=== PATIENT | male | born 1930 | race Caucasian/White ===

== ENCOUNTER 2017-05-12 02:09 | Inpatient (IN) | payer MEDICARE, OTHER ==
--- NOTE | 2017-05-12 03:18 | EDM.PDOC ---
ED HPI GENERAL MEDICAL PROBLEM - General Chief Complaint: Respiratory Problem Stated Complaint: [facility] Time Seen by Provider: 05/12/17 02:10 Source of Information: Reports: Patient, Family (), RN Notes Reviewed History Limitations: Reports: No Limitations - History of Present Illness INITIAL COMMENTS - FREE TEXT/NARRATIVE: The patient states that he developed nausea, vomiting, and nonbloody diarrhea on 05/09/2017, that continued through 05/10/2017. None yesterday or today. He states that he fell and struck his left lower ribs on the toilet around 22:30 tonight. He states that he fell because of generalized weakness, that his legs simply gave out, not because of dizziness. He states that he is otherwise uninjured. Here in the ED, the patient is found to be febrile at 101.8. His oxygen saturation was 75% on room air, 92% on 3.5 L O2 per NC. The patient states that he has a chronic cough, productive of clear sputum, unchanged from his baseline. He is chronically short of breath, and denies exacerbation. No chest pain or palpitations. Up until Wednesday, he was reportedly in his usual state of health. He saw his Grocery Packer, Dr. Davidson, yesterday. The patient's PCP is Dr. Chico Moser. Left Wrist Pain Score (Numeric/FACES): 7 - Related Data Allergies Allergy/AdvReac Type Severity Reaction Status Date / Time No Known Allergies Allergy Verified 07/20/15 09:11 Home Meds: Home Meds Allopurinol [Zyloprim] 150 mg PO BEDTIME 03/02/14 [History] Aspirin [Jacey Chewable Aspirin] 81 mg PO BEDTIME 03/02/14 [History] Furosemide [Lasix] 40 mg PO DAILY 03/02/14 [History] Warfarin [Coumadin] 3 mg PO ASDIRECTED 03/02/14 [History] Fluticasone/Salmeterol [Advair 500-50] 1 puff INH BID 09/29/14 [History] Warfarin Sodium [Coumadin] 6 mg PO ASDIRECTED 10/31/14 [History] Clopidogrel [Plavix] 75 mg PO DAILY 02/16/15 [History] Amoxicillin/Clavulanate K [Augmentin 875 MG/125 MG] 1 tab PO Q12HR #14 tablet [Rx] Fenofibric Acid (Choline) [Fenofibric Acid] 1 tab PO DAILY 07/20/15 [History] Metoprolol Succinate [Toprol XL] 1 tab PO DAILY 07/20/15 [History] glipiZIDE [Glucotrol XL] 1 tab PO QPM 07/20/15 [History] Past Medical History HEENT History: Reports: Cataract, Impaired Vision Cardiovascular History: Reports: Arrhythmia (Sick sinus syndrome), CAD, High Cholesterol, Hypertension, PVD, Other (See Below) (Carotid artery disease) Respiratory History: Reports: COPD, Sleep Apnea (nightly CPAP) Gastrointestinal History: Reports: Diverticulosis Genitourinary History: Reports: BPH, Chronic Renal Insuffiency Musculoskeletal History: Reports: Gout (suspected) Endocrine/Metabolic History: Reports: Diabetes, Type II - Past Surgical History HEENT Surgical History: Reports: Cataract Surgery Cardiovascular Surgical History: Reports: AAA Repair (endograft), Carotid Endarterectomy (left), Coronary Artery Bypass (x 5 vessel), Pacer, Other (See Below) (Bilateral femoral artery stents?) GI Surgical History: Reports: Cholecystectomy Male Surgical History: Reports: TURP-Transurethral Resection of Prostate Social & Family History - Family History Family Medical History: Noncontributory - Tobacco Use Smoking Status *Q: Former Smoker Years of Tobacco use: 60 Packs/Tins Daily: 1 Used Tobacco, but Quit: Yes Month Tobacco Last Used: Quit Nov 2016 Second Hand Smoke Exposure: No - Caffeine Use Caffeine Use: Reports: None - Alcohol Use Alcohol Use History: Yes Days Per Week of Alcohol Use: 7 Number of Drinks Per Day: 1 Total Drinks Per Week: 7 Alcohol Use Frequency: Daily - Recreational Drug Use Recreational Drug Use: No - Living Situation & Occupation Living situation: Reports: , with Spouse Occupation: Retired ED ROS GENERAL - Review of Systems Review Of Systems: See Below Constitutional: Reports: No Symptoms HEENT: Reports: No Symptoms Respiratory: Reports: No Symptoms Cardiovascular: Reports: No Symptoms Endocrine: Reports: No Symptoms GI/Abdominal: Reports: No Symptoms : Reports: No Symptoms Musculoskeletal: Reports: No Symptoms Skin: Reports: No Symptoms Neurological: Reports: No Symptoms Psychiatric: Reports: No Symptoms Hematologic/Lymphatic: Reports: No Symptoms Immunologic: Reports: No Symptoms ED EXAM, GENERAL - Physical Exam Exam: See Below Exam Limited By: No Limitations General Appearance: Alert, WD/WN, No Apparent Distress Eye Exam: Bilateral Eye: Normal Inspection Ears: Normal External Exam, Hearing Grossly Normal Nose: Normal Inspection, No Blood Throat/Mouth: Normal Inspection, Normal Lips, Normal Voice, No Airway Compromise Head: Atraumatic, Normocephalic Neck: Normal Inspection, Full Range of Motion Respiratory/Chest: No Respiratory Distress, No Accessory Muscle Use, Decreased Breath Sounds, Crackles (Right base only), Rhonchi (Scattered throughout). No: Wheezing, Prolonged Expiration Cardiovascular: Normal Peripheral Pulses, Regular Rate, Rhythm, No Gallop, No JVD, No Murmur, No Rub Peripheral Pulses: 4+: Femoral (L), Femoral (R) GI/Abdominal: Normal Bowel Sounds, Soft, No Organomegaly, No Distention, No Abnormal Bruit, No Mass (Male) Exam: Deferred Rectal (Males) Exam: Deferred Back Exam: Normal Inspection, Full Range of Motion. No: CVA Tenderness (L), CVA Tenderness (R) Extremities: Normal Inspection, Normal Range of Motion, Normal Capillary Refill , Other (Trace pretibial edema bilateral lower extremity) Neurological: Alert, Oriented, Normal Cognition, No Motor/Sensory Deficits Psychiatric: Normal Affect Skin Exam: Warm, Dry, Intact, Normal Color, No Rash Lymphatic: No Adenopathy EKG INTERPRETATION EKG Date: 05/12/17 Time: 03:08 Rhythm: Other (V-paced) Rate (Beats/Min): 64 P-Wave: Absent Comparison: No Change (09/29/14) EKG Interpretation Comments: Several PVC's Course - Vital Signs Last Recorded V/S: Last Vital Signs Temp 38.8 C H 05/12/17 02:11 Pulse 79 05/12/17 02:11 Resp 33 H 05/12/17 02:11 BP 140/48 L 05/12/17 02:11 Pulse Ox 95 05/12/17 03:33 - Orders/Labs/Meds Orders: Active Orders 24 hr Category Date Time Status EKG Documentation Completion [RC] STAT Care 05/12/17 02:44 Active RT Aerosol Therapy [RC] ASDIRECTED Care 05/12/17 03:21 Active Chest 1V Frontal [CR] Stat Exams 05/12/17 02:47 Taken CULTURE BLOOD [BC] Stat Lab 05/12/17 02:50 Received CULTURE BLOOD [BC] Stat Lab 05/12/17 02:59 Received CULTURE URINE [RM] Stat Lab 05/12/17 02:25 Received Levofloxacin/Dextrose 5%-Water [Levaquin in D5W 500 MG/ Med 05/12/17 03:34 Active 100 ML] 500 mg Premix Bag 1 bag IV ONETIME Blood Culture x2 Reflex Set [OM.PC] Stat Oth 05/12/17 02:44 Ordered Medication Orders Levofloxacin/Dextrose 500 mg/ (Premix) 100 mls @ 100 mls/hr IV ONETIME ONE Stop: 05/12/17 04:33 Last Admin: 05/12/17 03:44 Dose: 100 mls/hr Labs: Laboratory Tests 05/12/17 05/12/17 05/12/17 Range/Units 02:25 02:44 02:50 WBC 10.85 H (4.23-9.07) K/mm3 RBC 4.08 L (4.63-6.08) M/mm3 Hgb 10.8 L (13.7-17.5) gm/L Hct 34.4 L (40.1-51.0) % MCV 84.3 (79.0-92.2) fl MCH 26.5 (25.7-32.2) pg MCHC 31.4 L (32.2-35.5) g/dl RDW Std Deviation 63.3 H (35.1-43.9) fL Plt Count 250 (163-337) K/mm3 MPV 9.8 (9.4-12.3) fl Neutrophils % (Manual) 88 H (40-60) % Band Neutrophils % 1 (0-10) % Lymphocytes % (Manual) 7 L (20-40) % Atypical Lymphs % 0 % Monocytes % (Manual) 4 (2-10) % Eosinophils % (Manual) 0 L (0.8-7.0) % Basophils % (Manual) 0 L (0.2-1.2) Toxic Granulation 1+ slight Platelet Estimate Adequate Plt Morphology Comment Normal Polychromasia 1+ slight Anisocytosis 1+ slight Microcytosis Few Macrocytosis Moderate Schistocytes Rare RBC Morph Comment Not Reportable PT (8.0-13.0) SECONDS INR APTT (22-36) SECONDS Puncture Site Rt radial ABG pH 7.41 (7.35-7.45) ABG pCO2 35.1 (35.0-45.0) mmHg ABG pO2 70.0 L (80.0-100.0) mmHg ABG HCO3 21.7 L (22.0-26.0) meq/L ABG O2 Saturation 93.2 L (96.0-97.0) % ABG Base Excess -2.0 (-2-2.0) O2 Delivery Device Nasal cannula Oxygen Flow Rate 2.5 FiO2 0.00 L (21.00-100.00) % Sodium (136-145) mEq/L Potassium (3.5-5.1) mEq/L Chloride (98-107) mEq/L Carbon Dioxide (21-32) mEq/L Anion Gap (5-15) BUN (7-18) mg/dL Creatinine (0.7-1.3) mg/dL Est Cr Clr Drug Dosing mL/min Estimated GFR (MDRD) (>60) mL/min BUN/Creatinine Ratio (14-18) Glucose (83-115) mg/dL Lactic Acid (0.4-2.0) mmol/L Calcium (8.5-10.1) mg/dL Total Bilirubin (0.2-1.0) mg/dL AST (15-37) U/L ALT (16-63) U/L Alkaline Phosphatase (46-116) U/L Troponin I (0.00-0.056) ng/mL B-Natriuretic Peptide (0-100) pg/mL Total Protein (6.4-8.2) g/dl Albumin (3.4-5.0) g/dl Globulin gm/dL Albumin/Globulin Ratio (1-2) Urine Color Yellow (Yellow) Urine Appearance Clear (Clear) Urine pH 5.5 (5.0-8.0) Ur Specific [place] 1.020 (1.005-1.030) Urine Protein 1+ H (Negative) Urine Glucose (UA) Negative (Negative) Urine Ketones Negative (Negative) Urine Occult Blood Negative (Negative) Urine Nitrite Negative (Negative) Urine Bilirubin Negative (Negative) Urine Urobilinogen 1.0 (0.2-1.0) Ur Leukocyte Esterase Negative (Negative) Urine RBC 5-10 H (0-5) /hpf Urine WBC 10-20 H (0-5) /hpf Ur Epithelial Cells 0-5 (0-5) /hpf Amorphous Sediment Moderate H (NOT SEEN) /hpf Urine Bacteria Moderate H (FEW) /hpf Hyaline Casts 40-50 H (0-5) /lpf Urine Mucus Few (FEW) /hpf 05/12/17 05/12/17 05/12/17 Range/Units 02:50 02:50 02:50 WBC (4.23-9.07) K/mm3 RBC (4.63-6.08) M/mm3 Hgb (13.7-17.5) gm/L Hct (40.1-51.0) % MCV (79.0-92.2) fl MCH (25.7-32.2) pg MCHC (32.2-35.5) g/dl RDW Std Deviation (35.1-43.9) fL Plt Count (163-337) K/mm3 MPV (9.4-12.3) fl Neutrophils % (Manual) (40-60) % Band Neutrophils % (0-10) % Lymphocytes % (Manual) (20-40) % Atypical Lymphs % % Monocytes % (Manual) (2-10) % Eosinophils % (Manual) (0.8-7.0) % Basophils % (Manual) (0.2-1.2) Toxic Granulation Platelet Estimate Plt Morphology Comment Polychromasia Anisocytosis Microcytosis Macrocytosis Schistocytes RBC Morph Comment PT 35.9 H (8.0-13.0) SECONDS INR 3.07 APTT 44 H (22-36) SECONDS Puncture Site ABG pH (7.35-7.45) ABG pCO2 (35.0-45.0) mmHg ABG pO2 (80.0-100.0) mmHg ABG HCO3 (22.0-26.0) meq/L ABG O2 Saturation (96.0-97.0) % ABG Base Excess (-2-2.0) O2 Delivery Device Oxygen Flow Rate FiO2 (21.00-100.00) % Sodium 138 (136-145) mEq/L Potassium 4.1 (3.5-5.1) mEq/L Chloride 105 (98-107) mEq/L Carbon Dioxide 25 (21-32) mEq/L Anion Gap 12.1 (5-15) BUN 35 H (7-18) mg/dL Creatinine 1.8 H (0.7-1.3) mg/dL Est Cr Clr Drug Dosing 30.98 mL/min Estimated GFR (MDRD) 36 (>60) mL/min BUN/Creatinine Ratio 19.4 H (14-18) Glucose 95 (83-115) mg/dL Lactic Acid (0.4-2.0) mmol/L Calcium 9.2 (8.5-10.1) mg/dL Total Bilirubin 0.9 (0.2-1.0) mg/dL AST 62 H (15-37) U/L ALT 25 (16-63) U/L Alkaline Phosphatase 43 L (46-116) U/L Troponin I 0.071 H* (0.00-0.056) ng/mL B-Natriuretic Peptide 562 H (0-100) pg/mL Total Protein 8.1 (6.4-8.2) g/dl Albumin 3.1 L (3.4-5.0) g/dl Globulin 5.0 gm/dL Albumin/Globulin Ratio 0.6 L (1-2) Urine Color (Yellow) Urine Appearance (Clear) Urine pH (5.0-8.0) Ur Specific [place] (1.005-1.030) Urine Protein (Negative) Urine Glucose (UA) (Negative) Urine Ketones (Negative) Urine Occult Blood (Negative) Urine Nitrite (Negative) Urine Bilirubin (Negative) Urine Urobilinogen (0.2-1.0) Ur Leukocyte Esterase (Negative) Urine RBC (0-5) /hpf Urine WBC (0-5) /hpf Ur Epithelial Cells (0-5) /hpf Amorphous Sediment (NOT SEEN) /hpf Urine Bacteria (FEW) /hpf Hyaline Casts (0-5) /lpf Urine Mucus (FEW) /hpf // Range/Units 02:50 WBC (4.23-9.07) K/mm3 RBC (4.63-6.08) M/mm3 Hgb (13.7-17.5) gm/L Hct (40.1-51.0) % MCV (79.0-92.2) fl MCH (25.7-32.2) pg MCHC (32.2-35.5) g/dl RDW Std Deviation (35.1-43.9) fL Plt Count (163-337) K/mm3 MPV (9.4-12.3) fl Neutrophils % (Manual) (40-60) % Band Neutrophils % (0-10) % Lymphocytes % (Manual) (20-40) % Atypical Lymphs % % Monocytes % (Manual) (2-10) % Eosinophils % (Manual) (0.8-7.0) % Basophils % (Manual) (0.2-1.2) Toxic Granulation Platelet Estimate Plt Morphology Comment Polychromasia Anisocytosis Microcytosis Macrocytosis Schistocytes RBC Morph Comment PT (8.0-13.0) SECONDS INR APTT (22-36) SECONDS Puncture Site ABG pH (7.35-7.45) ABG pCO2 (35.0-45.0) mmHg ABG pO2 (80.0-100.0) mmHg ABG HCO3 (22.0-26.0) meq/L ABG O2 Saturation (96.0-97.0) % ABG Base Excess (-2-2.0) O2 Delivery Device Oxygen Flow Rate FiO2 (21.00-100.00) % Sodium (136-145) mEq/L Potassium (3.5-5.1) mEq/L Chloride (98-107) mEq/L Carbon Dioxide (21-32) mEq/L Anion Gap (5-15) BUN (7-18) mg/dL Creatinine (0.7-1.3) mg/dL Est Cr Clr Drug Dosing mL/min Estimated GFR (MDRD) (>60) mL/min BUN/Creatinine Ratio (14-18) Glucose (83-115) mg/dL Lactic Acid 1.4 (0.4-2.0) mmol/L Calcium (8.5-10.1) mg/dL Total Bilirubin (0.2-1.0) mg/dL AST (15-37) U/L ALT (16-63) U/L Alkaline Phosphatase (46-116) U/L Troponin I (0.00-0.056) ng/mL B-Natriuretic Peptide (0-100) pg/mL Total Protein (6.4-8.2) g/dl Albumin (3.4-5.0) g/dl Globulin gm/dL Albumin/Globulin Ratio (1-2) Urine Color (Yellow) Urine Appearance (Clear) Urine pH (5.0-8.0) Ur Specific [place] (1.005-1.030) Urine Protein (Negative) Urine Glucose (UA) (Negative) Urine Ketones (Negative) Urine Occult Blood (Negative) Urine Nitrite (Negative) Urine Bilirubin (Negative) Urine Urobilinogen (0.2-1.0) Ur Leukocyte Esterase (Negative) Urine RBC (0-5) /hpf Urine WBC (0-5) /hpf Ur Epithelial Cells (0-5) /hpf Amorphous Sediment (NOT SEEN) /hpf Urine Bacteria (FEW) /hpf Hyaline Casts (0-5) /lpf Urine Mucus (FEW) /hpf Meds: Medications Generic Name Dose Route Start Last Admin Trade Name Freq PRN Reason Stop Dose Admin Levofloxacin/Dextrose 500 mg/ 100 mls @ 100 mls/hr 05/12/17 03:34 05/12/17 03 :44 Premix IV 05/12/17 04:33 100 mls/hr ONETIME ONE Administration Discontinued Medications Generic Name Dose Route Start Last Admin Trade Name Freq PRN Reason Stop Dose Admin Albuterol/Ipratropium 3 ml 05/12/17 03:21 05/12/17 03:32 Duoneb 3.0-0.5 Mg/3 Ml NEB 05/12/17 03:22 3 ml ONETIME ONE Administration - Re-Assessments/Exams Free Text/Narrative Re-Assessment/Exam: 05/12/17 03:20 Two-view chest radiograph appears to be grossly unremarkable. Cardiac silhouette is within normal limits. No pulmonary vascular congestion. No pleural effusions. No focal infiltrate. No pneumothorax. Sternotomy wires, consistent with a CABG noted. Left-sided dual-chamber pacemaker noted. Formal read per the Radiologist pending. 05/12/17 03:31 The patient's ABG represents a combined respiratory alkalosis and metabolic acidosis. 05/12/17 03:33 The patient's urinalysis is consistent with a UTI. I have ordered a urine culture and will start the patient on Levaquin. 05/12/17 03:42 The patient's troponin has returned slightly elevated at 0.071, however, the patient's BUN/Cr is elevated at 35/1.8, which is likely responsible for the slight troponin elevation. The patient is not complaining of chest pain or dyspnea. The patient's ECG is V-paced and therefore uninterpretable. The patient's BUN/Cr were 46/1.6 on 11/29/2016. 05/12/17 03:58 Informed that the patient is having intermittent altered mental status. The patient therefore qualifies as having sepsis. Blood cultures were obtained at the time of blood draws, urine culture, as above, has been sent, and the patient has been started on Levaquin for a presumed UTI. 05/12/17 04:[address] Garcia at 04:00. She accepts the patient for admission. The patient's CODE STATUS is DNR/DNI. Departure - Departure Time of Disposition: 04:05 Disposition: Admitted As Inpatient 68 Condition: Serious Clinical Impression: Sepsis, UTI (urinary tract infection), Chronic renal insufficiency, Supratherapeutic INR, Hypoxemia - Discharge Information - My Orders Last 24 Hours: My Active Orders 05/12/17 02:25 CULTURE URINE [RM] Stat 05/12/17 02:44 EKG Documentation Completion [RC] STAT Blood Culture x2 Reflex Set [OM.PC] Stat 05/12/17 02:47 Chest 1V Frontal [CR] Stat 05/12/17 02:50 CULTURE BLOOD [BC] Stat 05/12/17 02:59 CULTURE BLOOD [BC] Stat 05/12/17 03:21 RT Aerosol Therapy [RC] ASDIRECTED 05/12/17 03:34 Levofloxacin/Dextrose 5%-Water [Levaquin in D5W 500 MG/100 ML] 500 mg Premix Bag 1 bag IV ONETIME - Assessment/Plan Last 24 Hours: My Active Orders 05/12/17 02:25 CULTURE URINE [RM] Stat 05/12/17 02:44 EKG Documentation Completion [RC] STAT Blood Culture x2 Reflex Set [OM.PC] Stat 05/12/17 02:47 Chest 1V Frontal [CR] Stat 05/12/17 02:50 CULTURE BLOOD [BC] Stat 05/12/17 02:59 CULTURE BLOOD [BC] Stat 05/12/17 03:21 RT Aerosol Therapy [RC] ASDIRECTED 05/12/17 03:34 Levofloxacin/Dextrose 5%-Water [Levaquin in D5W 500 MG/100 ML] 500 mg Premix Bag 1 bag IV ONETIME
[2017-05-12] MEDS ORDERED: Albuterol/Ipratropium 3.0-0.5 MG/3 ML Neb Soln NEB ONE (03:21)
[2017-05-12] MEDS ORDERED: Levofloxacin/Dextrose 5%-Water 500 MG in Premix Bag 1 BAG IV ONE (03:34)
[2017-05-12] MEDS ORDERED: Albuterol 0.083% 2.5 MG/3 ML Neb Soln NEB PRN (04:49)
[2017-05-12] MEDS: Azithromycin 500 MG in Sodium Chloride 0.9% 250 ML IV SCH (05:23)
[2017-05-12] MEDS: Sodium Chloride 0.9% 1,000 ML IV SCH ×2 (05:23→10:32)
[2017-05-12] MEDS: Acetaminophen 325 MG Tab PO PRN ×3 (05:24→20:58)
[2017-05-12] MEDS: Albuterol/Ipratropium 3.0-0.5 MG/3 ML Neb Soln NEB SCH ×4 (06:04→20:25)
--- NOTE | 2017-05-12 06:45 | CR ---
Chest: Portable view of the chest was obtained. Comparison: Previous chest x-ray 10/31/14. Heart is enlarged. Pacemaker is noted. Sternotomy wires are seen. Lung markings are mildly increased which appear to be chronic. No acute infiltrates are seen. Old left-sided rib fractures are present. Impression: 1. Findings as noted above. No appreciable change is seen from previous study. Diagnostic code #2
[2017-05-12] MEDS: methylPREDNISolone Sodium Succinate 40 MG/1 ML SDV IVPUSH SCH ×3 (08:31→23:00)
[2017-05-12] MEDS ORDERED: Enoxaparin 30 MG/0.3 ML Syringe SUBCUT SCH (09:00)
--- NOTE | 2017-05-12 09:30 | PCM.PN ---
- General Info Date of Service: 05/12/17 - Review of Systems General: Reports: Weakness (He says he fall last night was due to weakness). 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 He was seen in the clinic on Wednesday. He and his say they were told it was influenza. He has not had nausea, vomiting or diarrhea since being admitted. - Patient Data Vitals - Most Recent: Last Vital Signs Temp 99.1 F 05/12/17 08:13 Pulse 60 05/12/17 08:13 Resp 14 05/12/17 08:13 BP 115/35 L 05/12/17 08:13 Pulse Ox 96 05/12/17 08:49 Weight - Most Recent: 170 lb 4.8 oz Lab Results Last 24 Hours: Laboratory Results - last 24 hr 05/12/17 05/12/17 05/12/17 Range/Units 06:34 06:35 06:35 WBC 11.07 H (4.23-9.07) K/mm3 RBC 3.54 L (4.63-6.08) M/mm3 Hgb 9.3 L (13.7-17.5) gm/L Hct 29.7 L (40.1-51.0) % MCV 83.9 (79.0-92.2) fl MCH 26.3 (25.7-32.2) pg MCHC 31.3 L (32.2-35.5) g/dl RDW Std Deviation 60.8 H (35.1-43.9) fL Plt Count 197 (163-337) K/mm3 MPV 9.9 (9.4-12.3) fl Sodium 137 (136-145) mEq/L Potassium 3.9 (3.5-5.1) mEq/L Chloride 106 (98-107) mEq/L Carbon Dioxide 21 (21-32) mEq/L Anion Gap 13.9 (5-15) BUN 36 H (7-18) mg/dL Creatinine 1.7 H (0.7-1.3) mg/dL Est Cr Clr Drug Dosing 32.80 mL/min Estimated GFR (MDRD) 38 (>60) mL/min BUN/Creatinine Ratio 21.2 H (14-18) Glucose 93 (83-115) mg/dL POC Glucose 89 (83-110) mg/dL Calcium 8.7 (8.5-10.1) mg/dL C-Reactive Protein 3.2 H* (<1.0) mg/dL Med Orders - Current: Current Medications Acetaminophen (Tylenol) 650 mg PO Q4H PRN PRN Reason: Pain/Fever Last Admin: 05/12/17 05:24 Dose: 650 mg Albuterol (Proventil Neb Soln) 2.5 mg NEB Q4HRRT PRN PRN Reason: Shortness of Breath Albuterol/Ipratropium (Duoneb 3.0-0.5 Mg/3 Ml) 3 ml NEB Q6HRRT [facility] Last Admin: 05/12/17 08:27 Dose: 3 ml Enoxaparin Sodium (Lovenox) 30 mg SUBCUT DAILY [facility] Last Admin: 05/12/17 08:31 Dose: 30 mg Azithromycin 500 mg/ Sodium (Chloride) 250 mls @ 250 mls/hr IV Q24H [facility] Last Admin: 05/12/17 05:23 Dose: 250 mls/hr Ceftriaxone Sodium 2 gm/ (Sodium Chloride) 100 mls @ 200 mls/hr IV Q24H [facility] Sodium Chloride (Normal Saline) 1,000 mls @ 200 mls/hr IV ASDIRECTED [facility] Last Admin: 05/12/17 05:23 Dose: 200 mls/hr Methylprednisolone Sodium Succinate (Solu-Medrol) 40 mg IVPUSH Q8H [facility] Last Admin: 05/12/17 08:31 Dose: 40 mg Discontinued Medications Albuterol/Ipratropium (Duoneb 3.0-0.5 Mg/3 Ml) 3 ml NEB ONETIME ONE Stop: 05/12/17 03:22 Last Admin: 05/12/17 03:32 Dose: 3 ml Levofloxacin/Dextrose 500 mg/ (Premix) 100 mls @ 100 mls/hr IV ONETIME ONE Stop: 05/12/17 04:33 Last Admin: 05/12/17 03:44 Dose: 100 mls/hr - Exam Quality Assessment: Supplemental Oxygen General: Alert, Oriented, Cooperative Lungs: Crackles (bilateral lower lob), Rhonchi, Wheezing Cardiovascular: Regular Rate, Regular Rhythm GI/Abdominal Exam: Normal Bowel Sounds, Soft, Non-Tender, No Distention, No Abnormal Bruit, No Mass. No: Hepatomegaly Peripheral Pulses: 2+: Radial (L), Radial (R) Skin: Warm, Dry, Other (bruising on forearms) - Problem List Review Problem List Initiated/Reviewed/Updated: Yes - Plan Plan:: Assessment: Acute exacerbation of COPD Bruising over anterior left lower ribcage Plan: Repeat chest x-ray Repeat troponin
[2017-05-12] MEDS: cefTRIAXone 2 GM in Sodium Chloride 0.9% 100 ML IV SCH (10:33)
[2017-05-12] MEDS: Tamsulosin 0.4 MG Cap.ER PO SCH (11:35)
[2017-05-12] MEDS ORDERED: Albuterol/Ipratropium 3.0-0.5 MG/3 ML Neb Soln NEB SCH (14:00)
--- NOTE | 2017-05-12 14:41 | PCM.HP ---
H&P History of Present Illness - General Date of Service: 05/12/17 Admit Problem/Dx: Admission Diagnosis/Problem Admission Diagnosis/Problem Sepsis Source of Information: Patient, Family, Provider History Limitations: Reports: No Limitations - History of Present Illness Onset of Symptoms: Reports: Sudden Symptom Onset Date: 05/10/17 Duration of Symptoms: Reports: Day(s):, Getting Worse Location: Reports: Generalized Quality: Reports: Pressure Severity: Moderate Improves with: Reports: Medication Worsens with: Reports: None Context: Reports: Activity/Exercise Associated Symptoms: Reports: Chest Pain Left Wrist Pain Score (Numeric/FACES): 4 Thoracic Pain Score (Numeric/FACES): 5 - Related Data Allergies/Adverse Reactions: Allergies Allergy/AdvReac Type Severity Reaction Status Date / Time No Known Allergies Allergy Verified 07/20/15 09:11 Home Medications: Home Meds Allopurinol [Zyloprim] 150 mg PO BEDTIME 03/02/14 [History] Aspirin [Jacey Chewable Aspirin] 81 mg PO BEDTIME 03/02/14 [History] Furosemide [Lasix] 20 mg PO DAILY 03/02/14 [History] Warfarin [Coumadin] 3 mg PO ASDIRECTED 03/02/14 [History] Fluticasone/Salmeterol [Advair 500-50] 1 puff INH BID 09/29/14 [History] Warfarin Sodium [Coumadin] 6 mg PO ASDIRECTED 10/31/14 [History] Clopidogrel [Plavix] 75 mg PO DAILY 02/16/15 [History] Metoprolol Succinate [Toprol XL] 1 tab PO DAILY 07/20/15 [History] Albuterol/Ipratropium [DuoNeb 3.0-0.5 MG/3 ML] 3 ml NEB Q8HRRT 05/12/17 [History ] Pravastatin Sodium [Pravachol] 20 mg PO DAILY 05/12/17 [History] glipiZIDE [Glucotrol XL] 2.5 mg PO DAILY 05/12/17 [History] Past Medical History HEENT History: Reports: Cataract, Impaired Vision Cardiovascular History: Reports: Arrhythmia, CAD, Hypertension, PVD Respiratory History: Reports: COPD, Sleep Apnea Gastrointestinal History: Reports: Diverticulosis Genitourinary History: Reports: BPH, Chronic Renal Insuffiency, Diabetic Nephropathy Musculoskeletal History: Reports: Gout Neurological History: Reports: None Psychiatric History: Reports: None Endocrine/Metabolic History: Reports: Diabetes, Type II - Infectious Disease History Infectious Disease History: Reports: Other (See Below) Other Infectious Disease History: infectious hepatitis in 1957 - Past Surgical History HEENT Surgical History: Reports: Cataract Surgery Cardiovascular Surgical History: Reports: AAA Repair, Carotid Endarterectomy, Coronary Artery Bypass, Pacer Respiratory Surgical History: Reports: None GI Surgical History: Reports: Cholecystectomy Male Surgical History: Reports: TURP-Transurethral Resection of Prostate Endocrine Surgical History: Reports: None Neurological Surgical History: Reports: None Musculoskeletal Surgical History: Reports: None Social & Family History - Family History Family Medical History: Noncontributory Respiratory: Reports: COPD Other Respiratory Family Hisory: mother Oncologic: Reports: Cervix Other Oncologic Family History: mother - Tobacco Use Smoking Status *Q: Former Smoker Years of Tobacco use: 60 Packs/Tins Daily: 1 Used Tobacco, but Quit: Yes Month Tobacco Last Used: December Second Hand Smoke Exposure: No - Caffeine Use Caffeine Use: Reports: Coffee - Alcohol Use Days Per Week of Alcohol Use: 7 Number of Drinks Per Day: 1 Total Drinks Per Week: 7 Date of Last Drink: 05/07/17 Time of Last Drink: 19:00 - Recreational Drug Use Recreational Drug Use: No - Living Situation & Occupation Living situation: Reports: , with Spouse Occupation: Retired H&P Review of Systems - Review of Systems: Review Of Systems: See Below General: Reports: Weakness HEENT: Reports: No Symptoms Pulmonary: Reports: Shortness of Breath, Wheezing Cardiovascular: Reports: No Symptoms Gastrointestinal: Reports: No Symptoms Genitourinary: Reports: No Symptoms Musculoskeletal: Reports: Other (left rib pain/) Skin: Reports: No Symptoms Psychiatric: Reports: No Symptoms Neurological: Reports: No Symptoms Hematologic/Lymphatic: Reports: No Symptoms Immunologic: Reports: No Symptoms Exam - Exam Exam: See Below - Vital Signs Vital Signs: Last Vital Signs Temp 36.9 C 05/12/17 11:35 Pulse 61 05/12/17 11:35 Resp 14 05/12/17 11:35 BP 132/60 05/12/17 11:35 Pulse Ox 98 05/12/17 11:35 Weight: 77.247 kg - Exam Quality Assessment: Supplemental Oxygen, DVT Prophylaxis General: Alert, Oriented, Cooperative HEENT: Nares Patent, Normal Nasal Septum, Pupils Equal, Pupils Reactive, TMs Clear Neck: Supple, Trachea Midline Lungs: Normal Respiratory Effort, Decreased Breath Sounds, Rhonchi, Wheezing Cardiovascular: Regular Rate GI/Abdominal Exam: Normal Bowel Sounds, Soft, Non-Tender, No Organomegaly, No Distention (Male) Exam: Deferred Rectal (Males) Exam: Deferred Back Exam: Normal Inspection Extremities: Normal Inspection Skin: Warm Neurological: Cranial Nerves Intact Neuro Extensive - Mental Status: Alert, Oriented x3, Normal Mood/Affect, Normal Cognition, Memory Intact Neuro Extensive - Motor, Sensory, Reflexes: CN II-XII Intact, Normal Gait Psychiatric: Alert, Normal Affect, Normal Mood - Patient Data Lab Results Last 24 hrs: Laboratory Results - last 24 hr 05/12/17 05/12/17 05/12/17 Range/Units 06:34 06:35 06:35 WBC 11.07 H (4.23-9.07) K/mm3 RBC 3.54 L (4.63-6.08) M/mm3 Hgb 9.3 L (13.7-17.5) gm/L Hct 29.7 L (40.1-51.0) % MCV 83.9 (79.0-92.2) fl MCH 26.3 (25.7-32.2) pg MCHC 31.3 L (32.2-35.5) g/dl RDW Std Deviation 60.8 H (35.1-43.9) fL Plt Count 197 (163-337) K/mm3 MPV 9.9 (9.4-12.3) fl Neut % (Auto) 84.9 H (34.0-67.9) % Lymph % (Auto) 5.0 L (21.8-53.1) % [place] % (Auto) 9.3 (5.3-12.2) % Eos % (Auto) 0.3 L (0.8-7.0) Baso % (Auto) 0.1 (0.1-1.2) % Neut # (Auto) 9.64 H (1.78-5.38) K/mm3 Lymph # (Auto) 0.57 L (1.32-3.57) K/mm3 [place] # (Auto) 1.05 H (0.30-0.82) K/mm3 Eos # (Auto) 0.03 L (0.04-0.54) K/mm3 Baso # (Auto) 0.01 (0.01-0.08) K/mm3 Manual Slide Review Abnormal smear Sodium 137 (136-145) mEq/L Potassium 3.9 (3.5-5.1) mEq/L Chloride 106 (98-107) mEq/L Carbon Dioxide 21 (21-32) mEq/L Anion Gap 13.9 (5-15) BUN 36 H (7-18) mg/dL Creatinine 1.7 H (0.7-1.3) mg/dL Est Cr Clr Drug Dosing 32.80 mL/min Estimated GFR (MDRD) 38 (>60) mL/min BUN/Creatinine Ratio 21.2 H (14-18) Glucose 93 (83-115) mg/dL POC Glucose 89 (83-110) mg/dL Calcium 8.7 (8.5-10.1) mg/dL C-Reactive Protein 3.2 H* (<1.0) mg/dL Result Diagrams: 05/12/17 06:35 05/12/17 06:35 *Q Meaningful Use (ADM) - VTE *Q VTE Criteria *Q: - Stroke *Q Stroke Criteria *Q: - AMI *Q AMI Criteria *Q: - Problem List (1) COPD exacerbation SNOMED Code(s): 438287080, 980343691 ICD Code: J44.1 - CHRONIC OBSTRUCTIVE PULMONARY DISEASE W (ACUTE) EXACERBATION Status: Acute Current Visit: Yes (2) Chronic renal insufficiency SNOMED Code(s): 840537678 ICD Code: N18.9 - CHRONIC KIDNEY DISEASE, UNSPECIFIED Status: Acute Current Visit: Yes (3) Hypoxemia SNOMED Code(s): 706326566 ICD Code: R09.02 - HYPOXEMIA Status: Acute Current Visit: Yes (4) Supratherapeutic INR SNOMED Code(s): 359135665, 708728835 ICD Code: R79.1 - ABNORMAL COAGULATION PROFILE Status: Acute Current Visit: Yes Problem List Initiated/Reviewed/Updated: Yes Orders Last 24hrs: Active Orders 24 hr Category Date Time Status Admission Status [Patient Status] [ADT] Routine ADT 05/12/17 05:04 Active Antiembolic Devices [RC] QSHIFT Care 05/12/17 04:51 Active Oxygen Therapy [RC] ASDIRECTED Care 05/12/17 04:52 Active Up With Assistance [RC] BID Care 05/12/17 04:57 Active Vital Signs [RC] PER UNIT ROUTINE Care 05/12/17 11:12 Active Consult to Occupational Therapy [OT Evaluation and Cons 05/12/17 04:56 Active Treatment] [CONS] Routine Consult to Physical Therapy [PT Evaluation and Cons 05/12/17 04:55 Active Treatment] [CONS] Routine Consult to [employer] [CONS] Routine Cons 05/12/17 11:21 Active Heart Healthy Diet [DIET] Diet 05/12/17 Lunch Active CXR [Chest 2V] [CR] Routine Exams 05/14/17 08:00 Ordered BASIC METABOLIC PANEL,BMP [CHEM] DAILY Lab 05/13/17 05:00 Ordered BASIC METABOLIC PANEL,BMP [CHEM] DAILY Lab 05/14/17 05:00 Ordered BASIC METABOLIC PANEL,BMP [CHEM] DAILY Lab 05/15/17 05:00 Ordered BASIC METABOLIC PANEL,BMP [CHEM] DAILY Lab 05/16/17 05:00 Ordered CBC WITH AUTO DIFF [HEME] DAILY Lab 05/13/17 05:00 Ordered CBC WITH AUTO DIFF [HEME] DAILY Lab 05/14/17 05:00 Ordered CBC WITH AUTO DIFF [HEME] DAILY Lab 05/15/17 05:00 Ordered CBC WITH AUTO DIFF [HEME] DAILY Lab 05/16/17 05:00 Ordered CRP [C-REACTIVE PROTEIN] [CHEM] DAILY Lab 05/13/17 05:00 Ordered CRP [C-REACTIVE PROTEIN] [CHEM] DAILY Lab 05/14/17 05:00 Ordered CRP [C-REACTIVE PROTEIN] [CHEM] DAILY Lab 05/15/17 05:00 Ordered CRP [C-REACTIVE PROTEIN] [CHEM] DAILY Lab 05/16/17 05:00 Ordered MAGNESIUM [CHEM] DAILY Lab 05/13/17 05:00 Ordered MAGNESIUM [CHEM] DAILY Lab 05/14/17 05:00 Ordered MAGNESIUM [CHEM] DAILY Lab 05/15/17 05:00 Ordered MAGNESIUM [CHEM] DAILY Lab 05/16/17 05:00 Ordered TROPONIN I [CHEM] Routine Lab 05/12/17 14:28 Received Acetaminophen [Tylenol] Med 05/12/17 05:05 Active 650 mg PO Q4H PRN Albuterol [Proventil Neb Soln] Med 05/12/17 04:49 Active 2.5 mg NEB Q4HRRT PRN Albuterol/Ipratropium [DuoNeb 3.0-0.5 MG/3 ML] Med 05/12/17 16:00 Active 3 ml NEB QIDRT Allopurinol [Zyloprim] Med 05/12/17 21:00 Active 150 mg PO BEDTIME Aspirin Med 05/12/17 21:00 Active 81 mg PO BEDTIME Azithromycin [Zithromax] 500 mg Med 05/12/17 05:00 Active Sodium Chloride 0.9% [Normal Saline] 250 ml IV Q24H Clopidogrel [Plavix] Med 05/13/17 09:00 Active 75 mg PO DAILY Metoprolol Succinate [Toprol XL] Med 05/13/17 09:00 Active 25 mg PO DAILY Mometasone/Formoterol [Dulera 200-5 MCG] Med 05/12/17 21:00 Active 2 puff IH BID Morphine Med 05/12/17 11:46 Active 15 mg PO Q4H PRN Simvastatin [Zocor] Med 05/12/17 21:00 Active 10 mg PO BEDTIME Sodium Chloride 0.9% [Normal Saline] 1,000 ml Med 05/12/17 05:15 Active IV ASDIRECTED Tamsulosin [Flomax] Med 05/12/17 11:30 Active 0.4 mg PO DAILY Warfarin [Coumadin] Med 05/12/17 18:00 Active 3 mg PO SuTuWeThFrSa@1800 Warfarin [Coumadin] Med 05/17/17 18:00 Active 6 mg PO Mo@1800 cefTRIAXone [Rocephin] 2 gm Med 05/12/17 11:00 Active Sodium Chloride 0.9% [Normal Saline] 100 ml IV Q24H methylPREDNISolone Sod Succ [Solu-MEDROL] Med 05/12/17 08:00 Active 40 mg IVPUSH Q8H MARY Hose [Antiembolic Hose] [OM.PC] Routine Oth 05/12/17 04:51 Ordered Resuscitation Status Routine Resus Stat 05/12/17 04:58 Ordered Medication Orders Acetaminophen (Tylenol) 650 mg PO Q4H PRN PRN Reason: Pain/Fever Last Admin: 05/12/17 05:24 Dose: 650 mg Albuterol (Proventil Neb Soln) 2.5 mg NEB Q4HRRT PRN PRN Reason: Shortness of Breath Albuterol/Ipratropium (Duoneb 3.0-0.5 Mg/3 Ml) 3 ml NEB QIDRT [facility] Allopurinol (Zyloprim) 150 mg PO BEDTIME [facility] Aspirin (Aspirin) 81 mg PO BEDTIME [facility] Clopidogrel Bisulfate (Plavix) 75 mg PO DAILY [facility] Azithromycin 500 mg/ Sodium (Chloride) 250 mls @ 250 mls/hr IV Q24H [facility] Last Admin: 05/12/17 05:23 Dose: 250 mls/hr Ceftriaxone Sodium 2 gm/ (Sodium Chloride) 100 mls @ 200 mls/hr IV Q24H [facility] Last Admin: 05/12/17 10:33 Dose: 200 mls/hr Sodium Chloride (Normal Saline) 1,000 mls @ 75 mls/hr IV ASDIRECTED [facility] Last Admin: 05/12/17 10:32 Dose: 75 mls/hr Infusion: 05/12/17 10:23 Dose: 200 mls/hr Admin: 05/12/17 05:23 Dose: 200 mls/hr Methylprednisolone Sodium Succinate (Solu-Medrol) 40 mg IVPUSH Q8H [facility] Last Admin: 05/12/17 08:31 Dose: 40 mg Metoprolol Succinate (Toprol Xl) 25 mg PO DAILY [facility] Mometasone Furoate/Formoterol Fumar (Dulera 200-5 Mcg) 2 puff IH BID [facility] Morphine Sulfate (Morphine) 15 mg PO Q4H PRN PRN Reason: RIB PAIN Simvastatin (Zocor) 10 mg PO BEDTIME [facility] Tamsulosin HCl (Flomax) 0.4 mg PO DAILY [facility] Last Admin: 05/12/17 11:35 Dose: 0.4 mg Warfarin Sodium (Coumadin) 6 mg PO Mo@1800 [facility] Warfarin Sodium (Coumadin) 3 mg PO SuTuWeThFrSa@1800 [facility] Assessment/Plan Comment:: Impression: Acute exacerbation of COPD URI/doubt PNA S/P fall with rib pain Doubt AUTI Supratherapeutic INR Chronic PVD (AAA/BEL/LE Stents) CAD/CABG SSS/? A Fib/PPM DERICK on CPAP CKD III HTN HLD Plan: Vitamin K Stop Levoquin; start Zithro/Rocephin Home meds Neb treatments Repeat CXR on 05/14/17 SW/PT/OT DVT/GI prophylaxis
[2017-05-12] MEDS ORDERED: Phytonadione 5 MG in Sodium Chloride 0.9% 50 ML IV ONE (14:46)
[2017-05-12] MEDS ORDERED: Phytonadione ORAL 2.5mg/2.5ml Soln Simple Syrup U/D PO ONE (15:00)
[2017-05-12] MEDS ORDERED: Warfarin 3 MG Tab PO SCH (18:00)
[2017-05-12] MEDS: Formoterol/Mometasone 200-5 MCG 8.8 GM Inhaler IH SCH (20:24)
[2017-05-12] MEDS: Simvastatin 10 MG Tab PO SCH (20:57)
[2017-05-12] MEDS: Allopurinol 300 MG Tab PO SCH (20:57)
[2017-05-12] MEDS: Aspirin 81 MG Tab.Chew PO SCH (20:58)
[2017-05-13] MEDS: Albuterol/Ipratropium 3.0-0.5 MG/3 ML Neb Soln NEB SCH ×4 (05:31→20:38)
[2017-05-13] MEDS: Azithromycin 500 MG in Sodium Chloride 0.9% 250 ML IV SCH (06:05)
[2017-05-13] MEDS: Clopidogrel 75 MG Tab PO SCH (08:53)
[2017-05-13] MEDS: Tamsulosin 0.4 MG Cap.ER PO SCH (08:53)
[2017-05-13] MEDS: Metoprolol Succinate 25 MG Tab.ER PO SCH (08:55)
[2017-05-13] MEDS: methylPREDNISolone Sodium Succinate 40 MG/1 ML SDV IVPUSH SCH ×2 (09:05→16:08)
[2017-05-13] MEDS: Formoterol/Mometasone 200-5 MCG 8.8 GM Inhaler IH SCH ×2 (10:02→20:38)
[2017-05-13] MEDS: cefTRIAXone 2 GM in Sodium Chloride 0.9% 100 ML IV SCH (11:36)
--- NOTE | 2017-05-13 11:38 | PCM.PN ---
- General Info Date of Service: 05/13/17 Functional Status: Reports: Ambulating, Urinating - Review of Systems Pulmonary: Reports: Cough, Sputum Cardiovascular: Reports: Other (He said he can walk across a parking lot before his legs are "weak" and he needs to rest; describes as "neuropathy") Gastrointestinal: Reports: Diarrhea (Watery, yellow diarrhea the night) Musculoskeletal: Reports: Other (Pain on anterior left lower ribcage; 1/10 at rest; 7/10 when coughing) Systems Review Comment:: He says he had watery, yellow diarrhea during the night which resulted in a poor night's sleep. He still has pain in the anterior lower ribcage. He rates it as 1/10 at rest and 7/10 when he coughs. He said his breathing has been better with the supplemental oxygen. He says he has been coughing and producing sputum, but no more than normal. - Patient Data Vitals - Most Recent: Last Vital Signs Temp 98.2 F 05/13/17 07:50 Pulse 62 05/13/17 08:55 Resp 16 05/13/17 07:50 BP 159/49 H 05/13/17 08:55 Pulse Ox 98 05/13/17 10:03 Weight - Most Recent: 175 lb 4.8 oz I&O - Last 24 Hours: Intake & Output 05/12/17 05/13/17 05/13/17 22:59 06:59 14:59 Intake Total 2550 734 480 Output Total 750 Balance 2550 -16 480 Lab Results Last 24 Hours: Laboratory Results - last 24 hr 05/12/17 05/12/17 05/13/17 Range/Units 06:35 14:28 05:56 WBC 11.07 H (4.23-9.07) K/mm3 RBC 3.54 L (4.63-6.08) M/mm3 Hgb 9.3 L (13.7-17.5) gm/L Hct 29.7 L (40.1-51.0) % MCV 83.9 (79.0-92.2) fl MCH 26.3 (25.7-32.2) pg MCHC 31.3 L (32.2-35.5) g/dl RDW Std Deviation 60.8 H (35.1-43.9) fL Plt Count 197 (163-337) K/mm3 MPV 9.9 (9.4-12.3) fl Neut % (Auto) 84.9 H (34.0-67.9) % Lymph % (Auto) 5.0 L (21.8-53.1) % [place] % (Auto) 9.3 (5.3-12.2) % Eos % (Auto) 0.3 L (0.8-7.0) Baso % (Auto) 0.1 (0.1-1.2) % Neut # (Auto) 9.64 H (1.78-5.38) K/mm3 Lymph # (Auto) 0.57 L (1.32-3.57) K/mm3 [place] # (Auto) 1.05 H (0.30-0.82) K/mm3 Eos # (Auto) 0.03 L (0.04-0.54) K/mm3 Baso # (Auto) 0.01 (0.01-0.08) K/mm3 Manual Slide Review Abnormal smear PT (8.0-13.0) SECONDS INR Sodium 139 (136-145) mEq/L Potassium 4.7 (3.5-5.1) mEq/L Chloride 107 (98-107) mEq/L Carbon Dioxide 23 (21-32) mEq/L Anion Gap 13.7 (5-15) BUN 35 H (7-18) mg/dL Creatinine 1.3 (0.7-1.3) mg/dL Est Cr Clr Drug Dosing 43.00 mL/min Estimated GFR (MDRD) 52 (>60) mL/min BUN/Creatinine Ratio 26.9 H (14-18) Glucose 171 H (83-115) mg/dL Calcium 8.9 (8.5-10.1) mg/dL Magnesium 1.8 (1.8-2.4) mg/dl Troponin I 0.080 H* (0.00-0.056) ng/mL C-Reactive Protein 8.5 H* (<1.0) mg/dL 05/13/17 05/13/17 Range/Units 05:56 05:56 WBC 7.26 (4.23-9.07) K/mm3 RBC 3.59 L (4.63-6.08) M/mm3 Hgb 9.4 L (13.7-17.5) gm/L Hct 30.3 L (40.1-51.0) % MCV 84.4 (79.0-92.2) fl MCH 26.2 (25.7-32.2) pg MCHC 31.0 L (32.2-35.5) g/dl RDW Std Deviation 62.5 H (35.1-43.9) fL Plt Count 180 (163-337) K/mm3 MPV 9.7 (9.4-12.3) fl Neut % (Auto) 88.3 H (34.0-67.9) % Lymph % (Auto) 8.1 L (21.8-53.1) % [place] % (Auto) 3.4 L (5.3-12.2) % Eos % (Auto) 0 L (0.8-7.0) Baso % (Auto) 0.1 (0.1-1.2) % Neut # (Auto) 6.40 H (1.78-5.38) K/mm3 Lymph # (Auto) 0.59 L (1.32-3.57) K/mm3 [place] # (Auto) 0.25 L (0.30-0.82) K/mm3 Eos # (Auto) 0.00 L (0.04-0.54) K/mm3 Baso # (Auto) 0.01 (0.01-0.08) K/mm3 Manual Slide Review Abnormal smear PT 28.7 H (8.0-13.0) SECONDS INR 2.48 Sodium (136-145) mEq/L Potassium (3.5-5.1) mEq/L Chloride (98-107) mEq/L Carbon Dioxide (21-32) mEq/L Anion Gap (5-15) BUN (7-18) mg/dL Creatinine (0.7-1.3) mg/dL Est Cr Clr Drug Dosing mL/min Estimated GFR (MDRD) (>60) mL/min BUN/Creatinine Ratio (14-18) Glucose (83-115) mg/dL Calcium (8.5-10.1) mg/dL Magnesium (1.8-2.4) mg/dl Troponin I (0.00-0.056) ng/mL C-Reactive Protein (<1.0) mg/dL Med Orders - Current: Current Medications Acetaminophen (Tylenol) 650 mg PO Q4H PRN PRN Reason: Pain/Fever Last Admin: 05/12/17 20:58 Dose: 650 mg Albuterol (Proventil Neb Soln) 2.5 mg NEB Q4HRRT PRN PRN Reason: Shortness of Breath Albuterol/Ipratropium (Duoneb 3.0-0.5 Mg/3 Ml) 3 ml NEB QIDRT [facility] Last Admin: 05/13/17 10:01 Dose: 3 ml Allopurinol (Zyloprim) 150 mg PO BEDTIME [facility] Last Admin: 05/12/17 20:57 Dose: 150 mg Aspirin (Aspirin) 81 mg PO BEDTIME [facility] Last Admin: 05/12/17 20:58 Dose: 81 mg Clopidogrel Bisulfate (Plavix) 75 mg PO DAILY [facility] Last Admin: 05/13/17 08:53 Dose: 75 mg Azithromycin 500 mg/ Sodium (Chloride) 250 mls @ 250 mls/hr IV Q24H [facility] Last Admin: 05/13/17 06:05 Dose: 250 mls/hr Ceftriaxone Sodium 2 gm/ (Sodium Chloride) 100 mls @ 200 mls/hr IV Q24H [facility] Last Admin: 05/12/17 10:33 Dose: 200 mls/hr Methylprednisolone Sodium Succinate (Solu-Medrol) 40 mg IVPUSH Q8H [facility] Last Admin: 05/13/17 09:05 Dose: 40 mg Metoprolol Succinate (Toprol Xl) 25 mg PO DAILY [facility] Last Admin: 05/13/17 08:55 Dose: 25 mg Mometasone Furoate/Formoterol Fumar (Dulera 200-5 Mcg) 2 puff IH BID [facility] Last Admin: 05/13/17 10:02 Dose: 2 puff Morphine Sulfate (Morphine) 15 mg PO Q4H PRN PRN Reason: RIB PAIN Simvastatin (Zocor) 10 mg PO BEDTIME [facility] Last Admin: 05/12/17 20:57 Dose: Not Given Tamsulosin HCl (Flomax) 0.4 mg PO DAILY [facility] Last Admin: 05/13/17 08:53 Dose: 0.4 mg Discontinued Medications Albuterol/Ipratropium (Duoneb 3.0-0.5 Mg/3 Ml) 3 ml NEB ONETIME ONE Stop: 05/12/17 03:22 Last Admin: 05/12/17 03:32 Dose: 3 ml Albuterol/Ipratropium (Duoneb 3.0-0.5 Mg/3 Ml) 3 ml NEB Q6HRRT [facility] Last Admin: 05/12/17 08:27 Dose: 3 ml Albuterol/Ipratropium (Duoneb 3.0-0.5 Mg/3 Ml) 3 ml NEB Q8HRRT [facility] Enoxaparin Sodium (Lovenox) 30 mg SUBCUT DAILY [facility] Last Admin: 05/12/17 08:31 Dose: 30 mg Levofloxacin/Dextrose 500 mg/ (Premix) 100 mls @ 100 mls/hr IV ONETIME ONE Stop: 05/12/17 04:33 Last Admin: 05/12/17 03:44 Dose: 100 mls/hr Sodium Chloride (Normal Saline) 1,000 mls @ 75 mls/hr IV ASDIRECTED [facility] Last Infusion: 05/12/17 22:11 Dose: 75 mls/hr Phytonadione 5 mg/ Sodium (Chloride) 50.5 mls @ 100 mls/hr IV NOW ONE Stop: 05/12/17 15:16 Last Admin: 05/12/17 19:28 Dose: Not Given Phytonadione (Aquamephyton) 5 mg PO ONETIME ONE Stop: 05/12/17 15:01 Last Admin: 05/12/17 15:09 Dose: 5 mg Warfarin Sodium (Coumadin) 6 mg PO Mo@1800 [facility] Warfarin Sodium (Coumadin) 3 mg PO SuTuWeThFrSa@1800 [facility] - Exam Quality Assessment: Supplemental Oxygen General: Alert, Oriented Lungs: Crackles (Lower lobes bilaterally) Cardiovascular: Regular Rate, Regular Rhythm, No Murmurs Skin: Warm, Dry - Problem List Review Problem List Initiated/Reviewed/Updated: Yes - Assessment Assessment:: Assessment: Describes claudication as "neuropathy" History of PAD --> status post AAA repair Questionable Iliac stents Chronic COPD Plan: Arterial duplex +/- GRACE Possible imaging - Plan Plan:: Impression: Acute exacerbation of COPD URI/doubt PNA S/P fall with rib pain Doubt AUTI Supratherapeutic INR Chronic PVD (AAA/BEL/LE Stents) CAD/CABG SSS/? A Fib/PPM DERICK on CPAP CKD III HTN HLD Plan: Vitamin K Stop Levoquin; start Zithro/Rocephin Home meds Neb treatments Repeat CXR on 05/14/17 SW/PT/OT DVT/GI prophylaxis
[2017-05-13] MEDS ORDERED: Sodium Chloride 0.9% 1,000 ML IV SCH (16:00)
[2017-05-13] MEDS: Dronabinol 2.5 MG Cap PO SCH (16:08)
[2017-05-13] MEDS: Acetaminophen 325 MG Tab PO PRN (18:14)
[2017-05-13] MEDS: Allopurinol 300 MG Tab PO SCH (20:27)
[2017-05-13] MEDS: Saccharomyces Boulardii (Probiotic) 250 MG Cap PO SCH (20:27)
[2017-05-13] MEDS: Aspirin 81 MG Tab.Chew PO SCH (20:27)
[2017-05-13] MEDS: Simvastatin 10 MG Tab PO SCH (20:28)
[2017-05-13] MEDS ORDERED: Furosemide 20 MG/2 ML VIAL IVPUSH ONE (20:58)
[2017-05-13] MEDS ORDERED: Furosemide 40 MG/4 ML VIAL IVPUSH ONE (20:58)
[2017-05-14] MEDS: methylPREDNISolone Sodium Succinate 40 MG/1 ML SDV IVPUSH SCH ×4 (00:24→23:50)
[2017-05-14] MEDS: Azithromycin 500 MG in Sodium Chloride 0.9% 250 ML IV SCH (05:24)
[2017-05-14] MEDS: Acetaminophen 325 MG Tab PO PRN (05:24)
[2017-05-14] MEDS: Albuterol/Ipratropium 3.0-0.5 MG/3 ML Neb Soln NEB SCH ×4 (06:35→21:06)
[2017-05-14] MEDS: Dronabinol 2.5 MG Cap PO SCH ×3 (06:50→17:13)
--- NOTE | 2017-05-14 08:04 | US ---
Bilateral arterial Doppler ultrasound: Duplex and color flow imaging was obtained of the right and left lower extremity arteries. Findings: Diffuse plaque identified on both sides. Stent noted within the left superficial femoral artery. Doppler waveforms are between biphasic and monophasic. Greatest stenosis is less than 50% with multiple areas of mild narrowing seen throughout both lower extremities. There is blood flow seen within the posterior tibials and peroneal arteries. Impression: 1. Diffuse plaque on both sides causing multiple areas of narrowing which appear to be less than 50%. Two vessel runoff identified into the ankle. Left-sided superficial femoral artery stent. Note: If patient can receive IV contrast, CT angiogram can be obtained to correlate this exam. Diagnostic code #3 I agree with preliminary report issued by [facility] ([facility] report finalized on 05/13/17, 3:33 PM Central Time)
[2017-05-14] MEDS ORDERED: Sodium Chloride 0.9% 10 ML Syringe FLUSH PRN (08:36)
[2017-05-14] MEDS ORDERED: Iopamidol 755 MG/ML 50 ML Bottle IVPUSH ONE (08:36)
[2017-05-14] MEDS ORDERED: Iopamidol 755 Mg/ML 100 ML Bottle IVPUSH ONE (08:36)
[2017-05-14] MEDS ORDERED: Sodium Chloride 0.9% 100 ML IV SCH (08:45)
--- NOTE | 2017-05-14 09:10 | PCM.PN ---
- General Info Date of Service: 05/14/17 Functional Status: Reports: Pain Controlled, Tolerating Diet, Ambulating, Urinating - Review of Systems General: Denies: Appetite (Appetite still poor) Pulmonary: Reports: Shortness of Breath (Worse this morning), Cough, Sputum ( Sputum production usually worse when walking, but today is less than normal) Cardiovascular: Reports: Other (Pain in legs when walking; NO pain at rest) Gastrointestinal: Denies: Diarrhea Musculoskeletal: Reports: Other (Chest pain on lower left anterior ribcage; " rib knocking" on lower left side from deep breaths) Skin: Reports: Other (Bruising on lower left anteror ribcage and RUQ of abdomen) Neurological: Denies: Dizziness Systems Review Comment:: He says he slept well last night, better than he has since being admitted. He did wake up 3x to urinate last night. He feels dehydrated this morning and says that his mouth and lips are dry. His appetite is still poor. He says his shortness of breath is worse this morning. He also feels a "knocking" in his lower left anterior ribcage. He said this is from a rib he broke 15 years ago when his son gave him the Heimlich maneuver. He says his lower anterior ribcage is still sore from the fall, but it is better than when he was admitted. He says that he has pain in his legs when he walks but no pain at rest. - Patient Data Vitals - Most Recent: Last Vital Signs Temp 97.3 F 05/14/17 07:38 Pulse 65 05/14/17 07:38 Resp 20 05/14/17 07:38 BP 180/65 H 05/14/17 07:38 Pulse Ox 94 L 05/14/17 07:38 Weight - Most Recent: 176 lb 9.6 oz I&O - Last 24 Hours: Intake & Output 05/13/17 05/14/17 05/14/17 22:59 06:59 14:59 Intake Total 970 300 Output Total 1300 Balance 970 -1000 Lab Results Last 24 Hours: Laboratory Results - last 24 hr 05/14/17 05/14/17 05/14/17 Range/Units 06:10 06:15 06:15 WBC 8.71 (4.23-9.07) K/mm3 RBC 3.52 L (4.63-6.08) M/mm3 Hgb 9.2 L (13.7-17.5) gm/L Hct 29.7 L (40.1-51.0) % MCV 84.4 (79.0-92.2) fl MCH 26.1 (25.7-32.2) pg MCHC 31.0 L (32.2-35.5) g/dl RDW Std Deviation 61.9 H (35.1-43.9) fL Plt Count 177 (163-337) K/mm3 MPV 10.2 (9.4-12.3) fl Neut % (Auto) 93.0 H (34.0-67.9) % Lymph % (Auto) 3.7 L (21.8-53.1) % Harper % (Auto) 3.2 L (5.3-12.2) % Eos % (Auto) 0 L (0.8-7.0) Baso % (Auto) 0.0 L (0.1-1.2) % Neut # (Auto) 8.10 H (1.78-5.38) K/mm3 Lymph # (Auto) 0.32 L (1.32-3.57) K/mm3 Harper # (Auto) 0.28 L (0.30-0.82) K/mm3 Eos # (Auto) 0.00 L (0.04-0.54) K/mm3 Baso # (Auto) 0.00 L (0.01-0.08) K/mm3 Manual Slide Review Abnormal smear PT 19.4 H (8.0-13.0) SECONDS INR 1.72 Sodium 138 (136-145) mEq/L Potassium 4.6 (3.5-5.1) mEq/L Chloride 107 (98-107) mEq/L Carbon Dioxide 24 (21-32) mEq/L Anion Gap 11.6 (5-15) BUN 38 H (7-18) mg/dL Creatinine 1.3 (0.7-1.3) mg/dL Est Cr Clr Drug Dosing 43.00 mL/min Estimated GFR (MDRD) 52 (>60) mL/min BUN/Creatinine Ratio 29.2 H (14-18) Glucose 189 H (83-115) mg/dL Calcium 9.5 (8.5-10.1) mg/dL Magnesium 1.9 (1.8-2.4) mg/dl Troponin I 0.065 H* (0.00-0.056) ng/mL C-Reactive Protein 4.5 H* (<1.0) mg/dL Med Orders - Current: Current Medications Acetaminophen (Tylenol) 650 mg PO Q4H PRN PRN Reason: Pain/Fever Last Admin: 05/14/17 05:24 Dose: 650 mg Albuterol (Proventil Neb Soln) 2.5 mg NEB Q4HRRT PRN PRN Reason: Shortness of Breath Last Admin: 05/14/17 04:12 Dose: 2.5 mg Albuterol/Ipratropium (Duoneb 3.0-0.5 Mg/3 Ml) 3 ml NEB QIDRT [facility] Last Admin: 05/14/17 06:35 Dose: 3 ml Allopurinol (Zyloprim) 150 mg PO BEDTIME [facility] Last Admin: 05/13/17 20:27 Dose: 150 mg Aspirin (Aspirin) 81 mg PO BEDTIME [facility] Last Admin: 05/13/17 20:27 Dose: 81 mg Clopidogrel Bisulfate (Plavix) 75 mg PO DAILY [facility] Last Admin: 05/13/17 08:53 Dose: 75 mg Dronabinol (Marinol) 2.5 mg PO TIDAC [facility] Last Admin: 05/14/17 06:50 Dose: 2.5 mg Azithromycin 500 mg/ Sodium (Chloride) 250 mls @ 250 mls/hr IV Q24H [facility] Last Admin: 05/14/17 05:24 Dose: 250 mls/hr Ceftriaxone Sodium 2 gm/ (Sodium Chloride) 100 mls @ 200 mls/hr IV Q24H [facility] Last Admin: 05/13/17 11:36 Dose: 200 mls/hr Sodium Chloride (Normal Saline) 100 mls @ 80 mls/hr IV ASDIRECTED [facility] Stop: 05/14/17 18:00 Methylprednisolone Sodium Succinate (Solu-Medrol) 40 mg IVPUSH Q8H [facility] Last Admin: 05/14/17 08:21 Dose: 40 mg Metoprolol Succinate (Toprol Xl) 25 mg PO DAILY [facility] Last Admin: 05/13/17 08:55 Dose: 25 mg Mometasone Furoate/Formoterol Fumar (Dulera 200-5 Mcg) 2 puff IH BID [facility] Last Admin: 05/13/17 20:38 Dose: 2 puff Morphine Sulfate (Morphine) 15 mg PO Q4H PRN PRN Reason: RIB PAIN Saccharomyces Boulardii (Florastor) 250 mg PO BID [facility] Last Admin: 05/13/17 20:27 Dose: 250 mg Simvastatin (Zocor) 10 mg PO BEDTIME [facility] Last Admin: 05/13/17 20:28 Dose: Not Given Sodium Chloride (Saline Flush) 10 ml FLUSH ONETIME PRN PRN Reason: IV FLUSH Tamsulosin HCl (Flomax) 0.4 mg PO DAILY [facility] Last Admin: 05/13/17 08:53 Dose: 0.4 mg Warfarin Sodium (Coumadin) 3 mg PO SuTuWeThFrSa@1800 [facility] Warfarin Sodium (Coumadin) 6 mg PO Mo@1800 [facility] Discontinued Medications Albuterol/Ipratropium (Duoneb 3.0-0.5 Mg/3 Ml) 3 ml NEB ONETIME ONE Stop: 05/12/17 03:22 Last Admin: 05/12/17 03:32 Dose: 3 ml Albuterol/Ipratropium (Duoneb 3.0-0.5 Mg/3 Ml) 3 ml NEB Q6HRRT [facility] Last Admin: 05/12/17 08:27 Dose: 3 ml Albuterol/Ipratropium (Duoneb 3.0-0.5 Mg/3 Ml) 3 ml NEB Q8HRRT [facility] Enoxaparin Sodium (Lovenox) 30 mg SUBCUT DAILY [facility] Last Admin: 05/12/17 08:31 Dose: 30 mg Furosemide (Lasix) 40 mg IVPUSH NOW ONE Stop: 05/13/17 20:59 Last Admin: 05/13/17 21:31 Dose: Not Given Furosemide (Lasix) 20 mg IVPUSH NOW ONE Stop: 05/13/17 20:59 Last Admin: 05/13/17 21:30 Dose: 20 mg Levofloxacin/Dextrose 500 mg/ (Premix) 100 mls @ 100 mls/hr IV ONETIME ONE Stop: 05/12/17 04:33 Last Admin: 05/12/17 03:44 Dose: 100 mls/hr Sodium Chloride (Normal Saline) 1,000 mls @ 75 mls/hr IV ASDIRECTED [facility] Last Infusion: 05/12/17 22:11 Dose: 75 mls/hr Phytonadione 5 mg/ Sodium (Chloride) 50.5 mls @ 100 mls/hr IV NOW ONE Stop: 05/12/17 15:16 Last Admin: 05/12/17 19:28 Dose: Not Given Sodium Chloride (Normal Saline) 450 mls @ 75 mls/hr IV ASDIRECTED [facility] Stop: 05/13/17 21:59 Last Admin: 05/13/17 16:17 Dose: 75 mls/hr Iopamidol (Isovue-370 (76%)) 50 ml IVPUSH ONETIME ONE Stop: 05/14/17 08:37 Iopamidol (Isovue-370 (76%)) 100 ml IVPUSH ONETIME ONE Stop: 05/14/17 08:37 Phytonadione (Aquamephyton) 5 mg PO ONETIME ONE Stop: 05/12/17 15:01 Last Admin: 05/12/17 15:09 Dose: 5 mg Warfarin Sodium (Coumadin) 6 mg PO Mo@1800 [facility] Warfarin Sodium (Coumadin) 3 mg PO SuTuWeThFrSa@1800 [facility] - Exam Quality Assessment: Supplemental Oxygen General: Alert, Oriented, Cooperative HEENT: Pupils Equal Lungs: Rhonchi, Wheezing, Other (Increased respiratory effort with accessory muscles use) Cardiovascular: Regular Rate, Regular Rhythm, No Murmurs Skin: Warm, Dry, Intact, Other (Bruising across lower left anterior ribcage and left abdomen) Physical Findings Comments:: He is breathing with more effort this morning, using accessory muscles. His lungs have rhonchi and wheezing bilaterally. His heart rate and rhythm are regular. There is an audible knocking noise in the lower left anterior ribcage in the area where he says he has an old rib fracture. There is still bruising over his left anterior ribcage and abdomen. - Problem List Review Problem List Initiated/Reviewed/Updated: Yes - Assessment Assessment:: Assessment: Arterial doppler consistent with stenosis of arteries in lower extremities. Runoff present through peroneal and posterior tibial arteries bilaterally. Symptoms consistent with claudication. Chronic COPD with worsening SOB, possibly due to fluid retention Plan: Arterial angiogram Continue Lasix - Plan Plan:: Impression: Acute exacerbation of COPD URI/doubt PNA S/P fall with rib pain Doubt AUTI Supratherapeutic INR Chronic PVD (AAA/BEL/LE Stents) CAD/CABG SSS/? A Fib/PPM DERICK on CPAP CKD III HTN HLD Plan: Vitamin K Stop Levoquin; start Zithro/Rocephin Home meds Neb treatments Repeat CXR on 05/14/17 SW/PT/OT DVT/GI prophylaxis
--- NOTE | 2017-05-14 09:50 | CR ---
Chest: 2 views of the chest were obtained. Comparison: Previous chest x-ray of 05/12/17. Heart is enlarged. Pulmonary vessels are congested which appears more prominent than on prior previous exam. Slight basilar atelectasis noted. Pacemaker is noted. Sternotomy wires are seen. Bony structures are grossly intact. Surgical clips are seen within the base the left neck. Impression: 1. Slight cardiomegaly and pulmonary vascular congestion. Findings less likely due to diffuse bronchitis. 2. Mild bibasilar atelectasis. Diagnostic code #3
[2017-05-14] MEDS ORDERED: Furosemide 20 MG/2 ML VIAL IVPUSH ONE (10:00)
[2017-05-14] MEDS: Tamsulosin 0.4 MG Cap.ER PO SCH (10:11)
[2017-05-14] MEDS: Saccharomyces Boulardii (Probiotic) 250 MG Cap PO SCH ×2 (10:11→20:29)
[2017-05-14] MEDS: cefTRIAXone 2 GM in Sodium Chloride 0.9% 100 ML IV SCH (10:15)
[2017-05-14] MEDS: Clopidogrel 75 MG Tab PO SCH (10:15)
[2017-05-14] MEDS: Metoprolol Succinate 25 MG Tab.ER PO SCH (10:16)
[2017-05-14] MEDS: Formoterol/Mometasone 200-5 MCG 8.8 GM Inhaler IH SCH ×2 (10:22→21:06)
[2017-05-14] MEDS ORDERED: Morphine 2 MG/ML Syringe IVPUSH ONE (11:16)
--- NOTE | 2017-05-14 11:35 | CT ---
CT aortogram and bilateral lower extremity runoff Technique: Multiple axial sections were obtained from the top of the abdominal aorta inferiorly through the abdomen and pelvis through the ankles and feet. Intravenous contrast was utilized. Study performed during the arterial phase of contrast administration. Reconstructed MIP images were obtained. Findings: Aortoiliac: Abdominal aortic aneurysm is seen which contains an endovascular stent. Diffuse atherosclerotic change noted within the aorta and branch vessels. Branch vessels show no significant stenosis of greater than 50%. The common iliac arteries as well as external iliac artery shows diffuse atherosclerotic change but no significant stenosis. There is occlusion of the proximal left internal iliac artery with reconstitution. Right internal iliac artery is patent. Right leg: Diffuse atherosclerotic change within the common femoral artery, profunda artery and superficial femoral artery is seen. Popliteal artery shows diffuse atherosclerotic change but no significant stenosis. There is significant stenosis seen within the mid peroneal artery on the right side. The anterior tibial artery and posterior tibial artery shows diffuse atherosclerotic change but no significant stenosis with two-vessel runoff seen into the ankle. Peroneal artery also seen in the ankle due to reconstitution. Left leg: Diffuse atherosclerotic change seen within the common femoral artery, superficial femoral artery and profunda artery. No stent is seen as questioned on ultrasound exam. No focal areas of stenosis are seen within these arteries. Popliteal artery shows diffuse atherosclerotic change but no focal stenosis. Three-vessel runoff is seen into the ankle. The peroneal artery becomes very diminutive distally. The anterior tibial and posterior tibial arteries appear patent into the ankle without significant stenosis. Other findings: Small bilateral pleural effusions and mild bibasilar atelectasis are seen. Cysts are noted within both kidneys. Liver that is seen appears within normal limits. Spleen appears within normal limits with incidental note of small calcified granulomas. Adrenal glands show no nodule. Cyst noted off the pancreas most likely due to small old pseudocyst measuring 2.2 cm. This shows no soft tissue component to indicate a definite cystic tumor. No retroperitoneal adenopathy or mesenteric abnormalities are seen. No pelvic mass or adenopathy is seen. Diverticuli seen within sigmoid colon with no inflammatory change or diverticulitis. Degenerative change noted within the spine and within both knees. Impression: 1. Severe atheromatous changes throughout the aortoiliac system and arteries within both lower extremities. Most prominent area of stenosis is small area of occlusion within the mid right peroneal artery with reconstitution distally. No other stenosis greater than 50% is seen with certainty. Two-vessel runoff noted on the right and three-vessel runoff noted within the left side down to the ankle. 2. Small bilateral pleural effusions with mild atelectasis and other incidental findings. 3. Abdominal aortic aneurysm with internal stent. No stent is seen within the left superficial femoral vein as mentioned on previous ultrasound report. Diagnostic code #3
[2017-05-14] MEDS ORDERED: hydrALAZINE 20 MG/ML SDV IVPUSH PRN (15:43)
[2017-05-14] MEDS ORDERED: Terazosin 1 MG Cap PO ONE (17:00)
[2017-05-14] MEDS: Warfarin 3 MG Tab PO SCH (17:14)
[2017-05-14] MEDS: Terazosin 1 MG Cap PO SCH (20:26)
[2017-05-14] MEDS: Simvastatin 10 MG Tab PO SCH (20:27)
[2017-05-14] MEDS: Allopurinol 300 MG Tab PO SCH (20:27)
[2017-05-14] MEDS: Aspirin 81 MG Tab.Chew PO SCH (20:27)
[2017-05-14] MEDS ORDERED: Magnesium Sulfate/Water 2 GM in Premix Bag 1 BAG IV ONE (21:26)
[2017-05-14] MEDS: Budesonide 0.25 MG/2 ML Neb Susp NEB SCH (21:54)
[2017-05-15] MEDS: Azithromycin 500 MG in Sodium Chloride 0.9% 250 ML IV SCH (04:28)
[2017-05-15] MEDS: Albuterol/Ipratropium 3.0-0.5 MG/3 ML Neb Soln NEB SCH ×4 (06:14→20:35)
[2017-05-15] MEDS: Budesonide 0.25 MG/2 ML Neb Susp NEB SCH ×2 (06:14→20:35)
[2017-05-15] MEDS: Dronabinol 2.5 MG Cap PO SCH ×3 (06:37→16:38)
[2017-05-15] MEDS: Morphine 15 MG Tab PO PRN (06:38)
[2017-05-15] MEDS: methylPREDNISolone Sodium Succinate 40 MG/1 ML SDV IVPUSH SCH ×2 (08:58→16:37)
[2017-05-15] MEDS: Saccharomyces Boulardii (Probiotic) 250 MG Cap PO SCH ×2 (08:58→20:27)
[2017-05-15] MEDS: Metoprolol Succinate 25 MG Tab.ER PO SCH (08:59)
[2017-05-15] MEDS: Tamsulosin 0.4 MG Cap.ER PO SCH (09:02)
[2017-05-15] MEDS: Furosemide 20 MG Tab PO SCH (09:02)
[2017-05-15] MEDS: Clopidogrel 75 MG Tab PO SCH (09:02)
[2017-05-15] MEDS: Formoterol/Mometasone 200-5 MCG 8.8 GM Inhaler IH SCH ×2 (10:06→20:35)
[2017-05-15] MEDS: cefTRIAXone 2 GM in Sodium Chloride 0.9% 100 ML IV SCH (10:19)
--- NOTE | 2017-05-15 11:47 | PCM.PN ---
- General Info Date of Service: 05/15/17 Functional Status: Reports: Pain Controlled, Tolerating Diet, Ambulating, Urinating - Review of Systems General: Reports: No Symptoms HEENT: Reports: No Symptoms Pulmonary: Reports: Shortness of Breath Cardiovascular: Reports: No Symptoms Gastrointestinal: Reports: No Symptoms Genitourinary: Reports: No Symptoms Musculoskeletal: Reports: Leg Pain Skin: Reports: No Symptoms Neurological: Reports: No Symptoms Psychiatric: Reports: No Symptoms - Patient Data Vitals - Most Recent: Last Vital Signs Temp 36.2 C 05/15/17 07:38 Pulse 64 05/15/17 08:59 Resp 20 05/15/17 07:38 BP 139/64 05/15/17 08:59 Pulse Ox 95 05/15/17 10:09 Weight - Most Recent: 80.694 kg I&O - Last 24 Hours: Intake & Output 05/14/17 05/15/17 05/15/17 22:59 06:59 14:59 Intake Total 1740 550 120 Output Total 900 975 Balance 840 -425 120 Lab Results Last 24 Hours: Laboratory Results - last 24 hr 05/14/17 05/15/17 05/15/17 Range/Units 22:05 06:04 06:04 WBC 8.03 (4.23-9.07) K/mm3 RBC 3.53 L (4.63-6.08) M/mm3 Hgb 9.3 L (13.7-17.5) gm/L Hct 29.7 L (40.1-51.0) % MCV 84.1 (79.0-92.2) fl MCH 26.3 (25.7-32.2) pg MCHC 31.3 L (32.2-35.5) g/dl RDW Std Deviation 62.3 H (35.1-43.9) fL Plt Count 174 (163-337) K/mm3 MPV 10.1 (9.4-12.3) fl Neut % (Auto) 93.1 H (34.0-67.9) % Lymph % (Auto) 3.6 L (21.8-53.1) % Bennett % (Auto) 3.1 L (5.3-12.2) % Eos % (Auto) 0 L (0.8-7.0) Baso % (Auto) 0.1 (0.1-1.2) % Neut # (Auto) 7.47 H (1.78-5.38) K/mm3 Lymph # (Auto) 0.29 L (1.32-3.57) K/mm3 Bennett # (Auto) 0.25 L (0.30-0.82) K/mm3 Eos # (Auto) 0.00 L (0.04-0.54) K/mm3 Baso # (Auto) 0.01 (0.01-0.08) K/mm3 Manual Slide Review Abnormal smear Sodium 139 139 (136-145) mEq/L Potassium 4.7 4.8 (3.5-5.1) mEq/L Chloride 105 106 (98-107) mEq/L Carbon Dioxide 25 25 (21-32) mEq/L Anion Gap 13.7 12.8 (5-15) BUN 42 H 40 H (7-18) mg/dL Creatinine 1.3 1.2 (0.7-1.3) mg/dL Est Cr Clr Drug Dosing 43.00 46.58 mL/min Estimated GFR (MDRD) 52 58 (>60) mL/min BUN/Creatinine Ratio 32.3 H 33.3 H (14-18) Glucose 175 H 178 H (83-115) mg/dL Calcium 9.7 9.3 (8.5-10.1) mg/dL Magnesium 2.3 (1.8-2.4) mg/dl C-Reactive Protein 2.4 H* (<1.0) mg/dL Med Orders - Current: Current Medications Acetaminophen (Tylenol) 650 mg PO Q4H PRN PRN Reason: Pain/Fever Last Admin: 05/14/17 05:24 Dose: 650 mg Albuterol (Proventil Neb Soln) 2.5 mg NEB Q4HRRT PRN PRN Reason: Shortness of Breath Last Admin: 05/14/17 04:12 Dose: 2.5 mg Albuterol/Ipratropium (Duoneb 3.0-0.5 Mg/3 Ml) 3 ml NEB QIDRT [facility] Last Admin: 05/15/17 10:06 Dose: 3 ml Allopurinol (Zyloprim) 150 mg PO BEDTIME [facility] Last Admin: 05/14/17 20:27 Dose: 150 mg Aspirin (Aspirin) 81 mg PO BEDTIME [facility] Last Admin: 05/14/17 20:27 Dose: 81 mg Budesonide (Pulmicort) 0.25 mg NEB BIDRT [facility] Last Admin: 05/15/17 06:14 Dose: 0.25 mg Clopidogrel Bisulfate (Plavix) 75 mg PO DAILY [facility] Last Admin: 05/15/17 09:02 Dose: 75 mg Dronabinol (Marinol) 2.5 mg PO TIDAC [facility] Last Admin: 05/15/17 10:20 Dose: 2.5 mg Furosemide (Lasix) 20 mg PO DAILY [facility] Last Admin: 05/15/17 09:02 Dose: 20 mg Hydralazine HCl (Apresoline) 20 mg IVPUSH Q8H PRN PRN Reason: Hypertension Azithromycin 500 mg/ Sodium (Chloride) 250 mls @ 250 mls/hr IV Q24H [facility] Last Admin: 05/15/17 04:28 Dose: 250 mls/hr Ceftriaxone Sodium 2 gm/ (Sodium Chloride) 100 mls @ 200 mls/hr IV Q24H [facility] Last Admin: 05/15/17 10:19 Dose: 200 mls/hr Methylprednisolone Sodium Succinate (Solu-Medrol) 40 mg IVPUSH Q8H [facility] Last Admin: 05/15/17 08:58 Dose: 40 mg Metoprolol Succinate (Toprol Xl) 25 mg PO DAILY [facility] Last Admin: 05/15/17 08:59 Dose: 25 mg Mometasone Furoate/Formoterol Fumar (Dulera 200-5 Mcg) 2 puff IH BID [facility] Last Admin: 05/15/17 10:06 Dose: 2 puff Morphine Sulfate (Morphine) 15 mg PO Q4H PRN PRN Reason: RIB PAIN Last Admin: 05/15/17 06:38 Dose: 15 mg Saccharomyces Boulardii (Florastor) 250 mg PO BID [facility] Last Admin: 05/15/17 08:58 Dose: 250 mg Simvastatin (Zocor) 10 mg PO BEDTIME [facility] Last Admin: 05/14/17 20:27 Dose: 10 mg Sodium Chloride (Saline Flush) 10 ml FLUSH ONETIME PRN PRN Reason: IV FLUSH Last Admin: 05/14/17 09:29 Dose: 10 ml Tamsulosin HCl (Flomax) 0.4 mg PO DAILY [facility] Last Admin: 05/15/17 09:02 Dose: 0.4 mg Terazosin HCl (Hytrin) 1 mg PO BEDTIME [facility] Last Admin: 05/14/17 20:26 Dose: 1 mg Warfarin Sodium (Coumadin) 3 mg PO SuTuWeThFrSa@1800 [facility] Last Admin: 05/14/17 17:14 Dose: 3 mg Warfarin Sodium (Coumadin) 6 mg PO Mo@1800 [facility] Discontinued Medications Albuterol/Ipratropium (Duoneb 3.0-0.5 Mg/3 Ml) 3 ml NEB ONETIME ONE Stop: 05/12/17 03:22 Last Admin: 05/12/17 03:32 Dose: 3 ml Albuterol/Ipratropium (Duoneb 3.0-0.5 Mg/3 Ml) 3 ml NEB Q6HRRT [facility] Last Admin: 05/12/17 08:27 Dose: 3 ml Albuterol/Ipratropium (Duoneb 3.0-0.5 Mg/3 Ml) 3 ml NEB Q8HRRT [facility] Enoxaparin Sodium (Lovenox) 30 mg SUBCUT DAILY [facility] Last Admin: 05/12/17 08:31 Dose: 30 mg Furosemide (Lasix) 40 mg IVPUSH NOW ONE Stop: 05/13/17 20:59 Last Admin: 05/13/17 21:31 Dose: Not Given Furosemide (Lasix) 20 mg IVPUSH NOW ONE Stop: 05/13/17 20:59 Last Admin: 05/13/17 21:30 Dose: 20 mg Furosemide (Lasix) 20 mg IVPUSH NOW ONE Stop: 05/14/17 10:01 Last Admin: 05/14/17 10:15 Dose: 20 mg Levofloxacin/Dextrose 500 mg/ (Premix) 100 mls @ 100 mls/hr IV ONETIME ONE Stop: 05/12/17 04:33 Last Admin: 05/12/17 03:44 Dose: 100 mls/hr Sodium Chloride (Normal Saline) 1,000 mls @ 75 mls/hr IV ASDIRECTED [facility] Last Infusion: 05/12/17 22:11 Dose: 75 mls/hr Phytonadione 5 mg/ Sodium (Chloride) 50.5 mls @ 100 mls/hr IV NOW ONE Stop: 05/12/17 15:16 Last Admin: 05/12/17 19:28 Dose: Not Given Sodium Chloride (Normal Saline) 450 mls @ 75 mls/hr IV ASDIRECTED [facility] Stop: 05/13/17 21:59 Last Admin: 05/13/17 16:17 Dose: 75 mls/hr Sodium Chloride (Normal Saline) 100 mls @ 80 mls/hr IV ASDIRECTED [facility] Stop: 05/14/17 18:00 Last Admin: 05/14/17 09:28 Dose: 80 mls/hr Magnesium Sulfate 2 gm/ Premix 50 mls @ 25 mls/hr IV ONETIME ONE Stop: 05/14/17 23:25 Last Admin: 05/14/17 21:49 Dose: 25 mls/hr Iopamidol (Isovue-370 (76%)) 50 ml IVPUSH ONETIME ONE Stop: 05/14/17 08:37 Last Admin: 05/14/17 09:29 Dose: 50 ml Iopamidol (Isovue-370 (76%)) 100 ml IVPUSH ONETIME ONE Stop: 05/14/17 08:37 Last Admin: 05/14/17 09:29 Dose: 60 ml Morphine Sulfate (Morphine) 1 mg IVPUSH ONETIME ONE Stop: 05/14/17 11:17 Last Admin: 05/14/17 12:09 Dose: 1 mg Phytonadione (Aquamephyton) 5 mg PO ONETIME ONE Stop: 05/12/17 15:01 Last Admin: 05/12/17 15:09 Dose: 5 mg Terazosin HCl (Hytrin) 1 mg PO ONETIME ONE Stop: 05/14/17 17:01 Last Admin: 05/14/17 17:14 Dose: 1 mg Warfarin Sodium (Coumadin) 6 mg PO Mo@1800 [facility] Warfarin Sodium (Coumadin) 3 mg PO SuTuWeThFrSa@1800 [facility] - Exam Quality Assessment: Supplemental Oxygen, DVT Prophylaxis General: Alert, Oriented, Cooperative, No Acute Distress HEENT: Pupils Equal, Pupils Reactive, EOMI, Mucous Membr. Moist/Brocket Neck: Supple, Trachea Midline, No JVD Lungs: Normal Respiratory Effort, Decreased Breath Sounds (bilateral bases) Cardiovascular: Regular Rate, Regular Rhythm GI/Abdominal Exam: Normal Bowel Sounds, Soft, Non-Tender, No Organomegaly, No Distention (Male) Exam: Deferred Back Exam: Normal Inspection Extremities: Normal Inspection Skin: Warm Neurological: No New Focal Deficit, Normal Speech Psy/Mental Status: Alert, Normal Affect, Normal Mood - Problem List & Annotations (1) COPD exacerbation SNOMED Code(s): 429517870, 129930154 Code(s): J44.1 - CHRONIC OBSTRUCTIVE PULMONARY DISEASE W (ACUTE) EXACERBATION Status: Acute Current Visit: Yes (2) Chronic renal insufficiency SNOMED Code(s): 446995971 Code(s): N18.9 - CHRONIC KIDNEY DISEASE, UNSPECIFIED Status: Acute Current Visit: Yes (3) Hypoxemia SNOMED Code(s): 625299945 Code(s): R09.02 - HYPOXEMIA Status: Acute Current Visit: Yes (4) Supratherapeutic INR SNOMED Code(s): 159587469, 258085117 Code(s): R79.1 - ABNORMAL COAGULATION PROFILE Status: Acute Current Visit : Yes (5) PVD (peripheral vascular disease) with claudication SNOMED Code(s): 159920245 Code(s): I73.9 - PERIPHERAL VASCULAR DISEASE, UNSPECIFIED Status: Acute Current Visit: Yes - Problem List Review Problem List Initiated/Reviewed/Updated: Yes - My Orders Last 24 Hours: My Active Orders 05/14/17 15:43 hydrALAZINE [Apresoline] 20 mg IVPUSH Q8H PRN 05/14/17 18:00 Warfarin [Coumadin] 3 mg PO SuTuWeThFrSa@1800 05/14/17 18:52 Incentive Spirometry [RT Incentive Spirometry] [RC] ASDIRECTED 05/14/17 21:00 Terazosin [Hytrin] 1 mg PO BEDTIME 05/14/17 22:00 Budesonide [Pulmicort] 0.25 mg NEB BIDRT 05/15/17 09:00 Furosemide [Lasix] 20 mg PO DAILY 05/16/17 05:00 BASIC METABOLIC PANEL,BMP [CHEM] DAILY CBC WITH AUTO DIFF [HEME] DAILY CRP [C-REACTIVE PROTEIN] [CHEM] DAILY MAGNESIUM [CHEM] DAILY 05/17/17 18:00 Warfarin [Coumadin] 6 mg PO Mo@1800 - Assessment Assessment:: Assessment: Arterial doppler consistent with stenosis of arteries in lower extremities. Runoff present through peroneal and posterior tibial arteries bilaterally. Symptoms consistent with claudication. Chronic COPD with worsening SOB, possibly due to fluid retention Plan: Arterial angiogram Continue Lasix - Plan Plan:: Impression: Acute exacerbation of COPD URI/pulmonary edema-->resolved. S/P fall with rib pain Claudication with less than 100 yds, s/p CTA with moderate-severe stenosis Will send copy to Dr Davidson Supratherapeutic INR-->resolved Chronic PVD (AAA/BEL/LE Stents) CAD/CABG SSS/? A Fib/PPM DERICK on CPAP CKD III HTN HLD Plan: Card follow up for PAD, needs angio plus intervention. Complete Zithro/Rocephin Home meds Neb treatments Repeat CXR on 05/15/17 SW/PT/OT DVT/GI prophylaxis
[2017-05-15] MEDS: Warfarin 3 MG Tab PO SCH ×2 (16:38→17:46)
[2017-05-15] MEDS: Benzocaine/Cetylpyridinium/Menthol Lozenge MUCMEM PRN (18:18)
[2017-05-15] MEDS: Simvastatin 10 MG Tab PO SCH (20:27)
[2017-05-15] MEDS: Terazosin 1 MG Cap PO SCH (20:28)
[2017-05-15] MEDS: Aspirin 81 MG Tab.Chew PO SCH (20:28)
[2017-05-15] MEDS: Allopurinol 300 MG Tab PO SCH (20:28)
[2017-05-15] MEDS ORDERED: Lidocaine 5% 700 MG Patch TOP SCH (21:00)
[2017-05-16] MEDS: methylPREDNISolone Sodium Succinate 40 MG/1 ML SDV IVPUSH SCH ×3 (00:45→15:57)
[2017-05-16] MEDS: Azithromycin 500 MG in Sodium Chloride 0.9% 250 ML IV SCH (04:56)
[2017-05-16] MEDS: Budesonide 0.25 MG/2 ML Neb Susp NEB SCH ×2 (06:43→21:10)
[2017-05-16] MEDS: Albuterol/Ipratropium 3.0-0.5 MG/3 ML Neb Soln NEB SCH ×4 (06:43→21:10)
[2017-05-16] MEDS: Dronabinol 2.5 MG Cap PO SCH ×2 (06:52→10:20)
[2017-05-16] MEDS: Saccharomyces Boulardii (Probiotic) 250 MG Cap PO SCH ×2 (08:35→20:54)
[2017-05-16] MEDS: Clopidogrel 75 MG Tab PO SCH (08:35)
[2017-05-16] MEDS: Metoprolol Succinate 25 MG Tab.ER PO SCH (08:35)
[2017-05-16] MEDS: Furosemide 20 MG Tab PO SCH (08:36)
[2017-05-16] MEDS: Tamsulosin 0.4 MG Cap.ER PO SCH ×2 (08:36→16:59)
[2017-05-16] MEDS: Formoterol/Mometasone 200-5 MCG 8.8 GM Inhaler IH SCH (10:01)
[2017-05-16] MEDS: cefTRIAXone 2 GM in Sodium Chloride 0.9% 100 ML IV SCH (10:20)
[2017-05-16] MEDS: Morphine 15 MG Tab PO PRN ×2 (10:28→20:55)
[2017-05-16] MEDS: Benzocaine/Cetylpyridinium/Menthol Lozenge MUCMEM PRN (10:29)
--- NOTE | 2017-05-16 12:09 | PCM.PN ---
- General Info Date of Service: 05/16/17 Functional Status: Reports: Pain Controlled, Tolerating Diet (poor appetite), Other (feels SOB) - Review of Systems General: Reports: Weakness HEENT: Reports: No Symptoms Pulmonary: Reports: Shortness of Breath Cardiovascular: Reports: No Symptoms Gastrointestinal: Reports: No Symptoms Genitourinary: Reports: No Symptoms Musculoskeletal: Reports: No Symptoms Skin: Reports: No Symptoms Neurological: Reports: No Symptoms Psychiatric: Reports: No Symptoms - Patient Data Vitals - Most Recent: Last Vital Signs Temp 36.6 C 05/16/17 07:20 Pulse 68 05/16/17 08:35 Resp 24 H 05/16/17 07:20 BP 139/62 05/16/17 08:35 Pulse Ox 100 05/16/17 10:04 Weight - Most Recent: 82.327 kg I&O - Last 24 Hours: Intake & Output 05/15/17 05/16/17 05/16/17 22:59 06:59 14:59 Intake Total 1380 950 240 Output Total 700 450 Balance 680 500 240 Lab Results Last 24 Hours: Laboratory Results - last 24 hr 05/16/17 05/16/17 Range/Units 06:30 06:30 WBC 8.21 (4.23-9.07) K/mm3 RBC 3.72 L (4.63-6.08) M/mm3 Hgb 9.7 L (13.7-17.5) gm/L Hct 31.2 L (40.1-51.0) % MCV 83.9 (79.0-92.2) fl MCH 26.1 (25.7-32.2) pg MCHC 31.1 L (32.2-35.5) g/dl RDW Std Deviation 61.9 H (35.1-43.9) fL Plt Count 200 (163-337) K/mm3 MPV 10.4 (9.4-12.3) fl Neut % (Auto) 91.1 H (34.0-67.9) % Lymph % (Auto) 4.0 L (21.8-53.1) % Gates % (Auto) 4.6 L (5.3-12.2) % Eos % (Auto) 0 L (0.8-7.0) Baso % (Auto) 0.1 (0.1-1.2) % Neut # (Auto) 7.47 H (1.78-5.38) K/mm3 Lymph # (Auto) 0.33 L (1.32-3.57) K/mm3 Gates # (Auto) 0.38 (0.30-0.82) K/mm3 Eos # (Auto) 0.00 L (0.04-0.54) K/mm3 Baso # (Auto) 0.01 (0.01-0.08) K/mm3 Manual Slide Review Abnormal smear Sodium 137 (136-145) mEq/L Potassium 5.5 H (3.5-5.1) mEq/L Chloride 105 (98-107) mEq/L Carbon Dioxide 28 (21-32) mEq/L Anion Gap 9.5 (5-15) BUN 45 H (7-18) mg/dL Creatinine 1.3 (0.7-1.3) mg/dL Est Cr Clr Drug Dosing 43.00 mL/min Estimated GFR (MDRD) 52 (>60) mL/min BUN/Creatinine Ratio 34.6 H (14-18) Glucose 170 H (83-115) mg/dL Calcium 10.2 H (8.5-10.1) mg/dL Magnesium 2.1 (1.8-2.4) mg/dl C-Reactive Protein 1.7 H* (<1.0) mg/dL Med Orders - Current: Current Medications Acetaminophen (Tylenol) 650 mg PO Q4H PRN PRN Reason: Pain/Fever Last Admin: 05/14/17 05:24 Dose: 650 mg Albuterol (Proventil Neb Soln) 2.5 mg NEB Q4HRRT PRN PRN Reason: Shortness of Breath Last Admin: 05/14/17 04:12 Dose: 2.5 mg Albuterol/Ipratropium (Duoneb 3.0-0.5 Mg/3 Ml) 3 ml NEB QIDRT [facility] Last Admin: 05/16/17 10:00 Dose: 3 ml Allopurinol (Zyloprim) 150 mg PO BEDTIME [facility] Last Admin: 05/15/17 20:28 Dose: 150 mg Aspirin (Aspirin) 81 mg PO BEDTIME [facility] Last Admin: 05/15/17 20:28 Dose: 81 mg Benzocaine/Menthol (Cepacol Sore Throat) 1 lozenge MUCMEM Q4H PRN PRN Reason: Cough Last Admin: 05/16/17 10:29 Dose: 1 lozenge Budesonide (Pulmicort) 0.25 mg NEB BIDRT [facility] Last Admin: 05/16/17 06:43 Dose: 0.25 mg Clopidogrel Bisulfate (Plavix) 75 mg PO DAILY [facility] Last Admin: 05/16/17 08:35 Dose: 75 mg Dronabinol (Marinol) 2.5 mg PO TIDAC [facility] Last Admin: 05/16/17 10:20 Dose: 2.5 mg Furosemide (Lasix) 20 mg PO DAILY [facility] Last Admin: 05/16/17 08:36 Dose: 20 mg Hydralazine HCl (Apresoline) 20 mg IVPUSH Q8H PRN PRN Reason: Hypertension Azithromycin 500 mg/ Sodium (Chloride) 250 mls @ 250 mls/hr IV Q24H [facility] Last Admin: 05/16/17 04:56 Dose: 250 mls/hr Ceftriaxone Sodium 2 gm/ (Sodium Chloride) 100 mls @ 200 mls/hr IV Q24H [facility] Last Admin: 05/16/17 10:20 Dose: 200 mls/hr Lidocaine (Lidoderm 5%) 700 mg TOP BEDTIME [facility] Last Admin: 05/15/17 20:31 Dose: 700 mg Methylprednisolone Sodium Succinate (Solu-Medrol) 40 mg IVPUSH Q8H [facility] Last Admin: 05/16/17 08:35 Dose: 40 mg Metoprolol Succinate (Toprol Xl) 25 mg PO DAILY [facility] Last Admin: 05/16/17 08:35 Dose: 25 mg Miscellaneous Information (Remove Patch) 1 ea TRDERM DAILY [facility] Last Admin: 05/16/17 08:36 Dose: 1 ea Mometasone Furoate/Formoterol Fumar (Dulera 200-5 Mcg) 2 puff IH BID [facility] Last Admin: 05/16/17 10:01 Dose: 2 puff Morphine Sulfate (Morphine) 15 mg PO Q4H PRN PRN Reason: RIB PAIN Last Admin: 05/16/17 10:28 Dose: 15 mg Saccharomyces Boulardii (Florastor) 250 mg PO BID [facility] Last Admin: 05/16/17 08:35 Dose: 250 mg Simvastatin (Zocor) 10 mg PO BEDTIME [facility] Last Admin: 05/15/17 20:27 Dose: 10 mg Sodium Chloride (Saline Flush) 10 ml FLUSH ONETIME PRN PRN Reason: IV FLUSH Last Admin: 05/14/17 09:29 Dose: 10 ml Tamsulosin HCl (Flomax) 0.4 mg PO DAILY [facility] Last Admin: 05/16/17 08:36 Dose: 0.4 mg Terazosin HCl (Hytrin) 1 mg PO BEDTIME [facility] Last Admin: 05/15/17 20:28 Dose: 1 mg Warfarin Sodium (Coumadin) 3 mg PO SuTuWeThFrSa@1800 [facility] Last Admin: 05/15/17 17:46 Dose: Not Given Warfarin Sodium (Coumadin) 6 mg PO Mo@1800 [facility] Discontinued Medications Albuterol/Ipratropium (Duoneb 3.0-0.5 Mg/3 Ml) 3 ml NEB ONETIME ONE Stop: 05/12/17 03:22 Last Admin: 05/12/17 03:32 Dose: 3 ml Albuterol/Ipratropium (Duoneb 3.0-0.5 Mg/3 Ml) 3 ml NEB Q6HRRT [facility] Last Admin: 05/12/17 08:27 Dose: 3 ml Albuterol/Ipratropium (Duoneb 3.0-0.5 Mg/3 Ml) 3 ml NEB Q8HRRT [facility] Enoxaparin Sodium (Lovenox) 30 mg SUBCUT DAILY [facility] Last Admin: 05/12/17 08:31 Dose: 30 mg Furosemide (Lasix) 40 mg IVPUSH NOW ONE Stop: 05/13/17 20:59 Last Admin: 05/13/17 21:31 Dose: Not Given Furosemide (Lasix) 20 mg IVPUSH NOW ONE Stop: 05/13/17 20:59 Last Admin: 05/13/17 21:30 Dose: 20 mg Furosemide (Lasix) 20 mg IVPUSH NOW ONE Stop: 05/14/17 10:01 Last Admin: 05/14/17 10:15 Dose: 20 mg Levofloxacin/Dextrose 500 mg/ (Premix) 100 mls @ 100 mls/hr IV ONETIME ONE Stop: 05/12/17 04:33 Last Admin: 05/12/17 03:44 Dose: 100 mls/hr Sodium Chloride (Normal Saline) 1,000 mls @ 75 mls/hr IV ASDIRECTED [facility] Last Infusion: 05/12/17 22:11 Dose: 75 mls/hr Phytonadione 5 mg/ Sodium (Chloride) 50.5 mls @ 100 mls/hr IV NOW ONE Stop: 05/12/17 15:16 Last Admin: 05/12/17 19:28 Dose: Not Given Sodium Chloride (Normal Saline) 450 mls @ 75 mls/hr IV ASDIRECTED [facility] Stop: 05/13/17 21:59 Last Admin: 05/13/17 16:17 Dose: 75 mls/hr Sodium Chloride (Normal Saline) 100 mls @ 80 mls/hr IV ASDIRECTED [facility] Stop: 05/14/17 18:00 Last Admin: 05/14/17 09:28 Dose: 80 mls/hr Magnesium Sulfate 2 gm/ Premix 50 mls @ 25 mls/hr IV ONETIME ONE Stop: 05/14/17 23:25 Last Admin: 05/14/17 21:49 Dose: 25 mls/hr Iopamidol (Isovue-370 (76%)) 50 ml IVPUSH ONETIME ONE Stop: 05/14/17 08:37 Last Admin: 05/14/17 09:29 Dose: 50 ml Iopamidol (Isovue-370 (76%)) 100 ml IVPUSH ONETIME ONE Stop: 05/14/17 08:37 Last Admin: 05/14/17 09:29 Dose: 60 ml Morphine Sulfate (Morphine) 1 mg IVPUSH ONETIME ONE Stop: 05/14/17 11:17 Last Admin: 05/14/17 12:09 Dose: 1 mg Phytonadione (Aquamephyton) 5 mg PO ONETIME ONE Stop: 05/12/17 15:01 Last Admin: 05/12/17 15:09 Dose: 5 mg Terazosin HCl (Hytrin) 1 mg PO ONETIME ONE Stop: 05/14/17 17:01 Last Admin: 05/14/17 17:14 Dose: 1 mg Warfarin Sodium (Coumadin) 6 mg PO Mo@1800 [facility] Warfarin Sodium (Coumadin) 3 mg PO SuTuWeThFrSa@1800 [facility] - Exam Quality Assessment: Supplemental Oxygen, DVT Prophylaxis General: Alert, Oriented, Cooperative, No Acute Distress HEENT: Pupils Equal, Pupils Reactive, EOMI, Mucous Membr. Moist/[place] Neck: Supple, Trachea Midline, No JVD, No Thyromegaly Lungs: Normal Respiratory Effort, Decreased Breath Sounds, Rhonchi Cardiovascular: Regular Rate, Regular Rhythm, Gallops GI/Abdominal Exam: Normal Bowel Sounds, Soft, Non-Tender, No Organomegaly, No Distention (Male) Exam: Deferred Back Exam: Normal Inspection Extremities: Normal Inspection, Pedal Edema (trace) Skin: Warm Neurological: No New Focal Deficit Psy/Mental Status: Alert, Normal Affect, Normal Mood - Problem List & Annotations (1) COPD exacerbation SNOMED Code(s): 174109875, 000623915 Code(s): J44.1 - CHRONIC OBSTRUCTIVE PULMONARY DISEASE W (ACUTE) EXACERBATION Status: Acute Current Visit: Yes (2) Chronic renal insufficiency SNOMED Code(s): 990927510 Code(s): N18.9 - CHRONIC KIDNEY DISEASE, UNSPECIFIED Status: Acute Current Visit: Yes (3) Hypoxemia SNOMED Code(s): 938204057 Code(s): R09.02 - HYPOXEMIA Status: Acute Current Visit: Yes (4) Supratherapeutic INR SNOMED Code(s): 217122862, 182419434 Code(s): R79.1 - ABNORMAL COAGULATION PROFILE Status: Acute Current Visit : Yes (5) PVD (peripheral vascular disease) with claudication SNOMED Code(s): 333961493 Code(s): I73.9 - PERIPHERAL VASCULAR DISEASE, UNSPECIFIED Status: Acute Current Visit: Yes - Problem List Review Problem List Initiated/Reviewed/Updated: Yes - My Orders Last 24 Hours: My Active Orders 05/15/17 17:44 Benzocaine/Cetylpyrd/Menthol [Cepacol Sore Throat] 1 lozenge MUCMEM Q4H PRN 05/15/17 21:00 Lidocaine 5% [Lidoderm 5%] 700 mg TOP BEDTIME 05/16/17 09:00 Remove Patch 1 ea TRDERM DAILY 05/17/17 18:00 Warfarin [Coumadin] 6 mg PO Mo@1800 - Assessment Assessment:: Assessment: Arterial doppler consistent with stenosis of arteries in lower extremities. Runoff present through peroneal and posterior tibial arteries bilaterally. Symptoms consistent with claudication. Chronic COPD with worsening SOB, possibly due to fluid retention Plan: Arterial angiogram Continue Lasix - Plan Plan:: Impression: Acute exacerbation of COPD URI cf CAP//pulmonary edema-->resolved. Continues to c/o SOB S/P fall with rib pain Poor appetite Claudication with less than 100 yds, s/p CTA with moderate-severe stenosis Will send copy to Dr Davidson Type 2 AMI Query Hyperkalemia, K 5.5 Supratherapeutic INR-->resolved Poor appetite-->minimal success with Marinol Chronic PVD (AAA/BEL/LE Stents) CAD/CABG SSS/? A Fib/PPM DERICK on CPAP CKD III HTN HLD Plan: Card follow up for PAD, needs angio plus intervention. Rocephin, add Doxycycline; stop Zithromax Recheck labs include K (Kayexelate if needed); BNP (diurese, as needed); Tn ( follow trend, may require stress for risk stratification). Home meds Neb treatments; continue Pulmonicort and Duonebs; will add Advair, patient may use his own. Stop formulary substitution Start Megace; decrease portion size on tray; Ensure for snack, not with tray. Repeat CXR on 05/17/17 SW/PT/OT DVT/GI prophylaxis
[2017-05-16] MEDS ORDERED: Lidocaine 5% 700 MG Patch TOP SCH (12:30)
[2017-05-16] MEDS ORDERED: Piperacillin/Tazobactam 4.5 GM in Sodium Chloride 0.9% 100 ML IV ONE (13:00)
[2017-05-16] MEDS: Megestrol Susp 40 MG/ML 10 ML UD Cup PO SCH (13:26)
[2017-05-16] MEDS: Doxycycline 100 MG in Sodium Chloride 0.9% 100 ML IV SCH (13:26)
[2017-05-16] MEDS: Warfarin 3 MG Tab PO SCH (16:59)
[2017-05-16] MEDS ORDERED: Furosemide 20 MG/2 ML VIAL IVPUSH ONE (18:08)
[2017-05-16] MEDS ORDERED: Sodium Polystyrene Sulfonate 15 GM/60 ML Susp 60 ML Bot PO ONE (18:08)
[2017-05-16] MEDS: Simvastatin 10 MG Tab PO SCH (20:54)
[2017-05-16] MEDS: Allopurinol 300 MG Tab PO SCH (20:54)
[2017-05-16] MEDS: Terazosin 1 MG Cap PO SCH (20:54)
[2017-05-16] MEDS: Aspirin 81 MG Tab.Chew PO SCH (20:54)
[2017-05-16] MEDS ORDERED: Piperacillin/Tazobactam 4.5 GM in Sodium Chloride 0.9% 100 ML IV SCH (21:00)
[2017-05-16] MEDS ORDERED: Fluticasone/Salmeterol 500-50 MCG Inhalation Powder 14/Diskus INH SCH (21:00)
[2017-05-16] MEDS: Fluticasone/Salmeterol 500-50 MCG Inhalation Powder 14/Diskus INH SCH (21:10)
[2017-05-17] MEDS: methylPREDNISolone Sodium Succinate 40 MG/1 ML SDV IVPUSH SCH ×2 (00:25→09:22)
[2017-05-17] MEDS: Doxycycline 100 MG in Sodium Chloride 0.9% 100 ML IV SCH ×2 (00:26→13:15)
[2017-05-17] MEDS: Morphine 15 MG Tab PO PRN (03:02)
[2017-05-17] MEDS: Benzocaine/Cetylpyridinium/Menthol Lozenge MUCMEM PRN (03:04)
[2017-05-17] MEDS: Bisacodyl 5 MG Tab PO PRN ×2 (03:14→18:03)
[2017-05-17] MEDS: Albuterol/Ipratropium 3.0-0.5 MG/3 ML Neb Soln NEB SCH ×2 (06:11→10:07)
[2017-05-17] MEDS: Budesonide 0.25 MG/2 ML Neb Susp NEB SCH ×2 (06:11→21:19)
--- NOTE | 2017-05-17 08:33 | PCM.PN ---
- General Info Date of Service: 05/17/17 Admission Dx/Problem (Free Text): Admission Diagnosis/Problem Admission Diagnosis/Problem Sepsis Subjective Update: Follow Up Functional Status: Reports: Pain Controlled, Tolerating Diet - Review of Systems General: Denies: Fever, Fatigue, Malaise, Chills HEENT: Reports: No Symptoms Pulmonary: Reports: Shortness of Breath Cardiovascular: Reports: Palpitations, Edema. Denies: Dyspnea on Exertion, Lightheadedness Gastrointestinal: Denies: Abdominal Pain, Nausea, Vomiting Genitourinary: Reports: No Symptoms Musculoskeletal: Reports: No Symptoms Skin: Reports: Dryness, Bruising. Denies: Cyanosis Neurological: Reports: Difficulty Walking, Gait Disturbance. Denies: Confusion , Weakness Psychiatric: Denies: Depression, Anxiety, Agitation, Hallucinations Systems Review Comment:: No overnight issues. He complaints of SOB and gets worse after breathing treatment. Per nurse, he looks worse than yesterday. He is on 1-2 L NC. He still feels weak. - Patient Data Vitals - Most Recent: Last Vital Signs Temp 36.4 C 05/17/17 02:41 Pulse 76 05/17/17 02:41 Resp 20 05/17/17 02:41 BP 150/73 H 05/17/17 02:41 Pulse Ox 98 05/17/17 06:13 Weight - Most Recent: 83.506 kg I&O - Last 24 Hours: Intake & Output 05/16/17 05/17/17 05/17/17 22:59 06:59 14:59 Intake Total 1560 600 Output Total 750 800 Balance 810 -200 Lab Results Last 24 Hours: Laboratory Results - last 24 hr 05/16/17 05/16/17 05/17/17 Range/Units 15:57 15:57 06:10 PT (8.0-13.0) SECONDS INR Sodium 139 (136-145) mEq/L Potassium 5.9 H 4.9 (3.5-5.1) mEq/L Chloride 105 (98-107) mEq/L Carbon Dioxide 28 (21-32) mEq/L Anion Gap 10.9 (5-15) BUN 52 H (7-18) mg/dL Creatinine 1.3 (0.7-1.3) mg/dL Est Cr Clr Drug Dosing 43.00 mL/min Estimated GFR (MDRD) 52 (>60) mL/min BUN/Creatinine Ratio 40.0 H (14-18) Glucose 161 H (83-115) mg/dL Calcium 10.3 H (8.5-10.1) mg/dL B-Natriuretic Peptide 712 H (0-100) pg/mL 05/17/17 Range/Units 06:10 PT 25.7 H (8.0-13.0) SECONDS INR 2.24 Sodium (136-145) mEq/L Potassium (3.5-5.1) mEq/L Chloride (98-107) mEq/L Carbon Dioxide (21-32) mEq/L Anion Gap (5-15) BUN (7-18) mg/dL Creatinine (0.7-1.3) mg/dL Est Cr Clr Drug Dosing mL/min Estimated GFR (MDRD) (>60) mL/min BUN/Creatinine Ratio (14-18) Glucose (83-115) mg/dL Calcium (8.5-10.1) mg/dL B-Natriuretic Peptide (0-100) pg/mL Med Orders - Current: Current Medications Acetaminophen (Tylenol) 650 mg PO Q4H PRN PRN Reason: Pain/Fever Last Admin: 05/14/17 05:24 Dose: 650 mg Albuterol (Proventil Neb Soln) 2.5 mg NEB Q4HRRT PRN PRN Reason: Shortness of Breath Last Admin: 05/14/17 04:12 Dose: 2.5 mg Albuterol/Ipratropium (Duoneb 3.0-0.5 Mg/3 Ml) 3 ml NEB QIDRT [facility] Last Admin: 05/17/17 06:11 Dose: 3 ml Allopurinol (Zyloprim) 150 mg PO BEDTIME [facility] Last Admin: 05/16/17 20:54 Dose: 150 mg Aspirin (Aspirin) 81 mg PO BEDTIME [facility] Last Admin: 05/16/17 20:54 Dose: 81 mg Benzocaine/Menthol (Cepacol Sore Throat) 1 lozenge MUCMEM Q4H PRN PRN Reason: Cough Last Admin: 05/17/17 03:04 Dose: 1 lozenge Bisacodyl (Dulcolax) 5 mg PO DAILY PRN PRN Reason: Constipation Last Admin: 05/17/17 03:14 Dose: 5 mg Budesonide (Pulmicort) 0.25 mg NEB BIDRT [facility] Last Admin: 05/17/17 06:11 Dose: 0.25 mg Clopidogrel Bisulfate (Plavix) 75 mg PO DAILY [facility] Last Admin: 05/16/17 08:35 Dose: 75 mg Furosemide (Lasix) 20 mg PO DAILY [facility] Last Admin: 05/16/17 08:36 Dose: 20 mg Hydralazine HCl (Apresoline) 20 mg IVPUSH Q8H PRN PRN Reason: Hypertension Last Admin: 05/16/17 16:09 Dose: 20 mg Doxycycline Hyclate 100 mg/ (Sodium Chloride) 100 mls @ 100 mls/hr IV Q12H [facility] Last Admin: 05/17/17 00:26 Dose: 100 mls/hr Ceftriaxone Sodium 1 gm/ (Sodium Chloride) 100 mls @ 200 mls/hr IV Q24H [facility] Lidocaine (Lidoderm 5%) 700 mg TOP Q24H [facility] Megestrol Acetate (Megace 40 Mg/Ml Susp) 800 mg PO DAILY [facility] Last Admin: 05/16/17 13:26 Dose: 800 mg Methylprednisolone Sodium Succinate (Solu-Medrol) 40 mg IVPUSH Q8H [facility] Last Admin: 05/17/17 00:25 Dose: 40 mg Metoprolol Succinate (Toprol Xl) 25 mg PO DAILY [facility] Last Admin: 05/16/17 08:35 Dose: 25 mg Miscellaneous Information (Remove Patch) 1 ea TRDERM DAILY [facility] Last Admin: 05/17/17 02:45 Dose: 1 ea Morphine Sulfate (Morphine) 15 mg PO Q4H PRN PRN Reason: RIB PAIN Last Admin: 05/17/17 03:02 Dose: 15 mg Saccharomyces Boulardii (Florastor) 250 mg PO BID [facility] Last Admin: 05/16/17 20:54 Dose: 250 mg Fluticasone/Salmeterol (Advair Diskus 500-50) 1 puff INH BID [facility] Last Admin: 05/16/17 21:10 Dose: 1 puff Simvastatin (Zocor) 10 mg PO BEDTIME [facility] Last Admin: 05/16/17 20:54 Dose: 10 mg Sodium Chloride (Saline Flush) 10 ml FLUSH ONETIME PRN PRN Reason: IV FLUSH Last Admin: 05/14/17 09:29 Dose: 10 ml Tamsulosin HCl (Flomax) 0.4 mg PO BIDPC [facility] Last Admin: 05/16/17 16:59 Dose: 0.4 mg Terazosin HCl (Hytrin) 1 mg PO BEDTIME [facility] Last Admin: 05/16/17 20:54 Dose: 1 mg Warfarin Sodium (Coumadin) 3 mg PO SuTuWeThFrSa@1800 [facility] Last Admin: 05/16/17 16:59 Dose: 3 mg Warfarin Sodium (Coumadin) 6 mg PO Mo@1800 [facility] Discontinued Medications Albuterol/Ipratropium (Duoneb 3.0-0.5 Mg/3 Ml) 3 ml NEB ONETIME ONE Stop: 05/12/17 03:22 Last Admin: 05/12/17 03:32 Dose: 3 ml Albuterol/Ipratropium (Duoneb 3.0-0.5 Mg/3 Ml) 3 ml NEB Q6HRRT [facility] Last Admin: 05/12/17 08:27 Dose: 3 ml Albuterol/Ipratropium (Duoneb 3.0-0.5 Mg/3 Ml) 3 ml NEB Q8HRRT [facility] Dronabinol (Marinol) 2.5 mg PO TIDAC [facility] Last Admin: 05/16/17 10:20 Dose: 2.5 mg Enoxaparin Sodium (Lovenox) 30 mg SUBCUT DAILY [facility] Last Admin: 05/12/17 08:31 Dose: 30 mg Furosemide (Lasix) 40 mg IVPUSH NOW ONE Stop: 05/13/17 20:59 Last Admin: 05/13/17 21:31 Dose: Not Given Furosemide (Lasix) 20 mg IVPUSH NOW ONE Stop: 05/13/17 20:59 Last Admin: 05/13/17 21:30 Dose: 20 mg Furosemide (Lasix) 20 mg IVPUSH NOW ONE Stop: 05/14/17 10:01 Last Admin: 05/14/17 10:15 Dose: 20 mg Furosemide (Lasix) 20 mg IVPUSH NOW ONE Stop: 05/16/17 18:09 Last Admin: 05/16/17 18:30 Dose: 20 mg Levofloxacin/Dextrose 500 mg/ (Premix) 100 mls @ 100 mls/hr IV ONETIME ONE Stop: 05/12/17 04:33 Last Admin: 05/12/17 03:44 Dose: 100 mls/hr Azithromycin 500 mg/ Sodium (Chloride) 250 mls @ 250 mls/hr IV Q24H [facility] Last Admin: 05/16/17 04:56 Dose: 250 mls/hr Ceftriaxone Sodium 2 gm/ (Sodium Chloride) 100 mls @ 200 mls/hr IV Q24H [facility] Last Admin: 05/16/17 10:20 Dose: 200 mls/hr Sodium Chloride (Normal Saline) 1,000 mls @ 75 mls/hr IV ASDIRECTED [facility] Last Infusion: 05/12/17 22:11 Dose: 75 mls/hr Phytonadione 5 mg/ Sodium (Chloride) 50.5 mls @ 100 mls/hr IV NOW ONE Stop: 05/12/17 15:16 Last Admin: 05/12/17 19:28 Dose: Not Given Sodium Chloride (Normal Saline) 450 mls @ 75 mls/hr IV ASDIRECTED [facility] Stop: 05/13/17 21:59 Last Admin: 05/13/17 16:17 Dose: 75 mls/hr Sodium Chloride (Normal Saline) 100 mls @ 80 mls/hr IV ASDIRECTED [facility] Stop: 05/14/17 18:00 Last Admin: 05/14/17 09:28 Dose: 80 mls/hr Magnesium Sulfate 2 gm/ Premix 50 mls @ 25 mls/hr IV ONETIME ONE Stop: 05/14/17 23:25 Last Admin: 05/14/17 21:49 Dose: 25 mls/hr Piperacillin Sod/Tazobactam (Sod 4.5 gm/ Sodium Chloride) 100 mls @ 25 mls/hr IV Q8H [facility] Piperacillin Sod/Tazobactam (Sod 4.5 gm/ Sodium Chloride) 100 mls @ 200 mls/hr IV ONETIME ONE Stop: 05/16/17 13:29 Iopamidol (Isovue-370 (76%)) 50 ml IVPUSH ONETIME ONE Stop: 05/14/17 08:37 Last Admin: 05/14/17 09:29 Dose: 50 ml Iopamidol (Isovue-370 (76%)) 100 ml IVPUSH ONETIME ONE Stop: 05/14/17 08:37 Last Admin: 05/14/17 09:29 Dose: 60 ml Lidocaine (Lidoderm 5%) 700 mg TOP BEDTIME [facility] Stop: 05/16/17 12:45 Last Admin: 05/15/17 20:31 Dose: 700 mg Lidocaine (Lidoderm 5%) 700 mg TOP Q24H [facility] Last Admin: 05/16/17 13:25 Dose: 700 mg Mometasone Furoate/Formoterol Fumar (Dulera 200-5 Mcg) 2 puff IH BID [facility] Last Admin: 05/16/17 10:01 Dose: 2 puff Morphine Sulfate (Morphine) 1 mg IVPUSH ONETIME ONE Stop: 05/14/17 11:17 Last Admin: 05/14/17 12:09 Dose: 1 mg Phytonadione (Aquamephyton) 5 mg PO ONETIME ONE Stop: 05/12/17 15:01 Last Admin: 05/12/17 15:09 Dose: 5 mg Fluticasone/Salmeterol (Advair Diskus 500-50) 1 puff INH BID [facility] Sodium Polystyrene Sulfonate (Kayexalate) 15 gm PO ONETIME ONE Stop: 05/16/17 18:09 Last Admin: 05/16/17 18:30 Dose: 15 gm Tamsulosin HCl (Flomax) 0.4 mg PO DAILY [facility] Last Admin: 05/16/17 08:36 Dose: 0.4 mg Terazosin HCl (Hytrin) 1 mg PO ONETIME ONE Stop: 05/14/17 17:01 Last Admin: 05/14/17 17:14 Dose: 1 mg Warfarin Sodium (Coumadin) 6 mg PO Mo@1800 [facility] Warfarin Sodium (Coumadin) 3 mg PO SuTuWeThFrSa@1800 [facility] - Exam Quality Assessment: Supplemental Oxygen General: Alert, Cooperative, Other (He looks weak) HEENT: Pupils Equal, Pupils Reactive, Mucous Membr. Moist/[place] Neck: Supple, Trachea Midline, No JVD, No Thyromegaly Lungs: Normal Respiratory Effort, Decreased Breath Sounds, Wheezing (occasional) Cardiovascular: Irregular Rhythm GI/Abdominal Exam: Normal Bowel Sounds, Soft, Non-Tender, No Organomegaly, No Distention, No Abnormal Bruit, No Mass (Male) Exam: Deferred Back Exam: Normal Inspection, Decreased Range of Motion Extremities: Normal Inspection, Normal Range of Motion, Non-Tender, Normal Capillary Refill, Pedal Edema, Leg Pain, Other (arm edema) Peripheral Pulses: 1+: Dorsalis Pedis (L), Dorsalis Pedis (R) Skin: Warm, Dry, Intact, Ecchymosis Neurological: No New Focal Deficit Psy/Mental Status: Alert, Normal Affect, Normal Mood - Problem List Review Problem List Initiated/Reviewed/Updated: Yes - Assessment Assessment:: Assessment: Arterial doppler consistent with stenosis of arteries in lower extremities. Runoff present through peroneal and posterior tibial arteries bilaterally. Symptoms consistent with claudication. Chronic COPD with worsening SOB, possibly due to fluid retention Plan: Arterial angiogram Continue Lasix - Plan Plan:: Impression: Shortness of Breath - Likely 2/2 combined Lung and Heart Disease - BNP is 712 - Salt restriction if not already on - PRN 0.35 mg IVP Morphine Q4 - Will increased lasix dose to 40 mg po daily - Will obtain 2D echo report Acute exacerbation of COPD - He has mild wheezing this morning - Taper steroids to wean off, he is on it for 6 days now - Switch to Xopenex for scheduled and PRN Nebs - CXR shows stable increased central lung marking Type 2 AMI - Continue ASA, BB and Statin Poor appetite - Minimal success with Marinol - He has been switched to Megace - Dietary consult for food portion (he is getting too much according to him) PVD - Claudication with less than 100 yds - S/p CTA with moderate-severe stenosis - Will send copy to Dr. Davidson Resolved: S/p Hyperkalemia, K 5.5 S/p Supratherapeutic INR S/p URI cf CAP//pulmonary edema S/P fall with rib pain Chronic: PVD (AAA/BEL/LE Stents) CAD/CABG w/ Stents SSS/? 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
[2017-05-17] MEDS: Megestrol Susp 40 MG/ML 10 ML UD Cup PO SCH (09:23)
[2017-05-17] MEDS: Clopidogrel 75 MG Tab PO SCH (09:24)
[2017-05-17] MEDS: Furosemide 20 MG Tab PO SCH (09:24)
[2017-05-17] MEDS: Metoprolol Succinate 25 MG Tab.ER PO SCH (09:24)
[2017-05-17] MEDS: Tamsulosin 0.4 MG Cap.ER PO SCH ×2 (09:24→18:03)
[2017-05-17] MEDS: Saccharomyces Boulardii (Probiotic) 250 MG Cap PO SCH ×2 (09:24→20:43)
[2017-05-17] MEDS: Fluticasone/Salmeterol 500-50 MCG Inhalation Powder 14/Diskus INH SCH ×2 (10:07→21:18)
--- NOTE | 2017-05-17 10:23 | CR ---
Chest: Two views of the chest were obtained. Comparison: Previous chest x-ray of 05/14/17. Heart is enlarged. Central lung markings are increased which remain stable. Slight atelectasis is seen within both lung bases. Pacemaker is noted. Sternotomy wires are present. Possible small right sided pleural effusion is present. Impression: 1. Findings as described above felt to be without appreciable change from previous chest x-ray. Diagnostic code #3
[2017-05-17] MEDS ORDERED: cefTRIAXone 1 GM in Sodium Chloride 0.9% 100 ML IV SCH (11:00)
[2017-05-17] MEDS ORDERED: Albuterol 0.083% 2.5 MG/3 ML Neb Soln NEB PRN ×2 (13:55→16:50)
[2017-05-17] MEDS ORDERED: Albuterol 0.083% 2.5 MG/3 ML Neb Soln NEB SCH ×2 (14:00→21:00)
[2017-05-17] MEDS ORDERED: Morphine 2 MG/ML Syringe IVPUSH PRN (14:21)
[2017-05-17] MEDS ORDERED: Bumetanide 1 MG/4 ML MDV IVPUSH ONE (14:30)
[2017-05-17] MEDS ORDERED: Levalbuterol HCl 1.25 MG/3 ML Neb NEB PRN (20:16)
[2017-05-17] MEDS: Lidocaine 5% 700 MG Patch TOP SCH (20:42)
[2017-05-17] MEDS: Aspirin 81 MG Tab.Chew PO SCH (20:43)
[2017-05-17] MEDS: Terazosin 1 MG Cap PO SCH (20:43)
[2017-05-17] MEDS: Allopurinol 300 MG Tab PO SCH (20:47)
[2017-05-17] MEDS: Simvastatin 10 MG Tab PO SCH (20:48)
[2017-05-17] MEDS: Levalbuterol HCl 1.25 MG/3 ML Neb NEB SCH (21:18)
[2017-05-18] MEDS: Levalbuterol HCl 1.25 MG/3 ML Neb NEB SCH ×5 (02:09→21:04)
[2017-05-18] MEDS: Budesonide 0.25 MG/2 ML Neb Susp NEB SCH ×2 (05:49→21:05)
[2017-05-18] MEDS ORDERED: Furosemide 40 MG Tab PO SCH (09:00)
[2017-05-18] MEDS: Fluticasone/Salmeterol 500-50 MCG Inhalation Powder 14/Diskus INH SCH ×2 (09:17→21:05)
[2017-05-18] MEDS: Megestrol Susp 40 MG/ML 10 ML UD Cup PO SCH (09:27)
[2017-05-18] MEDS: Azithromycin 250 MG in Sodium Chloride 0.9% 250 ML IV SCH (09:28)
[2017-05-18] MEDS: Saccharomyces Boulardii (Probiotic) 250 MG Cap PO SCH ×2 (09:28→21:11)
[2017-05-18] MEDS: Metoprolol Succinate 25 MG Tab.ER PO SCH (09:31)
[2017-05-18] MEDS: Tamsulosin 0.4 MG Cap.ER PO SCH ×2 (09:31→17:50)
[2017-05-18] MEDS: Clopidogrel 75 MG Tab PO SCH (09:33)
--- NOTE | 2017-05-18 11:15 | PCM.PN ---
- General Info Date of Service: 05/18/17 Admission Dx/Problem (Free Text): Admission Diagnosis/Problem Admission Diagnosis/Problem Sepsis Subjective Update: Follow Up Functional Status: Reports: Pain Controlled, Tolerating Diet, Ambulating, Urinating, Incentive Spirometry. Denies: New Symptoms - Review of Systems General: Denies: Fever, Fatigue, Malaise, Chills HEENT: Reports: No Symptoms Pulmonary: Reports: Shortness of Breath, Cough Cardiovascular: Reports: Dyspnea on Exertion, Edema. Denies: Chest Pain, Palpitations, Lightheadedness Gastrointestinal: Denies: Abdominal Pain, Nausea, Vomiting Genitourinary: Reports: No Symptoms Musculoskeletal: Reports: No Symptoms Skin: Reports: Bruising. Denies: Cyanosis, Rash Neurological: Reports: Difficulty Walking, Gait Disturbance. Denies: Confusion , Weakness Psychiatric: Denies: Depression, Anxiety, Agitation, Hallucinations Systems Review Comment:: No overnight issues. He reports no BM so far. He is however a little better overall. His breathing is better after treatment with Xopenex. He has no new complaints. - Patient Data Vitals - Most Recent: Last Vital Signs Temp 36.5 C 05/18/17 02:45 Pulse 67 05/18/17 09:31 Resp 12 05/18/17 07:39 BP 151/67 H 05/18/17 09:31 Pulse Ox 98 05/18/17 09:17 Weight - Most Recent: 83.779 kg I&O - Last 24 Hours: Intake & Output 05/17/17 05/18/17 05/18/17 22:59 06:59 14:59 Intake Total 2120 400 180 Output Total 1070 600 Balance 1050 -200 180 Lab Results Last 24 Hours: Laboratory Results - last 24 hr 05/18/17 05/18/17 05/18/17 Range/Units 06:24 06:24 06:24 WBC 10.67 H (4.23-9.07) K/mm3 RBC 3.72 L (4.63-6.08) M/mm3 Hgb 9.6 L (13.7-17.5) gm/L Hct 31.1 L (40.1-51.0) % MCV 83.6 (79.0-92.2) fl MCH 25.8 (25.7-32.2) pg MCHC 30.9 L (32.2-35.5) g/dl RDW Std Deviation 61.0 H (35.1-43.9) fL Plt Count 238 (163-337) K/mm3 MPV 10.3 (9.4-12.3) fl Neut % (Auto) 84.8 H (34.0-67.9) % Lymph % (Auto) 5.2 L (21.8-53.1) % [place] % (Auto) 9.1 (5.3-12.2) % Eos % (Auto) 0 L (0.8-7.0) Baso % (Auto) 0.1 (0.1-1.2) % Neut # (Auto) 9.04 H (1.78-5.38) K/mm3 Lymph # (Auto) 0.56 L (1.32-3.57) K/mm3 [place] # (Auto) 0.97 H (0.30-0.82) K/mm3 Eos # (Auto) 0.00 L (0.04-0.54) K/mm3 Baso # (Auto) 0.01 (0.01-0.08) K/mm3 PT (8.0-13.0) SECONDS INR Sodium 139 (136-145) mEq/L Potassium 5.1 (3.5-5.1) mEq/L Chloride 105 (98-107) mEq/L Carbon Dioxide 31 (21-32) mEq/L Anion Gap 8.1 (5-15) BUN 56 H (7-18) mg/dL Creatinine 1.3 (0.7-1.3) mg/dL Est Cr Clr Drug Dosing 43.00 mL/min Estimated GFR (MDRD) 52 (>60) mL/min BUN/Creatinine Ratio 43.1 H (14-18) Glucose 137 H (83-115) mg/dL Calcium 11.0 H (8.5-10.1) mg/dL Magnesium 2.2 (1.8-2.4) mg/dl C-Reactive Protein 0.4 (<1.0) mg/dL B-Natriuretic Peptide 412 H (0-100) pg/mL 05/18/17 Range/Units 06:24 WBC (4.23-9.07) K/mm3 RBC (4.63-6.08) M/mm3 Hgb (13.7-17.5) gm/L Hct (40.1-51.0) % MCV (79.0-92.2) fl MCH (25.7-32.2) pg MCHC (32.2-35.5) g/dl RDW Std Deviation (35.1-43.9) fL Plt Count (163-337) K/mm3 MPV (9.4-12.3) fl Neut % (Auto) (34.0-67.9) % Lymph % (Auto) (21.8-53.1) % [place] % (Auto) (5.3-12.2) % Eos % (Auto) (0.8-7.0) Baso % (Auto) (0.1-1.2) % Neut # (Auto) (1.78-5.38) K/mm3 Lymph # (Auto) (1.32-3.57) K/mm3 [place] # (Auto) (0.30-0.82) K/mm3 Eos # (Auto) (0.04-0.54) K/mm3 Baso # (Auto) (0.01-0.08) K/mm3 PT 28.8 H (8.0-13.0) SECONDS INR 2.49 Sodium (136-145) mEq/L Potassium (3.5-5.1) mEq/L Chloride (98-107) mEq/L Carbon Dioxide (21-32) mEq/L Anion Gap (5-15) BUN (7-18) mg/dL Creatinine (0.7-1.3) mg/dL Est Cr Clr Drug Dosing mL/min Estimated GFR (MDRD) (>60) mL/min BUN/Creatinine Ratio (14-18) Glucose (83-115) mg/dL Calcium (8.5-10.1) mg/dL Magnesium (1.8-2.4) mg/dl C-Reactive Protein (<1.0) mg/dL B-Natriuretic Peptide (0-100) pg/mL Med Orders - Current: Current Medications Acetaminophen (Tylenol) 650 mg PO Q4H PRN PRN Reason: Pain/Fever Last Admin: 05/14/17 05:24 Dose: 650 mg Allopurinol (Zyloprim) 150 mg PO BEDTIME JAROD Last Admin: 05/17/17 20:47 Dose: 150 mg Aspirin (Aspirin) 81 mg PO BEDTIME [facility] Last Admin: 05/17/17 20:43 Dose: 81 mg Benzocaine/Menthol (Cepacol Sore Throat) 1 lozenge MUCMEM Q4H PRN PRN Reason: Cough Last Admin: 05/17/17 03:04 Dose: 1 lozenge Bisacodyl (Dulcolax) 5 mg PO DAILY PRN PRN Reason: Constipation Last Admin: 05/17/17 18:03 Dose: 5 mg Budesonide (Pulmicort) 0.25 mg NEB BIDRT [facility] Last Admin: 05/18/17 05:49 Dose: 0.25 mg Clopidogrel Bisulfate (Plavix) 75 mg PO DAILY [facility] Last Admin: 05/18/17 09:33 Dose: 75 mg Furosemide (Lasix) 40 mg PO DAILY [facility] Last Admin: 05/18/17 09:33 Dose: 40 mg Hydralazine HCl (Apresoline) 20 mg IVPUSH Q8H PRN PRN Reason: Hypertension Last Admin: 05/16/17 16:09 Dose: 20 mg Azithromycin 250 mg/ Sodium (Chloride) 250 mls @ 250 mls/hr IV Q24H [facility] Last Admin: 05/18/17 09:28 Dose: 250 mls/hr Levalbuterol HCl (Xopenex) 1.25 mg NEB Q4HRRT PRN PRN Reason: Shortness of Breath Levalbuterol HCl (Xopenex) 1.25 mg NEB QIDRT [facility] Lidocaine (Lidoderm 5%) 700 mg TOP Q24H [facility] Last Admin: 05/17/17 20:42 Dose: 700 mg Megestrol Acetate (Megace 40 Mg/Ml Susp) 800 mg PO DAILY [facility] Last Admin: 05/18/17 09:27 Dose: 800 mg Metoprolol Succinate (Toprol Xl) 25 mg PO DAILY [facility] Last Admin: 05/18/17 09:31 Dose: 25 mg Miscellaneous Information (Remove Patch) 1 ea TRDERM DAILY [facility] Last Admin: 05/18/17 10:06 Dose: 1 ea Morphine Sulfate (Morphine) 15 mg PO Q4H PRN PRN Reason: RIB PAIN Last Admin: 05/17/17 03:02 Dose: 15 mg Morphine Sulfate (Morphine) 0.25 mg IVPUSH Q4H PRN PRN Reason: Other Saccharomyces Boulardii (Florastor) 250 mg PO BID [facility] Last Admin: 05/18/17 09:28 Dose: 250 mg Fluticasone/Salmeterol (Advair Diskus 500-50) 1 puff INH BID [facility] Last Admin: 05/18/17 09:17 Dose: 1 puff Simvastatin (Zocor) 10 mg PO BEDTIME [facility] Last Admin: 05/17/17 20:48 Dose: 10 mg Sodium Chloride (Saline Flush) 10 ml FLUSH ONETIME PRN PRN Reason: IV FLUSH Last Admin: 05/14/17 09:29 Dose: 10 ml [facility]amsulosin [facility]) [facility] Last Admin: 05/18/17 09:31 Dose: 0.4 mg Terazosin HCl (Hytrin) 1 mg PO BEDTIME [facility] Last Admin: 05/17/17 20:43 Dose: 1 mg Warfarin Sodium (Coumadin) 3 mg PO SuTuWeThFrSa@1800 [facility] Last Admin: 05/16/17 16:59 Dose: 3 mg Warfarin Sodium (Coumadin) 6 mg PO Mo@1800 [facility] Last Admin: 05/17/17 18:03 Dose: 6 mg Discontinued Medications Albuterol (Proventil Neb Soln) 2.5 mg NEB Q4HRRT PRN PRN Reason: Shortness of Breath Last Admin: 05/14/17 04:12 Dose: 2.5 mg Albuterol (Proventil Neb Soln) 2.5 mg NEB Q8HRRT [facility] Last Admin: 05/17/17 16:58 Dose: Not Given Albuterol (Proventil Neb Soln) 2.5 mg NEB Q4H PRN PRN Reason: Shortness of Breath Albuterol (Proventil Neb Soln) 2.5 mg NEB Q8HRRT [facility] Albuterol (Proventil Neb Soln) 2.5 mg NEB Q4HRRT PRN PRN Reason: Wheezing Albuterol/Ipratropium (Duoneb 3.0-0.5 Mg/3 Ml) 3 ml NEB ONETIME ONE Stop: 05/12/17 03:22 Last Admin: 05/12/17 03:32 Dose: 3 ml Albuterol/Ipratropium (Duoneb 3.0-0.5 Mg/3 Ml) 3 ml NEB Q6HRRT [facility] Last Admin: 05/12/17 08:27 Dose: 3 ml Albuterol/Ipratropium (Duoneb 3.0-0.5 Mg/3 Ml) 3 ml NEB Q8HRRT [facility] Albuterol/Ipratropium (Duoneb 3.0-0.5 Mg/3 Ml) 3 ml NEB QIDRT [facility] Last Admin: 05/17/17 10:07 Dose: 3 ml Bumetanide (Bumex) 0.5 mg IVPUSH ONETIME ONE Stop: 05/17/17 14:31 Last Admin: 05/17/17 14:45 Dose: 0.5 mg Dronabinol (Marinol) 2.5 mg PO TIDAC [facility] Last Admin: 05/16/17 10:20 Dose: 2.5 mg Enoxaparin Sodium (Lovenox) 30 mg SUBCUT DAILY [facility] Last Admin: 05/12/17 08:31 Dose: 30 mg Furosemide (Lasix) 40 mg IVPUSH NOW ONE Stop: 05/13/17 20:59 Last Admin: 05/13/17 21:31 Dose: Not Given Furosemide (Lasix) 20 mg IVPUSH NOW ONE Stop: 05/13/17 20:59 Last Admin: 05/13/17 21:30 Dose: 20 mg Furosemide (Lasix) 20 mg IVPUSH NOW ONE Stop: 05/14/17 10:01 Last Admin: 05/14/17 10:15 Dose: 20 mg Furosemide (Lasix) 20 mg PO DAILY [facility] Last Admin: 05/17/17 09:24 Dose: 20 mg Furosemide (Lasix) 20 mg IVPUSH NOW ONE Stop: 05/16/17 18:09 Last Admin: 05/16/17 18:30 Dose: 20 mg Levofloxacin/Dextrose 500 mg/ (Premix) 100 mls @ 100 mls/hr IV ONETIME ONE Stop: 05/12/17 04:33 Last Admin: 05/12/17 03:44 Dose: 100 mls/hr Azithromycin 500 mg/ Sodium (Chloride) 250 mls @ 250 mls/hr IV Q24H [facility] Last Admin: 05/16/17 04:56 Dose: 250 mls/hr Ceftriaxone Sodium 2 gm/ (Sodium Chloride) 100 mls @ 200 mls/hr IV Q24H [facility] Last Admin: 05/16/17 10:20 Dose: 200 mls/hr Sodium Chloride (Normal Saline) 1,000 mls @ 75 mls/hr IV ASDIRECTED [facility] Last Infusion: 05/12/17 22:11 Dose: 75 mls/hr Phytonadione 5 mg/ Sodium (Chloride) 50.5 mls @ 100 mls/hr IV NOW ONE Stop: 05/12/17 15:16 Last Admin: 05/12/17 19:28 Dose: Not Given Sodium Chloride (Normal Saline) 450 mls @ 75 mls/hr IV ASDIRECTED [facility] Stop: 05/13/17 21:59 Last Admin: 05/13/17 16:17 Dose: 75 mls/hr Sodium Chloride (Normal Saline) 100 mls @ 80 mls/hr IV ASDIRECTED [facility] Stop: 05/14/17 18:00 Last Admin: 05/14/17 09:28 Dose: 80 mls/hr Magnesium Sulfate 2 gm/ Premix 50 mls @ 25 mls/hr IV ONETIME ONE Stop: 05/14/17 23:25 Last Admin: 05/14/17 21:49 Dose: 25 mls/hr Piperacillin Sod/Tazobactam (Sod 4.5 gm/ Sodium Chloride) 100 mls @ 25 mls/hr IV Q8H [facility] Piperacillin Sod/Tazobactam (Sod 4.5 gm/ Sodium Chloride) 100 mls @ 200 mls/hr IV ONETIME ONE Stop: 05/16/17 13:29 Doxycycline Hyclate 100 mg/ (Sodium Chloride) 100 mls @ 100 mls/hr IV Q12H [facility] Last Admin: 05/17/17 13:15 Dose: 100 mls/hr Ceftriaxone Sodium 1 gm/ (Sodium Chloride) 100 mls @ 200 mls/hr IV Q24H [facility] Last Admin: 05/17/17 10:02 Dose: 200 mls/hr Iopamidol (Isovue-370 (76%)) 50 ml IVPUSH ONETIME ONE Stop: 05/14/17 08:37 Last Admin: 05/14/17 09:29 Dose: 50 ml Iopamidol (Isovue-370 (76%)) 100 ml IVPUSH ONETIME ONE Stop: 05/14/17 08:37 Last Admin: 05/14/17 09:29 Dose: 60 ml Levalbuterol HCl (Xopenex) 1.25 mg NEB Q4HRRT [facility] Last Admin: 05/18/17 09:17 Dose: 1.25 mg Lidocaine (Lidoderm 5%) 700 mg TOP BEDTIME [facility] Stop: 05/16/17 12:45 Last Admin: 05/15/17 20:31 Dose: 700 mg Lidocaine (Lidoderm 5%) 700 mg TOP Q24H [facility] Last Admin: 05/16/17 13:25 Dose: 700 mg Methylprednisolone Sodium Succinate (Solu-Medrol) 40 mg IVPUSH Q8H [facility] Last Admin: 05/17/17 09:22 Dose: 40 mg Mometasone Furoate/Formoterol Fumar (Dulera 200-5 Mcg) 2 puff IH BID [facility] Last Admin: 05/16/17 10:01 Dose: 2 puff Morphine Sulfate (Morphine) 1 mg IVPUSH ONETIME ONE Stop: 05/14/17 11:17 Last Admin: 05/14/17 12:09 Dose: 1 mg Phytonadione (Aquamephyton) 5 mg PO ONETIME ONE Stop: 05/12/17 15:01 Last Admin: 05/12/17 15:09 Dose: 5 mg Fluticasone/Salmeterol (Advair Diskus 500-50) 1 puff INH BID [facility] Sodium Polystyrene Sulfonate (Kayexalate) 15 gm PO ONETIME ONE Stop: 05/16/17 18:09 Last Admin: 05/16/17 18:30 Dose: 15 gm Tamsulosin HCl (Flomax) 0.4 mg PO DAILY [facility] Last Admin: 05/16/17 08:36 Dose: 0.4 mg Terazosin HCl (Hytrin) 1 mg PO ONETIME ONE Stop: 05/14/17 17:01 Last Admin: 05/14/17 17:14 Dose: 1 mg Warfarin Sodium (Coumadin) 6 mg PO Mo@1800 [facility] Warfarin Sodium (Coumadin) 3 mg PO SuTuWeThFrSa@1800 [facility] - Exam Quality Assessment: Supplemental Oxygen General: Alert, Oriented, Cooperative, No Acute Distress HEENT: Pupils Equal, Pupils Reactive, EOMI, Mucous Membr. Moist/[place] Neck: Supple, Trachea Midline Lungs: Normal Respiratory Effort, Decreased Breath Sounds, Rhonchi, Other ( pacemaker on anterior chest) Cardiovascular: Irregular Rhythm GI/Abdominal Exam: Normal Bowel Sounds, Soft, Non-Tender, No Organomegaly, No Distention, No Abnormal Bruit (Male) Exam: Deferred Back Exam: Normal Inspection, Decreased Range of Motion Extremities: Normal Inspection, Normal Range of Motion, Non-Tender, Normal Capillary Refill, Pedal Edema, Leg Pain Peripheral Pulses: 1+: Dorsalis Pedis (L), Dorsalis Pedis (R) Skin: Warm, Dry, Intact, Ecchymosis Neurological: No New Focal Deficit Psy/Mental Status: Alert, Normal Affect, Normal Mood - Problem List Review Problem List Initiated/Reviewed/Updated: Yes - My Orders Last 24 Hours: My Active Orders 05/17/17 13:56 RT Aerosol Therapy [RC] ASDIRECTED 05/17/17 14:21 Morphine 0.25 mg IVPUSH Q4H PRN 05/17/17 20:16 Levalbuterol HCl [Xopenex] 1.25 mg NEB Q4HRRT PRN 05/17/17 20:18 RT Aerosol Therapy [RC] ASDIRECTED 05/17/17 Dinner Sodium Restricted Diet [DIET] 05/18/17 09:00 Azithromycin [Zithromax] 250 mg Sodium Chloride 0.9% [Normal Saline] 250 ml IV Q24H Furosemide [Lasix] 40 mg PO DAILY 05/18/17 16:00 Levalbuterol HCl [Xopenex] 1.25 mg NEB QIDRT - Assessment Assessment:: Assessment: Arterial doppler consistent with stenosis of arteries in lower extremities. Runoff present through peroneal and posterior tibial arteries bilaterally. Symptoms consistent with claudication. Chronic COPD with worsening SOB, possibly due to fluid retention Plan: Arterial angiogram Continue Lasix - Plan Plan:: Impression: Acute: HF with Reduced EF 50-55% 05/07/17 - BNP, improving - Still has significant peripheral edema - 10 Lbs weight gain since admission - 2 gram salt daily restriction - Agreed for lasix drip with low dose BID HCTZ - At this time he refuses morel catheter Shortness of Breath, Improved - Likely 2/2 combined Lung and Heart Disease - BNP is 712 - Salt restriction if not already on - PRN 0.35 mg IVP Morphine Q4 - Will increased lasix dose to 40 mg po daily - Will obtain 2D echo report Exacerbation of COPD - He has mild wheezing this morning - Taper steroids to wean off, he is on it for 6 days now - Switch to Xopenex for scheduled and PRN Nebs - CXR shows stable increased central lung marking Type 2 AMI - Continue ASA, BB and Statin Reduced Appetite, continues to improve - Minimal success with Marinol - He has been switched to Megace - Dietary consult for food portion (he is getting too much according to him) Acute on Chronic PVD - Claudication with less than 100 yds - S/p CTA with moderate-severe stenosis - Will send copy to Dr. Davidson - Consider plental but CI with his AHF and Peripheral Edema - Spoke to Dr. Davidson this am, he recommended outpatient follow up after discharge Resolved: S/p Hyperkalemia, K 5.5 S/p Supratherapeutic INR S/p URI cf CAP//pulmonary edema S/P fall with rib pain Chronic: PVD (AAA/BEL/LE Stents) CAD/CABG w/ Stents SSS/? A Fib/PPM, HR controlled with Therapeutic INR DERICK on CPAP CKD III HTN HLD Hx/o TIA Gout DM2 Valvular Heart Disease Hx/o Hepatitis Plan: He looks much better clinically this am Continue IV Zithromax for anti-inflammatory agent Continue PT/OT/RT Continue Xopenex Start bowel prep for constipation DVT/GI prophylaxis Encourage to Ambulate as tolerated Additional orders as above LOS > 96 hrs due to slow response to treatment and pending Rehab/SNF placement
--- NOTE | 2017-05-18 11:38 | PCM.SN ---
- Free Text/Narrative Note: Called and spoke to Dr. Davidson per family's request. After discussing case with him, he recommends to see Michi after discharge. No medications or any other treatment recommended. Info relayed to patient at bedside.
[2017-05-18] MEDS: Furosemide 100 MG in Sodium Chloride 0.9% 90 ML IV SCH (14:16)
[2017-05-18] MEDS: Warfarin 3 MG Tab PO SCH (17:50)
[2017-05-18] MEDS: Terazosin 1 MG Cap PO SCH (21:11)
[2017-05-18] MEDS: Simvastatin 10 MG Tab PO SCH (21:12)
[2017-05-18] MEDS: Hydrochlorothiazide 12.5 MG Cap PO SCH (21:12)
[2017-05-18] MEDS: Aspirin 81 MG Tab.Chew PO SCH (21:12)
[2017-05-18] MEDS: Allopurinol 300 MG Tab PO SCH (21:12)
[2017-05-18] MEDS: Lidocaine 5% 700 MG Patch TOP SCH (21:13)
[2017-05-19] MEDS: Levalbuterol HCl 1.25 MG/3 ML Neb NEB SCH ×4 (06:09→21:17)
[2017-05-19] MEDS: Budesonide 0.25 MG/2 ML Neb Susp NEB SCH ×2 (06:09→21:17)
[2017-05-19] MEDS: Hydrochlorothiazide 12.5 MG Cap PO SCH ×2 (06:26→14:22)
--- NOTE | 2017-05-19 07:47 | PCM.PN ---
- General Info Date of Service: 05/19/17 Admission Dx/Problem (Free Text): Admission Diagnosis/Problem Admission Diagnosis/Problem Sepsis Subjective Update: Follow Up Functional Status: Reports: Pain Controlled, Tolerating Diet, Ambulating, Urinating. Denies: New Symptoms - Review of Systems General: Reports: Weakness. Denies: Fever, Fatigue, Malaise, Chills HEENT: Reports: No Symptoms Pulmonary: Reports: Shortness of Breath Cardiovascular: Reports: Edema. Denies: Chest Pain, Dyspnea on Exertion Gastrointestinal: Denies: Abdominal Pain, Nausea, Vomiting Genitourinary: Reports: No Symptoms Musculoskeletal: Reports: No Symptoms Skin: Reports: Bruising. Denies: Cyanosis Neurological: Reports: Difficulty Walking, Weakness, Gait Disturbance. Denies: Confusion Psychiatric: Denies: Depression, Anxiety, Agitation, Cravings, Hallucinations Systems Review Comment:: No significant overnight issues. He did not sleep good last night as alarm keeps going off. He did not do well with PT this am, only 75 feet. His breathing is much better. His total urine output since we started him on lasix drip was 5900 ml. He is now at 1.5 L NC sating at 94-96%. INR is 2.74 and BNP is 351. He now weighs 179 lbs. - Patient Data Vitals - Most Recent: Last Vital Signs Temp 36.7 C 05/19/17 03:00 Pulse 59 L 05/19/17 03:00 Resp 16 05/19/17 03:00 BP 120/43 L 05/19/17 03:00 Pulse Ox 96 05/19/17 06:14 Weight - Most Recent: 81.42 kg I&O - Last 24 Hours: Intake & Output 05/18/17 05/19/17 05/19/17 22:59 06:59 14:59 Intake Total 833 310 Output Total 7828 6369 Balance -1001 -1639 Lab Results Last 24 Hours: Laboratory Results - last 24 hr 05/18/17 05/19/17 05/19/17 Range/Units 06:24 06:03 06:03 WBC 9.79 H (4.23-9.07) K/mm3 RBC 3.60 L (4.63-6.08) M/mm3 Hgb 9.5 L (13.7-17.5) gm/L Hct 29.9 L (40.1-51.0) % MCV 83.1 (79.0-92.2) fl MCH 26.4 (25.7-32.2) pg MCHC 31.8 L (32.2-35.5) g/dl RDW Std Deviation 60.5 H (35.1-43.9) fL Plt Count 241 (163-337) K/mm3 MPV 10.5 (9.4-12.3) fl Neut % (Auto) 81.7 H (34.0-67.9) % Lymph % (Auto) 7.0 L (21.8-53.1) % [place] % (Auto) 9.3 (5.3-12.2) % Eos % (Auto) 0.8 (0.8-7.0) Baso % (Auto) 0.1 (0.1-1.2) % Neut # (Auto) 7.99 H (1.78-5.38) K/mm3 Lymph # (Auto) 0.69 L (1.32-3.57) K/mm3 [place] # (Auto) 0.91 H (0.30-0.82) K/mm3 Eos # (Auto) 0.08 (0.04-0.54) K/mm3 Baso # (Auto) 0.01 (0.01-0.08) K/mm3 Manual Slide Review Abnormal smear PT (8.0-13.0) SECONDS INR Magnesium 2.1 (1.8-2.4) mg/dl C-Reactive Protein 0.5 (<1.0) mg/dL B-Natriuretic Peptide 412 H (0-100) pg/mL 05/19/17 05/19/17 Range/Units 06:03 06:03 WBC (4.23-9.07) K/mm3 RBC (4.63-6.08) M/mm3 Hgb (13.7-17.5) gm/L Hct (40.1-51.0) % MCV (79.0-92.2) fl MCH (25.7-32.2) pg MCHC (32.2-35.5) g/dl RDW Std Deviation (35.1-43.9) fL Plt Count (163-337) K/mm3 MPV (9.4-12.3) fl Neut % (Auto) (34.0-67.9) % Lymph % (Auto) (21.8-53.1) % [place] % (Auto) (5.3-12.2) % Eos % (Auto) (0.8-7.0) Baso % (Auto) (0.1-1.2) % Neut # (Auto) (1.78-5.38) K/mm3 Lymph # (Auto) (1.32-3.57) K/mm3 [place] # (Auto) (0.30-0.82) K/mm3 Eos # (Auto) (0.04-0.54) K/mm3 Baso # (Auto) (0.01-0.08) K/mm3 Manual Slide Review PT 32.5 H (8.0-13.0) SECONDS INR 2.79 Magnesium (1.8-2.4) mg/dl C-Reactive Protein (<1.0) mg/dL B-Natriuretic Peptide 351 H (0-100) pg/mL Med Orders - Current: Current Medications Acetaminophen (Tylenol) 650 mg PO Q4H PRN PRN Reason: Pain/Fever Last Admin: 05/14/17 05:24 Dose: 650 mg Allopurinol (Zyloprim) 150 mg PO BEDTIME [facility] Last Admin: 05/18/17 21:12 Dose: 150 mg Aspirin (Aspirin) 81 mg PO BEDTIME [facility] Last Admin: 05/18/17 21:12 Dose: 81 mg Benzocaine/Menthol (Cepacol Sore Throat) 1 lozenge MUCMEM Q4H PRN PRN Reason: Cough Last Admin: 05/17/17 03:04 Dose: 1 lozenge Bisacodyl (Dulcolax) 5 mg PO DAILY PRN PRN Reason: Constipation Last Admin: 05/17/17 18:03 Dose: 5 mg Budesonide (Pulmicort) 0.25 mg NEB BIDRT [facility] Last Admin: 05/19/17 06:09 Dose: 0.25 mg Clopidogrel Bisulfate (Plavix) 75 mg PO DAILY [facility] Last Admin: 05/18/17 09:33 Dose: 75 mg Hydralazine HCl (Apresoline) 20 mg IVPUSH Q8H PRN PRN Reason: Hypertension Last Admin: 05/16/17 16:09 Dose: 20 mg Hydrochlorothiazide (Hydrochlorothiazide) 12.5 mg PO BIDDIURETIC JAROD Last Admin: 05/19/17 06:26 Dose: 12.5 mg Hydrochlorothiazide (Hydrochlorothiazide) 12.5 mg PO ONETIME ONE Stop: 05/19/17 12:34 Azithromycin 250 mg/ Sodium (Chloride) 250 mls @ 250 mls/hr IV Q24H JAROD Last Admin: 05/18/17 09:28 Dose: 250 mls/hr Furosemide 100 mg/ Sodium (Chloride) 100 mls @ 5 mls/hr IV TITRATE JAROD PRN Reason: Protocol Last Admin: 05/18/17 14:16 Dose: 5 mls/hr Levalbuterol HCl (Xopenex) 1.25 mg NEB Q4HRRT PRN PRN Reason: Shortness of Breath Levalbuterol HCl (Xopenex) 1.25 mg NEB QIDRT [facility] Last Admin: 05/19/17 06:09 Dose: 1.25 mg Lidocaine (Lidoderm 5%) 700 mg TOP Q24H [facility] Last Admin: 05/18/17 21:13 Dose: 700 mg Megestrol Acetate (Megace 40 Mg/Ml Susp) 800 mg PO DAILY [facility] Last Admin: 05/18/17 09:27 Dose: 800 mg Metoprolol Succinate (Toprol Xl) 25 mg PO DAILY [facility] Last Admin: 05/18/17 09:31 Dose: 25 mg Miscellaneous Information (Remove Patch) 1 ea TRDERM DAILY [facility] Last Admin: 05/18/17 10:06 Dose: 1 ea Morphine Sulfate (Morphine) 15 mg PO Q4H PRN PRN Reason: RIB PAIN Last Admin: 05/17/17 03:02 Dose: 15 mg Morphine Sulfate (Morphine) 0.25 mg IVPUSH Q4H PRN PRN Reason: Other Saccharomyces Boulardii (Florastor) 250 mg PO BID [facility] Last Admin: 05/18/17 21:11 Dose: 250 mg Fluticasone/Salmeterol (Advair Diskus 500-50) 1 puff INH BID [facility] Last Admin: 05/18/17 21:05 Dose: 1 puff Simvastatin (Zocor) 10 mg PO BEDTIME [facility] Last Admin: 05/18/17 21:12 Dose: 10 mg Sodium Chloride (Saline Flush) 10 ml FLUSH ONETIME PRN PRN Reason: IV FLUSH Last Admin: 05/14/17 09:29 Dose: 10 ml Tamsulosin HCl (Flomax) 0.4 mg PO BIDPC [facility] Last Admin: 05/18/17 17:50 Dose: 0.4 mg Terazosin HCl (Hytrin) 1 mg PO BEDTIME [facility] Last Admin: 05/18/17 21:11 Dose: 1 mg Warfarin Sodium (Coumadin) 3 mg PO SuTuWeThFrSa@1800 [facility] Last Admin: 05/18/17 17:50 Dose: 3 mg Warfarin Sodium (Coumadin) 6 mg PO Mo@1800 [facility] Last Admin: 05/17/17 18:03 Dose: 6 mg Discontinued Medications Albuterol (Proventil Neb Soln) 2.5 mg NEB Q4HRRT PRN PRN Reason: Shortness of Breath Last Admin: 05/14/17 04:12 Dose: 2.5 mg Albuterol (Proventil Neb Soln) 2.5 mg NEB Q8HRRT [facility] Last Admin: 05/17/17 16:58 Dose: Not Given Albuterol (Proventil Neb Soln) 2.5 mg NEB Q4H PRN PRN Reason: Shortness of Breath Albuterol (Proventil Neb Soln) 2.5 mg NEB Q8HRRT JAROD Albuterol (Proventil Neb Soln) 2.5 mg NEB Q4HRRT PRN PRN Reason: Wheezing Albuterol/Ipratropium (Duoneb 3.0-0.5 Mg/3 Ml) 3 ml NEB ONETIME ONE Stop: 05/12/17 03:22 Last Admin: 05/12/17 03:32 Dose: 3 ml Albuterol/Ipratropium (Duoneb 3.0-0.5 Mg/3 Ml) 3 ml NEB Q6HRRT [facility] Last Admin: 05/12/17 08:27 Dose: 3 ml Albuterol/Ipratropium (Duoneb 3.0-0.5 Mg/3 Ml) 3 ml NEB Q8HRRT [facility] Albuterol/Ipratropium (Duoneb 3.0-0.5 Mg/3 Ml) 3 ml NEB QIDRT [facility] Last Admin: 05/17/17 10:07 Dose: 3 ml Bumetanide (Bumex) 0.5 mg IVPUSH ONETIME ONE Stop: 05/17/17 14:31 Last Admin: 05/17/17 14:45 Dose: 0.5 mg Dronabinol (Marinol) 2.5 mg PO TIDAC [facility] Last Admin: 05/16/17 10:20 Dose: 2.5 mg Enoxaparin Sodium (Lovenox) 30 mg SUBCUT DAILY [facility] Last Admin: 05/12/17 08:31 Dose: 30 mg Furosemide (Lasix) 40 mg IVPUSH NOW ONE Stop: 05/13/17 20:59 Last Admin: 05/13/17 21:31 Dose: Not Given Furosemide (Lasix) 20 mg IVPUSH NOW ONE Stop: 05/13/17 20:59 Last Admin: 05/13/17 21:30 Dose: 20 mg Furosemide (Lasix) 20 mg IVPUSH NOW ONE Stop: 05/14/17 10:01 Last Admin: 05/14/17 10:15 Dose: 20 mg Furosemide (Lasix) 20 mg PO DAILY [facility] Last Admin: 05/17/17 09:24 Dose: 20 mg Furosemide (Lasix) 20 mg IVPUSH NOW ONE Stop: 05/16/17 18:09 Last Admin: 05/16/17 18:30 Dose: 20 mg Furosemide (Lasix) 40 mg PO DAILY [facility] Last Admin: 05/18/17 09:33 Dose: 40 mg Levofloxacin/Dextrose 500 mg/ (Premix) 100 mls @ 100 mls/hr IV ONETIME ONE Stop: 05/12/17 04:33 Last Admin: 05/12/17 03:44 Dose: 100 mls/hr Azithromycin 500 mg/ Sodium (Chloride) 250 mls @ 250 mls/hr IV Q24H [facility] Last Admin: 05/16/17 04:56 Dose: 250 mls/hr Ceftriaxone Sodium 2 gm/ (Sodium Chloride) 100 mls @ 200 mls/hr IV Q24H [facility] Last Admin: 05/16/17 10:20 Dose: 200 mls/hr Sodium Chloride (Normal Saline) 1,000 mls @ 75 mls/hr IV ASDIRECTED [facility] Last Infusion: 05/12/17 22:11 Dose: 75 mls/hr Phytonadione 5 mg/ Sodium (Chloride) 50.5 mls @ 100 mls/hr IV NOW ONE Stop: 05/12/17 15:16 Last Admin: 05/12/17 19:28 Dose: Not Given Sodium Chloride (Normal Saline) 450 mls @ 75 mls/hr IV ASDIRECTED [facility] Stop: 05/13/17 21:59 Last Admin: 05/13/17 16:17 Dose: 75 mls/hr Sodium Chloride (Normal Saline) 100 mls @ 80 mls/hr IV ASDIRECTED [facility] Stop: 05/14/17 18:00 Last Admin: 05/14/17 09:28 Dose: 80 mls/hr Magnesium Sulfate 2 gm/ Premix 50 mls @ 25 mls/hr IV ONETIME ONE Stop: 05/14/17 23:25 Last Admin: 05/14/17 21:49 Dose: 25 mls/hr Piperacillin Sod/Tazobactam (Sod 4.5 gm/ Sodium Chloride) 100 mls @ 25 mls/hr IV Q8H [facility] Piperacillin Sod/Tazobactam (Sod 4.5 gm/ Sodium Chloride) 100 mls @ 200 mls/hr IV ONETIME ONE Stop: 05/16/17 13:29 Doxycycline Hyclate 100 mg/ (Sodium Chloride) 100 mls @ 100 mls/hr IV Q12H [facility] Last Admin: 05/17/17 13:15 Dose: 100 mls/hr Ceftriaxone Sodium 1 gm/ (Sodium Chloride) 100 mls @ 200 mls/hr IV Q24H [facility] Last Admin: 05/17/17 10:02 Dose: 200 mls/hr Iopamidol (Isovue-370 (76%)) 50 ml IVPUSH ONETIME ONE Stop: 05/14/17 08:37 Last Admin: 05/14/17 09:29 Dose: 50 ml Iopamidol (Isovue-370 (76%)) 100 ml IVPUSH ONETIME ONE Stop: 05/14/17 08:37 Last Admin: 05/14/17 09:29 Dose: 60 ml Levalbuterol HCl (Xopenex) 1.25 mg NEB Q4HRRT [facility] Last Admin: 05/18/17 09:17 Dose: 1.25 mg Lidocaine (Lidoderm 5%) 700 mg TOP BEDTIME [facility] Stop: 05/16/17 12:45 Last Admin: 05/15/17 20:31 Dose: 700 mg Lidocaine (Lidoderm 5%) 700 mg TOP Q24H [facility] Last Admin: 05/16/17 13:25 Dose: 700 mg Methylprednisolone Sodium Succinate (Solu-Medrol) 40 mg IVPUSH Q8H [facility] Last Admin: 05/17/17 09:22 Dose: 40 mg Mometasone Furoate/Formoterol Fumar (Dulera 200-5 Mcg) 2 puff IH BID [facility] Last Admin: 05/16/17 10:01 Dose: 2 puff Morphine Sulfate (Morphine) 1 mg IVPUSH ONETIME ONE Stop: 05/14/17 11:17 Last Admin: 05/14/17 12:09 Dose: 1 mg Phytonadione (Aquamephyton) 5 mg PO ONETIME ONE Stop: 05/12/17 15:01 Last Admin: 05/12/17 15:09 Dose: 5 mg Fluticasone/Salmeterol (Advair Diskus 500-50) 1 puff INH BID [facility] Sodium Polystyrene Sulfonate (Kayexalate) 15 gm PO ONETIME ONE Stop: 05/16/17 18:09 Last Admin: 05/16/17 18:30 Dose: 15 gm Tamsulosin HCl (Flomax) 0.4 mg PO DAILY [facility] Last Admin: 05/16/17 08:36 Dose: 0.4 mg Terazosin HCl (Hytrin) 1 mg PO ONETIME ONE Stop: 05/14/17 17:01 Last Admin: 05/14/17 17:14 Dose: 1 mg Warfarin Sodium (Coumadin) 6 mg PO Mo@1800 [facility] Warfarin Sodium (Coumadin) 3 mg PO SuTuWeThFrSa@1800 [facility] - Exam Quality Assessment: Supplemental Oxygen General: Alert, Oriented, Cooperative, No Acute Distress HEENT: Pupils Equal, Pupils Reactive, EOMI, Mucous Membr. Moist/[place] Neck: Supple, Trachea Midline, No JVD, No Thyromegaly Lungs: Normal Respiratory Effort, Decreased Breath Sounds, Crackles. No: Wheezing Cardiovascular: No: Regular Rate, Regular Rhythm GI/Abdominal Exam: Normal Bowel Sounds, Soft, Non-Tender, No Organomegaly, No Distention, No Abnormal Bruit (Male) Exam: Other (indwelling morel catheter) Back Exam: Normal Inspection, Decreased Range of Motion Extremities: Normal Range of Motion, Non-Tender, Pedal Edema, Leg Pain. No: Normal Inspection Peripheral Pulses: 1+: Dorsalis Pedis (L), Dorsalis Pedis (R) Skin: Warm, Dry, Intact, Ecchymosis Neurological: No New Focal Deficit Psy/Mental Status: Alert, Normal Affect, Normal Mood - Problem List Review Problem List Initiated/Reviewed/Updated: Yes - My Orders Last 24 Hours: My Active Orders 05/18/17 09:00 Azithromycin [Zithromax] 250 mg Sodium Chloride 0.9% [Normal Saline] 250 ml IV Q24H 05/18/17 13:30 Furosemide [Lasix] 100 mg Sodium Chloride 0.9% [Normal Saline] 90 ml IV TITRATE 05/18/17 13:47 Urinary Catheter Assessment [RC] QSHIFT 05/18/17 14:00 Insert Morel Catheter [Insert Urinary Catheter] [OM.PC] Q24H 05/18/17 16:00 Levalbuterol HCl [Xopenex] 1.25 mg NEB QIDRT 05/18/17 21:00 Hydrochlorothiazide 12.5 mg PO BIDDIURETIC 05/19/17 12:33 Hydrochlorothiazide 12.5 mg PO ONETIME ONE - Assessment Assessment:: Assessment: Arterial doppler consistent with stenosis of arteries in lower extremities. Runoff present through peroneal and posterior tibial arteries bilaterally. Symptoms consistent with claudication. Chronic COPD with worsening SOB, possibly due to fluid retention Plan: Arterial angiogram Continue Lasix - Plan Plan:: Impression: Acute: HF with Preserved EF 50-55% 05/07/17 - BNP is now 351 - Still has significant peripheral edema - 10 Lbs weight gain since admission - 2 gram salt daily restriction; will add 2L fluid restriction - Continue lasix drip with low dose BID HCTZ - Continue morel catheter - So far he had over 5 L urine output Shortness of Breath, Improved - Likely 2/2 combined Lung and Heart Disease - BNP is 712--> 351 - Continue PRN 0.35 mg IVP Morphine Q4 - Hold oral lasix dose to 40 mg po daily - Reviewed 2D echo report: HF with Preserved EF 50-55% 05/07/17 Reduced Appetite, continues to improve - Minimal success with Marinol - He has been switched to Megace - Dietary consult for food portion (he is getting too much according to him) Acute on Chronic PVD - Claudication with less than 100 yds - S/p CTA with moderate-severe stenosis - Consider Pletal but CI with his AHF and Peripheral Edema - Spoke to Dr. Davidson this am, he recommended outpatient follow up after discharge Generalized Weakness - 2/2 Above Illness - Continue PT/OT - TFT and Vit D Level Supratherapeutic INR - INR is 2.79 - Hold Warfarin Type 2 AMI - Continue ASA, BB and Statin Resolved: Hyperkalemia, K 5.5 Supratherapeutic INR URI cf CAP//pulmonary edema Fall with rib pain Exacerbation of COPD - He has mild wheezing this morning - Taper steroids to wean off, he is on it for 6 days now - Switch to Xopenex for scheduled and PRN Nebs - CXR shows stable increased central lung marking Chronic: PVD (AAA/BEL/LE Stents) CAD/CABG w/ Stents SSS/? A Fib/PPM, HR controlled DERICK on CPAP CKD III HTN HLD Hx/o TIA Gout DM2 Valvular Heart Disease Hx/o Hepatitis Plan: He continues to improve clinically CRP is now normal, will d/c Zithromax and Probiotic Continue PT/OT/RT Continue Xopenex DVT/GI prophylaxis Encourage to Ambulate as tolerated Additional orders as above Patient and agreed to continue with lasix drip. LOS > 96 hrs due to slow response to treatment and pending Rehab/SNF placement
[2017-05-19] MEDS: Saccharomyces Boulardii (Probiotic) 250 MG Cap PO SCH ×2 (08:49→21:14)
[2017-05-19] MEDS: Azithromycin 250 MG in Sodium Chloride 0.9% 250 ML IV SCH (08:49)
[2017-05-19] MEDS: Megestrol Susp 40 MG/ML 10 ML UD Cup PO SCH (08:49)
[2017-05-19] MEDS: Tamsulosin 0.4 MG Cap.ER PO SCH ×2 (08:49→17:37)
[2017-05-19] MEDS: Clopidogrel 75 MG Tab PO SCH (08:50)
[2017-05-19] MEDS: Metoprolol Succinate 25 MG Tab.ER PO SCH (08:50)
[2017-05-19] MEDS: Fluticasone/Salmeterol 500-50 MCG Inhalation Powder 14/Diskus INH SCH ×2 (09:35→21:17)
[2017-05-19] MEDS ORDERED: Hydrochlorothiazide 12.5 MG Cap PO ONE (12:33)
[2017-05-19] MEDS: Furosemide 100 MG in Sodium Chloride 0.9% 90 ML IV SCH (15:29)
[2017-05-19] MEDS: Warfarin 3 MG Tab PO SCH (17:37)
[2017-05-19] MEDS: Simvastatin 10 MG Tab PO SCH (21:13)
[2017-05-19] MEDS: Aspirin 81 MG Tab.Chew PO SCH (21:13)
[2017-05-19] MEDS: Allopurinol 300 MG Tab PO SCH (21:13)
[2017-05-19] MEDS: Lidocaine 5% 700 MG Patch TOP SCH (21:14)
[2017-05-19] MEDS: Terazosin 1 MG Cap PO SCH (21:20)
[2017-05-20] MEDS: Hydrochlorothiazide 12.5 MG Cap PO SCH ×2 (05:37→13:36)
[2017-05-20] MEDS: Budesonide 0.25 MG/2 ML Neb Susp NEB SCH ×2 (06:07→21:00)
[2017-05-20] MEDS: Levalbuterol HCl 1.25 MG/3 ML Neb NEB SCH ×4 (06:07→21:01)
[2017-05-20] MEDS: Megestrol Susp 40 MG/ML 10 ML UD Cup PO SCH (09:51)
[2017-05-20] MEDS: Tamsulosin 0.4 MG Cap.ER PO SCH ×2 (09:52→17:44)
[2017-05-20] MEDS: Metoprolol Succinate 25 MG Tab.ER PO SCH (09:56)
[2017-05-20] MEDS: Clopidogrel 75 MG Tab PO SCH (09:57)
[2017-05-20] MEDS: Fluticasone/Salmeterol 500-50 MCG Inhalation Powder 14/Diskus INH SCH ×2 (10:13→21:01)
--- NOTE | 2017-05-20 10:54 | PCM.PN ---
- General Info Date of Service: 05/20/17 Admission Dx/Problem (Free Text): Admission Diagnosis/Problem Admission Diagnosis/Problem Sepsis Subjective Update: Follow Up Functional Status: Reports: Pain Controlled, Tolerating Diet, Ambulating, Urinating. Denies: New Symptoms - Review of Systems General: Reports: Weakness. Denies: Fever, Malaise, Chills HEENT: Reports: No Symptoms Pulmonary: Reports: Other (chest wall pain ). Denies: Shortness of Breath Cardiovascular: Reports: Dyspnea on Exertion (not more than usual). Denies: Chest Pain, Palpitations, Edema Gastrointestinal: Denies: Abdominal Pain, Nausea, Vomiting Genitourinary: Reports: No Symptoms Musculoskeletal: Reports: No Symptoms Skin: Reports: Bruising. Denies: Cyanosis Neurological: Reports: Pre-Existing Deficit, Difficulty Walking, Weakness, Gait Disturbance. Denies: Confusion Psychiatric: Denies: Depression, Anxiety, Agitation, Hallucinations Systems Review Comment:: No significant overnight issues. He complaints of leg weakness this am. He denies any numbness or tingling. He now weighs 78 kg. He had an additional 4300 ml urine output. He legs look much better. - Patient Data Vitals - Most Recent: Last Vital Signs Temp 36.2 C 05/20/17 07:52 Pulse 62 05/20/17 09:56 Resp 20 05/20/17 09:55 BP 124/49 L 05/20/17 09:56 Pulse Ox 93 L 05/20/17 10:14 Weight - Most Recent: 78.471 kg I&O - Last 24 Hours: Intake & Output 05/19/17 05/20/17 05/20/17 22:59 06:59 14:59 Intake Total 1333 63 Output Total 775 5880 700 Balance 149 -2092 -731 Lab Results Last 24 Hours: Laboratory Results - last 24 hr 05/20/17 05/20/17 05/20/17 Range/Units 06:45 06:45 06:45 WBC 9.71 H (4.23-9.07) K/mm3 RBC 3.90 L (4.63-6.08) M/mm3 Hgb 10.2 L (13.7-17.5) gm/L Hct 32.0 L (40.1-51.0) % MCV 82.1 (79.0-92.2) fl MCH 26.2 (25.7-32.2) pg MCHC 31.9 L (32.2-35.5) g/dl RDW Std Deviation 60.8 H (35.1-43.9) fL Plt Count 244 (163-337) K/mm3 MPV 10.1 (9.4-12.3) fl Neut % (Auto) 75.5 H (34.0-67.9) % Lymph % (Auto) 10.8 L (21.8-53.1) % [place] % (Auto) 11.1 (5.3-12.2) % Eos % (Auto) 1.2 (0.8-7.0) Baso % (Auto) 0.1 (0.1-1.2) % Neut # (Auto) 7.32 H (1.78-5.38) K/mm3 Lymph # (Auto) 1.05 L (1.32-3.57) K/mm3 [place] # (Auto) 1.08 H (0.30-0.82) K/mm3 Eos # (Auto) 0.12 (0.04-0.54) K/mm3 Baso # (Auto) 0.01 (0.01-0.08) K/mm3 Manual Slide Review Abnormal smear PT (8.0-13.0) SECONDS INR Sodium 140 (136-145) mEq/L Potassium 4.3 (3.5-5.1) mEq/L Chloride 103 (98-107) mEq/L Carbon Dioxide 33 H (21-32) mEq/L Anion Gap 8.3 (5-15) BUN 61 H (7-18) mg/dL Creatinine 1.3 (0.7-1.3) mg/dL Est Cr Clr Drug Dosing 43.00 mL/min Estimated GFR (MDRD) 52 (>60) mL/min BUN/Creatinine Ratio 46.9 H (14-18) Glucose 111 (83-115) mg/dL Calcium 11.4 H (8.5-10.1) mg/dL Magnesium 2.1 (1.8-2.4) mg/dl C-Reactive Protein 2.4 H* (<1.0) mg/dL Free T4 1.08 (0.76-1.46) ng/dL TSH 3rd Generation 2.128 (0.358-3.74) uIU/mL 05/20/17 Range/Units 06:45 WBC (4.23-9.07) K/mm3 RBC (4.63-6.08) M/mm3 Hgb (13.7-17.5) gm/L Hct (40.1-51.0) % MCV (79.0-92.2) fl MCH (25.7-32.2) pg MCHC (32.2-35.5) g/dl RDW Std Deviation (35.1-43.9) fL Plt Count (163-337) K/mm3 MPV (9.4-12.3) fl Neut % (Auto) (34.0-67.9) % Lymph % (Auto) (21.8-53.1) % [place] % (Auto) (5.3-12.2) % Eos % (Auto) (0.8-7.0) Baso % (Auto) (0.1-1.2) % Neut # (Auto) (1.78-5.38) K/mm3 Lymph # (Auto) (1.32-3.57) K/mm3 [place] # (Auto) (0.30-0.82) K/mm3 Eos # (Auto) (0.04-0.54) K/mm3 Baso # (Auto) (0.01-0.08) K/mm3 Manual Slide Review PT 27.5 H (8.0-13.0) SECONDS INR 2.39 Sodium (136-145) mEq/L Potassium (3.5-5.1) mEq/L Chloride (98-107) mEq/L Carbon Dioxide (21-32) mEq/L Anion Gap (5-15) BUN (7-18) mg/dL Creatinine (0.7-1.3) mg/dL Est Cr Clr Drug Dosing mL/min Estimated GFR (MDRD) (>60) mL/min BUN/Creatinine Ratio (14-18) Glucose (83-115) mg/dL Calcium (8.5-10.1) mg/dL Magnesium (1.8-2.4) mg/dl C-Reactive Protein (<1.0) mg/dL Free T4 (0.76-1.46) ng/dL TSH 3rd Generation (0.358-3.74) uIU/mL Med Orders - Current: Current Medications Acetaminophen (Tylenol) 650 mg PO Q4H PRN PRN Reason: Pain/Fever Last Admin: 05/14/17 05:24 Dose: 650 mg Allopurinol (Zyloprim) 150 mg PO BEDTIME [facility] Last Admin: 05/19/17 21:13 Dose: 150 mg Aspirin (Aspirin) 81 mg PO BEDTIME [facility] Last Admin: 05/19/17 21:13 Dose: 81 mg Benzocaine/Menthol (Cepacol Sore Throat) 1 lozenge MUCMEM Q4H PRN PRN Reason: Cough Last Admin: 05/17/17 03:04 Dose: 1 lozenge Bisacodyl (Dulcolax) 5 mg PO DAILY PRN PRN Reason: Constipation Last Admin: 05/17/17 18:03 Dose: 5 mg Budesonide (Pulmicort) 0.25 mg NEB BIDRT [facility] Last Admin: 05/20/17 06:07 Dose: 0.25 mg Clopidogrel Bisulfate (Plavix) 75 mg PO DAILY [facility] Last Admin: 05/20/17 09:57 Dose: 75 mg Hydralazine HCl (Apresoline) 20 mg IVPUSH Q8H PRN PRN Reason: Hypertension Last Admin: 05/16/17 16:09 Dose: 20 mg Hydrochlorothiazide (Hydrochlorothiazide) 12.5 mg PO BIDDIURETIC [facility] Last Admin: 05/20/17 05:37 Dose: 12.5 mg Levalbuterol HCl (Xopenex) 1.25 mg NEB Q4HRRT PRN PRN Reason: Shortness of Breath Levalbuterol HCl (Xopenex) 1.25 mg NEB QIDRT [facility] Last Admin: 05/20/17 10:13 Dose: 1.25 mg Lidocaine (Lidoderm 5%) 700 mg TOP Q24H [facility] Last Admin: 05/19/17 21:14 Dose: 700 mg Megestrol Acetate (Megace 40 Mg/Ml Susp) 800 mg PO DAILY [facility] Last Admin: 05/20/17 09:51 Dose: 800 mg Metoprolol Succinate (Toprol Xl) 25 mg PO DAILY [facility] Last Admin: 05/20/17 09:56 Dose: 25 mg Miscellaneous Information (Remove Patch) 1 ea TRDERM DAILY [facility] Last Admin: 05/20/17 10:09 Dose: 1 ea Morphine Sulfate (Morphine) 15 mg PO Q4H PRN PRN Reason: RIB PAIN Last Admin: 05/17/17 03:02 Dose: 15 mg Morphine Sulfate (Morphine) 0.25 mg IVPUSH Q4H PRN PRN Reason: Other Fluticasone/Salmeterol (Advair Diskus 500-50) 1 puff INH BID [facility] Last Admin: 05/20/17 10:13 Dose: 1 puff Simvastatin (Zocor) 10 mg PO BEDTIME [facility] Last Admin: 05/19/17 21:13 Dose: 10 mg Sodium Chloride (Saline Flush) 10 ml FLUSH ONETIME PRN PRN Reason: IV FLUSH Last Admin: 05/14/17 09:29 Dose: 10 ml Tamsulosin HCl (Flomax) 0.4 mg PO BIDPC [facility] Last Admin: 05/20/17 09:52 Dose: 0.4 mg Terazosin HCl (Hytrin) 1 mg PO BEDTIME [facility] Last Admin: 05/19/17 21:20 Dose: Not Given Warfarin Sodium (Coumadin) 3 mg PO SuTuWeThFrSa@1800 [facility] Last Admin: 05/19/17 17:37 Dose: 3 mg Warfarin Sodium (Coumadin) 6 mg PO Mo@1800 [facility] Last Admin: 05/17/17 18:03 Dose: 6 mg Discontinued Medications Albuterol (Proventil Neb Soln) 2.5 mg NEB Q4HRRT PRN PRN Reason: Shortness of Breath Last Admin: 05/14/17 04:12 Dose: 2.5 mg Albuterol (Proventil Neb Soln) 2.5 mg NEB Q8HRRT [facility] Last Admin: 05/17/17 16:58 Dose: Not Given Albuterol (Proventil Neb Soln) 2.5 mg NEB Q4H PRN PRN Reason: Shortness of Breath Albuterol (Proventil Neb Soln) 2.5 mg NEB Q8HRRT [facility] Albuterol (Proventil Neb Soln) 2.5 mg NEB Q4HRRT PRN PRN Reason: Wheezing Albuterol/Ipratropium (Duoneb 3.0-0.5 Mg/3 Ml) 3 ml NEB ONETIME ONE Stop: 05/12/17 03:22 Last Admin: 05/12/17 03:32 Dose: 3 ml Albuterol/Ipratropium (Duoneb 3.0-0.5 Mg/3 Ml) 3 ml NEB Q6HRRT [facility] Last Admin: 05/12/17 08:27 Dose: 3 ml Albuterol/Ipratropium (Duoneb 3.0-0.5 Mg/3 Ml) 3 ml NEB Q8HRRT [facility] Albuterol/Ipratropium (Duoneb 3.0-0.5 Mg/3 Ml) 3 ml NEB QIDRT [facility] Last Admin: 05/17/17 10:07 Dose: 3 ml Bumetanide (Bumex) 0.5 mg IVPUSH ONETIME ONE Stop: 05/17/17 14:31 Last Admin: 05/17/17 14:45 Dose: 0.5 mg Dronabinol (Marinol) 2.5 mg PO TIDAC [facility] Last Admin: 05/16/17 10:20 Dose: 2.5 mg Enoxaparin Sodium (Lovenox) 30 mg SUBCUT DAILY [facility] Last Admin: 05/12/17 08:31 Dose: 30 mg Furosemide (Lasix) 40 mg IVPUSH NOW ONE Stop: 05/13/17 20:59 Last Admin: 05/13/17 21:31 Dose: Not Given Furosemide (Lasix) 20 mg IVPUSH NOW ONE Stop: 05/13/17 20:59 Last Admin: 05/13/17 21:30 Dose: 20 mg Furosemide (Lasix) 20 mg IVPUSH NOW ONE Stop: 05/14/17 10:01 Last Admin: 05/14/17 10:15 Dose: 20 mg Furosemide (Lasix) 20 mg PO DAILY [facility] Last Admin: 05/17/17 09:24 Dose: 20 mg Furosemide (Lasix) 20 mg IVPUSH NOW ONE Stop: 05/16/17 18:09 Last Admin: 05/16/17 18:30 Dose: 20 mg Furosemide (Lasix) 40 mg PO DAILY [facility] Last Admin: 05/18/17 09:33 Dose: 40 mg Hydrochlorothiazide (Hydrochlorothiazide) 12.5 mg PO ONETIME ONE Stop: 05/19/17 12:34 Last Admin: 05/19/17 12:13 Dose: 12.5 mg Levofloxacin/Dextrose 500 mg/ (Premix) 100 mls @ 100 mls/hr IV ONETIME ONE Stop: 05/12/17 04:33 Last Admin: 05/12/17 03:44 Dose: 100 mls/hr Azithromycin 500 mg/ Sodium (Chloride) 250 mls @ 250 mls/hr IV Q24H [facility] Last Admin: 05/16/17 04:56 Dose: 250 mls/hr Ceftriaxone Sodium 2 gm/ (Sodium Chloride) 100 mls @ 200 mls/hr IV Q24H [facility] Last Admin: 05/16/17 10:20 Dose: 200 mls/hr Sodium Chloride (Normal Saline) 1,000 mls @ 75 mls/hr IV ASDIRECTED [facility] Last Infusion: 05/12/17 22:11 Dose: 75 mls/hr Phytonadione 5 mg/ Sodium (Chloride) 50.5 mls @ 100 mls/hr IV NOW ONE Stop: 05/12/17 15:16 Last Admin: 05/12/17 19:28 Dose: Not Given Sodium Chloride (Normal Saline) 450 mls @ 75 mls/hr IV ASDIRECTED [facility] Stop: 05/13/17 21:59 Last Admin: 05/13/17 16:17 Dose: 75 mls/hr Sodium Chloride (Normal Saline) 100 mls @ 80 mls/hr IV ASDIRECTED [facility] Stop: 05/14/17 18:00 Last Admin: 05/14/17 09:28 Dose: 80 mls/hr Magnesium Sulfate 2 gm/ Premix 50 mls @ 25 mls/hr IV ONETIME ONE Stop: 05/14/17 23:25 Last Admin: 05/14/17 21:49 Dose: 25 mls/hr Piperacillin Sod/Tazobactam (Sod 4.5 gm/ Sodium Chloride) 100 mls @ 25 mls/hr IV Q8H [facility] Piperacillin Sod/Tazobactam (Sod 4.5 gm/ Sodium Chloride) 100 mls @ 200 mls/hr IV ONETIME ONE Stop: 05/16/17 13:29 Doxycycline Hyclate 100 mg/ (Sodium Chloride) 100 mls @ 100 mls/hr IV Q12H [facility] Last Admin: 05/17/17 13:15 Dose: 100 mls/hr Ceftriaxone Sodium 1 gm/ (Sodium Chloride) 100 mls @ 200 mls/hr IV Q24H [facility] Last Admin: 05/17/17 10:02 Dose: 200 mls/hr Azithromycin 250 mg/ Sodium (Chloride) 250 mls @ 250 mls/hr IV Q24H [facility] Last Admin: 05/19/17 08:49 Dose: 250 mls/hr Furosemide 100 mg/ Sodium (Chloride) 100 mls @ 5 mls/hr IV TITRATE [facility]AROD PRN Reason: Protocol Last Admin: 05/19/17 15:29 Dose: 5 mls/hr Iopamidol (Isovue-370 (76%)) 50 ml IVPUSH ONETIME ONE Stop: 05/14/17 08:37 Last Admin: 05/14/17 09:29 Dose: 50 ml Iopamidol (Isovue-370 (76%)) 100 ml IVPUSH ONETIME ONE Stop: 05/14/17 08:37 Last Admin: 05/14/17 09:29 Dose: 60 ml Levalbuterol HCl (Xopenex) 1.25 mg NEB Q4HRRT [facility] Last Admin: 05/18/17 09:17 Dose: 1.25 mg Lidocaine (Lidoderm 5%) 700 mg TOP BEDTIME [facility] Stop: 05/16/17 12:45 Last Admin: 05/15/17 20:31 Dose: 700 mg Lidocaine (Lidoderm 5%) 700 mg TOP Q24H [facility] Last Admin: 05/16/17 13:25 Dose: 700 mg Methylprednisolone Sodium Succinate (Solu-Medrol) 40 mg IVPUSH Q8H [facility] Last Admin: 05/17/17 09:22 Dose: 40 mg Mometasone Furoate/Formoterol Fumar (Dulera 200-5 Mcg) 2 puff IH BID [facility] Last Admin: 05/16/17 10:01 Dose: 2 puff Morphine Sulfate (Morphine) 1 mg IVPUSH ONETIME ONE Stop: 05/14/17 11:17 Last Admin: 05/14/17 12:09 Dose: 1 mg Phytonadione (Aquamephyton) 5 mg PO ONETIME ONE Stop: 05/12/17 15:01 Last Admin: 05/12/17 15:09 Dose: 5 mg Saccharomyces Boulardii (Florastor) 250 mg PO BID [facility] Last Admin: 05/19/17 21:14 Dose: 250 mg Fluticasone/Salmeterol (Advair Diskus 500-50) 1 puff INH BID [facility] Sodium Polystyrene Sulfonate (Kayexalate) 15 gm PO ONETIME ONE Stop: 05/16/17 18:09 Last Admin: 05/16/17 18:30 Dose: 15 gm Tamsulosin HCl (Flomax) 0.4 mg PO DAILY [facility] Last Admin: 05/16/17 08:36 Dose: 0.4 mg Terazosin HCl (Hytrin) 1 mg PO ONETIME ONE Stop: 05/14/17 17:01 Last Admin: 05/14/17 17:14 Dose: 1 mg Warfarin Sodium (Coumadin) 6 mg PO Mo@1800 [facility] Warfarin Sodium (Coumadin) 3 mg PO SuTuWeThFrSa@1800 [facility] - Exam Quality Assessment: Supplemental Oxygen General: Alert, Oriented, Cooperative HEENT: Pupils Equal, Pupils Reactive, EOMI, Mucous Membr. Moist/[place] Neck: Supple, Trachea Midline, No JVD Lungs: Normal Respiratory Effort, Crackles (at the bases) Cardiovascular: Irregular Rhythm GI/Abdominal Exam: Normal Bowel Sounds, Non-Tender, No Organomegaly, No Distention, No Abnormal Bruit, No Mass (Male) Exam: Deferred (indwlling morel catheter) Back Exam: Normal Inspection, Decreased Range of Motion Extremities: Normal Inspection, Normal Range of Motion, Non-Tender, Normal Capillary Refill, Pedal Edema (improved) Peripheral Pulses: 2+: Dorsalis Pedis (L), Dorsalis Pedis (R) Skin: Warm, Dry, Intact Neurological: No New Focal Deficit. No: Normal Gait Psy/Mental Status: Alert, Normal Affect, Normal Mood - Problem List Review Problem List Initiated/Reviewed/Updated: Yes - My Orders Last 24 Hours: My Active Orders 05/19/17 Lunch Fluid Restriction [DIET] 05/20/17 06:45 VIT D 1,25 DIHYDROXYY [REF] Routine 05/21/17 05:11 BMP [BASIC METABOLIC PANEL,BMP] [CHEM] AM - Assessment Assessment:: Assessment: Arterial doppler consistent with stenosis of arteries in lower extremities. Runoff present through peroneal and posterior tibial arteries bilaterally. Symptoms consistent with claudication. 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 A Fib/PPM, HR controlled DERICK on CPAP CKD III HTN HLD Hx/o TIA Gout DM2 Valvular Heart Disease Hx/o Hepatitis Plan: He is fairly stable Continue PT/OT/RT Lasix drip along with morel cath will be discharged today DVT/GI prophylaxis Encourage to Ambulate as tolerated Additional orders as above D/c to Rehab in AM LOS > 96 hrs due to slow response to treatment and pending Rehab/SNF placement
[2017-05-20] MEDS: Warfarin 3 MG Tab PO SCH (17:44)
[2017-05-20] MEDS: Lidocaine 5% 700 MG Patch TOP SCH (20:05)
[2017-05-20] MEDS: Terazosin 1 MG Cap PO SCH (20:05)
[2017-05-20] MEDS: Allopurinol 300 MG Tab PO SCH (20:05)
[2017-05-20] MEDS: Simvastatin 10 MG Tab PO SCH (20:06)
[2017-05-20] MEDS: Morphine 15 MG Tab PO PRN (20:06)
[2017-05-20] MEDS: Aspirin 81 MG Tab.Chew PO SCH (20:06)
[2017-05-21] MEDS: Budesonide 0.25 MG/2 ML Neb Susp NEB SCH (05:55)
[2017-05-21] MEDS: Levalbuterol HCl 1.25 MG/3 ML Neb NEB SCH ×2 (05:55→09:58)
[2017-05-21 08:06] VITALS: BP 138/70
[2017-05-21] MEDS: Clopidogrel 75 MG Tab PO SCH (08:54)
[2017-05-21] MEDS: Metoprolol Succinate 25 MG Tab.ER PO SCH (08:54)
[2017-05-21] MEDS: Megestrol Susp 40 MG/ML 10 ML UD Cup PO SCH (08:55)
[2017-05-21] MEDS: Tamsulosin 0.4 MG Cap.ER PO SCH (08:55)
[2017-05-21] MEDS ORDERED: Furosemide 40 MG Tab PO SCH (09:00)
--- NOTE | 2017-05-21 09:29 | PCM.DCSUM1 ---
Discharge Summary - Hospital Course Free Text/Narrative:: The patient states that he developed nausea, vomiting, and nonbloody diarrhea on 05/09/2017, that continued through 05/10/2017. None yesterday or today. He states that he fell and struck his left lower ribs on the toilet around 22:30 tonight. He states that he fell because of generalized weakness, that his legs simply gave out, not because of dizziness. He states that he is otherwise uninjured. Here in the ED, the patient is found to be febrile at 101.8. His oxygen saturation was 75% on room air, 92% on 3.5 L O2 per NC. The patient states that he has a chronic cough, productive of clear sputum, unchanged from his baseline. He is chronically short of breath, and denies exacerbation. No chest pain or palpitations. Up until Wednesday, he was reportedly in his usual state of health. He saw his Facilities Administrator, Dr. Davidson, yesterday. The patient's PCP is Dr. Chico Moser. Hospitalist service is consulted for admission for fever, hypoxia, suspected pneumonia and generalized weakness. Patient is admitted to MST unit started on IV abx, IV steroids and aggressive pulmonary toilet/RT. He developed electrolyte abnormalities of hyperkalemia which was corrected. Serial CXR were obtained and read per Radiologist without pneumonia. He had echocardiogram done with his Facilities Administrator, Dr. Davidson the week prior to admission which was obtained and reviewed showing EF of 50-55% (done on 05/07/17). INR was supratherapeutic, monitored and corrected to 2.39 on day of discharge. He continued to have left sided rib pain/ecchymosis s/p fall at home. Lidoderm patch to area of pain was helpful and will be discharged with this. He worked with PT/OT for strengthening, continued to have LE pain/ weakness with ambulation. He had studies done of vasculature of LE to evaluate generalized weakness worse with ambulation d/t hx of PVD. CTA of aorta with runoff study was with report of severe atheromatous changes throughout aortoiliac system and arteries within both lower extremities- see report for further details. Femoral artery US was with diffuse bilateral plaque with multiple areas of narrowing, appears to be <50%, 2 vessel runoff identified into the ankles. Blood cultures returned negative as did urine cultures. He continued to be SOB, BNP increased as did weight. He was started on a lasix drip for 48 hours with 11lb diuresis. Home lasix dose was increased to 40mg PO from 20mg PO at time of discharge. Renal function remained stable during diuresis and on day of discharge. Patient is discharged to [facility] for rehab stay today. He is to have labs done early next week; CBC, BMP, mag and INR with results to PCP Dr. Moser. - Discharge Data Discharge Date: 05/21/17 (admit date 05/12/17) Discharge Disposition: DC/Tfer to [facility] 03 Condition: Good - Discharge Diagnosis/Problem(s) (1) COPD, Moderate chronic obstructive pulmonary disease SNOMED Code(s): 094246437 ICD Code: J44.9 - CHRONIC OBSTRUCTIVE PULMONARY DISEASE, UNSPECIFIED Status : Chronic Priority: High (2) PVD (peripheral vascular disease) with claudication SNOMED Code(s): 417325276 ICD Code: I73.9 - PERIPHERAL VASCULAR DISEASE, UNSPECIFIED Status: Chronic Priority: High (3) Hyperkalemia SNOMED Code(s): 14784783 ICD Code: E87.5 - HYPERKALEMIA Status: Resolved Priority: High (4) CAP (community acquired pneumonia) SNOMED Code(s): 680864325 ICD Code: J18.9 - PNEUMONIA, UNSPECIFIED ORGANISM Status: Resolved Priority: High (5) Chronic renal insufficiency SNOMED Code(s): 775509842 ICD Code: N18.9 - CHRONIC KIDNEY DISEASE, UNSPECIFIED Status: Chronic Priority: Medium (6) Hypoxemia SNOMED Code(s): 090671119 ICD Code: R09.02 - HYPOXEMIA Status: Resolved Priority: High (7) Supratherapeutic INR SNOMED Code(s): 030874136, 186789578 ICD Code: R79.1 - ABNORMAL COAGULATION PROFILE Status: Resolved Priority : High (8) UTI (urinary tract infection) SNOMED Code(s): 83161070 ICD Code: N39.0 - URINARY TRACT INFECTION, SITE NOT SPECIFIED Status: Resolved Priority: High Qualifiers: Urinary tract infection type: acute cystitis Hematuria presence: without hematuria Qualified Code(s): N30.00 - Acute cystitis without hematuria (9) Anemia SNOMED Code(s): 195617400 ICD Code: D64.9 - ANEMIA, UNSPECIFIED Status: Chronic Priority: Medium Onset Date: 09/29/14 (10) Diabetes mellitus type 2 SNOMED Code(s): 86396709 ICD Code: E11.9 - TYPE 2 DIABETES MELLITUS WITHOUT COMPLICATIONS Status: Chronic Priority: Medium - Patient Summary/Data Operative Procedure(s) Performed: None Complications: None Consults: Consultations 05/12/17 04:55 Consult to Physical Therapy [PT Evaluation and Treatment] [CONS] Routine 05/12/17 04:56 Consult to Occupational Therapy [OT Evaluation and Treatment] [CONS] Routine 05/12/17 11:21 Consult to Workers Compensation Consultant [CONS] Routine Labs Pending at D/C: None Recommended Follow-up Testing/Procedures: Patient DC instructions: Physical and occupational therapy to treat and evaluate Supplemental oxygen to keep saturations greater than 90% Weight yourself in the morning daily and keep log-- bring log with to doctor visits Fluid restrictions 2000 ml's in 24 hour period Follow up with PCP within one week of discharge Labs to be done in 5 days of discharge- CBC, BMP, Magnesium, INR with results to PCP, Dr. Moser Planned Operative Procedure(s) after DC: None Hospital Course: As above - Patient Instructions Diet: Heart Healthy Diet, Fluid Restriction, Diabetic Diet Fluid Restriction: 2000 mL Activity: As Tolerated (PT/OT to continue) Driving: Do Not Drive Showering/Bathing: May Shower Notify Provider of: Fever, Increased Pain, Nausea and/or Vomiting (worsening shortness of breath, chest pain, edema) - Discharge Plan Prescriptions/Med Rec: Furosemide [Lasix] 40 mg PO DAILY #30 tablet Lidocaine 5% [Lidoderm 5%] 700 mg TOP Q24H #10 patch Tamsulosin [Flomax] 0.4 mg PO BIDPC #60 cap.er Terazosin [Hytrin] 1 mg PO BEDTIME #30 cap Home Medications: Home Meds Allopurinol [Zyloprim] 150 mg PO BEDTIME 03/02/14 [History] Aspirin [Jacey Chewable Aspirin] 81 mg PO BEDTIME 03/02/14 [History] Warfarin [Coumadin] 3 mg PO ASDIRECTED 03/02/14 [History] Fluticasone/Salmeterol [Advair 500-50] 1 puff INH BID 09/29/14 [History] Warfarin Sodium [Coumadin] 6 mg PO ASDIRECTED 10/31/14 [History] Clopidogrel [Plavix] 75 mg PO DAILY 02/16/15 [History] Metoprolol Succinate [Toprol XL] 1 tab PO DAILY 07/20/15 [History] Albuterol/Ipratropium [DuoNeb 3.0-0.5 MG/3 ML] 3 ml NEB Q8HRRT 05/12/17 [History ] Pravastatin Sodium [Pravachol] 20 mg PO DAILY 05/12/17 [History] glipiZIDE [Glucotrol XL] 2.5 mg PO DAILY 05/12/17 [History] Furosemide [Lasix] 40 mg PO DAILY #30 tablet 05/21/17 [Rx] Lidocaine 5% [Lidoderm 5%] 700 mg TOP Q24H #10 patch 05/21/17 [Rx] Tamsulosin [Flomax] 0.4 mg PO BIDPC #60 cap.er 05/21/17 [Rx] Terazosin [Hytrin] 1 mg PO BEDTIME #30 cap 05/21/17 [Rx] Patient Handouts: Chronic Obstructive Pulmonary Disease Exacerbation, Easy-to- Read, Smoking Hazards, Warfarin: What You Need to Know, Clopidogrel tablets, Urinary Tract Infection, Adult, [id number], Smoking Cessation, Tips for Success, Aspirin, ASA oral tablets Referrals: Michael Davidson MD [Ordering Only Provider] - (Dr. Davidson's office will call your home # when they are able to schedule a [facility] appointment likely no until july,) Chico Moser Jr, MD [Primary Care Provider] - - Discharge Summary/Plan Comment DC Time >30 min.: Yes (40 min) - General Info Date of Service: 05/21/17 Functional Status: Reports: Pain Controlled, Tolerating Diet, Ambulating, Urinating. Denies: New Symptoms - Review of Systems General: Reports: Weakness, Fatigue HEENT: Reports: No Symptoms Pulmonary: Reports: Shortness of Breath (chronic) Cardiovascular: Reports: Dyspnea on Exertion (chronic). Denies: Chest Pain, Palpitations Gastrointestinal: Reports: No Symptoms Genitourinary: Reports: No Symptoms Musculoskeletal: Reports: No Symptoms Skin: Reports: No Symptoms Neurological: Reports: No Symptoms Psychiatric: Reports: No Symptoms - Patient Data Vitals - Most Recent: Last Vital Signs Temp 98.6 F 05/21/17 08:05 Pulse 67 05/21/17 08:54 Resp 16 05/21/17 08:05 BP 138/70 05/21/17 08:54 Pulse Ox 94 L 05/21/17 08:05 Weight - Most Recent: 168 lb 3.2 oz I&O - Last 24 hours: Intake & Output 05/20/17 05/21/17 05/21/17 22:59 06:59 14:59 Intake Total 120 220 Output Total 475 Balance 120 -255 Lab Results - Last 24 hrs: Laboratory Results - last 24 hr 05/21/17 05/21/17 05/21/17 Range/Units 06:10 06:10 06:10 WBC 9.49 H (4.23-9.07) K/mm3 RBC 3.68 L (4.63-6.08) M/mm3 Hgb 9.7 L (13.7-17.5) gm/L Hct 30.8 L (40.1-51.0) % MCV 83.7 (79.0-92.2) fl MCH 26.4 (25.7-32.2) pg MCHC 31.5 L (32.2-35.5) g/dl RDW Std Deviation 62.6 H (35.1-43.9) fL Plt Count 223 (163-337) K/mm3 MPV 9.5 (9.4-12.3) fl Neut % (Auto) 76.3 H (34.0-67.9) % Lymph % (Auto) 10.9 L (21.8-53.1) % Traverse % (Auto) 10.0 (5.3-12.2) % Eos % (Auto) 1.3 (0.8-7.0) Baso % (Auto) 0.1 (0.1-1.2) % Neut # (Auto) 7.25 H (1.78-5.38) K/mm3 Lymph # (Auto) 1.03 L (1.32-3.57) K/mm3 Traverse # (Auto) 0.95 H (0.30-0.82) K/mm3 Eos # (Auto) 0.12 (0.04-0.54) K/mm3 Baso # (Auto) 0.01 (0.01-0.08) K/mm3 Manual Slide Review Abnormal smear Sodium 141 (136-145) mEq/L Potassium 4.5 (3.5-5.1) mEq/L Chloride 105 (98-107) mEq/L Carbon Dioxide 36 H (21-32) mEq/L Anion Gap 4.5 L (5-15) BUN 58 H (7-18) mg/dL Creatinine 1.3 (0.7-1.3) mg/dL Est Cr Clr Drug Dosing 43.00 mL/min Estimated GFR (MDRD) 52 (>60) mL/min BUN/Creatinine Ratio 44.6 H (14-18) Glucose 110 (83-115) mg/dL Calcium 11.5 H (8.5-10.1) mg/dL Magnesium 2.1 (1.8-2.4) mg/dl C-Reactive Protein 1.6 H* (<1.0) mg/dL Med Orders - Current: Current Medications Acetaminophen (Tylenol) 650 mg PO Q4H PRN PRN Reason: Pain/Fever Last Admin: 05/14/17 05:24 Dose: 650 mg Allopurinol (Zyloprim) 150 mg PO BEDTIME [facility] Last Admin: 05/20/17 20:05 Dose: 150 mg Aspirin (Aspirin) 81 mg PO BEDTIME [facility] Last Admin: 05/20/17 20:06 Dose: 81 mg Benzocaine/Menthol (Cepacol Sore Throat) 1 lozenge MUCMEM Q4H PRN PRN Reason: Cough Last Admin: 05/17/17 03:04 Dose: 1 lozenge Bisacodyl (Dulcolax) 5 mg PO DAILY PRN PRN Reason: Constipation Last Admin: 05/17/17 18:03 Dose: 5 mg Budesonide (Pulmicort) 0.25 mg NEB BIDRT [facility] Last Admin: 05/21/17 05:55 Dose: 0.25 mg Clopidogrel Bisulfate (Plavix) 75 mg PO DAILY [facility] Last Admin: 05/21/17 08:54 Dose: 75 mg Furosemide (Lasix) 40 mg PO DAILY [facility] Last Admin: 05/21/17 08:54 Dose: 40 mg Hydralazine HCl (Apresoline) 20 mg IVPUSH Q8H PRN PRN Reason: Hypertension Last Admin: 05/16/17 16:09 Dose: 20 mg Levalbuterol HCl (Xopenex) 1.25 mg NEB Q4HRRT PRN PRN Reason: Shortness of Breath Levalbuterol HCl (Xopenex) 1.25 mg NEB QIDRT [facility] Last Admin: 05/21/17 05:55 Dose: 1.25 mg Lidocaine (Lidoderm 5%) 700 mg TOP Q24H [facility] Last Admin: 05/20/17 20:05 Dose: 700 mg Megestrol Acetate (Megace 40 Mg/Ml Susp) 800 mg PO DAILY [facility] Last Admin: 05/21/17 08:55 Dose: 800 mg Metoprolol Succinate (Toprol Xl) 25 mg PO DAILY [facility] Last Admin: 05/21/17 08:54 Dose: 25 mg Miscellaneous Information (Remove Patch) 1 ea TRDERM DAILY [facility] Last Admin: 05/21/17 08:55 Dose: 1 ea Morphine Sulfate (Morphine) 15 mg PO Q4H PRN PRN Reason: RIB PAIN Last Admin: 05/20/17 20:06 Dose: 15 mg Morphine Sulfate (Morphine) 0.25 mg IVPUSH Q4H PRN PRN Reason: Other Fluticasone/Salmeterol (Advair Diskus 500-50) 1 puff INH BID [facility] Last Admin: 05/20/17 21:01 Dose: 1 puff Simvastatin (Zocor) 10 mg PO BEDTIME [facility] Last Admin: 05/20/17 20:06 Dose: 10 mg Sodium Chloride (Saline Flush) 10 ml FLUSH ONETIME PRN PRN Reason: IV FLUSH Last Admin: 05/14/17 09:29 Dose: 10 ml [facility]amsulosin [facility] ([facility]om[facility]) [facility] Last Admin: 05/21/17 08:55 Dose: 0.4 mg Terazosin HCl (Hytrin) 1 mg PO BEDTIME [facility] Last Admin: 05/20/17 20:05 Dose: 1 mg Warfarin Sodium (Coumadin) 3 mg PO SuTuWeThFrSa@1800 [facility] Last Admin: 05/20/17 17:44 Dose: 3 mg Warfarin Sodium (Coumadin) 6 mg PO Mo@1800 [facility] Last Admin: 05/17/17 18:03 Dose: 6 mg Discontinued Medications Albuterol (Proventil Neb Soln) 2.5 mg NEB Q4HRRT PRN PRN Reason: Shortness of Breath Last Admin: 05/14/17 04:12 Dose: 2.5 mg Albuterol (Proventil Neb Soln) 2.5 mg NEB Q8HRRT [facility] Last Admin: 05/17/17 16:58 Dose: Not Given Albuterol (Proventil Neb Soln) 2.5 mg NEB Q4H PRN PRN Reason: Shortness of Breath Albuterol (Proventil Neb Soln) 2.5 mg NEB Q8HRRT JAROD Albuterol (Proventil Neb Soln) 2.5 mg NEB Q4HRRT PRN PRN Reason: Wheezing Albuterol/Ipratropium (Duoneb 3.0-0.5 Mg/3 Ml) 3 ml NEB ONETIME ONE Stop: 05/12/17 03:22 Last Admin: 05/12/17 03:32 Dose: 3 ml Albuterol/Ipratropium (Duoneb 3.0-0.5 Mg/3 Ml) 3 ml NEB Q6HRRT [facility] Last Admin: 05/12/17 08:27 Dose: 3 ml Albuterol/Ipratropium (Duoneb 3.0-0.5 Mg/3 Ml) 3 ml NEB Q8HRRT JAROD Albuterol/Ipratropium (Duoneb 3.0-0.5 Mg/3 Ml) 3 ml NEB QIDRT [facility] Last Admin: 05/17/17 10:07 Dose: 3 ml Bumetanide (Bumex) 0.5 mg IVPUSH ONETIME ONE Stop: 05/17/17 14:31 Last Admin: 05/17/17 14:45 Dose: 0.5 mg Dronabinol (Marinol) 2.5 mg PO TIDAC [facility] Last Admin: 05/16/17 10:20 Dose: 2.5 mg Enoxaparin Sodium (Lovenox) 30 mg SUBCUT DAILY [facility] Last Admin: 05/12/17 08:31 Dose: 30 mg Furosemide (Lasix) 40 mg IVPUSH NOW ONE Stop: 05/13/17 20:59 Last Admin: 05/13/17 21:31 Dose: Not Given Furosemide (Lasix) 20 mg IVPUSH NOW ONE Stop: 05/13/17 20:59 Last Admin: 05/13/17 21:30 Dose: 20 mg Furosemide (Lasix) 20 mg IVPUSH NOW ONE Stop: 05/14/17 10:01 Last Admin: 05/14/17 10:15 Dose: 20 mg Furosemide (Lasix) 20 mg PO DAILY JAROD Last Admin: 05/17/17 09:24 Dose: 20 mg Furosemide (Lasix) 20 mg IVPUSH NOW ONE Stop: 05/16/17 18:09 Last Admin: 05/16/17 18:30 Dose: 20 mg Furosemide (Lasix) 40 mg PO DAILY JAROD Last Admin: 05/18/17 09:33 Dose: 40 mg Hydrochlorothiazide (Hydrochlorothiazide) 12.5 mg PO BIDDIURETIC [facility] Last Admin: 05/20/17 13:36 Dose: 12.5 mg Hydrochlorothiazide (Hydrochlorothiazide) 12.5 mg PO ONETIME ONE Stop: 05/19/17 12:34 Last Admin: 05/19/17 12:13 Dose: 12.5 mg Levofloxacin/Dextrose 500 mg/ (Premix) 100 mls @ 100 mls/hr IV ONETIME ONE Stop: 05/12/17 04:33 Last Admin: 05/12/17 03:44 Dose: 100 mls/hr Azithromycin 500 mg/ Sodium (Chloride) 250 mls @ 250 mls/hr IV Q24H [facility] Last Admin: 05/16/17 04:56 Dose: 250 mls/hr Ceftriaxone Sodium 2 gm/ (Sodium Chloride) 100 mls @ 200 mls/hr IV Q24H [facility] Last Admin: 05/16/17 10:20 Dose: 200 mls/hr Sodium Chloride (Normal Saline) 1,000 mls @ 75 mls/hr IV ASDIRECTED [facility] Last Infusion: 05/12/17 22:11 Dose: 75 mls/hr Phytonadione 5 mg/ Sodium (Chloride) 50.5 mls @ 100 mls/hr IV NOW ONE Stop: 05/12/17 15:16 Last Admin: 05/12/17 19:28 Dose: Not Given Sodium Chloride (Normal Saline) 450 mls @ 75 mls/hr IV ASDIRECTED JAROD Stop: 05/13/17 21:59 Last Admin: 05/13/17 16:17 Dose: 75 mls/hr Sodium Chloride (Normal Saline) 100 mls @ 80 mls/hr IV ASDIRECTED JAROD Stop: 05/14/17 18:00 Last Admin: 05/14/17 09:28 Dose: 80 mls/hr Magnesium Sulfate 2 gm/ Premix 50 mls @ 25 mls/hr IV ONETIME ONE Stop: 05/14/17 23:25 Last Admin: 05/14/17 21:49 Dose: 25 mls/hr Piperacillin Sod/Tazobactam (Sod 4.5 gm/ Sodium Chloride) 100 mls @ 25 mls/hr IV Q8H [facility] Piperacillin Sod/Tazobactam (Sod 4.5 gm/ Sodium Chloride) 100 mls @ 200 mls/hr IV ONETIME ONE Stop: 05/16/17 13:29 Doxycycline Hyclate 100 mg/ (Sodium Chloride) 100 mls @ 100 mls/hr IV Q12H [facility] Last Admin: 05/17/17 13:15 Dose: 100 mls/hr Ceftriaxone Sodium 1 gm/ (Sodium Chloride) 100 mls @ 200 mls/hr IV Q24H [facility] Last Admin: 05/17/17 10:02 Dose: 200 mls/hr Azithromycin 250 mg/ Sodium (Chloride) 250 mls @ 250 mls/hr IV Q24H [facility] Last Admin: 05/19/17 08:49 Dose: 250 mls/hr Furosemide 100 mg/ Sodium (Chloride) 100 mls @ 5 mls/hr IV TITRATE [facility] PRN Reason: Protocol Last Admin: 05/19/17 15:29 Dose: 5 mls/hr Iopamidol (Isovue-370 (76%)) 50 ml IVPUSH ONETIME ONE Stop: 05/14/17 08:37 Last Admin: 05/14/17 09:29 Dose: 50 ml Iopamidol (Isovue-370 (76%)) 100 ml IVPUSH ONETIME ONE Stop: 05/14/17 08:37 Last Admin: 05/14/17 09:29 Dose: 60 ml Levalbuterol HCl (Xopenex) 1.25 mg NEB Q4HRRT [facility] Last Admin: 05/18/17 09:17 Dose: 1.25 mg Lidocaine (Lidoderm 5%) 700 mg TOP BEDTIME JAROD Stop: 05/16/17 12:45 Last Admin: 05/15/17 20:31 Dose: 700 mg Lidocaine (Lidoderm 5%) 700 mg TOP Q24H [facility] Last Admin: 05/16/17 13:25 Dose: 700 mg Methylprednisolone Sodium Succinate (Solu-Medrol) 40 mg IVPUSH Q8H [facility] Last Admin: 05/17/17 09:22 Dose: 40 mg Mometasone Furoate/Formoterol Fumar (Dulera 200-5 Mcg) 2 puff IH BID [facility] Last Admin: 05/16/17 10:01 Dose: 2 puff Morphine Sulfate (Morphine) 1 mg IVPUSH ONETIME ONE Stop: 05/14/17 11:17 Last Admin: 05/14/17 12:09 Dose: 1 mg Phytonadione (Aquamephyton) 5 mg PO ONETIME ONE Stop: 05/12/17 15:01 Last Admin: 05/12/17 15:09 Dose: 5 mg Saccharomyces Boulardii (Florastor) 250 mg PO BID [facility] Last Admin: 05/19/17 21:14 Dose: 250 mg Fluticasone/Salmeterol (Advair Diskus 500-50) 1 puff INH BID [facility] Sodium Polystyrene Sulfonate (Kayexalate) 15 gm PO ONETIME ONE Stop: 05/16/17 18:09 Last Admin: 05/16/17 18:30 Dose: 15 gm Tamsulosin HCl (Flomax) 0.4 mg PO DAILY [facility] Last Admin: 05/16/17 08:36 Dose: 0.4 mg Terazosin HCl (Hytrin) 1 mg PO ONETIME ONE Stop: 05/14/17 17:01 Last Admin: 05/14/17 17:14 Dose: 1 mg Warfarin Sodium (Coumadin) 6 mg PO Mo@1800 [facility] Warfarin Sodium (Coumadin) 3 mg PO SuTuWeThFrSa@1800 [facility] - Exam Quality Assessment: Reports: Supplemental Oxygen, DVT Prophylaxis General: Reports: Alert, Oriented, Cooperative, No Acute Distress HEENT: Reports: Pupils Equal, EOMI, Mucous Membr. Moist/[place] Neck: Reports: Supple Lungs: Reports: Normal Respiratory Effort, Decreased Breath Sounds (bases; tight and decreased throughout), Wheezing Cardiovascular: Reports: Irregular Rhythm GI/Abdominal Exam: Normal Bowel Sounds, Soft, Non-Tender (Male) Exam: Deferred Rectal (Males) Exam: Deferred Extremities: Normal Inspection, Pedal Edema (minimal), Other (teds bilat) Neurological: Reports: No New Focal Deficit Psy/Mental Status: Reports: Alert, Normal Affect, Normal Mood *Q Meaningful Use (DIS) - VTE *Q VTE Criteria *Q: - Stroke *Q Stroke Criteria *Q: - AMI *Q AMI Criteria *Q:
[2017-05-21] MEDS: Fluticasone/Salmeterol 500-50 MCG Inhalation Powder 14/Diskus INH SCH (09:58)
== END 2017-05-21 10:24 | DRG 190 ==
LOC: JD.ED 02:09 → UNDOADMIN 04:16 → JD.MS 04:16 → UNDODISIN 05-21 10:24
PROVIDERS: ADMIT Internal Medicine Cardiovascular Disease; ATTEND Internal Medicine Cardiovascular Disease
DX: A41.9 Sepsis, unspecified organism (principal); N39.0 Urinary tract infection, site not specified; J44.1 Chronic obstructive pulmonary disease with (acute) exacerbation; I21.4 Non-ST elevation (NSTEMI) myocardial infarction; N18.9 Chronic kidney disease, unspecified; I25.810 Atherosclerosis of coronary artery bypass graft(s) without angina pectoris; E78.00 Pure hypercholesterolemia, unspecified; J44.9 Chronic obstructive pulmonary disease, unspecified; R09.02 Hypoxemia; Z87.891 Personal history of nicotine dependence; G47.30 Sleep apnea, unspecified; N40.0 Benign prostatic hyperplasia without lower urinary tract symptoms; J06.9 Acute upper respiratory infection, unspecified; S20.212A Contusion of left front wall of thorax, initial encounter; W18.39XA Other fall on same level, initial encounter; Y92.002 Bathroom of unspecified non-institutional (private) residence as the place of occurrence of the external cause; R79.1 Abnormal coagulation profile; E87.5 Hyperkalemia; I50.9 Heart failure, unspecified; R06.02 Shortness of breath; W18.30XA Fall on same level, unspecified, initial encounter; I73.9 Peripheral vascular disease, unspecified; R53.1 Weakness; I12.9 Hypertensive chronic kidney disease with stage 1 through stage 4 chronic kidney disease, or unspecified chronic kidney disease; N18.3 Chronic kidney disease, stage 3 (moderate); I48.91 Unspecified atrial fibrillation; G47.33 Obstructive sleep apnea (adult) (pediatric); E78.5 Hyperlipidemia, unspecified; I25.2 Old myocardial infarction; E11.9 Type 2 diabetes mellitus without complications; Z79.84 Long term (current) use of oral hypoglycemic drugs; Z95.0 Presence of cardiac pacemaker; Z66 Do not resuscitate; Z79.01 Long term (current) use of anticoagulants; Z79.82 Long term (current) use of aspirin; Z79.899 Other long term (current) drug therapy; G62.9 Polyneuropathy, unspecified; D64.9 Anemia, unspecified
CPT/HCPCS: 36415; 36600; 71010; 80053; 81001; 82803; 83605; 83880; 84484; 85025; 85610; 85730; 87040 ×2; 87086; 93005; 94664; 96365; 99285; J1956; P9612; 71020; 71020-26; 75635; 75635-26; 80048; 82652; 82962; 83735; 84132; 84439; 84443; 86140; 93925; 93925-26; 94640; 94640-76; 94761; 97110-GO; 97110-GP; 97116-GP; 97162-GP; 97167-GO; 97530-GO; 97530-GP; 97535-GO; A9270-GY; J0360; J0456; J0696; J1650; J1940; J2270; J2920; J3475; J7030; J7040; J7050; J7634; Q0167; Q9967

== ENCOUNTER 2017-05-30 03:42 | Emergency (ER) | payer MEDICARE, OTHER ==
[2017-05-30 03:54] VITALS: BP 160/58
--- NOTE | 2017-05-30 03:59 | EDM.PDOC ---
ED HPI GENERAL MEDICAL PROBLEM - General Chief Complaint: ENT Problem Stated Complaint: [facility] Time Seen by Provider: 05/30/17 03:50 Source of Information: Reports: Patient History Limitations: Reports: No Limitations - History of Present Illness INITIAL COMMENTS - FREE TEXT/NARRATIVE: 7-year-old male. He lives at [facility]. Apparently around 2 AM this morning he started having a right nasal passage nosebleed. He states he gets a lot of nosebleeds since been cauterized multiple times in the past. He is on Plavix aspirin and warfarin but he is not certain why he is on all these blood thinners. He denies any other acute symptoms this morning. - Related Data Allergies Allergy/AdvReac Type Severity Reaction Status Date / Time albuterol Allergy Intermediate Other Verified 05/30/17 03:53 Home Meds: Home Meds Allopurinol [Zyloprim] 150 mg PO BEDTIME 03/02/14 [History] Aspirin [Jacey Chewable Aspirin] 81 mg PO BEDTIME 03/02/14 [History] Warfarin [Coumadin] 3 mg PO ASDIRECTED 03/02/14 [History] Fluticasone/Salmeterol [Advair 500-50] 1 puff INH BID 09/29/14 [History] Warfarin Sodium [Coumadin] 6 mg PO ASDIRECTED 10/31/14 [History] Clopidogrel [Plavix] 75 mg PO DAILY 02/16/15 [History] Metoprolol Succinate [Toprol XL] 1 tab PO DAILY 07/20/15 [History] Albuterol/Ipratropium [DuoNeb 3.0-0.5 MG/3 ML] 3 ml NEB Q8HRRT 05/12/17 [History ] Pravastatin Sodium [Pravachol] 20 mg PO DAILY 05/12/17 [History] glipiZIDE [Glucotrol XL] 2.5 mg PO DAILY 05/12/17 [History] Furosemide [Lasix] 40 mg PO DAILY #30 tablet 05/21/17 [Rx] Lidocaine 5% [Lidoderm 5%] 700 mg TOP Q24H #10 patch 05/21/17 [Rx] Tamsulosin [Flomax] 0.4 mg PO BIDPC #60 cap.er 05/21/17 [Rx] Terazosin [Hytrin] 1 mg PO BEDTIME #30 cap 05/21/17 [Rx] Past Medical History HEENT History: Reports: Cataract, Impaired Vision Cardiovascular History: Reports: Arrhythmia, CAD, Hypertension, PVD Respiratory History: Reports: COPD, Sleep Apnea Gastrointestinal History: Reports: Diverticulosis Genitourinary History: Reports: BPH, Chronic Renal Insuffiency, Diabetic Nephropathy Musculoskeletal History: Reports: Gout Neurological History: Reports: None Psychiatric History: Reports: None Endocrine/Metabolic History: Reports: Diabetes, Type II - Infectious Disease History Infectious Disease History: Reports: Other (See Below) Other Infectious Disease History: infectious hepatitis in 1956 - Past Surgical History HEENT Surgical History: Reports: Cataract Surgery Cardiovascular Surgical History: Reports: AAA Repair, Carotid Endarterectomy, Coronary Artery Bypass, Pacer Respiratory Surgical History: Reports: None GI Surgical History: Reports: Cholecystectomy Male Surgical History: Reports: TURP-Transurethral Resection of Prostate Endocrine Surgical History: Reports: None Neurological Surgical History: Reports: None Musculoskeletal Surgical History: Reports: None Social & Family History - Family History Family Medical History: Noncontributory Respiratory: Reports: COPD Other Respiratory Family Hisory: mother Oncologic: Reports: Cervix Other Oncologic Family History: mother - Tobacco Use Smoking Status *Q: Former Smoker Years of Tobacco use: 60 Packs/Tins Daily: 1 Used Tobacco, but Quit: Yes Month Tobacco Last Used: December Second Hand Smoke Exposure: No - Caffeine Use Caffeine Use: Reports: Coffee - Alcohol Use Days Per Week of Alcohol Use: 7 Number of Drinks Per Day: 1 Total Drinks Per Week: 7 - Recreational Drug Use Recreational Drug Use: No - Living Situation & Occupation Living situation: Reports: , with Spouse Occupation: Retired ED ROS ENT - Review of Systems Review Of Systems: See Below Constitutional: Reports: Weakness. Denies: Fever, Chills HEENT: Reports: Nosebleed Respiratory: Reports: Pleuritic Chest Pain, Cough. Denies: Shortness of Breath Cardiovascular: Denies: Chest Pain Endocrine: Reports: No Symptoms GI/Abdominal: Denies: Constipation, Diarrhea, Nausea, Vomiting : Reports: No Symptoms Musculoskeletal: Reports: No Symptoms Skin: Reports: No Symptoms Neurological: Reports: No Symptoms Psychiatric: Reports: No Symptoms Hematologic/Lymphatic: Reports: No Symptoms ED EXAM, ENT - Physical Exam Exam: See Below Exam Limited By: No Limitations General Appearance: Alert, WD/WN, No Apparent Distress Eye Exam: Bilateral Eye: Normal Inspection Ears: Normal External Exam Nose: Other (He has an active anterior nasal bleed on the right nasal passage, the left nasal passage is clear) Mouth/Throat: Other (Noted to have blood in the oropharynx as well) Head: Normocephalic Neck: Supple Respiratory/Chest: No Respiratory Distress, Lungs Clear, Normal Breath Sounds Cardiovascular: Regular Rate, Rhythm, No Murmur Back: Decreased Range of Motion Extremities: Other (He has full use of his upper extremities but he is very weak in the lower extremities and requires a walker) Neurological: Alert, Oriented Psychiatric: Normal Affect, Normal Mood Skin: Warm, Dry ED ENT PROCEDURES - Epistaxis Procedure Indication: Epistaxis Recent anticoagulants/antiplatlets: Yes Uncontrolled HTN: No Recent septal/nasal surgery: No Site of bleeding: Right Nare Clearing of clots: Other (Just started bleeding spontaneously) Topical Meds: Topical Cocaine Anterior Packing: Other (Nasal inflatable balloon, 5.5 cm rock) Complications: No Course - Vital Signs Last Recorded V/S: Last Vital Signs Temp 98.5 F 05/30/17 03:48 Pulse 63 05/30/17 03:48 Resp 18 05/30/17 03:48 BP 160/58 H 05/30/17 03:48 Pulse Ox 100 05/30/17 03:48 - Orders/Labs/Meds Labs: Laboratory Tests 05/30/17 Range/Units 04:04 PT 16.8 H (8.0-13.0) SECONDS INR 1.50 Meds: Medications Discontinued Medications Generic Name Dose Route Start Last Admin Trade Name Bernardoq PRN Reason Stop Dose Admin Cocaine HCl Confirm 05/30/17 03:49 05/30/17 04:00 Cocaine Hcl Administered 05/30/17 03:50 Not Given Dose 4 ml .ROUTE .STK-MED ONE Cocaine HCl 1 ml 05/30/17 03:59 05/30/17 04:00 Cocaine Hcl TOP 05/30/17 04:00 1 ml ONETIME ONE Administration - Re-Assessments/Exams Free Text/Narrative Re-Assessment/Exam: 05/30/17 04:54 Patient tolerated the Rhino Rocket without difficulty. The bleeding is stopped. Departure - Departure Time of Disposition: 04:54 Disposition: Home, Self-Care 01 Condition: Fair Clinical Impression: Anterior epistaxis - Discharge Information Forms: ED Department Discharge Additional Instructions: Wednesday morning first thing have the Rhino Rocket removed, this can be done either by your family physician or you may return to the ER to have it removed, if there is any further problems return to the ER
== END 2017-05-30 05:15 | disposition home or self-care (01) ==
LOC: JD.ED 03:42
DX: R04.0 Epistaxis (principal); H54.7 Unspecified visual loss; I25.10 Atherosclerotic heart disease of native coronary artery without angina pectoris; I10 Essential (primary) hypertension; J44.9 Chronic obstructive pulmonary disease, unspecified; I12.9 Hypertensive chronic kidney disease with stage 1 through stage 4 chronic kidney disease, or unspecified chronic kidney disease; E11.22 Type 2 diabetes mellitus with diabetic chronic kidney disease; E11.40 Type 2 diabetes mellitus with diabetic neuropathy, unspecified; Z90.49 Acquired absence of other specified parts of digestive tract; Z87.891 Personal history of nicotine dependence; Z88.8 Allergy status to other drugs, medicaments and biological substances; Z79.82 Long term (current) use of aspirin; Z79.01 Long term (current) use of anticoagulants
CPT/HCPCS: 30901; 30903; 36415; 85610; 99282; 99285-25

== ENCOUNTER 2017-05-31 20:13 | Emergency (ER) | payer MEDICARE, OTHER ==
[2017-05-31 20:33] VITALS: BP 126/54
[2017-05-31] MEDS ORDERED: Oxymetazoline 0.05% Nasal Spray 15 ML Bottle NAS ONE (21:05)
--- NOTE | 2017-05-31 21:10 | EDM.PDOC ---
ED HPI GENERAL MEDICAL PROBLEM - General Chief Complaint: ENT Problem Stated Complaint: NOSEBLEED Time Seen by Provider: 05/31/17 20:41 Source of Information: Reports: Patient, RN Notes Reviewed - History of Present Illness INITIAL COMMENTS - FREE TEXT/NARRATIVE: 87-year-old gentleman comes in with bleeding right nares. He had onset of the bleeding yesterday, was evaluated here in the ED, did have a nasal balloon placed. That was taken out at the clinic this late afternoon. Did start bleeding after wound removal. He has continued to have intermittent slow bleeding right nares since that time. Is not aware of blood running down the back of his throat. He is on Coumadin and Plavix. No chest pain at this time. Chronic generalized weakness. He did suffer a major fall a few weeks ago. He was in the hospital for a period of time and now at its [facility]. - Related Data Allergies Allergy/AdvReac Type Severity Reaction Status Date / Time albuterol Allergy Intermediate Other Verified 05/31/17 20:33 Home Meds: Home Meds Allopurinol [Zyloprim] 150 mg PO BEDTIME 03/02/14 [History] Aspirin [Jacey Chewable Aspirin] 81 mg PO BEDTIME 03/02/14 [History] Warfarin [Coumadin] 3 mg PO ASDIRECTED 03/02/14 [History] Fluticasone/Salmeterol [Advair 500-50] 1 puff INH BID 09/29/14 [History] Warfarin Sodium [Coumadin] 6 mg PO ASDIRECTED 10/31/14 [History] Clopidogrel [Plavix] 75 mg PO DAILY 02/16/15 [History] Metoprolol Succinate [Toprol XL] 1 tab PO DAILY 07/20/15 [History] Albuterol/Ipratropium [DuoNeb 3.0-0.5 MG/3 ML] 3 ml NEB Q8HRRT 05/12/17 [History ] Pravastatin Sodium [Pravachol] 20 mg PO DAILY 05/12/17 [History] glipiZIDE [Glucotrol XL] 2.5 mg PO DAILY 05/12/17 [History] Furosemide [Lasix] 40 mg PO DAILY #30 tablet 05/21/17 [Rx] Lidocaine 5% [Lidoderm 5%] 700 mg TOP Q24H #10 patch 05/21/17 [Rx] Tamsulosin [Flomax] 0.4 mg PO BIDPC #60 cap.er 05/21/17 [Rx] Terazosin [Hytrin] 1 mg PO BEDTIME #30 cap 05/21/17 [Rx] Past Medical History HEENT History: Reports: Cataract, Impaired Vision Cardiovascular History: Reports: Arrhythmia, CAD, Hypertension, PVD Respiratory History: Reports: COPD, Sleep Apnea Gastrointestinal History: Reports: Diverticulosis Genitourinary History: Reports: BPH, Chronic Renal Insuffiency, Diabetic Nephropathy Musculoskeletal History: Reports: Gout Neurological History: Reports: None Psychiatric History: Reports: None Endocrine/Metabolic History: Reports: Diabetes, Type II - Infectious Disease History Infectious Disease History: Reports: Other (See Below) Other Infectious Disease History: infectious hepatitis in [birth year] - Past Surgical History HEENT Surgical History: Reports: Cataract Surgery Cardiovascular Surgical History: Reports: AAA Repair, Carotid Endarterectomy, Coronary Artery Bypass, Pacer Respiratory Surgical History: Reports: None GI Surgical History: Reports: Cholecystectomy Male Surgical History: Reports: TURP-Transurethral Resection of Prostate Endocrine Surgical History: Reports: None Neurological Surgical History: Reports: None Musculoskeletal Surgical History: Reports: None Social & Family History - Family History Family Medical History: Noncontributory Respiratory: Reports: COPD Other Respiratory Family Hisory: mother Oncologic: Reports: Cervix Other Oncologic Family History: mother - Tobacco Use Smoking Status *Q: Former Smoker Years of Tobacco use: 60 Packs/Tins Daily: 1 Used Tobacco, but Quit: No Month Tobacco Last Used: 6 months ago Second Hand Smoke Exposure: No - Caffeine Use Caffeine Use: Reports: Coffee - Alcohol Use Days Per Week of Alcohol Use: 7 Number of Drinks Per Day: 1 Total Drinks Per Week: 7 - Recreational Drug Use Recreational Drug Use: No - Living Situation & Occupation Living situation: Reports: , with Spouse Occupation: Retired ED ROS ENT - Review of Systems Review Of Systems: See Below Constitutional: Denies: Fever, Chills, Diaphoresis HEENT: Reports: Nosebleed. Denies: Throat Pain Respiratory: Reports: Shortness of Breath (Chronically, on chronic oxygen). Denies: Cough Cardiovascular: Denies: Chest Pain Endocrine: Reports: Fatigue GI/Abdominal: Denies: Abdominal Pain, Nausea, Vomiting Musculoskeletal: Reports: Other (No acute symptoms) Skin: Reports: Bruising (Anterior chest status post fall) Neurological: Reports: Dizziness (Mild, chronic), Weakness. Denies: Trouble Speaking ED EXAM, ENT - Physical Exam Exam: See Below General Appearance: Alert, No Apparent Distress Eye Exam: Bilateral Eye: PERRL Nose: Active Bleeding (slight oozing R nares) Mouth/Throat: Normal Inspection, Other (Trace of blood only posterior throat) Head: Atraumatic. No: Facial Swelling Neck: Supple, Full Range of Motion Respiratory/Chest: Respiratory Distress. No: Rales, Rhonchi (Mild tachypnea), Wheezing Cardiovascular: Regular Rate, Rhythm GI/Abdominal: Soft, Non-Tender Extremities: Normal Inspection, Normal Range of Motion Neurological: Alert, Oriented, No Motor/Sensory Deficits Skin: Warm, Dry, Normal Color Course - Vital Signs Last Recorded V/S: Last Vital Signs Temp 97.5 F 05/31/17 20:30 Pulse 66 05/31/17 20:30 Resp 16 05/31/17 20:30 BP 126/54 L 05/31/17 20:30 Pulse Ox 95 05/31/17 20:30 - Orders/Labs/Meds Labs: Laboratory Tests 05/31/17 05/31/17 Range/Units 21:25 21:25 WBC 7.18 (4.23-9.07) K/mm3 RBC 3.13 L (4.63-6.08) M/mm3 Hgb 8.6 L (13.7-17.5) gm/L Hct 27.1 L (40.1-51.0) % MCV 86.6 (79.0-92.2) fl MCH 27.5 (25.7-32.2) pg MCHC 31.7 L (32.2-35.5) g/dl RDW Std Deviation 68.1 H (35.1-43.9) fL Plt Count 166 (163-337) K/mm3 MPV 9.1 L (9.4-12.3) fl Neut % (Auto) 76.1 H (34.0-67.9) % Lymph % (Auto) 11.3 L (21.8-53.1) % [place] % (Auto) 10.6 (5.3-12.2) % Eos % (Auto) 1.8 (0.8-7.0) Baso % (Auto) 0.1 (0.1-1.2) % Neut # (Auto) 5.46 H (1.78-5.38) K/mm3 Lymph # (Auto) 0.81 L (1.32-3.57) K/mm3 [place] # (Auto) 0.76 (0.30-0.82) K/mm3 Eos # (Auto) 0.13 (0.04-0.54) K/mm3 Baso # (Auto) 0.01 (0.01-0.08) K/mm3 PT 14.7 H (8.0-13.0) SECONDS INR 1.32 Meds: Medications Discontinued Medications Generic Name Dose Route Start Last Admin Trade Name Freq PRN Reason Stop Dose Admin Cocaine HCl 4 ml 05/31/17 21:05 05/31/17 21:16 Cocaine Hcl TOP 05/31/17 21:06 4 ml ONETIME ONE Administration Oxymetazoline HCl 1 ml 05/31/17 21:05 05/31/17 21:16 Afrin Original 0.05% Nasal [place] MALCOM 05/31/17 21:06 1 ml ONETIME ONE Administration - Re-Assessments/Exams Free Text/Narrative Re-Assessment/Exam: 05/31/17 23:34. One cotton plug was removed right nares he had some mucus and a small amount of blood posterior right nares but no active bleeding from the septum more posteriorly. Therefore I did treat with 2 sprays of Afrin nasal spray and just watched him for about 45 minutes while doing lab work. No further bleeding while here in the ED. Discharge instructions as documented Departure - Departure Time of Disposition: 22:25 Disposition: Home, Self-Care 01 Condition: Fair Clinical Impression: Epistaxis - Discharge Information Instructions: Nosebleed, [id number] Referrals: Chico Moser Jr, MD [Primary Care Provider] - Forms: ED Department Discharge Additional Instructions: Vaseline to distal nose twice daily, do not blow nose, pressure if needed for any further bleeding, Afrin nasal spray if needed for bleeding that does not want to stop. Follow-up Dr. Moser as needed. Return to ED if unable to continue further bleeding. Your oxygen level is running 97-99% at this time room air so stop the nasal oxygen for now. That can be continued if you're set start running less than 92% or if you're becoming severely short of breath.
== END 2017-05-31 22:44 | disposition home or self-care (01) ==
LOC: JD.ED 20:13
DX: R04.0 Epistaxis (principal); R06.82 Tachypnea, not elsewhere classified; I25.10 Atherosclerotic heart disease of native coronary artery without angina pectoris; J44.9 Chronic obstructive pulmonary disease, unspecified; I12.9 Hypertensive chronic kidney disease with stage 1 through stage 4 chronic kidney disease, or unspecified chronic kidney disease; E11.21 Type 2 diabetes mellitus with diabetic nephropathy; E11.22 Type 2 diabetes mellitus with diabetic chronic kidney disease; N18.9 Chronic kidney disease, unspecified; Z79.82 Long term (current) use of aspirin; Z79.01 Long term (current) use of anticoagulants; Z79.02 Long term (current) use of antithrombotics/antiplatelets; Z79.84 Long term (current) use of oral hypoglycemic drugs; Z79.899 Other long term (current) drug therapy; Z88.8 Allergy status to other drugs, medicaments and biological substances; Z98.49 Cataract extraction status, unspecified eye; Z90.49 Acquired absence of other specified parts of digestive tract; Z95.0 Presence of cardiac pacemaker; Z95.1 Presence of aortocoronary bypass graft; Z98.890 Other specified postprocedural states; Z87.891 Personal history of nicotine dependence
CPT/HCPCS: 36415; 85025; 85610; 99283; A9270

== ENCOUNTER 2017-09-10 07:21 | Emergency (ER) | payer MEDICARE, OTHER ==
[2017-09-10 07:44] VITALS: BP 158/61
[2017-09-10] MEDS ORDERED: Oxymetazoline 0.05% Nasal Spray 15 ML Bottle NAS ONE (07:50)
--- NOTE | 2017-09-10 09:05 | EDM.PDOC ---
ED HPI GENERAL MEDICAL PROBLEM - General Chief Complaint: ENT Problem Stated Complaint: NOSE BLEED Time Seen by Provider: 09/10/17 07:48 Source of Information: Reports: Patient History Limitations: Reports: No Limitations - History of Present Illness INITIAL COMMENTS - FREE TEXT/NARRATIVE: The patient presents with right nostril epistaxis. This has been going on for 1.5 hours. He has a history of multiple episodes of epistaxis. He has had 3 of them this week. He did not seek treatment at that time. He is on aspirin, coumadin and plavix. He has had no trauma to his nose. He has had no change to his medications. Onset: Sudden Duration: Hour(s): (1.5) Location: Reports: Face Severity: Moderate Improves with: Reports: None Worsens with: Reports: None Context: Reports: Activity Associated Symptoms: Reports: No Other Symptoms - Related Data Allergies Allergy/AdvReac Type Severity Reaction Status Date / Time No Known Allergies Allergy Verified 09/10/17 07:45 Home Meds: Home Meds Allopurinol [Zyloprim] 150 mg PO BEDTIME 03/02/14 [History] Aspirin [Jacey Chewable Aspirin] 81 mg PO BEDTIME 03/02/14 [History] Warfarin [Coumadin] 3 mg PO SUTUWETHSA 03/02/14 [History] Fluticasone/Salmeterol [Advair 500-50] 1 puff INH BID 09/29/14 [History] Warfarin Sodium [Coumadin] 6 mg PO MOFR 10/31/14 [History] Clopidogrel [Plavix] 75 mg PO DAILY 02/16/15 [History] Metoprolol Succinate [Toprol XL] 25 mg PO DAILY 07/20/15 [History] Albuterol/Ipratropium [DuoNeb 3.0-0.5 MG/3 ML] 3 ml NEB Q8HRRT 05/12/17 [History ] Pravastatin Sodium [Pravachol] 20 mg PO DAILY 05/12/17 [History] glipiZIDE [Glucotrol XL] 2.5 mg PO DAILY 05/12/17 [History] Furosemide [Lasix] 20 mg PO DAILY 09/10/17 [History] Past Medical History HEENT History: Reports: Cataract, Epistaxis, Impaired Vision Cardiovascular History: Reports: Arrhythmia, CAD, Hypertension, PVD Respiratory History: Reports: COPD, Sleep Apnea Gastrointestinal History: Reports: Diverticulosis Genitourinary History: Reports: BPH, Chronic Renal Insuffiency, Diabetic Nephropathy Musculoskeletal History: Reports: Gout Neurological History: Reports: None Psychiatric History: Reports: None Endocrine/Metabolic History: Reports: Diabetes, Type II - Infectious Disease History Infectious Disease History: Reports: Other (See Below) Other Infectious Disease History: infectious hepatitis in 195 - Past Surgical History HEENT Surgical History: Reports: Cataract Surgery Cardiovascular Surgical History: Reports: AAA Repair, Carotid Endarterectomy, Coronary Artery Bypass, Pacer Respiratory Surgical History: Reports: None GI Surgical History: Reports: Cholecystectomy Male Surgical History: Reports: TURP-Transurethral Resection of Prostate Endocrine Surgical History: Reports: None Neurological Surgical History: Reports: None Musculoskeletal Surgical History: Reports: None Social & Family History - Family History Family Medical History: Noncontributory Respiratory: Reports: COPD Other Respiratory Family Hisory: mother Oncologic: Reports: Cervix Other Oncologic Family History: mother - Tobacco Use Smoking Status *Q: Never Smoker Years of Tobacco use: 60 Packs/Tins Daily: 1 Used Tobacco, but Quit: No Month Tobacco Last Used: 6 months ago Second Hand Smoke Exposure: No - Caffeine Use Caffeine Use: Reports: None - Alcohol Use Days Per Week of Alcohol Use: 7 Number of Drinks Per Day: 1 Total Drinks Per Week: 7 - Recreational Drug Use Recreational Drug Use: No - Living Situation & Occupation Living situation: Reports: , with Spouse Occupation: Retired ED ROS ENT - Review of Systems Review Of Systems: See Below Constitutional: Reports: No Symptoms HEENT: Reports: Nosebleed Respiratory: Reports: No Symptoms Cardiovascular: Reports: No Symptoms Endocrine: Reports: No Symptoms GI/Abdominal: Reports: No Symptoms : Reports: No Symptoms Musculoskeletal: Reports: No Symptoms Skin: Reports: No Symptoms ED EXAM, ENT - Physical Exam Exam: See Below Exam Limited By: No Limitations General Appearance: Alert, No Apparent Distress Ears: Normal External Exam Nose: Active Bleeding (Right nare) Head: Atraumatic, Normocephalic Neck: Normal Inspection Respiratory/Chest: No Respiratory Distress, Lungs Clear, Normal Breath Sounds Cardiovascular: Regular Rate, Rhythm, No Edema, No Murmur GI/Abdominal: Soft, Non-Tender, No Organomegaly, No Mass Back: Normal Inspection Extremities: Normal Inspection ED ENT PROCEDURES - Epistaxis Procedure Indication: Epistaxis Recent anticoagulants/antiplatlets: Yes Uncontrolled HTN: No Recent septal/nasal surgery: No Site of bleeding: Right Nare Clearing of clots: Patient Blew Nose Topical Meds: Phenylephrine Chemical cautery: Silver Nitrate Topical Complications: No Course - Vital Signs Last Recorded V/S: Last Vital Signs Temp 97.6 F 09/10/17 07:35 Pulse 60 09/10/17 07:35 Resp 20 09/10/17 07:35 BP 158/61 H 09/10/17 07:35 Pulse Ox 96 09/10/17 07:35 - Orders/Labs/Meds Meds: Medications Discontinued Medications Generic Name Dose Route Start Last Admin Trade Name Freq PRN Reason Stop Dose Admin Oxymetazoline HCl 1 ml 09/10/17 07:50 09/10/17 08:04 Afrin Original 0.05% Nasal [place] MALCOM 09/10/17 07:51 1 ml ONETIME ONE Administration - Re-Assessments/Exams Free Text/Narrative Re-Assessment/Exam: 09/10/17 09:04 I used silver nitrate to cauterize the bleeding. At this point he has had no more bleeding. 09/10/17 09:23 There is no more bleeding. I will discharge him home. Departure - Departure Time of Disposition: 09:25 Disposition: Home, Self-Care 01 Condition: Good Clinical Impression: Epistaxis - Discharge Information Referrals: Chico Moser Jr, MD [Primary Care Provider] - Forms: ED Department Discharge Additional Instructions: Use nasalcease to help with the bleeding at home but please return if you cannot control the bleeding. Follow up with Dr Martinez or one of his partners. He is an ENT doctor in [place] in [place]. His number is .
== END 2017-09-10 09:51 | disposition home or self-care (01) ==
LOC: JD.ED 07:21
DX: R04.0 Epistaxis (principal); I12.9 Hypertensive chronic kidney disease with stage 1 through stage 4 chronic kidney disease, or unspecified chronic kidney disease; E11.22 Type 2 diabetes mellitus with diabetic chronic kidney disease; N18.9 Chronic kidney disease, unspecified; E11.21 Type 2 diabetes mellitus with diabetic nephropathy; Z79.82 Long term (current) use of aspirin; Z79.01 Long term (current) use of anticoagulants; Z79.02 Long term (current) use of antithrombotics/antiplatelets; Z79.84 Long term (current) use of oral hypoglycemic drugs; Z79.899 Other long term (current) drug therapy
CPT/HCPCS: 30901; 99283; A9270; 99282-25

== ENCOUNTER 2017-10-21 05:57 | Emergency (ER) | payer MEDICARE, OTHER ==
[2017-10-21 06:12] VITALS: BP 143/71
[2017-10-21] MEDS ORDERED: Oxymetazoline 0.05% Nasal Spray 15 ML Bottle NAS ONE (06:21)
--- NOTE | 2017-10-21 06:22 | EDM.PDOC ---
ED HPI GENERAL MEDICAL PROBLEM - General Chief Complaint: ENT Problem Stated Complaint: NOSEBLEED Time Seen by Provider: 10/21/17 06:22 Source of Information: Reports: Patient, Family History Limitations: Reports: No Limitations - History of Present Illness INITIAL COMMENTS - FREE TEXT/NARRATIVE: 87-year-old male presents to the ED with an aggressive nosebleed for the last 3 hours. He reports that he's had the right side of his nose cauterized 3 times by ENT over the last month due to recurrent bleeding. Of note the patient is on multiple blood thinners including aspirin, Coumadin, and Plavix. States he awoke with bleeding from his naris presumably on the right side about 3 hours ago and can't get it to stop. Onset: Today Onset Date: 10/21/17 Onset Time: 03:00 Duration: Hour(s): Location: Reports: Face (Persistent epistaxis presumably from the right nares.) Severity: Severe Improves with: Reports: None Worsens with: Reports: None Context: Reports: Other. 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.) - Related Data Allergies Allergy/AdvReac Type Severity Reaction Status Date / Time No Known Allergies Allergy Verified 10/21/17 06:31 Home Meds: Home Meds Allopurinol [Zyloprim] 150 mg PO BEDTIME 03/02/14 [History] Aspirin [Jacey Chewable Aspirin] 81 mg PO BEDTIME 03/02/14 [History] Warfarin [Coumadin] 3 mg PO SUTUWETHSA 03/02/14 [History] Fluticasone/Salmeterol [Advair 500-50] 1 puff INH BID 09/29/14 [History] Warfarin Sodium [Coumadin] 6 mg PO MOFR 10/31/14 [History] Clopidogrel [Plavix] 75 mg PO DAILY 02/16/15 [History] Metoprolol Succinate [Toprol XL] 25 mg PO DAILY 07/20/15 [History] Albuterol/Ipratropium [DuoNeb 3.0-0.5 MG/3 ML] 3 ml NEB Q8HRRT 05/12/17 [History ] Pravastatin Sodium [Pravachol] 20 mg PO DAILY 05/12/17 [History] glipiZIDE [Glucotrol XL] 2.5 mg PO DAILY 05/12/17 [History] Furosemide [Lasix] 40 mg PO DAILY 09/10/17 [History] Past Medical History HEENT History: Reports: Cataract, Epistaxis, Impaired Vision Cardiovascular History: Reports: Arrhythmia, CAD, Hypertension, PVD Respiratory History: Reports: COPD, Sleep Apnea Gastrointestinal History: Reports: Diverticulosis Genitourinary History: Reports: BPH, Chronic Renal Insuffiency, Diabetic Nephropathy Musculoskeletal History: Reports: Gout Neurological History: Reports: None Psychiatric History: Reports: None Endocrine/Metabolic History: Reports: Diabetes, Type II - Infectious Disease History Infectious Disease History: Reports: Other (See Below) Other Infectious Disease History: infectious hepatitis in 1956 - Past Surgical History HEENT Surgical History: Reports: Cataract Surgery Cardiovascular Surgical History: Reports: AAA Repair, Carotid Endarterectomy, Coronary Artery Bypass, Pacer Respiratory Surgical History: Reports: None GI Surgical History: Reports: Cholecystectomy Male Surgical History: Reports: TURP-Transurethral Resection of Prostate Endocrine Surgical History: Reports: None Neurological Surgical History: Reports: None Musculoskeletal Surgical History: Reports: None Social & Family History - Family History Family Medical History: Noncontributory Respiratory: Reports: COPD Other Respiratory Family Hisory: mother Oncologic: Reports: Cervix Other Oncologic Family History: mother - Tobacco Use Smoking Status *Q: Never Smoker Years of Tobacco use: 60 Packs/Tins Daily: 1 Used Tobacco, but Quit: No Month Tobacco Last Used: 6 months ago Second Hand Smoke Exposure: No - Caffeine Use Caffeine Use: Reports: None - Alcohol Use Days Per Week of Alcohol Use: 7 Number of Drinks Per Day: 1 Total Drinks Per Week: 7 - Recreational Drug Use Recreational Drug Use: No - Living Situation & Occupation Living situation: Reports: , with Spouse Occupation: Retired ED ROS ENT - Review of Systems Review Of Systems: See Below Constitutional: Reports: No Symptoms HEENT: Reports: Glasses, Hearing Loss, Nosebleed (See history of present illness.) Respiratory: Reports: Shortness of Breath, Cough. Denies: Wheezing, Pleuritic Chest Pain Cardiovascular: Reports: Blood Pressure Problem, Dyspnea on Exertion ( Chronically), Lightheadedness. Denies: Chest Pain, Claudication, Edema, Orthopnea Endocrine: Reports: Fatigue GI/Abdominal: Reports: No Symptoms : Reports: Other (Nocturia usually 3) Musculoskeletal: Reports: Back Pain, Joint Pain (Knees hips and neck at times.) Skin: Reports: Bruising Neurological: Reports: No Symptoms (Bruises extremely easily of course from being on all the blood thinners.) Psychiatric: Reports: No Symptoms Hematologic/Lymphatic: Reports: No Symptoms ED EXAM, ENT - Physical Exam Exam: See Below Exam Limited By: No Limitations General Appearance: Alert, WD/WN, No Apparent Distress Nose: Other (Bleeding appears to be coming from the right naris. He has a cotton pack in the right naris. There is blood within the left nasal chamber as well but I appears to be coming from the right side. Posterior oropharynx shows blood across both sides of the posterior oropharynx.) Head: Atraumatic, Normocephalic, Other (Has a Band-Aid on his mid vertex of frontal scalp were apparently a small vessel was bleeding earlier today.) Respiratory/Chest: Respiratory Distress (Moderate tachypnea.), Decreased Breath Sounds (Breath sounds diminished in both bases.) ED ENT PROCEDURES - Epistaxis Procedure Indication: Epistaxis Recent anticoagulants/antiplatlets: Yes Uncontrolled HTN: No Recent septal/nasal surgery: No Site of bleeding: Right Nare Clearing of clots: Patient Blew Nose (Large amount of clot) Topical Meds: Topical Cocaine ( extruded.), Other (Afrin nasal spray) Ice pack to area: No Chemical cautery: Silver Nitrate Topical Course - Vital Signs Last Recorded V/S: Last Vital Signs Temp 36.5 C 10/21/17 06:08 Pulse 67 10/21/17 06:08 Resp 20 10/21/17 06:08 BP 143/71 H 10/21/17 06:08 Pulse Ox 99 10/21/17 06:08 - Orders/Labs/Meds Orders: Active Orders 24 hr Category Date Time Status Tranexamic Acid [Cyklokapron] Med 10/21/17 07:00 Once 1,000 mg TOP ONETIME ONE Meds: Medications Discontinued Medications Generic Name Dose Route Start Last Admin Trade Name Bernardoq PRN Reason Stop Dose Admin Cocaine HCl 4 ml 10/21/17 06:21 10/21/17 06:50 Cocaine Hcl TOP 10/21/17 06:22 4 ml ONETIME ONE Administration Oxymetazoline HCl 15 ml 10/21/17 06:21 10/21/17 06:50 Afrin Original 0.05% Nasal [place] MALCOM 10/21/17 06:22 15 ml ONETIME ONE Administration - Radiology Interpretation Free Text/Narrative:: 87-year-old male presents to the ED with severe right epistaxis 3 hours. She reports that he's had recurrent nosebleeds requiring ENT cauterization 3 in the last month. Of note the patient is on warfarin aspirin and Plavix due to severe coronary and carotid artery disease. Last INR was 1.3 and Coumadin dose has not been altered because of the persistent nose bleeding. Patient has been placing Polysporin ointment into each nares at bedtime with Q-tip faithfully. He awoke around 0300 hrs. this morning with spontaneous hemorrhage from the right naris. He arrives with a nasal plug in the right nares. Blood is running down the back his throat and out the left naris. Asked him initially to blow his nose and a large amount of clots came out. I was unable to pack the right side of his nose with a combination of cocaine and Afrin 1/2 inch tube gauze soaked in this mixture. This was left for 25 minutes and brought the bleeding under control. - Re-Assessments/Exams Free Text/Narrative Re-Assessment/Exam: 10/21/17 07:00 initial packing was removed and I could visualize several areas of animal bleeding from the anterior mid nasal septum. I was able to cauterize this with silver nitrate without any problems. I then packed his nose with 1/2 inch soaked Tubegauze in transxemic acid and this packing is to remain in place for the next 48 hours. He will of course return if he has any further spontaneous bleeding either posteriorly or anteriorly. None of his medications were otherwise altered or changed. Departure - Departure Time of Disposition: 07:24 Disposition: Home, Self-Care 01 Condition: Fair Clinical Impression: Recurrent epistaxis - Discharge Information Instructions: Nosebleed, [id number] Referrals: Chico Moser Jr, MD [Primary Care Provider] - Forms: ED Department Discharge Additional Instructions: Evaluation in the emergency room today in regards to recurrent right-sided nasal hemorrhage. You're on multiple medications that promote bleeding however they do not cause bleeding. The lining of the nose is quite dry and friable. Bleeding was stopped with initial packing using Afrin and cocaine abuse unable to identify some bleeding sites from the anterior and mid septum were cauterized with silver nitrate. The right naris was then packed with half inch tube gauze containing trans-anemic acid and this is to remain in place for the next 48 hours. You may remove the packing on Wednesday morning. Return to the ED if you develop any persistent bleeding down the back of your throat or any obvious recurrent bleeding from the right side of your nose. At this time continue all medications as previously instructed. - My Orders Last 24 Hours: My Active Orders 10/21/17 07:00 Tranexamic Acid [Cyklokapron] 1,000 mg TOP ONETIME ONE - Assessment/Plan Last 24 Hours: My Active Orders 10/21/17 07:00 Tranexamic Acid [Cyklokapron] 1,000 mg TOP ONETIME ONE
== END 2017-10-21 08:05 | disposition home or self-care (01) ==
LOC: JD.ED 05:57
DX: R04.0 Epistaxis (principal); I25.10 Atherosclerotic heart disease of native coronary artery without angina pectoris; I12.9 Hypertensive chronic kidney disease with stage 1 through stage 4 chronic kidney disease, or unspecified chronic kidney disease; E11.22 Type 2 diabetes mellitus with diabetic chronic kidney disease; E11.21 Type 2 diabetes mellitus with diabetic nephropathy; N18.9 Chronic kidney disease, unspecified; J44.9 Chronic obstructive pulmonary disease, unspecified; Z79.01 Long term (current) use of anticoagulants; Z79.02 Long term (current) use of antithrombotics/antiplatelets; Z79.82 Long term (current) use of aspirin; Z79.84 Long term (current) use of oral hypoglycemic drugs; Z79.899 Other long term (current) drug therapy
CPT/HCPCS: 30901; 99283; A9270; 30903; 99282-25

== ENCOUNTER 2017-11-25 14:37 | Inpatient (IN) | payer MEDICARE, OTHER ==
[2017-11-25] MEDS ORDERED: Albuterol 0.083% 2.5 MG/3 ML Neb Soln NEB ONE (17:49)
[2017-11-25] MEDS ORDERED: Acetaminophen 325 MG Tab PO ONE (19:34)
--- NOTE | 2017-11-25 20:27 | EDM.PDOC ---
ED HPI GENERAL MEDICAL PROBLEM - General Chief Complaint: Cardiovascular Problem Stated Complaint: VOMITING/ACTING ABNORMAL Time Seen by Provider: 11/25/17 17:45 Source of Information: Reports: Patient History Limitations: Reports: No Limitations - History of Present Illness INITIAL COMMENTS - FREE TEXT/NARRATIVE: 87-year-old male presents for evaluation and treatment of chills, fever and weakness. He also reports productive cough. Patient reports that symptoms started today. States he did vomit one time today. Current symptoms include fevers, chills, productive cough, weakness and emesis. He states that he also feels shaky. No chest pain, dizziness, lightheadedness, syncope, ear pain or sore throat. Patient's oxygen sats were found to be in the low 90s upon arrival to the ER. Not normally on oxygen. He is placed on oxygen by nasal cannula by nursing staff. Patient did have an influenza vaccine this year. Patient has a past medical history of COPD and emphysema. PCP is Dr. Moser. Attempted to see Dr. Moser today but he was out of the office. 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) - Related Data Allergies Allergy/AdvReac Type Severity Reaction Status Date / Time No Known Allergies Allergy Verified 10/21/17 06:31 Home Meds: Home Meds Allopurinol [Zyloprim] 150 mg PO BEDTIME 03/02/14 [History] Aspirin [Jacey Chewable Aspirin] 81 mg PO BEDTIME 03/02/14 [History] Warfarin [Coumadin] 3 mg PO SUTUWETHSA 03/02/14 [History] Fluticasone/Salmeterol [Advair 500-50] 1 puff INH BID 09/29/14 [History] Warfarin Sodium [Coumadin] 6 mg PO MOFR 10/31/14 [History] Clopidogrel [Plavix] 75 mg PO DAILY 02/16/15 [History] Metoprolol Succinate [Toprol XL] 12.5 mg PO DAILY 07/20/15 [History] Albuterol/Ipratropium [DuoNeb 3.0-0.5 MG/3 ML] 3 ml NEB Q8HRRT 05/12/17 [History ] Pravastatin Sodium [Pravachol] 20 mg PO DAILY 05/12/17 [History] Furosemide [Lasix] 40 mg PO DAILY 09/10/17 [History] glipiZIDE [Glucotrol XL] 2.5 mg PO DAILY 11/25/17 [History] Past Medical History HEENT History: Reports: Cataract, Epistaxis, Impaired Vision Cardiovascular History: Reports: Arrhythmia, CAD, Hypertension, PVD Respiratory History: Reports: COPD, Sleep Apnea Gastrointestinal History: Reports: Diverticulosis Genitourinary History: Reports: BPH, Chronic Renal Insuffiency, Diabetic Nephropathy Musculoskeletal History: Reports: Gout Neurological History: Reports: None Psychiatric History: Reports: None Endocrine/Metabolic History: Reports: Diabetes, Type II - Infectious Disease History Infectious Disease History: Reports: Other (See Below) Other Infectious Disease History: infectious hepatitis in 1956 - Past Surgical History HEENT Surgical History: Reports: Cataract Surgery Cardiovascular Surgical History: Reports: AAA Repair, Carotid Endarterectomy, Coronary Artery Bypass, Pacer Respiratory Surgical History: Reports: None GI Surgical History: Reports: Cholecystectomy Male Surgical History: Reports: TURP-Transurethral Resection of Prostate Endocrine Surgical History: Reports: None Neurological Surgical History: Reports: None Musculoskeletal Surgical History: Reports: None Social & Family History - Family History Family Medical History: Noncontributory Respiratory: Reports: COPD Other Respiratory Family Hisory: mother Oncologic: Reports: Cervix Other Oncologic Family History: mother - Tobacco Use Smoking Status *Q: Former Smoker Years of Tobacco use: 60 Packs/Tins Daily: 1 Used Tobacco, but Quit: Yes Month Tobacco Last Used: 10 months Second Hand Smoke Exposure: No - Caffeine Use Caffeine Use: Reports: Coffee - Alcohol Use Days Per Week of Alcohol Use: 7 Number of Drinks Per Day: 1 Total Drinks Per Week: 7 - Recreational Drug Use Recreational Drug Use: No - Living Situation & Occupation Living situation: Reports: , with Spouse Occupation: Retired ED ROS GENERAL - Review of Systems Review Of Systems: See Below Constitutional: Reports: Fever, Chills, Malaise, Fatigue HEENT: Denies: Ear Pain, Throat Pain Respiratory: Reports: Cough, Sputum Cardiovascular: Denies: Chest Pain GI/Abdominal: Reports: Vomiting Neurological: Denies: Dizziness, Syncope ED EXAM, GENERAL - Physical Exam Exam: See Below Exam Limited By: No Limitations General Appearance: Alert, WD/WN, Mild Distress Eye Exam: Bilateral Eye: Normal Inspection Ears: Normal External Exam, Normal Canal, Hearing Grossly Normal, Normal TMs Nose: Normal Inspection Throat/Mouth: Normal Inspection, Normal Lips, Normal Oropharynx, Normal Voice, No Airway Compromise Respiratory/Chest: No Respiratory Distress, Rhonchi (lung bases), Wheezing ( diffuse) Cardiovascular: Normal Peripheral Pulses, Regular Rate, Rhythm, No Murmur Neurological: Alert, Oriented, Normal Cognition Psychiatric: Normal Affect, Normal Mood Skin Exam: Warm, Dry, Normal Color Course - Vital Signs Last Recorded V/S: Last Vital Signs Temp 36.9 C 11/25/17 22:16 Pulse 78 11/25/17 22:16 Resp 20 11/25/17 22:16 BP 127/84 11/25/17 22:16 Pulse Ox 91 L 11/26/17 05:40 Orthostatic Blood Pressure [ 121/47 Standing] Orthostatic Blood Pressure [ 134/54 Sitting] Orthostatic Blood Pressure [ 151/54 Supine] - Orders/Labs/Meds Orders: Active Orders 24 hr Category Date Time Status RT Aerosol Therapy [RC] ASDIRECTED Care 11/25/17 17:49 Active CULTURE BLOOD [BC] Stat Lab 11/25/17 18:00 Received CULTURE BLOOD [BC] Stat Lab 11/25/17 18:10 Received Oseltamivir [Tamiflu] Med 11/25/17 20:15 Active 30 mg PO DAILY Blood Culture x2 Reflex Set [OM.PC] Stat Oth 11/25/17 17:44 Ordered Medication Orders Acetaminophen (Tylenol) 650 mg PO Q6H PRN PRN Reason: Pain/Fever Albuterol (Proventil Neb Soln) 2.5 mg NEB Q4HRRT PRN PRN Reason: Shortness of Breath Last Admin: 11/26/17 04:25 Dose: 2.5 mg Albuterol/Ipratropium (Duoneb 3.0-0.5 Mg/3 Ml) 3 ml NEB QID PRN PRN Reason: Shortness of Breath Last Admin: 11/26/17 05:34 Dose: 3 ml Admin: 11/26/17 01:25 Dose: 3 ml Allopurinol (Zyloprim) 150 mg PO BEDTIME [facility] Aspirin (Halfprin) 81 mg PO BEDTIME [facility] Clopidogrel Bisulfate (Plavix) 75 mg PO DAILY [facility] Dextrose/Water (Dextrose 50% In Water) 50 ml IVPUSH ASDIRECTED PRN PRN Reason: Hypoglycemia Glipizide (Glucotrol Xl) 2.5 mg PO DAILY [facility] Lactated Ringer's (Ringers, Lactated) 1,000 mls @ 75 mls/hr IV ASDIRECTED [facility] Last Admin: 11/26/17 01:14 Dose: 75 mls/hr Insulin Aspart (Novolog) 0 unit SUBCUT QIDACANDBED [facility] PRN Reason: Protocol Last Admin: 11/26/17 06:11 Dose: Not Given Admin: 11/25/17 23:17 Dose: Not Given Metoprolol Succinate (Toprol Xl) 12.5 mg PO DAILY [facility] Mometasone Furoate/Formoterol Fumar (Dulera 200-5 Mcg) 2 puff IH BID [facility] Oseltamivir Phosphate (Tamiflu) 30 mg PO DAILY [facility] Last Admin: 11/25/17 21:48 Dose: 30 mg Simvastatin (Zocor) 10 mg PO DAILY [facility] Temazepam (Restoril) 7.5 mg PO BEDTIME PRN PRN Reason: Insomnia Warfarin Sodium (Coumadin) 6 mg PO [id number]@1800 [facility] Warfarin Sodium (Coumadin) 3 mg PO [id number]@1800 [facility] Labs: Laboratory Tests 11/25/17 11/25/17 11/25/17 Range/Units 15:44 16:00 16:00 WBC 8.43 (4.23-9.07) K/mm3 RBC 4.28 L (4.63-6.08) M/mm3 Hgb 10.0 L (13.7-17.5) gm/L Hct 32.8 L (40.1-51.0) % MCV 76.6 L (79.0-92.2) fl MCH 23.4 L (25.7-32.2) pg MCHC 30.5 L (32.2-35.5) g/dl RDW Std Deviation 52.2 H (35.1-43.9) fL Plt Count 232 (163-337) K/mm3 MPV 9.6 (9.4-12.3) fl Neut % (Auto) 81.8 H (34.0-67.9) % Lymph % (Auto) 5.2 L (21.8-53.1) % Dixie % (Auto) 12.2 (5.3-12.2) % Eos % (Auto) 0.5 L (0.8-7.0) Baso % (Auto) 0.2 (0.1-1.2) % Neut # (Auto) 6.89 H (1.78-5.38) K/mm3 Lymph # (Auto) 0.44 L (1.32-3.57) K/mm3 Dixie # (Auto) 1.03 H (0.30-0.82) K/mm3 Eos # (Auto) 0.04 (0.04-0.54) K/mm3 Baso # (Auto) 0.02 (0.01-0.08) K/mm3 Manual Slide Review Abnormal smear Sodium 136 (136-145) mEq/L Potassium 4.2 (3.5-5.1) mEq/L Chloride 100 (98-107) mEq/L Carbon Dioxide 26 (21-32) mEq/L Anion Gap 14.2 (5-15) BUN 45 H (7-18) mg/dL Creatinine 1.4 H (0.7-1.3) mg/dL Est Cr Clr Drug Dosing 36.07 mL/min Estimated GFR (MDRD) 48 (>60) mL/min BUN/Creatinine Ratio 32.1 H (14-18) Glucose 82 L (83-115) mg/dL POC Glucose 82 L (83-110) mg/dL Lactic Acid (0.4-2.0) mmol/L Calcium 10.3 H (8.5-10.1) mg/dL Magnesium 1.7 L (1.8-2.4) mg/dl Total Bilirubin 0.7 (0.2-1.0) mg/dL AST 31 (15-37) U/L ALT 25 (16-63) U/L Alkaline Phosphatase 274 H (46-116) U/L C-Reactive Protein (<1.0) mg/dL NT-Pro-B Natriuret Pep (0-450) pg/mL Total Protein 8.2 (6.4-8.2) g/dl Albumin 3.2 L (3.4-5.0) g/dl Globulin 5.0 gm/dL Albumin/Globulin Ratio 0.6 L (1-2) 11/25/17 11/25/17 11/25/17 Range/Units 18:00 18:10 18:10 WBC (4.23-9.07) K/mm3 RBC (4.63-6.08) M/mm3 Hgb (13.7-17.5) gm/L Hct (40.1-51.0) % MCV (79.0-92.2) fl MCH (25.7-32.2) pg MCHC (32.2-35.5) g/dl RDW Std Deviation (35.1-43.9) fL Plt Count (163-337) K/mm3 MPV (9.4-12.3) fl Neut % (Auto) (34.0-67.9) % Lymph % (Auto) (21.8-53.1) % Dixie % (Auto) (5.3-12.2) % Eos % (Auto) (0.8-7.0) Baso % (Auto) (0.1-1.2) % Neut # (Auto) (1.78-5.38) K/mm3 Lymph # (Auto) (1.32-3.57) K/mm3 [place]ie # (Auto) (0.30-0.82) K/mm3 Eos # (Auto) (0.04-0.54) K/mm3 Baso # (Auto) (0.01-0.08) K/mm3 Manual Slide Review Sodium (136-145) mEq/L Potassium (3.5-5.1) mEq/L Chloride (98-107) mEq/L Carbon Dioxide (21-32) mEq/L Anion Gap (5-15) BUN (7-18) mg/dL Creatinine (0.7-1.3) mg/dL Est Cr Clr Drug Dosing mL/min Estimated GFR (MDRD) (>60) mL/min BUN/Creatinine Ratio (14-18) Glucose (83-115) mg/dL POC Glucose (83-110) mg/dL Lactic Acid 1.0 (0.4-2.0) mmol/L Calcium (8.5-10.1) mg/dL Magnesium (1.8-2.4) mg/dl Total Bilirubin (0.2-1.0) mg/dL AST (15-37) U/L ALT (16-63) U/L Alkaline Phosphatase (46-116) U/L C-Reactive Protein 3.3 H* (<1.0) mg/dL NT-Pro-B Natriuret Pep 3300 H (0-450) pg/mL Total Protein (6.4-8.2) g/dl Albumin (3.4-5.0) g/dl Globulin gm/dL Albumin/Globulin Ratio (1-2) Meds: Medications Generic Name Dose Route Start Last Admin Trade Name Freq PRN Reason Stop Dose Admin Acetaminophen 650 mg 11/25/17 22:01 Tylenol PO Q6H PRN Pain/Fever Albuterol 2.5 mg 11/25/17 21:52 11/26/17 04:25 Proventil Neb Soln NEB 2.5 mg Q4HRRT PRN Administration Shortness of Breath Albuterol/Ipratropium 3 ml 11/25/17 21:51 11/26/17 05:34 Duoneb 3.0-0.5 Mg/3 Ml NEB 3 ml QID PRN Administration Shortness of Breath Allopurinol 150 mg 11/26/17 21:00 Zyloprim PO BEDTIME [facility] Aspirin 81 mg 11/26/17 21:00 Halfprin PO BEDTIME [facility] Clopidogrel Bisulfate 75 mg 11/26/17 09:00 Plavix PO DAILY [facility] Dextrose/Water 50 ml 11/25/17 21:56 Dextrose 50% In Water IVPUSH ASDIRECTED PRN Hypoglycemia Glipizide 2.5 mg 11/26/17 09:00 Glucotrol Xl PO DAILY [facility] Lactated Ringer's 1,000 mls @ 75 mls/hr 11/25/17 22:00 11/26/17 01:14 Ringers, Lactated IV 75 mls/hr ASDIRECTED [facility] Administration Insulin Aspart 0 unit 11/25/17 22:00 11/26/17 06:11 Novolog SUBCUT Not Given QIDACANDBED [facility] Protocol Metoprolol Succinate 12.5 mg 11/26/17 09:00 Toprol Xl PO DAILY [facility] Mometasone Furoate/Formoterol Fumar 2 puff 11/26/17 09:00 Dulera 200-5 Mcg IH BID [facility] Oseltamivir Phosphate 30 mg 11/25/17 20:15 11/25/17 21:48 Tamiflu PO 30 mg DAILY [facility] Administration Simvastatin 10 mg 11/26/17 09:00 Zocor PO DAILY [facility] Temazepam 7.5 mg 11/25/17 21:58 Restoril PO BEDTIME PRN Insomnia Warfarin Sodium 6 mg 11/26/17 18:00 Coumadin PO [id number]@1800 [facility] Warfarin Sodium 3 mg 11/27/17 18:00 Coumadin PO [id number]@1800 [facility] Discontinued Medications Generic Name Dose Route Start Last Admin Trade Name Roman PRN Reason Stop Dose Admin Acetaminophen 650 mg 11/25/17 19:34 11/25/17 19:48 Tylenol PO 11/25/17 19:35 Not Given NOW ONE Albuterol 2.5 mg 11/25/17 17:49 11/25/17 17:58 Proventil Neb Soln NEB 11/25/17 17:50 2.5 mg ONETIME ONE Administration - Radiology Interpretation Free Text/Narrative:: chest xray shows chronic congestion. Cardiomegaly. Pacemaker in place. No acute infiltrate appreciated. Reviewed by myself and Dr. Valeljo. - Re-Assessments/Exams Free Text/Narrative Re-Assessment/Exam: 11/25/17 20:40 influenza returned positive for type A. I attempted to review the results wiht the patient but he was sleeping and his family has left. I did inform him earlier he would likely require admission. I feel with the influenza A and the comorbid conditions he will require admission. He has been given tamiflu, renal dosage of 30mg. I discussed the case with Dr. Garcia. She will come and see him in the department. Plan for admission. Departure - Departure Time of Disposition: 21:00 Disposition: Admitted As Inpatient 66 Reason for Transfer *Q: Other Condition: Poor Clinical Impression: Hypoxia, Influenza A, Diabetes mellitus type 2, COPD, Moderate chronic obstructive pulmonary disease, Anticoagulated on Coumadin - My Orders Last 24 Hours: My Active Orders 11/25/17 17:44 Blood Culture x2 Reflex Set [OM.PC] Stat 11/25/17 17:49 RT Aerosol Therapy [RC] ASDIRECTED 11/25/17 18:00 CULTURE BLOOD [BC] Stat 11/25/17 18:10 CULTURE BLOOD [BC] Stat 11/25/17 20:15 Oseltamivir [Tamiflu] 30 mg PO DAILY - Assessment/Plan Last 24 Hours: My Active Orders 11/25/17 17:44 Blood Culture x2 Reflex Set [OM.PC] Stat 11/25/17 17:49 RT Aerosol Therapy [RC] ASDIRECTED 11/25/17 18:00 CULTURE BLOOD [BC] Stat 11/25/17 18:10 CULTURE BLOOD [BC] Stat 11/25/17 20:15 Oseltamivir [Tamiflu] 30 mg PO DAILY
[2017-11-25] MEDS: Oseltamivir 30 MG Cap PO SCH (21:48)
--- NOTE | 2017-11-25 21:48 | PCM.HP ---
H&P History of Present Illness - General Date of Service: 11/25/17 Admit Problem/Dx: Admission Diagnosis/Problem Admission Diagnosis/Problem Hypoxia Source of Information: Patient, Provider History Limitations: Reports: No Limitations - History of Present Illness Initial Comments - Free Text/Narative: 87 year old male with CAD/CABG with COPD presents SOB associated with fever and chills. The productive cough produced greenish sputum. There was a brief episode of nausea with vomiting. He is aware of two sick contacts, his wif and son who have had the Flu. He was sent to the ED by his PCP to the ED. He received the Flu vaccine this season too. Onset of Symptoms: Reports: Gradual Duration of Symptoms: Reports: Day(s): Location: Reports: Chest, Generalized Quality: Reports: Same as Previous Episode Severity: Moderate Improves with: Reports: Medication Worsens with: Reports: None Context: Reports: Sick Contact Associated Symptoms: Reports: cough w sputum, Fever/Chills, Loss of Appetite, Malaise, Nausea/Vomiting, Shortness of Breath, Weakness - Related Data Allergies/Adverse Reactions: Allergies Allergy/AdvReac Type Severity Reaction Status Date / Time No Known Allergies Allergy Verified 10/21/17 06:31 Home Medications: Home Meds Allopurinol [Zyloprim] 150 mg PO BEDTIME 03/02/14 [History] Aspirin [Jacey Chewable Aspirin] 81 mg PO BEDTIME 03/02/14 [History] Warfarin [Coumadin] 3 mg PO SUTUWETHSA 03/02/14 [History] Fluticasone/Salmeterol [Advair 500-50] 1 puff INH BID 09/29/14 [History] Warfarin Sodium [Coumadin] 6 mg PO MOFR 10/31/14 [History] Clopidogrel [Plavix] 75 mg PO DAILY 02/16/15 [History] Metoprolol Succinate [Toprol XL] 12.5 mg PO DAILY 07/20/15 [History] Albuterol/Ipratropium [DuoNeb 3.0-0.5 MG/3 ML] 3 ml NEB Q8HRRT 05/12/17 [History ] Pravastatin Sodium [Pravachol] 20 mg PO DAILY 05/12/17 [History] Furosemide [Lasix] 40 mg PO DAILY 09/10/17 [History] glipiZIDE [Glucotrol XL] 2.5 mg PO DAILY 11/25/17 [History] Past Medical History HEENT History: Reports: Cataract, Epistaxis, Impaired Vision Cardiovascular History: Reports: Arrhythmia, CAD, Hypertension, PVD Respiratory History: Reports: COPD, Sleep Apnea Gastrointestinal History: Reports: Diverticulosis Genitourinary History: Reports: BPH, Chronic Renal Insuffiency, Diabetic Nephropathy Musculoskeletal History: Reports: Gout Neurological History: Reports: None Psychiatric History: Reports: None Endocrine/Metabolic History: Reports: Diabetes, Type II - Infectious Disease History Infectious Disease History: Reports: Other (See Below) Other Infectious Disease History: infectious hepatitis in 1956 - Past Surgical History HEENT Surgical History: Reports: Cataract Surgery Cardiovascular Surgical History: Reports: AAA Repair, Carotid Endarterectomy, Coronary Artery Bypass, Pacer Respiratory Surgical History: Reports: None GI Surgical History: Reports: Cholecystectomy Male Surgical History: Reports: TURP-Transurethral Resection of Prostate Endocrine Surgical History: Reports: None Neurological Surgical History: Reports: None Musculoskeletal Surgical History: Reports: None Social & Family History - Family History Family Medical History: Noncontributory Respiratory: Reports: COPD Other Respiratory Family Hisory: mother Oncologic: Reports: Cervix Other Oncologic Family History: mother - Tobacco Use Smoking Status *Q: Former Smoker Years of Tobacco use: 60 Packs/Tins Daily: 1 Used Tobacco, but Quit: Yes Month Tobacco Last Used: 10 months Second Hand Smoke Exposure: No - Caffeine Use Caffeine Use: Reports: Coffee - Alcohol Use Days Per Week of Alcohol Use: 7 Number of Drinks Per Day: 1 Total Drinks Per Week: 7 - Recreational Drug Use Recreational Drug Use: No - Living Situation & Occupation Living situation: Reports: , with Spouse Occupation: Retired H&P Review of Systems - Review of Systems: Review Of Systems: See Below General: Reports: Fever, Chills, Malaise, Weakness, Decreased Appetite HEENT: Reports: No Symptoms Pulmonary: Reports: Shortness of Breath, Wheezing Cardiovascular: Reports: No Symptoms Gastrointestinal: Reports: Nausea, Vomiting Genitourinary: Reports: No Symptoms Musculoskeletal: Reports: No Symptoms Skin: Reports: No Symptoms Psychiatric: Reports: No Symptoms Neurological: Reports: No Symptoms Hematologic/Lymphatic: Reports: No Symptoms Immunologic: Reports: No Symptoms Exam - Exam Exam: See Below - Vital Signs Vital Signs: Last Vital Signs Temp 38.6 C H 11/25/17 15:19 Pulse 97 11/25/17 15:19 Resp 20 11/25/17 15:19 BP 130/78 11/25/17 15:19 Pulse Ox 91 L 11/25/17 15:19 Weight: 74.843 kg - Exam Quality Assessment: Supplemental Oxygen, DVT Prophylaxis General: Alert, Oriented, Cooperative HEENT: Conjunctiva Clear, Nares Patent, Pupils Equal, Pupils Reactive, PERRLA Neck: Supple, Trachea Midline Lungs: Normal Respiratory Effort, Decreased Breath Sounds, Wheezing Cardiovascular: Regular Rate GI/Abdominal Exam: Normal Bowel Sounds, Soft, Non-Tender, No Organomegaly, No Distention (Male) Exam: Deferred Rectal (Males) Exam: Deferred Back Exam: Normal Inspection Extremities: Normal Inspection, Non-Tender Skin: Warm Neurological: Cranial Nerves Intact Neuro Extensive - Mental Status: Alert, Oriented x3, Normal Mood/Affect, Normal Cognition, Memory Intact Neuro Extensive - Motor, Sensory, Reflexes: CN II-XII Intact Psychiatric: Alert, Normal Affect, Normal Mood - Patient Data Result Diagrams: 11/26/17 06:15 11/26/17 06:15 *Q Meaningful Use (ADM) - VTE *Q VTE Criteria *Q: - Stroke *Q Stroke Criteria *Q: - AMI *Q AMI Criteria *Q: - Problem List (1) Subtherapeutic anticoagulation SNOMED Code(s): 97229904 ICD Code: Z51.81 - ENCOUNTER FOR THERAPEUTIC DRUG LEVEL MONITORING; Z79.01 - NURSING HOME (CURRENT) USE OF 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 Status: Acute Current Visit: Yes (2) Hypoxia SNOMED Code(s): 673660324 ICD Code: R09.02 - HYPOXEMIA Status: Acute Current Visit: Yes (3) Influenza A SNOMED Code(s): 868940256 ICD Code: J10.1 - FLU DUE TO OTH IDENT INFLUENZA VIRUS W OTH RESP MANIFEST Status: Acute Current Visit: Yes (4) COPD, Moderate chronic obstructive pulmonary disease SNOMED Code(s): 119989940 ICD Code: J44.9 - CHRONIC OBSTRUCTIVE PULMONARY DISEASE, UNSPECIFIED Status : Chronic Priority: High Current Visit: Yes (5) Diabetes mellitus type 2 SNOMED Code(s): 00086586 ICD Code: E11.9 - TYPE 2 DIABETES MELLITUS WITHOUT COMPLICATIONS Status: Chronic Priority: Medium Current Visit: Yes (6) COPD exacerbation SNOMED Code(s): 214739731682432 ICD Code: J44.1 - CHRONIC OBSTRUCTIVE PULMONARY DISEASE W (ACUTE) EXACERBATION Status: Acute Current Visit: No (7) Coronary artery bypass grafts x 5 SNOMED Code(s): 453634365 - Coronary artery bypass grafts x 5 Status: Acute Current Visit: No (8) Chronic renal insufficiency SNOMED Code(s): 233501289 ICD Code: N18.9 - CHRONIC KIDNEY DISEASE, UNSPECIFIED Status: Chronic Priority: Medium Current Visit: No (9) PVD (peripheral vascular disease) with claudication SNOMED Code(s): 483081102 ICD Code: I73.9 - PERIPHERAL VASCULAR DISEASE, UNSPECIFIED Status: Chronic Priority: High Current Visit: No (10) UTI (urinary tract infection) SNOMED Code(s): 00049886 ICD Code: N39.0 - URINARY TRACT INFECTION, SITE NOT SPECIFIED Status: Resolved Priority: High Current Visit: No Qualifiers: Urinary tract infection type: acute cystitis Hematuria presence: without hematuria Qualified Code(s): N30.00 - Acute cystitis without hematuria Problem List Initiated/Reviewed/Updated: Yes Orders Last 24hrs: Active Orders 24 hr Category Date Time Status Patient Status [ADT] Routine ADT 11/25/17 21:42 Active Medication Orders Oseltamivir Phosphate (Tamiflu) 30 mg PO DAILY JAROD Last Admin: 11/25/17 21:48 Dose: 30 mg Assessment/Plan Comment:: Impression: COPD with hypoxia Acute respiratory distress, resolved Influenza A positive CAD with history of CABG AUTI, UC pending CHF CKD, stage III Plan: IVF for 12 hours Tamiflu renal dose Empiric treatment of bronchitis/PNA ATB for UTI, UC pending Daily labs Home meds; continue coumadin DVT/GI prophylaxis Droplet precautions
[2017-11-25] MEDS ORDERED: Albuterol 0.083% 2.5 MG/3 ML Neb Soln NEB PRN (21:52)
[2017-11-25] MEDS ORDERED: 50% Dextrose in Water 50 ML Syringe IVPUSH PRN (21:56)
[2017-11-25] MEDS ORDERED: Temazepam 7.5 MG Cap PO PRN (21:58)
[2017-11-25] MEDS ORDERED: Lactated Ringers 1,000 ML IV SCH (22:00)
[2017-11-25] MEDS ORDERED: Acetaminophen 325 MG Tab PO PRN (22:01)
[2017-11-25] MEDS: Insulin Aspart 100 Units/ML 3 ML Pen SUBCUT SCH (23:17)
[2017-11-26] MEDS: Albuterol/Ipratropium 3.0-0.5 MG/3 ML Neb Soln NEB PRN ×3 (01:25→10:28)
[2017-11-26] MEDS: Insulin Aspart 100 Units/ML 3 ML Pen SUBCUT SCH ×4 (06:11→22:33)
--- NOTE | 2017-11-26 07:09 | CR ---
Chest: Portable view of the chest was obtained. Comparison: Prior chest x-ray of 05/17/17. Heart is enlarged. Previous sternotomy is noted. Pacemaker is seen. Surgical clips are seen at the base of the left neck. Lung markings are mildly increased which appear stable. No acute parenchymal densities are seen. Bony structures are grossly intact. Impression: 1. Cardiomegaly. Other findings as noted above. Nothing acute is appreciated on portable chest x-ray. Diagnostic code #3
[2017-11-26] MEDS ORDERED: Formoterol/Mometasone 200-5 MCG 8.8 GM Inhaler IH SCH (09:00)
[2017-11-26] MEDS: Metoprolol Succinate 25 MG Tab.ER PO SCH (09:32)
[2017-11-26] MEDS: Oseltamivir 30 MG Cap PO SCH ×2 (09:32→22:24)
[2017-11-26] MEDS: Simvastatin 10 MG Tab PO SCH (09:33)
[2017-11-26] MEDS: glipiZIDE 2.5 MG Tab.ER PO SCH (09:33)
[2017-11-26] MEDS: Clopidogrel 75 MG Tab PO SCH (09:33)
[2017-11-26] MEDS ORDERED: Furosemide 40 MG/4 ML VIAL IVPUSH ONE ×2 (12:24)
[2017-11-26] MEDS: ADVAIR INH SCH ×2 (12:35→22:37)
[2017-11-26] MEDS ORDERED: cefTRIAXone 2 GM in Sodium Chloride 0.9% 100 ML IV SCH (13:00)
[2017-11-26] MEDS: Albuterol/Ipratropium 3.0-0.5 MG/3 ML Neb Soln NEB SCH ×3 (13:28→21:59)
--- NOTE | 2017-11-26 13:29 | PCM.PN ---
- General Info Date of Service: 11/26/17 Functional Status: Reports: Tolerating Diet, Ambulating, Urinating - Review of Systems General: Reports: Weakness HEENT: Reports: No Symptoms Pulmonary: Reports: Shortness of Breath Cardiovascular: Reports: No Symptoms Gastrointestinal: Reports: No Symptoms Genitourinary: Reports: No Symptoms Musculoskeletal: Reports: No Symptoms Skin: Reports: No Symptoms Neurological: Reports: No Symptoms Psychiatric: Reports: No Symptoms - Patient Data Vitals - Most Recent: Last Vital Signs Temp 37.6 C 11/26/17 09:29 Pulse 72 11/26/17 09:32 Resp 20 11/26/17 09:29 BP 123/51 L 11/26/17 09:32 Pulse Ox 96 11/26/17 10:33 Weight - Most Recent: 74.843 kg I&O - Last 24 Hours: Intake & Output 11/25/17 11/26/17 11/26/17 22:59 06:59 14:59 Intake Total 580 Output Total 400 Balance 180 Lab Results Last 24 Hours: Laboratory Results - last 24 hr 11/25/17 11/25/17 11/26/17 Range/Units 22:39 23:09 01:00 WBC (4.23-9.07) K/mm3 RBC (4.63-6.08) M/mm3 Hgb (13.7-17.5) gm/L Hct (40.1-51.0) % MCV (79.0-92.2) fl MCH (25.7-32.2) pg MCHC (32.2-35.5) g/dl RDW Std Deviation (35.1-43.9) fL Plt Count (163-337) K/mm3 MPV (9.4-12.3) fl Neut % (Auto) (34.0-67.9) % Lymph % (Auto) (21.8-53.1) % Carson % (Auto) (5.3-12.2) % Eos % (Auto) (0.8-7.0) Baso % (Auto) (0.1-1.2) % Neut # (Auto) (1.78-5.38) K/mm3 Lymph # (Auto) (1.32-3.57) K/mm3 Carson # (Auto) (0.30-0.82) K/mm3 Eos # (Auto) (0.04-0.54) K/mm3 Baso # (Auto) (0.01-0.08) K/mm3 Manual Slide Review PT (8.0-13.0) SECONDS INR Sodium (136-145) mEq/L Potassium (3.5-5.1) mEq/L Chloride (98-107) mEq/L Carbon Dioxide (21-32) mEq/L Anion Gap (5-15) BUN (7-18) mg/dL Creatinine (0.7-1.3) mg/dL Est Cr Clr Drug Dosing mL/min Estimated GFR (MDRD) (>60) mL/min BUN/Creatinine Ratio (14-18) Glucose (83-115) mg/dL POC Glucose 69 L 125 H (83-110) mg/dL Calcium (8.5-10.1) mg/dL Magnesium (1.8-2.4) mg/dl Urine Color Yellow (Yellow) Urine Appearance Slt cloudy H (Clear) Urine pH 5.5 (5.0-8.0) Ur Specific [place] 1.020 (1.005-1.030) Urine Protein 1+ H (Negative) Urine Glucose (UA) Negative (Negative) Urine Ketones Negative (Negative) Urine Occult Blood Negative (Negative) Urine Nitrite Negative (Negative) Urine Bilirubin Negative (Negative) Urine Urobilinogen 0.2 (0.2-1.0) Ur Leukocyte Esterase 1+ H (Negative) Urine RBC 0-5 (0-5) /hpf Urine WBC 20-30 H (0-5) /hpf Ur Epithelial Cells 5-10 H (0-5) /hpf Urine Bacteria Few (FEW) /hpf Urine Mucus Not seen (FEW) /hpf Mycoplasma pneumon IgM (NEGATIVE) 11/26/17 11/26/17 11/26/17 Range/Units 06:01 06:15 06:15 WBC 6.54 (4.23-9.07) K/mm3 RBC 3.80 L (4.63-6.08) M/mm3 Hgb 8.9 L (13.7-17.5) gm/L Hct 29.2 L (40.1-51.0) % MCV 76.8 L (79.0-92.2) fl MCH 23.4 L (25.7-32.2) pg MCHC 30.5 L (32.2-35.5) g/dl RDW Std Deviation 51.4 H (35.1-43.9) fL Plt Count 187 (163-337) K/mm3 MPV 9.6 (9.4-12.3) fl Neut % (Auto) 66.7 (34.0-67.9) % Lymph % (Auto) 16.8 L (21.8-53.1) % Carson % (Auto) 16.1 H (5.3-12.2) % Eos % (Auto) 0.2 L (0.8-7.0) Baso % (Auto) 0.2 (0.1-1.2) % Neut # (Auto) 4.37 (1.78-5.38) K/mm3 Lymph # (Auto) 1.10 L (1.32-3.57) K/mm3 Carson # (Auto) 1.05 H (0.30-0.82) K/mm3 Eos # (Auto) 0.01 L (0.04-0.54) K/mm3 Baso # (Auto) 0.01 (0.01-0.08) K/mm3 Manual Slide Review Abnormal smear PT 13.0 (8.0-13.0) SECONDS INR 1.18 Sodium (136-145) mEq/L Potassium (3.5-5.1) mEq/L Chloride (98-107) mEq/L Carbon Dioxide (21-32) mEq/L Anion Gap (5-15) BUN (7-18) mg/dL Creatinine (0.7-1.3) mg/dL Est Cr Clr Drug Dosing mL/min Estimated GFR (MDRD) (>60) mL/min BUN/Creatinine Ratio (14-18) Glucose (83-115) mg/dL POC Glucose 80 L (83-110) mg/dL Calcium (8.5-10.1) mg/dL Magnesium (1.8-2.4) mg/dl Urine Color (Yellow) Urine Appearance (Clear) Urine pH (5.0-8.0) Ur Specific [place] (1.005-1.030) Urine Protein (Negative) Urine Glucose (UA) (Negative) Urine Ketones (Negative) Urine Occult Blood (Negative) Urine Nitrite (Negative) Urine Bilirubin (Negative) Urine Urobilinogen (0.2-1.0) Ur Leukocyte Esterase (Negative) Urine RBC (0-5) /hpf Urine WBC (0-5) /hpf Ur Epithelial Cells (0-5) /hpf Urine Bacteria (FEW) /hpf Urine Mucus (FEW) /hpf Mycoplasma pneumon IgM (NEGATIVE) 11/26/17 11/26/17 Range/Units 06:15 11:47 WBC (4.23-9.07) K/mm3 RBC (4.63-6.08) M/mm3 Hgb (13.7-17.5) gm/L Hct (40.1-51.0) % MCV (79.0-92.2) fl MCH (25.7-32.2) pg MCHC (32.2-35.5) g/dl RDW Std Deviation (35.1-43.9) fL Plt Count (163-337) K/mm3 MPV (9.4-12.3) fl Neut % (Auto) (34.0-67.9) % Lymph % (Auto) (21.8-53.1) % Carson % (Auto) (5.3-12.2) % Eos % (Auto) (0.8-7.0) Baso % (Auto) (0.1-1.2) % Neut # (Auto) (1.78-5.38) K/mm3 Lymph # (Auto) (1.32-3.57) K/mm3 Carson # (Auto) (0.30-0.82) K/mm3 Eos # (Auto) (0.04-0.54) K/mm3 Baso # (Auto) (0.01-0.08) K/mm3 Manual Slide Review PT (8.0-13.0) SECONDS INR Sodium 137 (136-145) mEq/L Potassium 4.1 (3.5-5.1) mEq/L Chloride 103 (98-107) mEq/L Carbon Dioxide 25 (21-32) mEq/L Anion Gap 13.1 (5-15) BUN 44 H (7-18) mg/dL Creatinine 1.3 (0.7-1.3) mg/dL Est Cr Clr Drug Dosing 38.84 mL/min Estimated GFR (MDRD) 52 (>60) mL/min BUN/Creatinine Ratio 33.8 H (14-18) Glucose 81 L (83-115) mg/dL POC Glucose 101 (83-110) mg/dL Calcium 9.7 (8.5-10.1) mg/dL Magnesium 1.9 (1.8-2.4) mg/dl Urine Color (Yellow) Urine Appearance (Clear) Urine pH (5.0-8.0) Ur Specific [place] (1.005-1.030) Urine Protein (Negative) Urine Glucose (UA) (Negative) Urine Ketones (Negative) Urine Occult Blood (Negative) Urine Nitrite (Negative) Urine Bilirubin (Negative) Urine Urobilinogen (0.2-1.0) Ur Leukocyte Esterase (Negative) Urine RBC (0-5) /hpf Urine WBC (0-5) /hpf Ur Epithelial Cells (0-5) /hpf Urine Bacteria (FEW) /hpf Urine Mucus (FEW) /hpf Mycoplasma pneumon IgM Negative (NEGATIVE) Geoffrey Results Last 24 Hours: Microbiology 11/26/17 01:00 Urine Culture - Preliminary Urine, Clean Catch Med Orders - Current: Current Medications Acetaminophen (Tylenol) 650 mg PO Q6H PRN PRN Reason: Pain/Fever Albuterol (Proventil Neb Soln) 2.5 mg NEB Q4HRRT PRN PRN Reason: Shortness of Breath Last Admin: 11/26/17 04:25 Dose: 2.5 mg Albuterol/Ipratropium (Duoneb 3.0-0.5 Mg/3 Ml) 3 ml NEB QID JARDO Allopurinol (Zyloprim) 150 mg PO BEDTIME [facility] Aspirin (Halfprin) 81 mg PO BEDTIME [facility] Clopidogrel Bisulfate (Plavix) 75 mg PO DAILY [facility] Last Admin: 11/26/17 09:33 Dose: 75 mg Dextrose/Water (Dextrose 50% In Water) 50 ml IVPUSH ASDIRECTED PRN PRN Reason: Hypoglycemia Furosemide (Lasix) 40 mg PO DAILY [facility] Glipizide (Glucotrol Xl) 2.5 mg PO DAILY [facility] Last Admin: 11/26/17 09:33 Dose: 2.5 mg Ceftriaxone Sodium 2 gm/ (Sodium Chloride) 100 mls @ 200 mls/hr IV Q24H [facility] Insulin Aspart (Novolog) 0 unit SUBCUT QIDACANDBED [facility] PRN Reason: Protocol Last Admin: 11/26/17 06:11 Dose: Not Given Methylprednisolone Sodium Succinate (Solu-Medrol) 125 mg IVPUSH Q12H [facility] Metoprolol Succinate (Toprol Xl) 12.5 mg PO DAILY [facility] Last Admin: 11/26/17 09:32 Dose: 12.5 mg Oseltamivir Phosphate (Tamiflu) 30 mg PO BID [facility] Stop: 11/30/17 09:01 Advair Diskus 500/50 (Inhaler) 0 each INH BID [facility] Last Admin: 11/26/17 12:35 Dose: Not Given Simvastatin (Zocor) 10 mg PO DAILY [facility] Last Admin: 11/26/17 09:33 Dose: 10 mg Temazepam (Restoril) 7.5 mg PO BEDTIME PRN PRN Reason: Insomnia Warfarin Sodium (Coumadin) 6 mg PO MoFr@1800 [facility] Warfarin Sodium (Coumadin) 3 mg PO SuTuWeThSa@1800 [facility] Discontinued Medications Acetaminophen (Tylenol) 650 mg PO NOW ONE Stop: 11/25/17 19:35 Last Admin: 11/25/17 19:48 Dose: Not Given Albuterol (Proventil Neb Soln) 2.5 mg NEB ONETIME ONE Stop: 11/25/17 17:50 Last Admin: 11/25/17 17:58 Dose: 2.5 mg Albuterol/Ipratropium (Duoneb 3.0-0.5 Mg/3 Ml) 3 ml NEB QID PRN PRN Reason: Shortness of Breath Last Admin: 11/26/17 10:28 Dose: 3 ml Furosemide (Lasix) 20 mg IVPUSH NOW ONE Stop: 11/26/17 12:25 Furosemide (Lasix) 40 mg IVPUSH NOW ONE Stop: 11/26/17 12:25 Lactated Ringer's (Ringers, Lactated) 1,000 mls @ 75 mls/hr IV ASDIRECTED [facility] Last Admin: 11/26/17 01:14 Dose: 75 mls/hr Ceftriaxone Sodium 2 gm/ (Sodium Chloride) 100 mls @ 200 mls/hr IV Q24H [facility] Mometasone Furoate/Formoterol Fumar (Dulera 200-5 Mcg) 2 puff IH BID [facility] Last Admin: 11/26/17 10:22 Dose: 2 puff Oseltamivir Phosphate (Tamiflu) 30 mg PO DAILY [facility] Last Admin: 11/26/17 09:32 Dose: 30 mg - Exam Quality Assessment: Supplemental Oxygen, DVT Prophylaxis General: Alert, Oriented, Cooperative, No Acute Distress HEENT: Pupils Equal, Pupils Reactive, EOMI Neck: Trachea Midline, No JVD Lungs: Normal Respiratory Effort, Decreased Breath Sounds Cardiovascular: Regular Rate, Irregular Rhythm GI/Abdominal Exam: Normal Bowel Sounds, Soft, Non-Tender, No Organomegaly, No Distention (Male) Exam: Deferred Back Exam: Normal Inspection Extremities: Normal Inspection, Non-Tender Skin: Warm Neurological: No New Focal Deficit Psy/Mental Status: Alert, Normal Affect, Normal Mood - Problem List & Annotations (1) Subtherapeutic anticoagulation SNOMED Code(s): 71476521 Code(s): Z51.81 - ENCOUNTER FOR THERAPEUTIC DRUG LEVEL MONITORING; 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 Status: Acute Current Visit: Yes (2) Hypoxia SNOMED Code(s): 649507649 Code(s): R09.02 - HYPOXEMIA Status: Acute Current Visit: Yes (3) Influenza A SNOMED Code(s): 612413363 Code(s): J10.1 - FLU DUE TO OTH IDENT INFLUENZA VIRUS W OTH RESP MANIFEST Status: Acute Current Visit: Yes (4) COPD, Moderate chronic obstructive pulmonary disease SNOMED Code(s): 305288477 Code(s): J44.9 - CHRONIC OBSTRUCTIVE PULMONARY DISEASE, UNSPECIFIED Status : Chronic Priority: High Current Visit: Yes (5) Diabetes mellitus type 2 SNOMED Code(s): 22750141 Code(s): E11.9 - TYPE 2 DIABETES MELLITUS WITHOUT COMPLICATIONS Status: Chronic Priority: Medium Current Visit: Yes (6) COPD exacerbation SNOMED Code(s): 580524534888453 Code(s): J44.1 - CHRONIC OBSTRUCTIVE PULMONARY DISEASE W (ACUTE) EXACERBATION Status: Acute Current Visit: No (7) Coronary artery bypass grafts x 5 SNOMED Code(s): 570939822 - Coronary artery bypass grafts x 5 Status: Acute Current Visit: No (8) Chronic renal insufficiency SNOMED Code(s): 243740411 Code(s): N18.9 - CHRONIC KIDNEY DISEASE, UNSPECIFIED Status: Chronic Priority: Medium Current Visit: No (9) PVD (peripheral vascular disease) with claudication SNOMED Code(s): 892658517 Code(s): I73.9 - PERIPHERAL VASCULAR DISEASE, UNSPECIFIED Status: Chronic Priority: High Current Visit: No (10) UTI (urinary tract infection) SNOMED Code(s): 22987414 Code(s): N39.0 - URINARY TRACT INFECTION, SITE NOT SPECIFIED Status: Resolved Priority: High Current Visit: No Qualifiers: Urinary tract infection type: acute cystitis Hematuria presence: without hematuria Qualified Code(s): N30.00 - Acute cystitis without hematuria - Problem List Review Problem List Initiated/Reviewed/Updated: Yes - My Orders Last 24 Hours: My Active Orders 11/25/17 21:52 Antiembolic Devices [RC] BID RT Aerosol Therapy [RC] ASDIRECTED Albuterol [Proventil Neb Soln] 2.5 mg NEB Q4HRRT PRN MARY Hose [Antiembolic Hose] [OM.PC] Routine 11/25/17 21:53 Bedrest Bathroom Privileges [RC] ASDIRECTED 11/25/17 21:55 Blood Glucose Check, Bedside [RC] QIDACANDBED 11/25/17 21:56 Dextrose 50% in Water 50 ml IVPUSH ASDIRECTED PRN 11/25/17 21:58 Temazepam [Restoril] 7.5 mg PO BEDTIME PRN 11/25/17 22:00 Insulin Aspart [NovoLOG] See Protocol SUBCUT QIDACANDBED 11/25/17 22:01 Acetaminophen [Tylenol] 650 mg PO Q6H PRN Isolation [COMM] Routine 11/25/17 22:14 Oxygen Therapy Adult [Oxygen Therapy] [RC] ASDIRECTED 11/25/17 22:22 Resuscitation Status Routine 11/26/17 01:00 CULTURE URINE [RM] Routine STREP PNEUMONIAE ANTIGEN [MREF] Routine 11/26/17 09:00 Clopidogrel [Plavix] 75 mg PO DAILY Metoprolol Succinate [Toprol XL] 12.5 mg PO DAILY Simvastatin [Zocor] 10 mg PO DAILY glipiZIDE [Glucotrol XL] 2.5 mg PO DAILY 11/26/17 10:30 Patient's Own Medication [Ptom] 0 each INH BID 11/26/17 12:30 methylPREDNISolone Sod Succ [Solu-MEDROL] 125 mg IVPUSH Q12H 11/26/17 13:00 Albuterol/Ipratropium [DuoNeb 3.0-0.5 MG/3 ML] 3 ml NEB QID cefTRIAXone [Rocephin] 2 gm Sodium Chloride 0.9% [Normal Saline] 100 ml IV Q24H 11/26/17 13:30 Azithromycin [Zithromax] 500 mg Sodium Chloride 0.9% [Normal Saline] 250 ml IV Q24H 11/26/17 18:00 Warfarin [Coumadin] 6 mg PO MoFr@1800 11/26/17 21:00 Allopurinol [Zyloprim] 150 mg PO BEDTIME Aspirin [Halfprin] 81 mg PO BEDTIME Oseltamivir [Tamiflu] 30 mg PO BID 11/26/17 Breakfast [employer] [employer] Diet [DIET] 11/27/17 05:00 BMP [BASIC METABOLIC PANEL,BMP] [CHEM] DAILY CBC WITH AUTO DIFF [HEME] DAILY INR,PT,PROTHROMBIN TIME [COAG] DAILY MAGNESIUM [CHEM] DAILY 11/27/17 08:00 Chest 2V [CR] Routine 11/27/17 09:00 Furosemide [Lasix] 40 mg PO DAILY 11/27/17 18:00 Warfarin [Coumadin] 3 mg PO SuTuWeThSa@1800 11/28/17 05:00 BMP [BASIC METABOLIC PANEL,BMP] [CHEM] DAILY CBC WITH AUTO DIFF [HEME] DAILY INR,PT,PROTHROMBIN TIME [COAG] DAILY MAGNESIUM [CHEM] DAILY 11/29/17 05:00 BMP [BASIC METABOLIC PANEL,BMP] [CHEM] DAILY CBC WITH AUTO DIFF [HEME] DAILY INR,PT,PROTHROMBIN TIME [COAG] DAILY MAGNESIUM [CHEM] DAILY - Plan Plan:: Impression: COPD exacerbation with hypoxia Acute respiratory distress, resolved Influenza A positive CAD with history of CABG AUTI, UC pending CHF CKD, stage III Plan: IVF for 12 hours Tamiflu renal dose Empiric treatment of bronchitis/PNA ATB for UTI, UC pending Daily labs Home meds; continue coumadin DVT/GI prophylaxis Droplet precautions
[2017-11-26] MEDS: Azithromycin 500 MG in Sodium Chloride 0.9% 250 ML IV SCH (13:45)
[2017-11-26] MEDS: methylPREDNISolone Sodium Succinate 125 MG/2 ML SDV IVPUSH SCH (13:50)
[2017-11-26] MEDS: cefTRIAXone 2 GM in Sodium Chloride 0.9% 100 ML IV SCH (15:56)
[2017-11-26] MEDS: Aspirin 81 MG Tab.EC PO SCH ×2 (21:59→22:39)
[2017-11-26] MEDS: Allopurinol 300 MG Tab PO SCH (22:24)
[2017-11-27] MEDS: methylPREDNISolone Sodium Succinate 125 MG/2 ML SDV IVPUSH SCH ×2 (00:47→12:08)
[2017-11-27] MEDS: Albuterol/Ipratropium 3.0-0.5 MG/3 ML Neb Soln NEB SCH ×4 (08:46→20:12)
[2017-11-27] MEDS: ADVAIR INH SCH ×2 (08:47→20:12)
[2017-11-27] MEDS: glipiZIDE 2.5 MG Tab.ER PO SCH (08:58)
[2017-11-27] MEDS: Insulin Aspart 100 Units/ML 3 ML Pen SUBCUT SCH ×4 (08:58→21:21)
[2017-11-27] MEDS: Clopidogrel 75 MG Tab PO SCH (08:59)
[2017-11-27] MEDS: Furosemide 40 MG Tab PO SCH (08:59)
[2017-11-27] MEDS: Metoprolol Succinate 25 MG Tab.ER PO SCH (08:59)
[2017-11-27] MEDS: Oseltamivir 30 MG Cap PO SCH ×2 (08:59→21:19)
[2017-11-27] MEDS: Simvastatin 10 MG Tab PO SCH (08:59)
[2017-11-27] MEDS ORDERED: Magnesium Hydroxide 400 MG/5 ML Susp 30 ML Cup PO ONE (09:51)
--- NOTE | 2017-11-27 10:46 | CR ---
Chest: 2 views of the chest were obtained. Comparison: Prior chest x-ray of 11/25/17. Heart is enlarged. Pacemaker is noted. Sternotomy wires are present. Pulmonary vessels are mildly increased which are slightly more prominent than on prior study. No alveolar type densities are seen. Diaphragms are flattened on the lateral view compatible with emphysematous change. Degenerative change is noted within the spine. Stable compression deformity is noted at the thoracolumbar junction. Previous CABG is noted. Impression: 1. Stable cardiomegaly. 2. Increased pulmonary vascular congestion from prior exam. 3. Other incidental findings as noted above which are stable. Diagnostic code #3
--- NOTE | 2017-11-27 14:14 | PCM.PN ---
- General Info Date of Service: 11/27/17 Functional Status: Reports: Tolerating Diet, Ambulating, Urinating - Review of Systems General: Reports: No Symptoms HEENT: Reports: No Symptoms Pulmonary: Reports: No Symptoms Cardiovascular: Reports: No Symptoms Gastrointestinal: Reports: No Symptoms Genitourinary: Reports: No Symptoms Musculoskeletal: Reports: No Symptoms Skin: Reports: No Symptoms Neurological: Reports: No Symptoms Psychiatric: Reports: No Symptoms - Patient Data Vitals - Most Recent: Last Vital Signs Temp 36.7 C 11/27/17 08:39 Pulse 64 11/27/17 09:08 Resp 16 11/27/17 08:39 BP 119/56 L 11/27/17 09:01 Pulse Ox 96 11/27/17 12:42 Weight - Most Recent: 74.843 kg I&O - Last 24 Hours: Intake & Output 11/26/17 11/27/17 11/27/17 22:59 06:59 14:59 Intake Total 2120 300 300 Output Total 675 Balance 2120 -375 300 Lab Results Last 24 Hours: Laboratory Results - last 24 hr 11/26/17 11/26/17 11/27/17 Range/Units 16:59 22:19 05:46 WBC (4.23-9.07) K/mm3 RBC (4.63-6.08) M/mm3 Hgb (13.7-17.5) gm/L Hct (40.1-51.0) % MCV (79.0-92.2) fl MCH (25.7-32.2) pg MCHC (32.2-35.5) g/dl RDW Std Deviation (35.1-43.9) fL Plt Count (163-337) K/mm3 MPV (9.4-12.3) fl Neut % (Auto) (34.0-67.9) % Lymph % (Auto) (21.8-53.1) % [place] % (Auto) (5.3-12.2) % Eos % (Auto) (0.8-7.0) Baso % (Auto) (0.1-1.2) % Neut # (Auto) (1.78-5.38) K/mm3 Lymph # (Auto) (1.32-3.57) K/mm3 [place] # (Auto) (0.30-0.82) K/mm3 Eos # (Auto) (0.04-0.54) K/mm3 Baso # (Auto) (0.01-0.08) K/mm3 Manual Slide Review PT (8.0-13.0) SECONDS INR Sodium (136-145) mEq/L Potassium (3.5-5.1) mEq/L Chloride (98-107) mEq/L Carbon Dioxide (21-32) mEq/L Anion Gap (5-15) BUN (7-18) mg/dL Creatinine (0.7-1.3) mg/dL Est Cr Clr Drug Dosing mL/min Estimated GFR (MDRD) (>60) mL/min BUN/Creatinine Ratio (14-18) Glucose (83-115) mg/dL POC Glucose 92 197 H 190 H (83-110) mg/dL Calcium (8.5-10.1) mg/dL Magnesium (1.8-2.4) mg/dl C-Reactive Protein (<1.0) mg/dL 11/27/17 11/27/17 11/27/17 Range/Units 06:21 06:21 06:21 WBC 2.18 L* (4.23-9.07) K/mm3 RBC 3.94 L (4.63-6.08) M/mm3 Hgb 9.1 L (13.7-17.5) gm/L Hct 30.2 L (40.1-51.0) % MCV 76.6 L (79.0-92.2) fl MCH 23.1 L (25.7-32.2) pg MCHC 30.1 L (32.2-35.5) g/dl RDW Std Deviation 51.6 H (35.1-43.9) fL Plt Count 162 L (163-337) K/mm3 MPV 9.3 L (9.4-12.3) fl Neut % (Auto) 83.0 H (34.0-67.9) % Lymph % (Auto) 12.4 L (21.8-53.1) % [place] % (Auto) 4.1 L (5.3-12.2) % Eos % (Auto) 0 L (0.8-7.0) Baso % (Auto) 0.0 L (0.1-1.2) % Neut # (Auto) 1.81 (1.78-5.38) K/mm3 Lymph # (Auto) 0.27 L (1.32-3.57) K/mm3 [place] # (Auto) 0.09 L (0.30-0.82) K/mm3 Eos # (Auto) 0.00 L (0.04-0.54) K/mm3 Baso # (Auto) 0.00 L (0.01-0.08) K/mm3 Manual Slide Review Abnormal smear PT 13.1 H (8.0-13.0) SECONDS INR 1.19 Sodium 137 (136-145) mEq/L Potassium 4.2 (3.5-5.1) mEq/L Chloride 103 (98-107) mEq/L Carbon Dioxide 25 (21-32) mEq/L Anion Gap 13.2 (5-15) BUN 49 H (7-18) mg/dL Creatinine 1.2 (0.7-1.3) mg/dL Est Cr Clr Drug Dosing 42.08 mL/min Estimated GFR (MDRD) 58 (>60) mL/min BUN/Creatinine Ratio 40.8 H (14-18) Glucose 189 H (83-115) mg/dL POC Glucose (83-110) mg/dL Calcium 9.5 (8.5-10.1) mg/dL Magnesium 1.9 (1.8-2.4) mg/dl C-Reactive Protein 6.0 H* (<1.0) mg/dL 11/27/17 Range/Units 13:23 WBC 4.27 (4.23-9.07) K/mm3 RBC 3.96 L (4.63-6.08) M/mm3 Hgb 9.1 L (13.7-17.5) gm/L Hct 30.2 L (40.1-51.0) % MCV 76.3 L (79.0-92.2) fl MCH 23.0 L (25.7-32.2) pg MCHC 30.1 L (32.2-35.5) g/dl RDW Std Deviation 51.8 H (35.1-43.9) fL Plt Count 170 (163-337) K/mm3 MPV 9.4 (9.4-12.3) fl Neut % (Auto) 87.3 H (34.0-67.9) % Lymph % (Auto) 7.3 L (21.8-53.1) % [place] % (Auto) 5.4 (5.3-12.2) % Eos % (Auto) 0 L (0.8-7.0) Baso % (Auto) 0.0 L (0.1-1.2) % Neut # (Auto) 3.73 (1.78-5.38) K/mm3 Lymph # (Auto) 0.31 L (1.32-3.57) K/mm3 [place] # (Auto) 0.23 L (0.30-0.82) K/mm3 Eos # (Auto) 0.00 L (0.04-0.54) K/mm3 Baso # (Auto) 0.00 L (0.01-0.08) K/mm3 Manual Slide Review Abnormal smear PT (8.0-13.0) SECONDS INR Sodium (136-145) mEq/L Potassium (3.5-5.1) mEq/L Chloride (98-107) mEq/L Carbon Dioxide (21-32) mEq/L Anion Gap (5-15) BUN (7-18) mg/dL Creatinine (0.7-1.3) mg/dL Est Cr Clr Drug Dosing mL/min Estimated GFR (MDRD) (>60) mL/min BUN/Creatinine Ratio (14-18) Glucose (83-115) mg/dL POC Glucose (83-110) mg/dL Calcium (8.5-10.1) mg/dL Magnesium (1.8-2.4) mg/dl C-Reactive Protein (<1.0) mg/dL Geoffrey Results Last 24 Hours: Microbiology 11/26/17 01:00 Urine Culture - Preliminary Urine, Clean Catch MIXED PREM SUGGESTIVE OF CONTAMINATION. 11/26/17 01:00 Streptococcus pneumoniae Antigen (M - Final Urine Med Orders - Current: Current Medications Acetaminophen (Tylenol) 650 mg PO Q6H PRN PRN Reason: Pain/Fever Albuterol (Proventil Neb Soln) 2.5 mg NEB Q4HRRT PRN PRN Reason: Shortness of Breath Last Admin: 11/26/17 04:25 Dose: 2.5 mg Albuterol/Ipratropium (Duoneb 3.0-0.5 Mg/3 Ml) 3 ml NEB QID [facility] Last Admin: 11/27/17 12:42 Dose: 3 ml Allopurinol (Zyloprim) 150 mg PO BEDTIME [facility] Last Admin: 11/26/17 22:24 Dose: 150 mg Aspirin (Halfprin) 81 mg PO BEDTIME [facility] Last Admin: 11/26/17 22:39 Dose: 81 mg Clopidogrel Bisulfate (Plavix) 75 mg PO DAILY [facility] Last Admin: 11/27/17 08:59 Dose: 75 mg Dextrose/Water (Dextrose 50% In Water) 50 ml IVPUSH ASDIRECTED PRN PRN Reason: Hypoglycemia Furosemide (Lasix) 40 mg PO DAILY [facility] Last Admin: 11/27/17 08:59 Dose: 40 mg Glipizide (Glucotrol Xl) 2.5 mg PO DAILY [facility] Last Admin: 11/27/17 08:58 Dose: 2.5 mg Ceftriaxone Sodium 2 gm/ (Sodium Chloride) 100 mls @ 200 mls/hr IV Q24H [facility] Last Admin: 11/26/17 15:56 Dose: 200 mls/hr Azithromycin 500 mg/ Sodium (Chloride) 250 mls @ 250 mls/hr IV Q24H [facility] Last Admin: 11/26/17 13:45 Dose: 250 mls/hr Insulin Aspart (Novolog) 0 unit SUBCUT QIDACANDBED [facility] PRN Reason: Protocol Last Admin: 11/27/17 12:07 Dose: 4 units Methylprednisolone Sodium Succinate (Solu-Medrol) 40 mg IVPUSH Q12H [facility] Metoprolol Succinate (Toprol Xl) 12.5 mg PO DAILY [facility] Last Admin: 11/27/17 08:59 Dose: 12.5 mg Oseltamivir Phosphate (Tamiflu) 30 mg PO BID [facility] Stop: 11/30/17 09:01 Last Admin: 11/27/17 08:59 Dose: 30 mg Advair Diskus 500/50 (Inhaler) 0 each INH BID [facility] Last Admin: 11/27/17 08:47 Dose: 1 each Senna/Docusate Sodium (Senna Plus) 1 tab PO DAILY [facility] Last Admin: 11/27/17 10:09 Dose: 1 tab Simvastatin (Zocor) 10 mg PO DAILY [facility] Last Admin: 11/27/17 08:59 Dose: 10 mg Temazepam (Restoril) 7.5 mg PO BEDTIME PRN PRN Reason: Insomnia Warfarin Sodium (Coumadin) 6 mg PO MoFr@1800 [facility] Last Admin: 11/26/17 18:14 Dose: 6 mg Warfarin Sodium (Coumadin) 3 mg PO SuTuWeThSa@1800 [facility] Discontinued Medications Acetaminophen (Tylenol) 650 mg PO NOW ONE Stop: 11/25/17 19:35 Last Admin: 11/25/17 19:48 Dose: Not Given Albuterol (Proventil Neb Soln) 2.5 mg NEB ONETIME ONE Stop: 11/25/17 17:50 Last Admin: 11/25/17 17:58 Dose: 2.5 mg Albuterol/Ipratropium (Duoneb 3.0-0.5 Mg/3 Ml) 3 ml NEB QID PRN PRN Reason: Shortness of Breath Last Admin: 11/26/17 10:28 Dose: 3 ml Furosemide (Lasix) 20 mg IVPUSH NOW ONE Stop: 11/26/17 12:25 Last Admin: 11/27/17 11:04 Dose: Not Given Furosemide (Lasix) 40 mg IVPUSH NOW ONE Stop: 11/26/17 12:25 Last Admin: 11/26/17 13:40 Dose: 40 mg Lactated Ringer's (Ringers, Lactated) 1,000 mls @ 75 mls/hr IV ASDIRECTED [facility] Last Admin: 11/26/17 01:14 Dose: 75 mls/hr Ceftriaxone Sodium 2 gm/ (Sodium Chloride) 100 mls @ 200 mls/hr IV Q24H [facility] Magnesium Hydroxide (Milk Of Magnesia) 30 ml PO ONETIME ONE Stop: 11/27/17 09:52 Last Admin: 11/27/17 10:09 Dose: 30 ml Methylprednisolone Sodium Succinate (Solu-Medrol) 125 mg IVPUSH Q12H [facility] Last Admin: 11/27/17 12:08 Dose: 125 mg Mometasone Furoate/Formoterol Fumar (Dulera 200-5 Mcg) 2 puff IH BID [facility] Last Admin: 11/26/17 10:22 Dose: 2 puff Oseltamivir Phosphate (Tamiflu) 30 mg PO DAILY [facility] Last Admin: 11/26/17 09:32 Dose: 30 mg - Exam Quality Assessment: Supplemental Oxygen, DVT Prophylaxis General: Alert, Oriented, Cooperative, No Acute Distress HEENT: Pupils Equal, Pupils Reactive, EOMI Neck: Supple, Trachea Midline Lungs: Normal Respiratory Effort, Decreased Breath Sounds, Wheezing (minimal) Cardiovascular: Regular Rate, Irregular Rhythm GI/Abdominal Exam: Normal Bowel Sounds, Soft, Non-Tender, No Organomegaly, No Distention (Male) Exam: Deferred Back Exam: Normal Inspection Extremities: Normal Inspection Skin: Warm Neurological: No New Focal Deficit, Normal Gait, Normal Speech Psy/Mental Status: Alert, Normal Affect, Normal Mood - Problem List & Annotations (1) Subtherapeutic anticoagulation SNOMED Code(s): 74875968 Code(s): Z51.81 - ENCOUNTER FOR THERAPEUTIC DRUG LEVEL MONITORING; Z79.01 - LONGTERM (CURRENT) USE OF 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 Status: Acute Current Visit: Yes (2) Hypoxia SNOMED Code(s): 963491367 Code(s): R09.02 - HYPOXEMIA Status: Acute Current Visit: Yes (3) Influenza A SNOMED Code(s): 383661292 Code(s): J10.1 - FLU DUE TO OTH IDENT INFLUENZA VIRUS W OTH RESP MANIFEST Status: Acute Current Visit: Yes (4) COPD, Moderate chronic obstructive pulmonary disease SNOMED Code(s): 520991432 Code(s): J44.9 - CHRONIC OBSTRUCTIVE PULMONARY DISEASE, UNSPECIFIED Status : Chronic Priority: High Current Visit: Yes (5) Diabetes mellitus type 2 SNOMED Code(s): 50295186 Code(s): E11.9 - TYPE 2 DIABETES MELLITUS WITHOUT COMPLICATIONS Status: Chronic Priority: Medium Current Visit: Yes (6) COPD exacerbation SNOMED Code(s): 236206010562443 Code(s): J44.1 - CHRONIC OBSTRUCTIVE PULMONARY DISEASE W (ACUTE) EXACERBATION Status: Acute Current Visit: No (7) Coronary artery bypass grafts x 5 SNOMED Code(s): 876401128 - Coronary artery bypass grafts x 5 Status: Acute Current Visit: No (8) Chronic renal insufficiency SNOMED Code(s): 958765570 Code(s): N18.9 - CHRONIC KIDNEY DISEASE, UNSPECIFIED Status: Chronic Priority: Medium Current Visit: No (9) PVD (peripheral vascular disease) with claudication SNOMED Code(s): 661684478 Code(s): I73.9 - PERIPHERAL VASCULAR DISEASE, UNSPECIFIED Status: Chronic Priority: High Current Visit: No (10) UTI (urinary tract infection) SNOMED Code(s): 03000707 Code(s): N39.0 - URINARY TRACT INFECTION, SITE NOT SPECIFIED Status: Resolved Priority: High Current Visit: No Qualifiers: Urinary tract infection type: acute cystitis Hematuria presence: without hematuria Qualified Code(s): N30.00 - Acute cystitis without hematuria - Problem List Review Problem List Initiated/Reviewed/Updated: Yes - My Orders Last 24 Hours: My Active Orders 11/26/17 13:30 Azithromycin [Zithromax] 500 mg Sodium Chloride 0.9% [Normal Saline] 250 ml IV Q24H 11/26/17 18:00 Warfarin [Coumadin] 6 mg PO MoFr@1800 11/26/17 21:00 Allopurinol [Zyloprim] 150 mg PO BEDTIME Aspirin [Halfprin] 81 mg PO BEDTIME Oseltamivir [Tamiflu] 30 mg PO BID 11/27/17 09:00 Furosemide [Lasix] 40 mg PO DAILY 11/27/17 09:30 Docusate Sodium/Sennosides [Senna Plus] 1 tab PO DAILY 11/27/17 18:00 Warfarin [Coumadin] 3 mg PO SuTuWeThSa@1800 11/27/17 Dinner Heart Healthy Diet [DIET] 11/28/17 00:30 methylPREDNISolone Sod Succ [Solu-MEDROL] 40 mg IVPUSH Q12H 11/28/17 05:00 BMP [BASIC METABOLIC PANEL,BMP] [CHEM] DAILY CBC WITH AUTO DIFF [HEME] DAILY GLYCOSYLATED HEMOGLOBIN,HGBA1C [CHEM] Routine INR,PT,PROTHROMBIN TIME [COAG] DAILY MAGNESIUM [CHEM] DAILY 11/29/17 05:00 BMP [BASIC METABOLIC PANEL,BMP] [CHEM] DAILY CBC WITH AUTO DIFF [HEME] DAILY INR,PT,PROTHROMBIN TIME [COAG] DAILY MAGNESIUM [CHEM] DAILY - Plan Plan:: Impression: COPD exacerbation with hypoxia Acute respiratory distress, resolved Influenza A positive CAD with history of CABG AUTI, UC pending CHF CKD, stage III Plan: IVF for 12 hours Tamiflu renal dose Empiric treatment of bronchitis/PNA ATB for UTI, UC contaminated Taper IV steroids Daily labs Home meds; continue coumadin DVT/GI prophylaxis Droplet precautions
[2017-11-27] MEDS: cefTRIAXone 2 GM in Sodium Chloride 0.9% 100 ML IV SCH (14:44)
[2017-11-27] MEDS: Azithromycin 500 MG in Sodium Chloride 0.9% 250 ML IV SCH (15:14)
[2017-11-27] MEDS: Warfarin 3 MG Tab PO SCH (17:21)
[2017-11-27] MEDS: Aspirin 81 MG Tab.EC PO SCH (21:19)
[2017-11-27] MEDS: Allopurinol 300 MG Tab PO SCH (21:19)
[2017-11-28] MEDS: methylPREDNISolone Sodium Succinate 40 MG/1 ML SDV IVPUSH SCH ×2 (01:28→11:38)
[2017-11-28] MEDS: Insulin Aspart 100 Units/ML 3 ML Pen SUBCUT SCH ×4 (08:06→21:38)
[2017-11-28] MEDS: Oseltamivir 30 MG Cap PO SCH ×2 (08:16→21:23)
[2017-11-28] MEDS: Simvastatin 10 MG Tab PO SCH (08:17)
[2017-11-28] MEDS: Metoprolol Succinate 25 MG Tab.ER PO SCH (08:17)
[2017-11-28] MEDS: glipiZIDE 2.5 MG Tab.ER PO SCH (08:17)
[2017-11-28] MEDS: Clopidogrel 75 MG Tab PO SCH (08:17)
[2017-11-28] MEDS: Furosemide 40 MG Tab PO SCH (08:18)
[2017-11-28] MEDS: Albuterol/Ipratropium 3.0-0.5 MG/3 ML Neb Soln NEB SCH ×4 (09:13→20:27)
[2017-11-28] MEDS: ADVAIR INH SCH ×2 (09:15→20:27)
[2017-11-28] MEDS: cefTRIAXone 2 GM in Sodium Chloride 0.9% 100 ML IV SCH (13:34)
[2017-11-28] MEDS: Azithromycin 500 MG in Sodium Chloride 0.9% 250 ML IV SCH (14:13)
--- NOTE | 2017-11-28 15:24 | PCM.PN ---
- General Info Functional Status: Reports: Tolerating Diet, Ambulating, Urinating - Review of Systems General: Reports: No Symptoms HEENT: Reports: No Symptoms Pulmonary: Reports: No Symptoms Cardiovascular: Reports: No Symptoms Gastrointestinal: Reports: No Symptoms Genitourinary: Reports: No Symptoms Musculoskeletal: Reports: No Symptoms Skin: Reports: No Symptoms Neurological: Reports: No Symptoms Psychiatric: Reports: No Symptoms - Patient Data Vitals - Most Recent: Last Vital Signs Temp 36.6 C 11/28/17 08:39 Pulse 66 11/28/17 15:14 Resp 16 11/28/17 15:14 BP 123/62 11/28/17 15:14 Pulse Ox 96 11/28/17 15:14 Weight - Most Recent: 74.616 kg I&O - Last 24 Hours: Intake & Output 11/28/17 11/28/17 11/28/17 06:59 14:59 22:59 Intake Total 300 580 Output Total 900 Balance -600 580 Lab Results Last 24 Hours: Laboratory Results - last 24 hr 11/27/17 11/27/17 11/27/17 Range/Units 10:52 17:20 21:21 WBC (4.23-9.07) K/mm3 RBC (4.63-6.08) M/mm3 Hgb (13.7-17.5) gm/L Hct (40.1-51.0) % MCV (79.0-92.2) fl MCH (25.7-32.2) pg MCHC (32.2-35.5) g/dl RDW Std Deviation (35.1-43.9) fL Plt Count (163-337) K/mm3 MPV (9.4-12.3) fl Neut % (Auto) (34.0-67.9) % Lymph % (Auto) (21.8-53.1) % [place] % (Auto) (5.3-12.2) % Eos % (Auto) (0.8-7.0) Baso % (Auto) (0.1-1.2) % Neut # (Auto) (1.78-5.38) K/mm3 Lymph # (Auto) (1.32-3.57) K/mm3 [place] # (Auto) (0.30-0.82) K/mm3 Eos # (Auto) (0.04-0.54) K/mm3 Baso # (Auto) (0.01-0.08) K/mm3 Manual Slide Review PT (8.0-13.0) SECONDS INR Sodium (136-145) mEq/L Potassium (3.5-5.1) mEq/L Chloride (98-107) mEq/L Carbon Dioxide (21-32) mEq/L Anion Gap (5-15) BUN (7-18) mg/dL Creatinine (0.7-1.3) mg/dL Est Cr Clr Drug Dosing mL/min Estimated GFR (MDRD) (>60) mL/min BUN/Creatinine Ratio (14-18) Glucose (83-115) mg/dL POC Glucose 204 H 118 H 205 H (83-110) mg/dL Hemoglobin A1c (4.50-6.20) % Calcium (8.5-10.1) mg/dL Magnesium (1.8-2.4) mg/dl 11/28/17 11/28/17 11/28/17 Range/Units 06:11 06:27 06:27 WBC 8.25 (4.23-9.07) K/mm3 RBC 4.18 L (4.63-6.08) M/mm3 Hgb 9.8 L (13.7-17.5) gm/L Hct 31.9 L (40.1-51.0) % MCV 76.3 L (79.0-92.2) fl MCH 23.4 L (25.7-32.2) pg MCHC 30.7 L (32.2-35.5) g/dl RDW Std Deviation 52.4 H (35.1-43.9) fL Plt Count 194 (163-337) K/mm3 MPV 10.1 (9.4-12.3) fl Neut % (Auto) 90.8 H (34.0-67.9) % Lymph % (Auto) 5.6 L (21.8-53.1) % [place] % (Auto) 3.4 L (5.3-12.2) % Eos % (Auto) 0 L (0.8-7.0) Baso % (Auto) 0.0 L (0.1-1.2) % Neut # (Auto) 7.49 H (1.78-5.38) K/mm3 Lymph # (Auto) 0.46 L (1.32-3.57) K/mm3 [place] # (Auto) 0.28 L (0.30-0.82) K/mm3 Eos # (Auto) 0.00 L (0.04-0.54) K/mm3 Baso # (Auto) 0.00 L (0.01-0.08) K/mm3 Manual Slide Review Abnormal smear PT 12.7 (8.0-13.0) SECONDS INR 1.15 Sodium (136-145) mEq/L Potassium (3.5-5.1) mEq/L Chloride (98-107) mEq/L Carbon Dioxide (21-32) mEq/L Anion Gap (5-15) BUN (7-18) mg/dL Creatinine (0.7-1.3) mg/dL Est Cr Clr Drug Dosing mL/min Estimated GFR (MDRD) (>60) mL/min BUN/Creatinine Ratio (14-18) Glucose (83-115) mg/dL POC Glucose 145 H (83-110) mg/dL Hemoglobin A1c (4.50-6.20) % Calcium (8.5-10.1) mg/dL Magnesium (1.8-2.4) mg/dl 11/28/17 11/28/17 11/28/17 Range/Units 06:27 06:27 11:08 WBC (4.23-9.07) K/mm3 RBC (4.63-6.08) M/mm3 Hgb (13.7-17.5) gm/L Hct (40.1-51.0) % MCV (79.0-92.2) fl MCH (25.7-32.2) pg MCHC (32.2-35.5) g/dl RDW Std Deviation (35.1-43.9) fL Plt Count (163-337) K/mm3 MPV (9.4-12.3) fl Neut % (Auto) (34.0-67.9) % Lymph % (Auto) (21.8-53.1) % [place] % (Auto) (5.3-12.2) % Eos % (Auto) (0.8-7.0) Baso % (Auto) (0.1-1.2) % Neut # (Auto) (1.78-5.38) K/mm3 Lymph # (Auto) (1.32-3.57) K/mm3 [place] # (Auto) (0.30-0.82) K/mm3 Eos # (Auto) (0.04-0.54) K/mm3 Baso # (Auto) (0.01-0.08) K/mm3 Manual Slide Review PT (8.0-13.0) SECONDS INR Sodium 138 (136-145) mEq/L Potassium 4.5 (3.5-5.1) mEq/L Chloride 104 (98-107) mEq/L Carbon Dioxide 24 (21-32) mEq/L Anion Gap 14.5 (5-15) BUN 51 H (7-18) mg/dL Creatinine 1.1 (0.7-1.3) mg/dL Est Cr Clr Drug Dosing 45.90 mL/min Estimated GFR (MDRD) > 60 (>60) mL/min BUN/Creatinine Ratio 46.4 H (14-18) Glucose 140 H (83-115) mg/dL POC Glucose 226 H (83-110) mg/dL Hemoglobin A1c 5.90 (4.50-6.20) % Calcium 10.1 (8.5-10.1) mg/dL Magnesium 2.0 (1.8-2.4) mg/dl Geoffrey Results Last 24 Hours: Microbiology 11/26/17 01:00 Urine Culture - Final Urine, Clean Catch MIXED PREM SUGGESTIVE OF CONTAMINATION. Med Orders - Current: Current Medications Acetaminophen (Tylenol) 650 mg PO Q6H PRN PRN Reason: Pain/Fever Albuterol (Proventil Neb Soln) 2.5 mg NEB Q4HRRT PRN PRN Reason: Shortness of Breath Last Admin: 11/26/17 04:25 Dose: 2.5 mg Albuterol/Ipratropium (Duoneb 3.0-0.5 Mg/3 Ml) 3 ml NEB QID [facility] Last Admin: 11/28/17 14:27 Dose: 3 ml Allopurinol (Zyloprim) 150 mg PO BEDTIME [facility] Last Admin: 11/27/17 21:19 Dose: 150 mg Aspirin (Halfprin) 81 mg PO BEDTIME [facility] Last Admin: 11/27/17 21:19 Dose: 81 mg Clopidogrel Bisulfate (Plavix) 75 mg PO DAILY [facility] Last Admin: 11/28/17 08:17 Dose: 75 mg Dextrose/Water (Dextrose 50% In Water) 50 ml IVPUSH ASDIRECTED PRN PRN Reason: Hypoglycemia Furosemide (Lasix) 40 mg PO DAILY [facility] Last Admin: 11/28/17 08:18 Dose: 40 mg Glipizide (Glucotrol Xl) 2.5 mg PO DAILY [facility] Last Admin: 11/28/17 08:17 Dose: 2.5 mg Ceftriaxone Sodium 2 gm/ (Sodium Chloride) 100 mls @ 200 mls/hr IV Q24H [facility] Last Admin: 11/28/17 13:34 Dose: 200 mls/hr Azithromycin 500 mg/ Sodium (Chloride) 250 mls @ 250 mls/hr IV Q24H [facility] Last Admin: 11/28/17 14:13 Dose: 250 mls/hr Insulin Aspart (Novolog) 0 unit SUBCUT QIDACANDBED [facility] PRN Reason: Protocol Last Admin: 11/28/17 11:38 Dose: 4 units Methylprednisolone Sodium Succinate (Solu-Medrol) 40 mg IVPUSH Q12H [facility] Last Admin: 11/28/17 11:38 Dose: 40 mg Metoprolol Succinate (Toprol Xl) 12.5 mg PO DAILY [facility] Last Admin: 11/28/17 08:17 Dose: 12.5 mg Oseltamivir Phosphate (Tamiflu) 30 mg PO BID [facility] Stop: 11/30/17 09:01 Last Admin: 11/28/17 08:16 Dose: 30 mg Advair Diskus 500/50 (Inhaler) 0 each INH BID [facility] Last Admin: 11/28/17 09:15 Dose: 1 each Senna/Docusate Sodium (Senna Plus) 1 tab PO DAILY [facility] Last Admin: 11/28/17 08:17 Dose: 1 tab Simvastatin (Zocor) 10 mg PO DAILY [facility] Last Admin: 11/28/17 08:17 Dose: 10 mg Temazepam (Restoril) 7.5 mg PO BEDTIME PRN PRN Reason: Insomnia Warfarin Sodium (Coumadin) 6 mg PO MoFr@1800 [facility] Last Admin: 11/26/17 18:14 Dose: 6 mg Warfarin Sodium (Coumadin) 3 mg PO SuTuWeThSa@1800 [facility] Last Admin: 11/27/17 17:21 Dose: 3 mg Discontinued Medications Acetaminophen (Tylenol) 650 mg PO NOW ONE Stop: 11/25/17 19:35 Last Admin: 11/25/17 19:48 Dose: Not Given Albuterol (Proventil Neb Soln) 2.5 mg NEB ONETIME ONE Stop: 11/25/17 17:50 Last Admin: 11/25/17 17:58 Dose: 2.5 mg Albuterol/Ipratropium (Duoneb 3.0-0.5 Mg/3 Ml) 3 ml NEB QID PRN PRN Reason: Shortness of Breath Last Admin: 11/26/17 10:28 Dose: 3 ml Furosemide (Lasix) 20 mg IVPUSH NOW ONE Stop: 11/26/17 12:25 Last Admin: 11/27/17 11:04 Dose: Not Given Furosemide (Lasix) 40 mg IVPUSH NOW ONE Stop: 11/26/17 12:25 Last Admin: 11/26/17 13:40 Dose: 40 mg Lactated Ringer's (Ringers, Lactated) 1,000 mls @ 75 mls/hr IV ASDIRECTED [facility] Last Admin: 11/26/17 01:14 Dose: 75 mls/hr Ceftriaxone Sodium 2 gm/ (Sodium Chloride) 100 mls @ 200 mls/hr IV Q24H [facility] Magnesium Hydroxide (Milk Of Magnesia) 30 ml PO ONETIME ONE Stop: 11/27/17 09:52 Last Admin: 11/27/17 10:09 Dose: 30 ml Methylprednisolone Sodium Succinate (Solu-Medrol) 125 mg IVPUSH Q12H [facility] Last Admin: 11/27/17 12:08 Dose: 125 mg Mometasone Furoate/Formoterol Fumar (Dulera 200-5 Mcg) 2 puff IH BID [facility] Last Admin: 11/26/17 10:22 Dose: 2 puff Oseltamivir Phosphate (Tamiflu) 30 mg PO DAILY [facility] Last Admin: 11/26/17 09:32 Dose: 30 mg - Exam Quality Assessment: Supplemental Oxygen General: Alert, Oriented, Cooperative HEENT: Pupils Equal, Pupils Reactive, EOMI Neck: Supple, Trachea Midline Lungs: Normal Respiratory Effort, Decreased Breath Sounds Cardiovascular: Regular Rate, Regular Rhythm GI/Abdominal Exam: Normal Bowel Sounds, Soft, Non-Tender, No Organomegaly, No Distention (Male) Exam: Deferred Back Exam: Normal Inspection Extremities: Normal Inspection Skin: Warm Neurological: No New Focal Deficit, Normal Gait, Normal Speech Psy/Mental Status: Alert, Normal Affect, Normal Mood - Problem List & Annotations (1) Subtherapeutic anticoagulation SNOMED Code(s): 26925599 Code(s): Z51.81 - ENCOUNTER FOR THERAPEUTIC DRUG LEVEL MONITORING; Z79.01 - MATERIALS MANAGEMENT MANAGER (CURRENT) USE OF 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 Status: Acute Current Visit: Yes (2) Hypoxia SNOMED Code(s): 185881526 Code(s): R09.02 - HYPOXEMIA Status: Acute Current Visit: Yes (3) Influenza A SNOMED Code(s): 341267918 Code(s): J10.1 - FLU DUE TO OTH IDENT INFLUENZA VIRUS W OTH RESP MANIFEST Status: Acute Current Visit: Yes (4) COPD, Moderate chronic obstructive pulmonary disease SNOMED Code(s): 999572393 Code(s): J44.9 - CHRONIC OBSTRUCTIVE PULMONARY DISEASE, UNSPECIFIED Status : Chronic Priority: High Current Visit: Yes (5) Diabetes mellitus type 2 SNOMED Code(s): 96105994 Code(s): E11.9 - TYPE 2 DIABETES MELLITUS WITHOUT COMPLICATIONS Status: Chronic Priority: Medium Current Visit: Yes (6) COPD exacerbation SNOMED Code(s): 945281844732495 Code(s): J44.1 - CHRONIC OBSTRUCTIVE PULMONARY DISEASE W (ACUTE) EXACERBATION Status: Acute Current Visit: No (7) Coronary artery bypass grafts x 5 SNOMED Code(s): 399739581 - Coronary artery bypass grafts x 5 Status: Acute Current Visit: No (8) Chronic renal insufficiency SNOMED Code(s): 161402854 Code(s): N18.9 - CHRONIC KIDNEY DISEASE, UNSPECIFIED Status: Chronic Priority: Medium Current Visit: No (9) PVD (peripheral vascular disease) with claudication SNOMED Code(s): 373310747 Code(s): I73.9 - PERIPHERAL VASCULAR DISEASE, UNSPECIFIED Status: Chronic Priority: High Current Visit: No (10) UTI (urinary tract infection) SNOMED Code(s): 94049832 Code(s): N39.0 - URINARY TRACT INFECTION, SITE NOT SPECIFIED Status: Resolved Priority: High Current Visit: No Qualifiers: Urinary tract infection type: acute cystitis Hematuria presence: without hematuria Qualified Code(s): N30.00 - Acute cystitis without hematuria - Problem List Review Problem List Initiated/Reviewed/Updated: Yes - My Orders Last 24 Hours: My Active Orders 11/27/17 16:43 Ambulate [RC] ASDIRECTED 11/27/17 18:00 Warfarin [Coumadin] 3 mg PO [id number]@1800 11/27/17 Dinner Heart Healthy Diet [DIET] 11/28/17 00:30 methylPREDNISolone Sod Succ [Solu-MEDROL] 40 mg IVPUSH Q12H 11/28/17 11:22 Patient Status [ADT] Routine 11/29/17 05:00 BMP [BASIC METABOLIC PANEL,BMP] [CHEM] DAILY CBC WITH AUTO DIFF [HEME] DAILY INR,PT,PROTHROMBIN TIME [COAG] DAILY MAGNESIUM [CHEM] DAILY - Plan Plan:: Impression: COPD exacerbation with hypoxia Acute respiratory distress, resolved Influenza A positive, day three with Tamiflu CAD with history of CABG AUTI, UC--contaminated CHF CKD, stage III Plan: Tamiflu renal dose Empiric treatment of bronchitis/PNA Change to regular diet Taper IV steroids Daily labs Home meds; continue coumadin DVT/GI prophylaxis Droplet precautions LOS>96 hours gradually improving
[2017-11-28] MEDS: Warfarin 3 MG Tab PO SCH (17:08)
[2017-11-28] MEDS: Aspirin 81 MG Tab.EC PO SCH (21:23)
[2017-11-28] MEDS: Allopurinol 300 MG Tab PO SCH (21:23)
[2017-11-29] MEDS: methylPREDNISolone Sodium Succinate 40 MG/1 ML SDV IVPUSH SCH ×2 (00:56→11:56)
[2017-11-29] MEDS: Insulin Aspart 100 Units/ML 3 ML Pen SUBCUT SCH ×4 (07:48→21:02)
[2017-11-29] MEDS: ADVAIR INH SCH ×2 (08:36→20:57)
[2017-11-29] MEDS: Albuterol/Ipratropium 3.0-0.5 MG/3 ML Neb Soln NEB SCH ×4 (08:36→20:57)
[2017-11-29] MEDS: glipiZIDE 2.5 MG Tab.ER PO SCH (09:05)
[2017-11-29] MEDS: Clopidogrel 75 MG Tab PO SCH (09:05)
[2017-11-29] MEDS: Furosemide 40 MG Tab PO SCH (09:05)
[2017-11-29] MEDS: Metoprolol Succinate 25 MG Tab.ER PO SCH (09:05)
[2017-11-29] MEDS: Oseltamivir 30 MG Cap PO SCH ×2 (09:05→21:04)
[2017-11-29] MEDS: Simvastatin 10 MG Tab PO SCH (09:08)
[2017-11-29] MEDS ORDERED: Furosemide 20 MG/2 ML VIAL IVPUSH ONE (12:03)
--- NOTE | 2017-11-29 12:09 | PCM.PN ---
- General Info Date of Service: 11/29/17 Admission Dx/Problem (Free Text): Admission Diagnosis/Problem Admission Diagnosis/Problem Hypoxia Subjective Update: In to see Michi. He is lying comfortably in bed. No overnight concerns. He has a dry cough now, which he says was much more productive earlier in his stay. Overall he is doing well. He has been ambulating. Reports some occasional musculoskeletal chest pain with coughing. Likely discharge tomorrow. Functional Status: Reports: Pain Controlled, Tolerating Diet, Ambulating, Urinating. Denies: New Symptoms - Review of Systems General: Reports: No Symptoms HEENT: Reports: No Symptoms Pulmonary: Reports: Shortness of Breath (improved but not back to baseline yet ) , Pleuritic Chest Pain, Cough. Denies: Sputum Cardiovascular: Reports: No Symptoms Gastrointestinal: Reports: No Symptoms Genitourinary: Reports: No Symptoms Musculoskeletal: Reports: No Symptoms Skin: Reports: No Symptoms Neurological: Reports: No Symptoms Psychiatric: Reports: No Symptoms - Patient Data Vitals - Most Recent: Last Vital Signs Temp 98.4 F 11/29/17 11:16 Pulse 63 11/29/17 11:16 Resp 19 11/29/17 11:16 BP 139/62 11/29/17 11:16 Pulse Ox 95 11/29/17 11:16 Weight - Most Recent: 167 lb 6.4 oz I&O - Last 24 Hours: Intake & Output 11/28/17 11/29/17 11/29/17 22:59 06:59 14:59 Intake Total 1630 800 540 Output Total 925 500 Balance 705 300 540 Lab Results Last 24 Hours: Laboratory Results - last 24 hr 11/28/17 11/28/17 11/29/17 Range/Units 16:46 21:16 05:45 WBC 7.89 (4.23-9.07) K/mm3 RBC 3.95 L (4.63-6.08) M/mm3 Hgb 9.3 L (13.7-17.5) gm/L Hct 30.2 L (40.1-51.0) % MCV 76.5 L (79.0-92.2) fl MCH 23.5 L (25.7-32.2) pg MCHC 30.8 L (32.2-35.5) g/dl RDW Std Deviation 52.6 H (35.1-43.9) fL Plt Count 170 (163-337) K/mm3 MPV 9.3 L (9.4-12.3) fl Neut % (Auto) 92.5 H (34.0-67.9) % Lymph % (Auto) 4.6 L (21.8-53.1) % Crook % (Auto) 2.9 L (5.3-12.2) % Eos % (Auto) 0 L (0.8-7.0) Baso % (Auto) 0.0 L (0.1-1.2) % Neut # (Auto) 7.30 H (1.78-5.38) K/mm3 Lymph # (Auto) 0.36 L (1.32-3.57) K/mm3 Crook # (Auto) 0.23 L (0.30-0.82) K/mm3 Eos # (Auto) 0.00 L (0.04-0.54) K/mm3 Baso # (Auto) 0.00 L (0.01-0.08) K/mm3 Manual Slide Review Abnormal smear PT (8.0-13.0) SECONDS INR Sodium (136-145) mEq/L Potassium (3.5-5.1) mEq/L Chloride (98-107) mEq/L Carbon Dioxide (21-32) mEq/L Anion Gap (5-15) BUN (7-18) mg/dL Creatinine (0.7-1.3) mg/dL Est Cr Clr Drug Dosing mL/min Estimated GFR (MDRD) (>60) mL/min BUN/Creatinine Ratio (14-18) Glucose (83-115) mg/dL POC Glucose 76 L 156 H (83-110) mg/dL Calcium (8.5-10.1) mg/dL Magnesium (1.8-2.4) mg/dl 11/29/1718 11/29/17 Range/Units 05:45 05:45 06:37 WBC (4.23-9.07) K/mm3 RBC (4.63-6.08) M/mm3 Hgb (13.7-17.5) gm/L Hct (40.1-51.0) % MCV (79.0-92.2) fl MCH (25.7-32.2) pg MCHC (32.2-35.5) g/dl RDW Std Deviation (35.1-43.9) fL Plt Count (163-337) K/mm3 MPV (9.4-12.3) fl Neut % (Auto) (34.0-67.9) % Lymph % (Auto) (21.8-53.1) % [place] % (Auto) (5.3-12.2) % Eos % (Auto) (0.8-7.0) Baso % (Auto) (0.1-1.2) % Neut # (Auto) (1.78-5.38) K/mm3 Lymph # (Auto) (1.32-3.57) K/mm3 [place]ok # (Auto) (0.30-0.82) K/mm3 Eos # (Auto) (0.04-0.54) K/mm3 Baso # (Auto) (0.01-0.08) K/mm3 Manual Slide Review PT 13.8 H (8.0-13.0) SECONDS INR 1.25 Sodium 138 (136-145) mEq/L Potassium 4.4 (3.5-5.1) mEq/L Chloride 105 (98-107) mEq/L Carbon Dioxide 24 (21-32) mEq/L Anion Gap 13.4 (5-15) BUN 54 H (7-18) mg/dL Creatinine 1.0 (0.7-1.3) mg/dL Est Cr Clr Drug Dosing 50.49 mL/min Estimated GFR (MDRD) > 60 (>60) mL/min BUN/Creatinine Ratio 54.0 H (14-18) Glucose 140 H (83-115) mg/dL POC Glucose 127 H (83-110) mg/dL Calcium 9.7 (8.5-10.1) mg/dL Magnesium 2.0 (1.8-2.4) mg/dl 11/29/17 Range/Units 10:33 WBC (4.23-9.07) K/mm3 RBC (4.63-6.08) M/mm3 Hgb (13.7-17.5) gm/L Hct (40.1-51.0) % MCV (79.0-92.2) fl MCH (25.7-32.2) pg MCHC (32.2-35.5) g/dl RDW Std Deviation (35.1-43.9) fL Plt Count (163-337) K/mm3 MPV (9.4-12.3) fl Neut % (Auto) (34.0-67.9) % Lymph % (Auto) (21.8-53.1) % [place] % (Auto) (5.3-12.2) % Eos % (Auto) (0.8-7.0) Baso % (Auto) (0.1-1.2) % Neut # (Auto) (1.78-5.38) K/mm3 Lymph # (Auto) (1.32-3.57) K/mm3 [place] # (Auto) (0.30-0.82) K/mm3 Eos # (Auto) (0.04-0.54) K/mm3 Baso # (Auto) (0.01-0.08) K/mm3 Manual Slide Review PT (8.0-13.0) SECONDS INR Sodium (136-145) mEq/L Potassium (3.5-5.1) mEq/L Chloride (98-107) mEq/L Carbon Dioxide (21-32) mEq/L Anion Gap (5-15) BUN (7-18) mg/dL Creatinine (0.7-1.3) mg/dL Est Cr Clr Drug Dosing mL/min Estimated GFR (MDRD) (>60) mL/min BUN/Creatinine Ratio (14-18) Glucose (83-115) mg/dL POC Glucose 193 H (83-110) mg/dL Calcium (8.5-10.1) mg/dL Magnesium (1.8-2.4) mg/dl Geoffrey Results Last 24 Hours: Microbiology 11/26/17 01:00 Urine Culture - Final Urine, Clean Catch MIXED PREM SUGGESTIVE OF CONTAMINATION. Med Orders - Current: Current Medications Acetaminophen (Tylenol) 650 mg PO Q6H PRN PRN Reason: Pain/Fever Albuterol (Proventil Neb Soln) 2.5 mg NEB Q4HRRT PRN PRN Reason: Shortness of Breath Last Admin: 11/26/17 04:25 Dose: 2.5 mg Albuterol/Ipratropium (Duoneb 3.0-0.5 Mg/3 Ml) 3 ml NEB QID JAROD Last Admin: 11/29/17 08:36 Dose: 3 ml Allopurinol (Zyloprim) 150 mg PO BEDTIME [facility] Last Admin: 11/28/17 21:23 Dose: 150 mg Aspirin (Halfprin) 81 mg PO BEDTIME [facility] Last Admin: 11/28/17 21:23 Dose: 81 mg Clopidogrel Bisulfate (Plavix) 75 mg PO DAILY [facility] Last Admin: 11/29/17 09:05 Dose: 75 mg Dextrose/Water (Dextrose 50% In Water) 50 ml IVPUSH ASDIRECTED PRN PRN Reason: Hypoglycemia Furosemide (Lasix) 40 mg PO DAILY [facility] Last Admin: 11/29/17 09:05 Dose: 40 mg Glipizide (Glucotrol Xl) 2.5 mg PO DAILY [facility] Last Admin: 11/29/17 09:05 Dose: 2.5 mg Ceftriaxone Sodium 2 gm/ (Sodium Chloride) 100 mls @ 200 mls/hr IV Q24H [facility] Stop: 11/29/17 15:00 Last Admin: 11/28/17 13:34 Dose: 200 mls/hr Azithromycin 500 mg/ Sodium (Chloride) 250 mls @ 250 mls/hr IV Q24H [facility] Stop: 11/29/17 15:00 Last Admin: 11/28/17 14:13 Dose: 250 mls/hr Insulin Aspart (Novolog) 0 unit SUBCUT QIDACANDBED [facility] PRN Reason: Protocol Last Admin: 11/29/17 11:56 Dose: 2 units Methylprednisolone Sodium Succinate (Solu-Medrol) 40 mg IVPUSH Q12H [facility] Last Admin: 11/29/17 11:56 Dose: 40 mg Metoprolol Succinate (Toprol Xl) 12.5 mg PO DAILY [facility] Last Admin: 11/29/17 09:05 Dose: 12.5 mg Oseltamivir Phosphate (Tamiflu) 30 mg PO BID [facility] Stop: 11/30/17 09:01 Last Admin: 11/29/17 09:05 Dose: 30 mg Advair Diskus 500/50 (Inhaler) 0 each INH BID [facility] Last Admin: 11/29/17 08:36 Dose: 1 each Senna/Docusate Sodium (Senna Plus) 1 tab PO DAILY [facility] Last Admin: 11/29/17 09:06 Dose: 1 tab Simvastatin (Zocor) 10 mg PO DAILY [facility] Last Admin: 11/29/17 09:08 Dose: Not Given Temazepam (Restoril) 7.5 mg PO BEDTIME PRN PRN Reason: Insomnia Warfarin Sodium (Coumadin) 6 mg PO MoFr@1800 [facility] Last Admin: 11/26/17 18:14 Dose: 6 mg Warfarin Sodium (Coumadin) 3 mg PO SuTuWeThSa@1800 [facility] Last Admin: 11/28/17 17:08 Dose: 3 mg Discontinued Medications Acetaminophen (Tylenol) 650 mg PO NOW ONE Stop: 11/25/17 19:35 Last Admin: 11/25/17 19:48 Dose: Not Given Albuterol (Proventil Neb Soln) 2.5 mg NEB ONETIME ONE Stop: 11/25/17 17:50 Last Admin: 11/25/17 17:58 Dose: 2.5 mg Albuterol/Ipratropium (Duoneb 3.0-0.5 Mg/3 Ml) 3 ml NEB QID PRN PRN Reason: Shortness of Breath Last Admin: 11/26/17 10:28 Dose: 3 ml Furosemide (Lasix) 20 mg IVPUSH NOW ONE Stop: 11/26/17 12:25 Last Admin: 11/27/17 11:04 Dose: Not Given Furosemide (Lasix) 40 mg IVPUSH NOW ONE Stop: 11/26/17 12:25 Last Admin: 11/26/17 13:40 Dose: 40 mg Furosemide (Lasix) 20 mg IVPUSH NOW ONE Stop: 11/29/17 12:04 Lactated Ringer's (Ringers, Lactated) 1,000 mls @ 75 mls/hr IV ASDIRECTED [facility] Last Admin: 11/26/17 01:14 Dose: 75 mls/hr Ceftriaxone Sodium 2 gm/ (Sodium Chloride) 100 mls @ 200 mls/hr IV Q24H [facility] Magnesium Hydroxide (Milk Of Magnesia) 30 ml PO ONETIME ONE Stop: 11/27/17 09:52 Last Admin: 11/27/17 10:09 Dose: 30 ml Methylprednisolone Sodium Succinate (Solu-Medrol) 125 mg IVPUSH Q12H [facility] Last Admin: 11/27/17 12:08 Dose: 125 mg Mometasone Furoate/Formoterol Fumar (Dulera 200-5 Mcg) 2 puff IH BID [facility] Last Admin: 11/26/17 10:22 Dose: 2 puff Oseltamivir Phosphate (Tamiflu) 30 mg PO DAILY JAROD Last Admin: 11/26/17 09:32 Dose: 30 mg - Exam Quality Assessment: DVT Prophylaxis General: Alert, Oriented, Cooperative, No Acute Distress HEENT: Pupils Equal, Pupils Reactive, EOMI, Mucous Membr. Moist/[place] Neck: Supple, Trachea Midline, No JVD Lungs: Normal Respiratory Effort, Decreased Breath Sounds Cardiovascular: Regular Rate, Regular Rhythm GI/Abdominal Exam: Normal Bowel Sounds, Soft, Non-Tender, No Organomegaly, No Distention, No Abnormal Bruit, No Mass, Pelvis Stable (Male) Exam: Deferred Back Exam: Normal Inspection, Full Range of Motion Extremities: Normal Inspection, Normal Range of Motion, Non-Tender, No Pedal Edema, Normal Capillary Refill Peripheral Pulses: 2+: Radial (L), Radial (R), Posterior Tibial (L), Posterior Tibial (R), Dorsalis Pedis (L), Dorsalis Pedis (R) Skin: Warm, Dry, Intact Neurological: No New Focal Deficit Psy/Mental Status: Alert, Normal Affect, Normal Mood - Problem List & Annotations (1) Hypoxia SNOMED Code(s): 986918126 Code(s): R09.02 - HYPOXEMIA Status: Acute Priority: High Current Visit : Yes (2) Influenza A SNOMED Code(s): 904749454 Code(s): J10.1 - FLU DUE TO OTH IDENT INFLUENZA VIRUS W OTH RESP MANIFEST Status: Acute Priority: High Current Visit: Yes (3) Subtherapeutic anticoagulation SNOMED Code(s): 74280160 Code(s): Z51.81 - ENCOUNTER FOR THERAPEUTIC DRUG LEVEL MONITORING; Z79.01 - DATA ENTRY PROCESSOR (CURRENT) USE OF 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 Status: Resolved Priority: High Current Visit: Yes (4) COPD, Moderate chronic obstructive pulmonary disease SNOMED Code(s): 998654720 Code(s): J44.9 - CHRONIC OBSTRUCTIVE PULMONARY DISEASE, UNSPECIFIED Status : Chronic Priority: High Current Visit: Yes (5) COPD exacerbation SNOMED Code(s): 915303859508527 Code(s): J44.1 - CHRONIC OBSTRUCTIVE PULMONARY DISEASE W (ACUTE) EXACERBATION Status: Acute Priority: High Current Visit: Yes (6) Coronary artery bypass grafts x 5 SNOMED Code(s): 525582678 - Coronary artery bypass grafts x 5 Status: Chronic Priority: Low Current Visit: No (7) Diabetes mellitus SNOMED Code(s): 57019090 Code(s): E11.9 - TYPE 2 DIABETES MELLITUS WITHOUT COMPLICATIONS Status: Chronic Priority: Low Current Visit: No (8) Chronic renal insufficiency SNOMED Code(s): 011496766 Code(s): N18.9 - CHRONIC KIDNEY DISEASE, UNSPECIFIED Status: Chronic Priority: Medium Current Visit: No Qualifiers: Chronic kidney disease stage: unspecified stage Qualified Code(s): N18.9 - Chronic kidney disease, unspecified (9) PVD (peripheral vascular disease) with claudication SNOMED Code(s): 777768996 Code(s): I73.9 - PERIPHERAL VASCULAR DISEASE, UNSPECIFIED Status: Chronic Priority: High Current Visit: No (10) UTI (urinary tract infection) SNOMED Code(s): 84111150 Code(s): N39.0 - URINARY TRACT INFECTION, SITE NOT SPECIFIED Status: Resolved Priority: High Current Visit: Yes Qualifiers: Urinary tract infection type: acute cystitis Hematuria presence: without hematuria Qualified Code(s): N30.00 - Acute cystitis without hematuria - Problem List Review Problem List Initiated/Reviewed/Updated: Yes - Plan Plan:: Impression: COPD exacerbation with hypoxia Acute respiratory distress, resolved Influenza A positive, day three with Tamiflu CAD with history of CABG AUTI, UC--contaminated CHF CKD, stage III--resolved, eGFR >60, creatinine 1.0 Plan: Tamiflu renal dose Empiric treatment of bronchitis/PNA Change to regular diet Taper IV steroids Daily labs Home meds; continue coumadin DVT/GI prophylaxis Droplet precautions LOS>96 hours gradually improving; likely discharge tomorrow
[2017-11-29] MEDS: Azithromycin 500 MG in Sodium Chloride 0.9% 250 ML IV SCH (13:57)
[2017-11-29] MEDS: cefTRIAXone 2 GM in Sodium Chloride 0.9% 100 ML IV SCH (13:57)
[2017-11-29] MEDS ORDERED: Azithromycin 250 MG Tab PO ONE (15:08)
[2017-11-29] MEDS ORDERED: Warfarin 3 MG Tab PO SCH (18:00)
[2017-11-29] MEDS: Aspirin 81 MG Tab.EC PO SCH (21:04)
[2017-11-29] MEDS: Allopurinol 300 MG Tab PO SCH (21:04)
[2017-11-29] MEDS: predniSONE 20 MG Tab PO SCH (23:50)
[2017-11-30] MEDS: Insulin Aspart 100 Units/ML 3 ML Pen SUBCUT SCH ×2 (06:25→11:31)
[2017-11-30] MEDS: Albuterol/Ipratropium 3.0-0.5 MG/3 ML Neb Soln NEB SCH ×2 (06:36→09:16)
[2017-11-30] MEDS: Furosemide 40 MG Tab PO SCH (08:00)
[2017-11-30] MEDS: Oseltamivir 30 MG Cap PO SCH (08:00)
[2017-11-30] MEDS: glipiZIDE 2.5 MG Tab.ER PO SCH (08:00)
[2017-11-30] MEDS: Clopidogrel 75 MG Tab PO SCH (08:00)
[2017-11-30] MEDS: Simvastatin 10 MG Tab PO SCH (08:01)
[2017-11-30] MEDS: Metoprolol Succinate 25 MG Tab.ER PO SCH (08:23)
[2017-11-30 08:24] VITALS: BP 145/63
--- NOTE | 2017-11-30 08:43 | PCM.DCSUM1 ---
Discharge Summary - Hospital Course Free Text/Narrative:: 87-year-old male presents for evaluation and treatment of chills, fever and weakness. He also reports productive cough. Patient reports that symptoms started today. States he did vomit one time today. Current symptoms include fevers, chills, productive cough, weakness and emesis. He states that he also feels shaky. No chest pain, dizziness, lightheadedness, syncope, ear pain or sore throat. Patient's oxygen sats were found to be in the low 90s upon arrival to the ER. Not normally on oxygen. He is placed on oxygen by nasal cannula by nursing staff. Patient did have an influenza vaccine this year. Patient has a past medical history of COPD and emphysema. PCP is Dr. Moser. Attempted to see Dr. Moser today but he was out of the office. - Discharge Data Discharge Date: 11/30/17 (admit date11/25/17) Discharge Disposition: Home, Self-Care 01 Condition: Good - Discharge Diagnosis/Problem(s) (1) Influenza A SNOMED Code(s): 989928952 ICD Code: J10.1 - FLU DUE TO OTH IDENT INFLUENZA VIRUS W OTH RESP MANIFEST Status: Acute Priority: High Current Visit: Yes (2) Hypoxia SNOMED Code(s): 675704956 ICD Code: R09.02 - HYPOXEMIA Status: Resolved Priority: High Current Visit: Yes (3) COPD exacerbation SNOMED Code(s): 374902913655280 ICD Code: J44.1 - CHRONIC OBSTRUCTIVE PULMONARY DISEASE W (ACUTE) EXACERBATION Status: Acute Priority: High Current Visit: Yes (4) UTI (urinary tract infection) SNOMED Code(s): 13337413 ICD Code: N39.0 - URINARY TRACT INFECTION, SITE NOT SPECIFIED Status: Resolved Priority: High Current Visit: Yes Qualifiers: Urinary tract infection type: acute cystitis Hematuria presence: without hematuria Qualified Code(s): N30.00 - Acute cystitis without hematuria (5) COPD, Moderate chronic obstructive pulmonary disease SNOMED Code(s): 544983375 ICD Code: J44.9 - CHRONIC OBSTRUCTIVE PULMONARY DISEASE, UNSPECIFIED Status : Chronic Priority: High Current Visit: Yes (6) Diabetes mellitus type 2 SNOMED Code(s): 28500823 ICD Code: E11.9 - TYPE 2 DIABETES MELLITUS WITHOUT COMPLICATIONS Status: Chronic Priority: Medium Current Visit: Yes (7) Anticoagulated on Coumadin SNOMED Code(s): 51128216 ICD Code: Z51.81 - ENCOUNTER FOR THERAPEUTIC DRUG LEVEL MONITORING; Z79.01 - PROCESSING TECH (CURRENT) USE OF 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 Status: Chronic Priority: Medium Current Visit: Yes - Patient Summary/Data Operative Procedure(s) Performed: None Complications: None Consults: PT/OT Labs Pending at D/C: None Recheck INR on 12/02/17 Recommended Follow-up Testing/Procedures: Patient DC instructions: Follow up with PCP, Dr. Moser within a week of discharge. INR on 12/02/17- prescription written, take to labs. Results to Dr. Moser. Continue all usual home medications. 2 more doses of Tamiflu for Influenza Steroid/Prednisone taper as instructed Push fluids Planned Operative Procedure(s) after DC: None Hospital Course: Impression: Influenza A positive---symptoms significantly improved, minimal cough now, afebrile AUTI, UC--contaminated, abx DC'd, no need for abx on DC COPD exacerbation with hypoxia---hypoxia resolved, now on RA Acute respiratory distress, resolved CAD with history of CABG--stable CHF--stable CKD, stage III--resolved, eGFR >60, creatinine 1.0---renal function now WNL Diabetes, type 2- home meds, accuchecks AC/HS and SSI PRN protocol---sugars 220- 115 the last 24 hours. Plan: Tamiflu--will have 2 doses after discharge Empiric treatment of bronchitis/PNA--abx DC'd, no further need for abx on DC Taper IV steroids---On 40mg prednisone BID now, will rx prednisone taper on DC Home meds; continue coumadin--Will need INR on 12/02/17 for recheck after DC- results to PCP, Dr. Moser DVT/GI prophylaxis Droplet precautions LOS>96 hours gradually improving; DC home today - Patient Instructions Diet: Heart Healthy Diet, Drink 8-10+ Glasses/Day, Diabetic Diet Activity: As Tolerated Showering/Bathing: May Shower Notify Provider of: Fever, Increased Pain, Nausea and/or Vomiting - Discharge Plan Prescriptions/Med Rec: Prednisone [IJD: Prednisone] 10 mg PO DAILY #30 tab Home Medications: Home Meds Allopurinol [Zyloprim] 150 mg PO BEDTIME 03/02/14 [History] Aspirin [Jacey Chewable Aspirin] 81 mg PO BEDTIME 03/02/14 [History] Warfarin [Coumadin] 3 mg PO SUTUWETHSA 03/02/14 [History] Fluticasone/Salmeterol [Advair 500-50] 1 puff INH BID 09/29/14 [History] Warfarin Sodium [Coumadin] 6 mg PO MOFR 10/31/14 [History] Clopidogrel [Plavix] 75 mg PO DAILY 02/16/15 [History] Metoprolol Succinate [Toprol XL] 12.5 mg PO DAILY 07/20/15 [History] Albuterol/Ipratropium [DuoNeb 3.0-0.5 MG/3 ML] 3 ml NEB Q8HRRT 05/12/17 [History ] Furosemide [Lasix] 40 mg PO DAILY 09/10/17 [History] glipiZIDE [Glucotrol XL] 2.5 mg PO DAILY 11/25/17 [History] Sennosides/Docusate Sodium [Senna-Docusate Sodium] 1 each PO DAILY 11/27/17 [ History] Prednisone [IJD: Prednisone] 10 mg PO DAILY #30 tab 11/30/17 [Rx] Patient Handouts: Type 2 Diabetes Mellitus, Diagnosis, Adult, Influenza, Adult , [id number], What You Need to Know About Warfarin, Diabetes Mellitus and Sick Day Management, Chronic Obstructive Pulmonary Disease, [id number], Prothrombin Time, International Normalized Ratio Test Referrals: Chico Moser Jr, MD [Primary Care Provider] - 12/07/17 9:30 am (Please follow up with Dr. Moser on December 07 at 0930. Please check in at 0915.) - Discharge Summary/Plan Comment DC Time >30 min.: Yes (45 min) - General Info Date of Service: 11/30/17 Admission Dx/Problem (Free Text: Admission Diagnosis/Problem Admission Diagnosis/Problem Hypoxia Gene is doing well, strength is improved, minimal coughing/SOB. Plans DC today. Functional Status: Reports: Pain Controlled, Tolerating Diet, Ambulating, Urinating - Review of Systems General: Reports: Weakness (improved). Denies: Fever HEENT: Reports: No Symptoms Pulmonary: Reports: Shortness of Breath (minimal to resolved), Cough (minimal) Cardiovascular: Reports: No Symptoms. Denies: Chest Pain Gastrointestinal: Reports: No Symptoms. Denies: Abdominal Pain, Diarrhea, Nausea, Vomiting Genitourinary: Reports: No Symptoms Musculoskeletal: Reports: No Symptoms Neurological: Reports: No Symptoms - Patient Data Vitals - Most Recent: Last Vital Signs Temp 98.8 F 11/30/17 04:00 Pulse 86 11/30/17 08:23 Resp 20 11/30/17 08:22 BP 145/63 H 11/30/17 08:23 Pulse Ox 96 11/30/17 08:22 Weight - Most Recent: 168 lb I&O - Last 24 hours: Intake & Output 11/29/17 11/30/17 11/30/17 22:59 06:59 14:59 Intake Total 1410 300 Output Total 650 950 Balance 760 -650 Lab Results - Last 24 hrs: Laboratory Results - last 24 hr 11/29/17 11/29/17 11/29/17 Range/Units 10:33 16:50 20:58 WBC (4.23-9.07) K/mm3 RBC (4.63-6.08) M/mm3 Hgb (13.7-17.5) gm/L Hct (40.1-51.0) % MCV (79.0-92.2) fl MCH (25.7-32.2) pg MCHC (32.2-35.5) g/dl RDW Std Deviation (35.1-43.9) fL Plt Count (163-337) K/mm3 MPV (9.4-12.3) fl Neut % (Auto) (34.0-67.9) % Lymph % (Auto) (21.8-53.1) % Isabella % (Auto) (5.3-12.2) % Eos % (Auto) (0.8-7.0) Baso % (Auto) (0.1-1.2) % Neut # (Auto) (1.78-5.38) K/mm3 Lymph # (Auto) (1.32-3.57) K/mm3 Isabella # (Auto) (0.30-0.82) K/mm3 Eos # (Auto) (0.04-0.54) K/mm3 Baso # (Auto) (0.01-0.08) K/mm3 Sodium (136-145) mEq/L Potassium (3.5-5.1) mEq/L Chloride (98-107) mEq/L Carbon Dioxide (21-32) mEq/L Anion Gap (5-15) BUN (7-18) mg/dL Creatinine (0.7-1.3) mg/dL Est Cr Clr Drug Dosing mL/min Estimated GFR (MDRD) (>60) mL/min BUN/Creatinine Ratio (14-18) Glucose (83-115) mg/dL POC Glucose 193 H 116 H 220 H (83-110) mg/dL Calcium (8.5-10.1) mg/dL Magnesium (1.8-2.4) mg/dl 11/30/17 11/30/17 11/30/17 Range/Units 06:02 06:12 06:21 WBC 6.22 (4.23-9.07) K/mm3 RBC 3.88 L (4.63-6.08) M/mm3 Hgb 9.1 L (13.7-17.5) gm/L Hct 29.7 L (40.1-51.0) % MCV 76.5 L (79.0-92.2) fl MCH 23.5 L (25.7-32.2) pg MCHC 30.6 L (32.2-35.5) g/dl RDW Std Deviation 53.2 H (35.1-43.9) fL Plt Count 157 L (163-337) K/mm3 MPV 10.2 (9.4-12.3) fl Neut % (Auto) 88.2 H (34.0-67.9) % Lymph % (Auto) 6.6 L (21.8-53.1) % Isabella % (Auto) 4.5 L (5.3-12.2) % Eos % (Auto) 0 L (0.8-7.0) Baso % (Auto) 0.2 (0.1-1.2) % Neut # (Auto) 5.49 H (1.78-5.38) K/mm3 Lymph # (Auto) 0.41 L (1.32-3.57) K/mm3 Isabella # (Auto) 0.28 L (0.30-0.82) K/mm3 Eos # (Auto) 0.00 L (0.04-0.54) K/mm3 Baso # (Auto) 0.01 (0.01-0.08) K/mm3 Sodium 139 (136-145) mEq/L Potassium 4.1 (3.5-5.1) mEq/L Chloride 106 (98-107) mEq/L Carbon Dioxide 25 (21-32) mEq/L Anion Gap 12.1 (5-15) BUN 48 H (7-18) mg/dL Creatinine 0.9 (0.7-1.3) mg/dL Est Cr Clr Drug Dosing 56.10 mL/min Estimated GFR (MDRD) > 60 (>60) mL/min BUN/Creatinine Ratio 53.3 H (14-18) Glucose 112 (83-115) mg/dL POC Glucose 129 H (83-110) mg/dL Calcium 9.7 (8.5-10.1) mg/dL Magnesium 2.0 (1.8-2.4) mg/dl Med Orders - Current: Current Medications Acetaminophen (Tylenol) 650 mg PO Q6H PRN PRN Reason: Pain/Fever Albuterol (Proventil Neb Soln) 2.5 mg NEB Q4HRRT PRN PRN Reason: Shortness of Breath Last Admin: 11/26/17 04:25 Dose: 2.5 mg Albuterol/Ipratropium (Duoneb 3.0-0.5 Mg/3 Ml) 3 ml NEB QIDRT [facility] Last Admin: 11/30/17 06:36 Dose: 3 ml Allopurinol (Zyloprim) 150 mg PO BEDTIME [facility] Last Admin: 11/29/17 21:04 Dose: 150 mg Aspirin (Halfprin) 81 mg PO BEDTIME [facility] Last Admin: 11/29/17 21:04 Dose: 81 mg Clopidogrel Bisulfate (Plavix) 75 mg PO DAILY [facility] Last Admin: 11/30/17 08:00 Dose: 75 mg Dextrose/Water (Dextrose 50% In Water) 50 ml IVPUSH ASDIRECTED PRN PRN Reason: Hypoglycemia Furosemide (Lasix) 40 mg PO DAILY [facility] Last Admin: 11/30/17 08:00 Dose: 40 mg Glipizide (Glucotrol Xl) 2.5 mg PO DAILY [facility] Last Admin: 11/30/17 08:00 Dose: 2.5 mg Insulin Aspart (Novolog) 0 unit SUBCUT QIDACANDBED [facility] PRN Reason: Protocol Last Admin: 11/30/17 06:25 Dose: Not Given Metoprolol Succinate (Toprol Xl) 12.5 mg PO DAILY [facility] Last Admin: 11/30/17 08:23 Dose: 12.5 mg Oseltamivir Phosphate (Tamiflu) 30 mg PO BID [facility] Stop: 11/30/17 09:01 Last Admin: 11/30/17 08:00 Dose: 30 mg Advair Diskus 500/50 (Inhaler) 0 each INH BID [facility] Last Admin: 11/29/17 20:57 Dose: 1 each Prednisone (Prednisone) 40 mg PO Q12H [facility] Last Admin: 11/29/17 23:50 Dose: 40 mg Senna/Docusate Sodium (Senna Plus) 1 tab PO DAILY [facility] Last Admin: 11/30/17 08:00 Dose: 1 tab Simvastatin (Zocor) 10 mg PO DAILY [facility] Last Admin: 11/30/17 08:01 Dose: Not Given Temazepam (Restoril) 7.5 mg PO BEDTIME PRN PRN Reason: Insomnia Warfarin Sodium (Coumadin) 3 mg PO SuTuWeThSa@1800 [facility] Last Admin: 11/28/17 17:08 Dose: 3 mg Warfarin Sodium (Coumadin) 6 mg PO MoFr@1800 [facility] Last Admin: 11/29/17 17:39 Dose: 6 mg Discontinued Medications Acetaminophen (Tylenol) 650 mg PO NOW ONE Stop: 11/25/17 19:35 Last Admin: 11/25/17 19:48 Dose: Not Given Albuterol (Proventil Neb Soln) 2.5 mg NEB ONETIME ONE Stop: 11/25/17 17:50 Last Admin: 11/25/17 17:58 Dose: 2.5 mg Albuterol/Ipratropium (Duoneb 3.0-0.5 Mg/3 Ml) 3 ml NEB QID PRN PRN Reason: Shortness of Breath Last Admin: 11/26/17 10:28 Dose: 3 ml Albuterol/Ipratropium (Duoneb 3.0-0.5 Mg/3 Ml) 3 ml NEB QID [facility] Last Admin: 11/29/17 15:19 Dose: Not Given Azithromycin (Zithromax) 250 mg PO ONETIME ONE Stop: 11/29/17 15:09 Last Admin: 11/29/17 15:18 Dose: 250 mg Furosemide (Lasix) 20 mg IVPUSH NOW ONE Stop: 11/26/17 12:25 Last Admin: 11/27/17 11:04 Dose: Not Given Furosemide (Lasix) 40 mg IVPUSH NOW ONE Stop: 11/26/17 12:25 Last Admin: 11/26/17 13:40 Dose: 40 mg Furosemide (Lasix) 20 mg IVPUSH NOW ONE Stop: 11/29/17 12:04 Last Admin: 11/29/17 13:57 Dose: 20 mg Lactated Ringer's (Ringers, Lactated) 1,000 mls @ 75 mls/hr IV ASDIRECTED [facility] Last Admin: 11/26/17 01:14 Dose: 75 mls/hr Ceftriaxone Sodium 2 gm/ (Sodium Chloride) 100 mls @ 200 mls/hr IV Q24H [facility] Ceftriaxone Sodium 2 gm/ (Sodium Chloride) 100 mls @ 200 mls/hr IV Q24H [facility] Stop: 11/29/17 15:00 Last Admin: 11/29/17 13:57 Dose: 200 mls/hr Azithromycin 500 mg/ Sodium (Chloride) 250 mls @ 250 mls/hr IV Q24H [facility] Stop: 11/29/17 15:00 Last Admin: 11/29/17 13:57 Dose: 250 mls/hr Magnesium Hydroxide (Milk Of Magnesia) 30 ml PO ONETIME ONE Stop: 11/27/17 09:52 Last Admin: 11/27/17 10:09 Dose: 30 ml Methylprednisolone Sodium Succinate (Solu-Medrol) 125 mg IVPUSH Q12H [facility] Last Admin: 11/27/17 12:08 Dose: 125 mg Methylprednisolone Sodium Succinate (Solu-Medrol) 40 mg IVPUSH Q12H [facility] Last Admin: 11/29/17 11:56 Dose: 40 mg Mometasone Furoate/Formoterol Fumar (Dulera 200-5 Mcg) 2 puff IH BID [facility] Last Admin: 11/26/17 10:22 Dose: 2 puff Oseltamivir Phosphate (Tamiflu) 30 mg PO DAILY [facility] Last Admin: 11/26/17 09:32 Dose: 30 mg Warfarin Sodium (Coumadin) 6 mg PO MoFr@1800 [facility] Last Admin: 11/26/17 18:14 Dose: 6 mg - Exam Quality Assessment: Reports: DVT Prophylaxis General: Reports: Alert, Oriented, Cooperative, No Acute Distress HEENT: Reports: Pupils Equal, EOMI, Mucous Membr. Moist/[place] Neck: Reports: Supple Lungs: Reports: Normal Respiratory Effort, Decreased Breath Sounds Cardiovascular: Reports: Irregular Rhythm GI/Abdominal Exam: Normal Bowel Sounds, Soft, Non-Tender (Male) Exam: Deferred Rectal (Males) Exam: Deferred Extremities: No Pedal Edema, Normal Capillary Refill Neurological: Reports: No New Focal Deficit Psy/Mental Status: Reports: Alert, Normal Affect, Normal Mood *Q Meaningful Use (DIS) - VTE *Q VTE Criteria *Q: - Stroke *Q Stroke Criteria *Q: - AMI *Q AMI Criteria *Q:
[2017-11-30] MEDS: ADVAIR INH SCH (09:16)
[2017-11-30] MEDS: predniSONE 20 MG Tab PO SCH (11:30)
== END 2017-11-30 12:35 | disposition home or self-care (01) | DRG 194 ==
LOC: JD.ED 14:37 → JD.MS 21:18
PROVIDERS: ADMIT Internal Medicine Cardiovascular Disease; ATTEND Internal Medicine Cardiovascular Disease
DX: J10.1 Influenza due to other identified influenza virus with other respiratory manifestations (principal); J44.1 Chronic obstructive pulmonary disease with (acute) exacerbation; N39.0 Urinary tract infection, site not specified; I25.810 Atherosclerosis of coronary artery bypass graft(s) without angina pectoris; I13.0 Hypertensive heart and chronic kidney disease with heart failure and stage 1 through stage 4 chronic kidney disease, or unspecified chronic kidney disease; R09.02 Hypoxemia; R06.03 Acute respiratory distress; N18.3 Chronic kidney disease, stage 3 (moderate); I50.9 Heart failure, unspecified; I73.9 Peripheral vascular disease, unspecified; G47.30 Sleep apnea, unspecified; N40.0 Benign prostatic hyperplasia without lower urinary tract symptoms; E11.40 Type 2 diabetes mellitus with diabetic neuropathy, unspecified; M10.9 Gout, unspecified; Z87.891 Personal history of nicotine dependence; Z79.01 Long term (current) use of anticoagulants; Z79.84 Long term (current) use of oral hypoglycemic drugs; Z79.82 Long term (current) use of aspirin; Z79.899 Other long term (current) drug therapy
CPT/HCPCS: 36415; 71045; 71045-26; 71046; 71046-26; 80048; 80053; 81001; 82962; 83036; 83605; 83735; 83880; 85025; 85610; 86140; 86738; 87040; 87086; 87804; 87899; 94640; 94760; 94761; 99284; 99285-25; A9270-GY; J0456; J0696; J1815-GY; J1940; J2920; J2930; J7030; J7050; J7120

== ENCOUNTER 2018-01-27 15:35 | Inpatient (IN) | payer MEDICARE, OTHER ==
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
[2018-01-27] MEDS ORDERED: Sodium Chloride 0.9% 500 ML IV ONE (16:35)
[2018-01-27] MEDS ORDERED: Ondansetron 4 MG/2 ML SDV IVPUSH ONE (16:35)
--- NOTE | 2018-01-27 18:09 | CR ---
Chest: Portable view of the chest was obtained. Comparison: Prior chest x-ray of 11/27/17 and 11/25/17. Heart is enlarged. Previous sternotomy is noted. Pacemaker is seen. Pulmonary vessels are slightly congested which appear to be baseline. No acute parenchymal density is seen within either lung. Bony structures are grossly intact. Impression: 1. Cardiomegaly. Mild chronic pulmonary vascular congestion. 2. Nothing acute is identified. Diagnostic code #2
[2018-01-27] MEDS ORDERED: Fluconazole 100 MG Tab PO STA (18:54)
[2018-01-27] MEDS ORDERED: Promethazine 6.25 MG in Sodium Chloride 0.9% 50 ML IV PRN (19:14)
[2018-01-27] MEDS ORDERED: LORazepam 2 MG/ML SDV IV PRN (19:14)
[2018-01-27] MEDS ORDERED: HYDROmorphone 0.5 MG/0.5 ML SYRINGE IVPUSH PRN (19:14)
[2018-01-27] MEDS ORDERED: Docusate Sodium 100 MG Cap PO PRN (19:14)
[2018-01-27] MEDS ORDERED: Polyethylene Glycol 3350 Powder 17 GM Packet PO PRN (19:14)
[2018-01-27] MEDS ORDERED: Bisacodyl 5 MG Tab PO PRN (19:14)
[2018-01-27] MEDS ORDERED: Acetaminophen/HYDROcodone 325-5 MG Tab PO PRN (19:14)
[2018-01-27] MEDS ORDERED: LORazepam 2 MG/ML SDV IVPUSH PRN (19:20)
[2018-01-27] MEDS ORDERED: hydrALAZINE 20 MG/ML SDV IVPUSH PRN (19:20)
[2018-01-27] MEDS ORDERED: Metoprolol Tartrate 5 MG/5 ML SDV IVPUSH PRN (19:20)
[2018-01-27] MEDS ORDERED: 50% Dextrose in Water 50 ML Syringe IVPUSH PRN (19:22)
[2018-01-27] MEDS ORDERED: Meclizine 12.5 MG Tab PO PRN (19:26)
[2018-01-27] MEDS ORDERED: Scopolamine 1.5 MG Transdermal Patch TRDERM ONE (19:27)
[2018-01-27] MEDS ORDERED: Warfarin 3 MG Tab PO SCH (20:15)
--- NOTE | 2018-01-27 20:33 | CT ---
Head CT Technique: Multiple axial sections through the brain were obtained. Intravenous contrast was not utilized. Comparison: Prior head CT study of 10/31/14. Findings: Ventricles along with basal cisterns and sulci the convexities are moderately prominent. Mild diminished density is noted within the periventricular white matter compatible with slight small vessel ischemic demyelination change. Similar findings are seen within portions of the basal ganglia. No other abnormal parenchymal densities are seen. No evidence of intracranial hemorrhage. No midline shift or mass effect is seen. Bone window settings were reviewed which shows the visualized sinuses to appear clear. No acute calvarial abnormality is seen. Atherosclerotic calcification is seen within the carotid siphon and within the vertebral vessels. Impression: 1. Senescent change. Nothing acute is appreciated on noncontrast head CT exam. Findings remain fairly stable from previous study. Diagnostic code #2
[2018-01-27] MEDS ORDERED: Formoterol/Mometasone 200-5 MCG 8.8 GM Inhaler IH SCH (21:00)
[2018-01-27] MEDS ORDERED: Lidocaine 5% 700 MG Patch TOP ONE (21:00)
--- NOTE | 2018-01-27 21:03 | PCM.HP ---
H&P History of Present Illness - General Date of Service: 01/27/18 Admit Problem/Dx: Admission Diagnosis/Problem Admission Diagnosis/Problem Dizziness Source of Information: Patient, Old Records, Provider, RN Notes Reviewed History Limitations: Reports: Physical Impairment - History of Present Illness Initial Comments - Free Text/Narative: This an 88-year-old elderly white male with past medical history of impaired vision, arrhythmia on warfarin, coronary artery disease status post 5 vessel CABG, hypertension, AAA status post repair, carotid stenosis status post endarterectomy, hypertension, PVD status post bilateral lower extremity stent placement, COPD, DERICK with CPAP, pacemaker placement, BPH status post TURP, chronic renal insufficiency, diabetes nephropathy, gout, osteopenia, and type 2 diabetes who comes in for evaluation of altered mental status that started on Wednesday for 08/06/18. Patient and his talked to his PCP's nurse and they were told to stop his pain medication and proceed to the emergency department for suspicion of stroke. Patient carries a history of recent fall after he was trying to help a lady this past Wednesday. After that incident he developed low back pain and he was evaluated at his primary care's office on Wednesday. Plain imaging study showed an L1 compression fracture. Patient was prescribed Only for pain management and to his knowledge, no referral to ortho had been made. His last dose of Only was about 9:00 this morning. His initial workup in emergency department shows a CBC remarkable for WBC of 9.96, RBC of 3.98, hemoglobin of 9.4, hematocrit of 31.8, MCH of 23.6, MCHC of 29.6, RDW of 16.9, neutrophils of 64% and monocytes of 11%. His coagulation studies shows PT of 17 and INR 01.57. His chemistry is remarkable for BUN of 65 , glucose of 80, alkaline phosphatase of 215, CK MB of 16.7, second set of troponin 0.058, and albumin of 0.6. His UA is not quite impressive for UTI but noted for yeast. Chest x-ray report reads nothing acute is identified. His head CT scan report reads senescent changes. Nothing acute is appreciated on non- contrast head CT scan. Patient is being admitted for abnormal gait and dizziness. He is CPR only. Lower Back Pain Score (Numeric/FACES): 4 - Related Data Allergies/Adverse Reactions: Allergies Allergy/AdvReac Type Severity Reaction Status Date / Time No Known Allergies Allergy Verified 10/21/17 06:31 Home Medications: Home Meds Allopurinol [Zyloprim] 150 mg PO BEDTIME 03/02/14 [History] Aspirin [Jacey Chewable Aspirin] 81 mg PO BEDTIME 03/02/14 [History] Warfarin [Coumadin] 5 mg PO SUTUWETHFRSA 03/02/14 [History] Fluticasone/Salmeterol [Advair 500-50] 1 puff INH BID 09/29/14 [History] Warfarin Sodium [Coumadin] 2.5 mg PO MO 10/31/14 [History] Clopidogrel [Plavix] 75 mg PO DAILY 02/16/15 [History] Metoprolol Succinate [Toprol XL] 12.5 mg PO DAILY 07/20/15 [History] Albuterol/Ipratropium [DuoNeb 3.0-0.5 MG/3 ML] 3 ml NEB Q8HRRT 05/12/17 [History ] Furosemide [Lasix] 40 mg PO DAILY 09/10/17 [History] glipiZIDE [Glucotrol XL] 2.5 mg PO DAILY 11/25/17 [History] Sennosides/Docusate Sodium [Senna-Docusate Sodium] 1 each PO DAILY 11/27/17 [ History] Pravastatin [Pravachol] 20 mg PO BEDTIME 01/27/18 [History] Tamsulosin [Flomax] 0.4 mg PO DAILY 01/27/18 [History] Past Medical History HEENT History: Reports: Epistaxis, Impaired Vision Cardiovascular History: Reports: Arrhythmia, CAD, Hypertension, Pacemaker, PVD, Stents Respiratory History: Reports: COPD, Sleep Apnea Gastrointestinal History: Reports: Diverticulosis Genitourinary History: Reports: BPH, Chronic Renal Insuffiency, Diabetic Nephropathy Musculoskeletal History: Reports: Gout, Other (See Below) Neurological History: Reports: None Psychiatric History: Reports: None Endocrine/Metabolic History: Reports: Diabetes, Type II - Infectious Disease History Infectious Disease History: Reports: Other (See Below) Other Infectious Disease History: infectious hepatitis in 1956 - Past Surgical History HEENT Surgical History: Reports: Cataract Surgery Cardiovascular Surgical History: Reports: AAA Repair, Carotid Endarterectomy, Coronary Artery Bypass, Pacer, Vascular Surgery, Other (See Below) Other Cardiovascular Surgeries/Procedures: stent to right and left leg GI Surgical History: Reports: Cholecystectomy Male Surgical History: Reports: TURP-Transurethral Resection of Prostate Neurological Surgical History: Reports: None Social & Family History - Family History Family Medical History: Noncontributory Respiratory: Reports: COPD Other Respiratory Family Hisory: mother Oncologic: Reports: Cervix Other Oncologic Family History: mother - Tobacco Use Smoking Status *Q: Former Smoker Years of Tobacco use: 60 Packs/Tins Daily: 1 Used Tobacco, but Quit: Yes Month/Year Tobacco Last Used: 9 months ago Second Hand Smoke Exposure: No - Caffeine Use Caffeine Use: Reports: Coffee, Soda - Alcohol Use Days Per Week of Alcohol Use: 7 Number of Drinks Per Day: 1 Total Drinks Per Week: 7 - Recreational Drug Use Recreational Drug Use: No - Living Situation & Occupation Living situation: Reports: , with Spouse Occupation: Retired H&P Review of Systems - Review of Systems: Review Of Systems: See Below General: Reports: Malaise, Weakness. Denies: Fever, Chills HEENT: Reports: No Symptoms Pulmonary: Denies: Shortness of Breath Cardiovascular: Denies: Chest Pain, Palpitations, Dyspnea on Exertion, Edema, Lightheadedness Gastrointestinal: Denies: Abdominal Pain, Nausea, Vomiting Genitourinary: Reports: Frequency Musculoskeletal: Reports: Back Pain, Muscle Pain Skin: Reports: Bruising, Other. Denies: Jaundice, Mottled, Pallor, Diaphoresis , Erythema, Wound Psychiatric: Denies: Confusion, Depression, Mood Lability, Anxiety, Hallucinations, Homicidal Ideation Neurological: Reports: Dizziness, Difficulty Walking, Weakness, Gait Disturbance. Denies: Confusion, Headache, Numbness, Paresthesia, Pre-Existing Deficit, Seizure, Syncope, Tingling, Tremors, Trouble Speaking, Change in Speech Hematologic/Lymphatic: Reports: Anemia, Easy Bruising Immunologic: Reports: No Symptoms Exam - Exam Exam: See Below - Vital Signs Vital Signs: Last Vital Signs Temp 36.8 C 01/27/18 15:45 Pulse 50 L 01/27/18 15:45 Resp 20 01/27/18 15:45 BP 140/100 H 01/27/18 15:45 Pulse Ox 94 L 01/27/18 15:45 Orthostatic Blood Pressure [ 134/94 Supine] Weight: 73.936 kg - Exam General: Alert, Oriented, Cooperative, Mild Distress HEENT: Conjunctiva Clear, EACs Clear, EOMI, Hearing Intact, Mucosa Moist & [place] , Nares Patent, Normal Nasal Septum, Posterior Pharynx Clear, Pupils Equal, Pupils Reactive Neck: Supple, Trachea Midline, +2 Carotid Pulse wo Bruit Lungs: Normal Respiratory Effort, Decreased Breath Sounds Cardiovascular: Irregular Rhythm GI/Abdominal Exam: Normal Bowel Sounds, Soft, Non-Tender, No Organomegaly, No Distention, No Abnormal Bruit, No Mass (Male) Exam: Deferred Rectal (Males) Exam: Deferred Back Exam: Normal Inspection, Decreased Range of Motion, Muscle Spasm, Paraspinal Tenderness, Vertebral Tenderness Extremities: Normal Inspection, Limited Range of Motion (due to pain with movement), Other (bilateral lower extremity edema +1) Peripheral Pulses: 2+: Posterior Tibial (L), Posterior Tibial (R), Dorsalis Pedis (L), Dorsalis Pedis (R) Skin: Warm, Dry, Intact, Ecchymosis Neuro Extensive - Mental Status: Oriented x3, Normal Cognition, Memory Intact Neuro Extensive - Motor, Sensory, Reflexes: CN II-XII Intact (limited by back pain but fairly intact), Abnormal Gait, Other (Generalized weakness and Dizziness ). No: Ataxia, Tremor Psychiatric: Alert, Normal Affect, Normal Mood - Patient Data Lab Results Last 24 hrs: Laboratory Results - last 24 hr 01/27/18 01/27/18 01/27/18 Range/Units 16:38 16:38 16:38 WBC 9.96 H (4.23-9.07) K/mm3 RBC 3.98 L (4.63-6.08) M/mm3 Hgb 9.4 L (13.7-17.5) gm/L Hct 31.8 L (40.1-51.0) % MCV 79.9 (79.0-92.2) fl MCH 23.6 L (25.7-32.2) pg MCHC 29.6 L (32.2-35.5) g/dl RDW Std Deviation 60.9 H (35.1-43.9) fL Plt Count 230 (163-337) K/mm3 MPV 9.8 (9.4-12.3) fl Neutrophils % (Manual) 64 H (40-60) % Band Neutrophils % 0 (0-10) % Lymphocytes % (Manual) 20 (20-40) % Atypical Lymphs % 0 % Monocytes % (Manual) 11 H (2-10) % Eosinophils % (Manual) 4 (0.8-7.0) % Basophils % (Manual) 1 (0.2-1.2) Platelet Estimate Adequate Polychromasia Few Hypochromasia 1+ slight Poikilocytosis 1+ slight Anisocytosis 2+ moderate Microcytosis 1+ slight Macrocytosis Not Reportable Ovalocytes 1+ slight RBC Morph Comment Not Reportable PT 17.0 H (9.5-12.1) SECONDS INR 1.57 Sodium 138 (136-145) mEq/L Potassium 4.7 (3.5-5.1) mEq/L Chloride 104 (98-107) mEq/L Carbon Dioxide 25 (21-32) mEq/L Anion Gap 13.7 (5-15) BUN 65 H (7-18) mg/dL Creatinine 1.3 (0.7-1.3) mg/dL Est Cr Clr Drug Dosing 38.13 mL/min Estimated GFR (MDRD) 52 (>60) mL/min BUN/Creatinine Ratio 50.0 H (14-18) Glucose 80 L (83-115) mg/dL Calcium 10.0 (8.5-10.1) mg/dL Magnesium 2.0 (1.8-2.4) mg/dl Total Bilirubin 0.9 (0.2-1.0) mg/dL AST 28 (15-37) U/L ALT 17 (16-63) U/L Alkaline Phosphatase 215 H (46-116) U/L CK-MB (CK-2) (0-3.6) ng/ml Troponin I 0.052 (0.00-0.056) ng/mL Total Protein 7.6 (6.4-8.2) g/dl Albumin 2.9 L (3.4-5.0) g/dl Globulin 4.7 gm/dL Albumin/Globulin Ratio 0.6 L (1-2) Urine Color (Yellow) Urine Appearance (Clear) Urine pH (5.0-8.0) Ur Specific Viola (1.005-1.030) Urine Protein (Negative) Urine Glucose (UA) (Negative) Urine Ketones (Negative) Urine Occult Blood (Negative) Urine Nitrite (Negative) Urine Bilirubin (Negative) Urine Urobilinogen (0.2-1.0) Ur Leukocyte Esterase (Negative) Urine RBC (0-5) /hpf Urine WBC (0-5) /hpf Ur Epithelial Cells (0-5) /hpf Urine Bacteria (FEW) /hpf Urine Mucus (FEW) /hpf Urine Yeast (Budding) (NOT SEEN) 01/27/18 01/27/18 Range/Units 17:35 19:35 WBC (4.23-9.07) K/mm3 RBC (4.63-6.08) M/mm3 Hgb (13.7-17.5) gm/L Hct (40.1-51.0) % MCV (79.0-92.2) fl MCH (25.7-32.2) pg MCHC (32.2-35.5) g/dl RDW Std Deviation (35.1-43.9) fL Plt Count (163-337) K/mm3 MPV (9.4-12.3) fl Neutrophils % (Manual) (40-60) % Band Neutrophils % (0-10) % Lymphocytes % (Manual) (20-40) % Atypical Lymphs % % Monocytes % (Manual) (2-10) % Eosinophils % (Manual) (0.8-7.0) % Basophils % (Manual) (0.2-1.2) Platelet Estimate Polychromasia Hypochromasia Poikilocytosis Anisocytosis Microcytosis Macrocytosis Ovalocytes RBC Morph Comment PT (9.5-12.1) SECONDS INR Sodium (136-145) mEq/L Potassium (3.5-5.1) mEq/L Chloride (98-107) mEq/L Carbon Dioxide (21-32) mEq/L Anion Gap (5-15) BUN (7-18) mg/dL Creatinine (0.7-1.3) mg/dL Est Cr Clr Drug Dosing mL/min Estimated GFR (MDRD) (>60) mL/min BUN/Creatinine Ratio (14-18) Glucose (83-115) mg/dL Calcium (8.5-10.1) mg/dL Magnesium (1.8-2.4) mg/dl Total Bilirubin (0.2-1.0) mg/dL AST (15-37) U/L ALT (16-63) U/L Alkaline Phosphatase (46-116) U/L CK-MB (CK-2) 16.7 H (0-3.6) ng/ml Troponin I 0.058 H* (0.00-0.056) ng/mL Total Protein (6.4-8.2) g/dl Albumin (3.4-5.0) g/dl Globulin gm/dL Albumin/Globulin Ratio (1-2) Urine Color Dark yellow (Yellow) Urine Appearance Clear (Clear) Urine pH 6.0 (5.0-8.0) Ur Specific [place]ola 1.020 (1.005-1.030) Urine Protein 1+ H (Negative) Urine Glucose (UA) Negative (Negative) Urine Ketones Negative (Negative) Urine Occult Blood Trace-intact H (Negative) Urine Nitrite Negative (Negative) Urine Bilirubin Negative (Negative) Urine Urobilinogen 1.0 (0.2-1.0) Ur Leukocyte Esterase 1+ H (Negative) Urine RBC 0-5 (0-5) /hpf Urine WBC 50-75 H (0-5) /hpf Ur Epithelial Cells 0-5 (0-5) /hpf Urine Bacteria Few (FEW) /hpf Urine Mucus Not seen (FEW) /hpf Urine Yeast (Budding) Moderate H (NOT SEEN) Result Diagrams: 01/28/18 05:20 01/28/18 05:20 EKG INTERPRETATION EKG Date: 01/27/18 Time: 15:30 Rhythm: Other (v-paced) Rate (Beats/Min): 98 Problem List Initiated/Reviewed/Updated: Yes Orders Last 24hrs: Active Orders 24 hr Category Date Time Status Admission Status [Patient Status] [ADT] Routine ADT 01/27/18 20:18 Active Blood Glucose Check, Bedside [RC] QIDACANDBED Care 01/27/18 19:22 Active EKG Documentation Completion [RC] STAT Care 01/27/18 16:22 Active Orthostatic Vital Signs [RC] STAT Care 01/27/18 16:22 Active Oxygen Therapy [RC] PRN Care 01/27/18 19:14 Active RT Aerosol Therapy [RC] ASDIRECTED Care 01/27/18 19:17 Active Up With Assistance [RC] ASDIRECTED Care 01/27/18 19:14 Active Up ad Erica [RC] ASDIRECTED Care 01/27/18 19:14 Active VTE/DVT Education [RC] PER UNIT ROUTINE Care 01/27/18 19:14 Active Vital Signs [RC] Q4H Care 01/27/18 19:14 Active Consult to Case Management [CONS] Routine Cons 01/27/18 19:14 Active Consult to Surveillance Dual Rate Officer [CONS] Routine Cons 01/27/18 19:14 Active Consult to Spiritual Care [CONS] Routine Cons 01/27/18 19:14 Active OT Evaluation and Treatment [CONS] Routine Cons 01/27/18 19:14 Active PT Evaluation and Treatment [CONS] Routine Cons 01/27/18 19:14 Active Respiratory Care Assess and Treatment [CONS] Routine Cons 01/27/18 19:14 Active Consistent Carbohydrate Diet [DIET] Diet 01/27/18 Dinner Active Heart Healthy Diet [DIET] Diet 01/27/18 Dinner Active BASIC METABOLIC PANEL,BMP [CHEM] AM Lab 01/28/18 05:11 Ordered CBC WITH AUTO DIFF [HEME] AM Lab 01/28/18 05:11 Ordered CKMB [CHEM] AM Lab 01/28/18 05:11 Ordered CULTURE URINE [RM] Stat Lab 01/27/18 17:35 Received INR,PT,PROTHROMBIN TIME [COAG] AM Lab 01/28/18 05:11 Ordered INR,PT,PROTHROMBIN TIME [COAG] AM Lab 01/29/18 05:11 Ordered INR,PT,PROTHROMBIN TIME [COAG] AM Lab 01/30/18 05:11 Ordered INR,PT,PROTHROMBIN TIME [COAG] AM Lab 01/31/18 05:11 Ordered MAGNESIUM [CHEM] AM Lab 01/28/18 05:11 Ordered TROPONIN I [CHEM] AM Lab 01/28/18 05:11 Ordered UA W/MICROSCOPIC [URIN] Stat Lab 01/27/18 17:35 Ordered Acetaminophen [Tylenol] Med 01/27/18 19:14 Active 650 mg PO Q4H PRN Albuterol/Ipratropium [DuoNeb 3.0-0.5 MG/3 ML] Med 01/27/18 19:14 Active 3 ml NEB Q4H PRN Allopurinol [Zyloprim] Med 01/27/18 21:00 Active 150 mg PO BEDTIME Aspirin [Halfprin] Med 01/27/18 21:00 Active 81 mg PO BEDTIME Bisacodyl [Dulcolax] Med 01/27/18 19:14 Active 5 mg PO DAILY PRN Clopidogrel [Plavix] Med 01/28/18 09:00 Active 75 mg PO DAILY Dextrose 50% in Water Med 01/27/18 19:22 Active 50 ml IVPUSH ASDIRECTED PRN Docusate Sodium [Colace] Med 01/27/18 19:14 Active 100 mg PO BID PRN Docusate Sodium/Sennosides [Senna Plus] Med 01/27/18 19:14 Active 1 tab PO BID PRN Docusate Sodium/Sennosides [Senna Plus] Med 01/28/18 09:00 Active 1 tab PO DAILY Furosemide [Lasix] Med 01/28/18 09:00 Active 40 mg PO DAILY Insulin Aspart [NovoLOG] Med 01/27/18 22:00 Active See Protocol SUBCUT QIDACANDBED LORazepam [Ativan] Med 01/27/18 19:20 Active 2 mg IVPUSH Q4H PRN Lidocaine 5% [Lidoderm 5%] Med 01/28/18 21:00 Active 700 mg TOP Q24H Magnesium Rep Pharmacy to Dose [Pharmacy to Dose - Med 01/27/18 19:30 Pending Magnesium Replacement] 1 dose .XX ASDIRECTED Meclizine [Antivert] Med 01/27/18 19:26 Active 12.5 mg PO Q6H PRN Metoprolol Succinate [Toprol XL] Med 01/28/18 09:00 Active 12.5 mg PO DAILY Metoprolol Tartrate [Lopressor] Med 01/27/18 19:20 Active 5 mg IVPUSH Q4H PRN Mometasone/Formoterol [Dulera 200-5 MCG] Med 01/27/18 21:00 Active 0 puff IH BIDRT Ondansetron [Zofran] Med 01/27/18 19:14 Active 4 mg IV Q6H PRN Polyethylene Glycol 3350 [MiraLAX] Med 01/27/18 19:14 Active 17 gm PO DAILY PRN Potassium Rep Pharmacy to Dose [Pharmacy to Dose - Med 01/27/18 19:30 Pending Potassium Replacement] 1 dose .XX ASDIRECTED Promethazine [Phenergan] 6.25 mg Med 01/27/18 19:14 Active Sodium Chloride 0.9% [Normal Saline] 50 ml IV Q6H Remove Patch Med 01/28/18 09:00 Active 1 ea TRDERM DAILY Warfarin [Coumadin] Med 01/27/18 20:15 Active 3 mg PO SuTuWeThSa@1800 Warfarin [Coumadin] Med 01/28/18 18:00 Active 6 mg PO MoFr@1800 glipiZIDE [Glucotrol XL] Med 01/28/18 09:00 Active 2.5 mg PO DAILY hydrALAZINE [Apresoline] Med 01/27/18 19:20 Active 10 mg IVPUSH Q4H PRN predniSONE Med 01/28/18 09:00 Active 10 mg PO DAILY Resuscitation Status Routine Resus Stat 01/27/18 19:14 Ordered Medication Orders Acetaminophen (Tylenol) 650 mg PO Q4H PRN PRN Reason: Pain (Mild 1-3)/fever Albuterol/Ipratropium (Duoneb 3.0-0.5 Mg/3 Ml) 3 ml NEB Q4H PRN PRN Reason: Shortness Of Breath/wheezing Allopurinol (Zyloprim) 150 mg PO BEDTIME [facility] Aspirin (Halfprin) 81 mg PO BEDTIME JAROD Bisacodyl (Dulcolax) 5 mg PO DAILY PRN PRN Reason: Constipation Clopidogrel Bisulfate (Plavix) 75 mg PO DAILY [facility] Dextrose/Water (Dextrose 50% In Water) 50 ml IVPUSH ASDIRECTED PRN PRN Reason: Hypoglycemia Docusate Sodium (Colace) 100 mg PO BID PRN PRN Reason: Constipation Furosemide (Lasix) 40 mg PO DAILY [facility] Glipizide (Glucotrol Xl) 2.5 mg PO DAILY [facility] Hydralazine HCl (Apresoline) 10 mg IVPUSH Q4H PRN PRN Reason: Hypertension Promethazine HCl 6.25 mg/ (Sodium Chloride) 50.25 mls @ 100 mls/hr IV Q6H PRN PRN Reason: Nausea/Vomiting Insulin Aspart (Novolog) 0 unit SUBCUT QIDACANDBED [facility]; Protocol Lidocaine (Lidoderm 5%) 700 mg TOP Q24H JAROD Lorazepam (Ativan) 2 mg IVPUSH Q4H PRN PRN Reason: Seizures Magnesium Sulfate (Pharmacy To Dose - Magnesium Replacement) 1 dose .XX ASDIRECTED [facility] Meclizine HCl (Antivert) 12.5 mg PO Q6H PRN PRN Reason: Dizziness Metoprolol Succinate (Toprol Xl) 12.5 mg PO DAILY [facility] Metoprolol Tartrate (Lopressor) 5 mg IVPUSH Q4H PRN PRN Reason: Tachycardia Miscellaneous Information (Remove Patch) 1 ea TRDERM DAILY [facility] Mometasone Furoate/Formoterol Fumar (Dulera 200-5 Mcg) 0 puff IH BIDRT [facility] Ondansetron HCl (Zofran) 4 mg IV Q6H PRN PRN Reason: Nausea/Vomiting Polyethylene Glycol (Miralax) 17 gm PO DAILY PRN PRN Reason: Constipation Potassium Chloride (Pharmacy To Dose - Potassium Replacement) 1 dose .XX ASDIRECTED [facility] Prednisone (Prednisone) 10 mg PO DAILY [facility] Senna/Docusate Sodium (Senna Plus) 1 tab PO BID PRN PRN Reason: Constipation Senna/Docusate Sodium (Senna Plus) 1 tab PO DAILY [facility] Warfarin Sodium (Coumadin) 6 mg PO MoFr@1800 [facility] Warfarin Sodium (Coumadin) 3 mg PO SuTuWeThSa@1800 [facility] Assessment/Plan Comment:: Assessment/Plan: Acute: Ventricular Tachycardia-Monomorphic - Carries a hx/o Abnormal rhythm on Warfarin (Subtherapeutic) - Possibly the main cause and may not necessarily sedation from Only - Telemetry is busy since he go the the floor; he was already having abnormal rhythm while he was in ED - He only takes Metoprolol (XL) 12.5 mg po Daily for rate control medications - Repeat EKG in AM and 2D echo - Start Thyroid panel for baseline - Transfer to ICU and start Amiodarone drip per unit protocol Dizziness - Medication Side Effects vs Hypo-perfusion from Abnormal Rhythm - Takes Only for back pain (sedation) - His rhythm in ED "was abnormal and all over" when I called earlier today before I left the hospital; his rhythm via Telemetry shows hypo-perfusing PVCs and Ventricular Tachycardia - EKG confirmed telemetry reading - No narcotics and avoid medications with hypnotics or sedation - PRN Meclizine S/p AMS - He was alert/awake and reasonable to me at the time fo my interview - He was able to provide a reasonable HPI - Head CT scan to r/o brain bleed since he is on warfarin - No obvious neurologic deficits Subtherapeutic INR - INR 1.57 - Continue home dose warfarin and will bridge with lovenox subQ until INR is therapeutic UA - Pos for yeast - He is afebrile w/ mild leukocytosis - Received onetime dose of fluconazole in ED; hold dose in EM - Risk factors: He is on chronic steroid Chronic: Impaired Vision Arrhythmia on warfarin CAD status post 5 vessel CABG Hypertension AAA status post repair Carotid stenosis status post endarterectomy PVD status post bilateral lower extremity stent placement COPD DERICK with CPAP S/p pacemaker placement BPH status post TURP Chronic renal insufficiency Diabetes nephropathy Gout Osteopenia Type 2 diabetes Unstable Gait Plan: Transfer to ICU due to Abnormal Rhythm Resume Home Meds Routine AM Labs Accu-check QID AC and HS with ISS Thyroid Panel Serial CE EKG and 2D echo in AM Fall Precautions DVT/Stroke PPx: Warfarin and Lovenox SubQ RT/PT/OT consult Obtain imaging report on his back from PCP's office Ortho consult in AM SW/CM for d/c planning Code status: CPR only
[2018-01-27] MEDS ORDERED: cloNIDine 0.2 MG/Day Transdermal Patch TRDERM ONE (21:20)
[2018-01-27] MEDS: Albuterol/Ipratropium 3.0-0.5 MG/3 ML Neb Soln NEB PRN (21:40)
[2018-01-27] MEDS ORDERED: Enoxaparin 30 MG/0.3 ML Syringe SUBCUT ONE (22:05)
--- NOTE | 2018-01-27 22:11 | PCM.SN ---
- Free Text/Narrative Note: Patient is throwing in PCVs and V-tachs nonstop on Telemetry. In ED earlier today, I was told his rhythm was all over. His pacer was interrogated and was deemed okay. His e-lytes were normal. Patient will be transferred to the unit for Amiodarone drip.
[2018-01-27] MEDS: Allopurinol 300 MG Tab PO SCH (22:15)
[2018-01-27] MEDS: Aspirin 81 MG Tab.EC PO SCH (22:15)
[2018-01-27] MEDS ORDERED: Amiodarone In Dextrose,Iso-Osm 200 ML IV SCH ×2 (22:15→22:45)
[2018-01-27] MEDS: Insulin Aspart 100 Units/ML 3 ML Pen SUBCUT SCH (22:18)
[2018-01-27] MEDS ORDERED: Amiodarone 150 MG in Dextrose 5% in Water 100 ML IV ONE ×2 (22:30)
[2018-01-27] MEDS ORDERED: Ibuprofen 600 MG Tab PO PRN (22:51)
[2018-01-27] MEDS ORDERED: Amiodarone In Dextrose,Iso-Osm 150 MG in Premix Bag 1 BAG IV ONE ×2 (23:00)
[2018-01-28] MEDS: Insulin Aspart 100 Units/ML 3 ML Pen SUBCUT SCH ×4 (06:16→21:22)
--- NOTE | 2018-01-28 07:25 | PCM.PN ---
- General Info Date of Service: 01/28/18 Admission Dx/Problem (Free Text): Admission Diagnosis/Problem Admission Diagnosis/Problem Dizziness Subjective Update: Follow Up Functional Status: Reports: Pain Controlled, Tolerating Diet, Urinating. Denies : Ambulating - Review of Systems General: Reports: Weakness. Denies: Fever, Malaise, Chills HEENT: Reports: No Symptoms Pulmonary: Denies: Shortness of Breath Cardiovascular: Reports: No Symptoms Gastrointestinal: Denies: Abdominal Pain, Decreased Appetite, Nausea, Vomiting Genitourinary: Reports: No Symptoms Musculoskeletal: Reports: Back Pain Skin: Reports: Bruising. Denies: Cyanosis, Jaundice, Mottled, Pallor, Diaphoresis Neurological: Reports: Difficulty Walking, Weakness, Gait Disturbance. Denies: Confusion, Dizziness Psychiatric: Denies: Depression, Mood Lability, Anxiety, Agitation, Hallucinations Systems Review Comment:: No significant overnight or acute issues. He slept good and has no complaints this morning. His HR was stable and rhythm was more controlled, still on Amiodarone drip. His Hgb level is slightly low at 8.7 (9.4 yesterday). INR is 1.68 and 3rd set of Troponin is 0.046. His UA is pos for yeast. Patient states he is longer taking prednisone and flomax. - Patient Data Vitals - Most Recent: Last Vital Signs Temp 36.9 C 01/28/18 04:00 Pulse 72 01/28/18 06:53 Resp 16 01/28/18 04:00 BP 95/63 01/28/18 06:53 Pulse Ox 97 01/28/18 04:00 Orthostatic Blood Pressure [ 134/94 Supine] Weight - Most Recent: 73.936 kg I&O - Last 24 Hours: Intake & Output 01/27/18 01/28/18 01/28/18 22:59 06:59 14:59 Intake Total 120 315 Output Total 75 500 Balance 45 -185 Lab Results Last 24 Hours: Laboratory Results - last 24 hr 01/27/18 01/27/18 01/27/18 Range/Units 16:38 16:38 16:38 WBC 9.96 H (4.23-9.07) K/mm3 RBC 3.98 L (4.63-6.08) M/mm3 Hgb 9.4 L (13.7-17.5) gm/L Hct 31.8 L (40.1-51.0) % MCV 79.9 (79.0-92.2) fl MCH 23.6 L (25.7-32.2) pg MCHC 29.6 L (32.2-35.5) g/dl RDW Std Deviation 60.9 H (35.1-43.9) fL Plt Count 230 (163-337) K/mm3 MPV 9.8 (9.4-12.3) fl Neut % (Auto) (34.0-67.9) % Lymph % (Auto) (21.8-53.1) % [place] % (Auto) (5.3-12.2) % Eos % (Auto) (0.8-7.0) Baso % (Auto) (0.1-1.2) % Neut # (Auto) (1.78-5.38) K/mm3 Lymph # (Auto) (1.32-3.57) K/mm3 [place] # (Auto) (0.30-0.82) K/mm3 Eos # (Auto) (0.04-0.54) K/mm3 Baso # (Auto) (0.01-0.08) K/mm3 Neutrophils % (Manual) 64 H (40-60) % Band Neutrophils % 0 (0-10) % Lymphocytes % (Manual) 20 (20-40) % Atypical Lymphs % 0 % Monocytes % (Manual) 11 H (2-10) % Eosinophils % (Manual) 4 (0.8-7.0) % Basophils % (Manual) 1 (0.2-1.2) Manual Slide Review Platelet Estimate Adequate Polychromasia Few Hypochromasia 1+ slight Poikilocytosis 1+ slight Anisocytosis 2+ moderate Microcytosis 1+ slight Macrocytosis Not Reportable Ovalocytes 1+ slight RBC Morph Comment Not Reportable PT 17.0 H (9.5-12.1) SECONDS INR 1.57 Sodium 138 (136-145) mEq/L Potassium 4.7 (3.5-5.1) mEq/L Chloride 104 (98-107) mEq/L Carbon Dioxide 25 (21-32) mEq/L Anion Gap 13.7 (5-15) BUN 65 H (7-18) mg/dL Creatinine 1.3 (0.7-1.3) mg/dL Est Cr Clr Drug Dosing 38.13 mL/min Estimated GFR (MDRD) 52 (>60) mL/min BUN/Creatinine Ratio 50.0 H (14-18) Glucose 80 L (83-115) mg/dL POC Glucose (83-110) mg/dL Calcium 10.0 (8.5-10.1) mg/dL Magnesium 2.0 (1.8-2.4) mg/dl Total Bilirubin 0.9 (0.2-1.0) mg/dL AST 28 (15-37) U/L ALT 17 (16-63) U/L Alkaline Phosphatase 215 H (46-116) U/L CK-MB (CK-2) (0-3.6) ng/ml Troponin I 0.052 (0.00-0.056) ng/mL Total Protein 7.6 (6.4-8.2) g/dl Albumin 2.9 L (3.4-5.0) g/dl Globulin 4.7 gm/dL Albumin/Globulin Ratio 0.6 L (1-2) Free T4 (0.76-1.46) ng/dL TSH 3rd Generation (0.358-3.74) uIU/mL Urine Color (Yellow) Urine Appearance (Clear) Urine pH (5.0-8.0) Ur Specific [place] (1.005-1.030) Urine Protein (Negative) Urine Glucose (UA) (Negative) Urine Ketones (Negative) Urine Occult Blood (Negative) Urine Nitrite (Negative) Urine Bilirubin (Negative) Urine Urobilinogen (0.2-1.0) Ur Leukocyte Esterase (Negative) Urine RBC (0-5) /hpf Urine WBC (0-5) /hpf Ur Epithelial Cells (0-5) /hpf Urine Bacteria (FEW) /hpf Urine Mucus (FEW) /hpf Urine Yeast (Budding) (NOT SEEN) 01/27/18 01/27/18 01/27/18 Range/Units 17:35 19:35 19:35 WBC (4.23-9.07) K/mm3 RBC (4.63-6.08) M/mm3 Hgb (13.7-17.5) gm/L Hct (40.1-51.0) % MCV (79.0-92.2) fl MCH (25.7-32.2) pg MCHC (32.2-35.5) g/dl RDW Std Deviation (35.1-43.9) fL Plt Count (163-337) K/mm3 MPV (9.4-12.3) fl Neut % (Auto) (34.0-67.9) % Lymph % (Auto) (21.8-53.1) % [place] % (Auto) (5.3-12.2) % Eos % (Auto) (0.8-7.0) Baso % (Auto) (0.1-1.2) % Neut # (Auto) (1.78-5.38) K/mm3 Lymph # (Auto) (1.32-3.57) K/mm3 [place] # (Auto) (0.30-0.82) K/mm3 Eos # (Auto) (0.04-0.54) K/mm3 Baso # (Auto) (0.01-0.08) K/mm3 Neutrophils % (Manual) (40-60) % Band Neutrophils % (0-10) % Lymphocytes % (Manual) (20-40) % Atypical Lymphs % % Monocytes % (Manual) (2-10) % Eosinophils % (Manual) (0.8-7.0) % Basophils % (Manual) (0.2-1.2) Manual Slide Review Platelet Estimate Polychromasia Hypochromasia Poikilocytosis Anisocytosis Microcytosis Macrocytosis Ovalocytes RBC Morph Comment PT (9.5-12.1) SECONDS INR Sodium (136-145) mEq/L Potassium (3.5-5.1) mEq/L Chloride (98-107) mEq/L Carbon Dioxide (21-32) mEq/L Anion Gap (5-15) BUN (7-18) mg/dL Creatinine (0.7-1.3) mg/dL Est Cr Clr Drug Dosing mL/min Estimated GFR (MDRD) (>60) mL/min BUN/Creatinine Ratio (14-18) Glucose (83-115) mg/dL POC Glucose (83-110) mg/dL Calcium (8.5-10.1) mg/dL Magnesium (1.8-2.4) mg/dl Total Bilirubin (0.2-1.0) mg/dL AST (15-37) U/L ALT (16-63) U/L Alkaline Phosphatase (46-116) U/L CK-MB (CK-2) 16.7 H (0-3.6) ng/ml Troponin I 0.058 H* (0.00-0.056) ng/mL Total Protein (6.4-8.2) g/dl Albumin (3.4-5.0) g/dl Globulin gm/dL Albumin/Globulin Ratio (1-2) Free T4 1.29 (0.76-1.46) ng/dL TSH 3rd Generation 3.190 (0.358-3.74) uIU/mL Urine Color Dark yellow (Yellow) Urine Appearance Clear (Clear) Urine pH 6.0 (5.0-8.0) Ur Specific [place] 1.020 (1.005-1.030) Urine Protein 1+ H (Negative) Urine Glucose (UA) Negative (Negative) Urine Ketones Negative (Negative) Urine Occult Blood Trace-intact H (Negative) Urine Nitrite Negative (Negative) Urine Bilirubin Negative (Negative) Urine Urobilinogen 1.0 (0.2-1.0) Ur Leukocyte Esterase 1+ H (Negative) Urine RBC 0-5 (0-5) /hpf Urine WBC 50-75 H (0-5) /hpf Ur Epithelial Cells 0-5 (0-5) /hpf Urine Bacteria Few (FEW) /hpf Urine Mucus Not seen (FEW) /hpf Urine Yeast (Budding) Moderate H (NOT SEEN) 01/27/18 01/28/18 01/28/18 Range/Units 22:18 05:20 05:20 WBC 8.67 (4.23-9.07) K/mm3 RBC 3.64 L (4.63-6.08) M/mm3 Hgb 8.7 L (13.7-17.5) gm/L Hct 29.2 L (40.1-51.0) % MCV 80.2 (79.0-92.2) fl MCH 23.9 L (25.7-32.2) pg MCHC 29.8 L (32.2-35.5) g/dl RDW Std Deviation 60.8 H (35.1-43.9) fL Plt Count 175 (163-337) K/mm3 MPV 10.9 (9.4-12.3) fl Neut % (Auto) 74.2 H (34.0-67.9) % Lymph % (Auto) 11.3 L (21.8-53.1) % [place] % (Auto) 12.9 H (5.3-12.2) % Eos % (Auto) 1.3 (0.8-7.0) Baso % (Auto) 0.2 (0.1-1.2) % Neut # (Auto) 6.43 H (1.78-5.38) K/mm3 Lymph # (Auto) 0.98 L (1.32-3.57) K/mm3 [place] # (Auto) 1.12 H (0.30-0.82) K/mm3 Eos # (Auto) 0.11 (0.04-0.54) K/mm3 Baso # (Auto) 0.02 (0.01-0.08) K/mm3 Neutrophils % (Manual) (40-60) % Band Neutrophils % (0-10) % Lymphocytes % (Manual) (20-40) % Atypical Lymphs % % Monocytes % (Manual) (2-10) % Eosinophils % (Manual) (0.8-7.0) % Basophils % (Manual) (0.2-1.2) Manual Slide Review Abnormal smear Platelet Estimate Polychromasia Hypochromasia Poikilocytosis Anisocytosis Microcytosis Macrocytosis Ovalocytes RBC Morph Comment PT (9.5-12.1) SECONDS INR Sodium 137 (136-145) mEq/L Potassium 5.1 (3.5-5.1) mEq/L Chloride 104 (98-107) mEq/L Carbon Dioxide 24 (21-32) mEq/L Anion Gap 14.1 (5-15) BUN 65 H (7-18) mg/dL Creatinine 1.3 (0.7-1.3) mg/dL Est Cr Clr Drug Dosing 38.13 mL/min Estimated GFR (MDRD) 52 (>60) mL/min BUN/Creatinine Ratio 50.0 H (14-18) Glucose 117 H (83-115) mg/dL POC Glucose 61 L (83-110) mg/dL Calcium 9.5 (8.5-10.1) mg/dL Magnesium 2.0 (1.8-2.4) mg/dl Total Bilirubin (0.2-1.0) mg/dL AST (15-37) U/L ALT (16-63) U/L Alkaline Phosphatase (46-116) U/L CK-MB (CK-2) 14.3 H (0-3.6) ng/ml Troponin I 0.046 (0.00-0.056) ng/mL Total Protein (6.4-8.2) g/dl Albumin (3.4-5.0) g/dl Globulin gm/dL Albumin/Globulin Ratio (1-2) Free T4 (0.76-1.46) ng/dL TSH 3rd Generation (0.358-3.74) uIU/mL Urine Color (Yellow) Urine Appearance (Clear) Urine pH (5.0-8.0) Ur Specific [place] (1.005-1.030) Urine Protein (Negative) Urine Glucose (UA) (Negative) Urine Ketones (Negative) Urine Occult Blood (Negative) Urine Nitrite (Negative) Urine Bilirubin (Negative) Urine Urobilinogen (0.2-1.0) Ur Leukocyte Esterase (Negative) Urine RBC (0-5) /hpf Urine WBC (0-5) /hpf Ur Epithelial Cells (0-5) /hpf Urine Bacteria (FEW) /hpf Urine Mucus (FEW) /hpf Urine Yeast (Budding) (NOT SEEN) 01/28/18 01/28/18 Range/Units 05:20 06:07 WBC (4.23-9.07) K/mm3 RBC (4.63-6.08) M/mm3 Hgb (13.7-17.5) gm/L Hct (40.1-51.0) % MCV (79.0-92.2) fl MCH (25.7-32.2) pg MCHC (32.2-35.5) g/dl RDW Std Deviation (35.1-43.9) fL Plt Count (163-337) K/mm3 MPV (9.4-12.3) fl Neut % (Auto) (34.0-67.9) % Lymph % (Auto) (21.8-53.1) % [place] % (Auto) (5.3-12.2) % Eos % (Auto) (0.8-7.0) Baso % (Auto) (0.1-1.2) % Neut # (Auto) (1.78-5.38) K/mm3 Lymph # (Auto) (1.32-3.57) K/mm3 [place] # (Auto) (0.30-0.82) K/mm3 Eos # (Auto) (0.04-0.54) K/mm3 Baso # (Auto) (0.01-0.08) K/mm3 Neutrophils % (Manual) (40-60) % Band Neutrophils % (0-10) % Lymphocytes % (Manual) (20-40) % Atypical Lymphs % % Monocytes % (Manual) (2-10) % Eosinophils % (Manual) (0.8-7.0) % Basophils % (Manual) (0.2-1.2) Manual Slide Review Platelet Estimate Polychromasia Hypochromasia Poikilocytosis Anisocytosis Microcytosis Macrocytosis Ovalocytes RBC Morph Comment PT 18.1 H (9.5-12.1) SECONDS INR 1.68 Sodium (136-145) mEq/L Potassium (3.5-5.1) mEq/L Chloride (98-107) mEq/L Carbon Dioxide (21-32) mEq/L Anion Gap (5-15) BUN (7-18) mg/dL Creatinine (0.7-1.3) mg/dL Est Cr Clr Drug Dosing mL/min Estimated GFR (MDRD) (>60) mL/min BUN/Creatinine Ratio (14-18) Glucose (83-115) mg/dL POC Glucose 116 H (83-110) mg/dL Calcium (8.5-10.1) mg/dL Magnesium (1.8-2.4) mg/dl Total Bilirubin (0.2-1.0) mg/dL AST (15-37) U/L ALT (16-63) U/L Alkaline Phosphatase (46-116) U/L CK-MB (CK-2) (0-3.6) ng/ml Troponin I (0.00-0.056) ng/mL Total Protein (6.4-8.2) g/dl Albumin (3.4-5.0) g/dl Globulin gm/dL Albumin/Globulin Ratio (1-2) Free T4 (0.76-1.46) ng/dL TSH 3rd Generation (0.358-3.74) uIU/mL Urine Color (Yellow) Urine Appearance (Clear) Urine pH (5.0-8.0) Ur Specific [place] (1.005-1.030) Urine Protein (Negative) Urine Glucose (UA) (Negative) Urine Ketones (Negative) Urine Occult Blood (Negative) Urine Nitrite (Negative) Urine Bilirubin (Negative) Urine Urobilinogen (0.2-1.0) Ur Leukocyte Esterase (Negative) Urine RBC (0-5) /hpf Urine WBC (0-5) /hpf Ur Epithelial Cells (0-5) /hpf Urine Bacteria (FEW) /hpf Urine Mucus (FEW) /hpf Urine Yeast (Budding) (NOT SEEN) Med Orders - Current: Current Medications Acetaminophen (Tylenol) 650 mg PO Q4H PRN PRN Reason: Pain (Mild 1-3)/fever Albuterol/Ipratropium (Duoneb 3.0-0.5 Mg/3 Ml) 3 ml NEB Q4H PRN PRN Reason: Shortness Of Breath/wheezing Last Admin: 01/27/18 21:40 Dose: 3 ml Allopurinol (Zyloprim) 150 mg PO BEDTIME [facility] Last Admin: 01/27/18 22:15 Dose: 150 mg Aspirin (Halfprin) 81 mg PO BEDTIME [facility] Last Admin: 01/27/18 22:15 Dose: 81 mg Bisacodyl (Dulcolax) 5 mg PO DAILY PRN PRN Reason: Constipation Clopidogrel Bisulfate (Plavix) 75 mg PO DAILY [facility] Dextrose/Water (Dextrose 50% In Water) 50 ml IVPUSH ASDIRECTED PRN PRN Reason: Hypoglycemia Docusate Sodium (Colace) 100 mg PO BID PRN PRN Reason: Constipation Furosemide (Lasix) 40 mg PO DAILY [facility] Glipizide (Glucotrol Xl) 2.5 mg PO DAILY [facility] Hydralazine HCl (Apresoline) 10 mg IVPUSH Q4H PRN PRN Reason: Hypertension Promethazine HCl 6.25 mg/ (Sodium Chloride) 50.25 mls @ 100 mls/hr IV Q6H PRN PRN Reason: Nausea/Vomiting Amiodarone HCl/Dextrose (Nexterone In Dextrose 360 Mg/200 Ml) 360 mg in 200 mls @ 16.666 mls/hr IV Q12H [facility] Stop: 01/28/18 23:45 Last Admin: 01/28/18 05:04 Dose: 16.666 mls/hr Ibuprofen (Motrin) 600 mg PO Q6H PRN PRN Reason: Abdominal Pain Insulin Aspart (Novolog) 0 unit SUBCUT QIDACANDBED [facility]; Protocol Last Admin: 01/28/18 06:16 Dose: Not Given Lidocaine (Lidoderm 5%) 700 mg TOP Q24H [facility] Lorazepam (Ativan) 2 mg IVPUSH Q4H PRN PRN Reason: Seizures Magnesium Sulfate (Pharmacy To Dose - Magnesium Replacement) 1 dose .XX ASDIRECTED [facility] Meclizine HCl (Antivert) 12.5 mg PO Q6H PRN PRN Reason: Dizziness Metoprolol Succinate (Toprol Xl) 12.5 mg PO DAILY [facility] Metoprolol Tartrate (Lopressor) 5 mg IVPUSH Q4H PRN PRN Reason: Tachycardia Miscellaneous Information (Remove Patch) 1 ea TRDERM DAILY [facility] Advair 50/500 Own (Med) 1 each INH BID [facility] Ondansetron HCl (Zofran) 4 mg IV Q6H PRN PRN Reason: Nausea/Vomiting Polyethylene Glycol (Miralax) 17 gm PO DAILY PRN PRN Reason: Constipation Potassium Chloride (Pharmacy To Dose - Potassium Replacement) 1 dose .XX ASDIRECTED [facility] Prednisone (Prednisone) 10 mg PO DAILY [facility] Senna/Docusate Sodium (Senna Plus) 1 tab PO BID PRN PRN Reason: Constipation Senna/Docusate Sodium (Senna Plus) 1 tab PO DAILY [facility] Simvastatin (Zocor) 10 mg PO BEDTIME [facility] Tamsulosin HCl (Flomax) 0.4 mg PO DAILY [facility] Warfarin Sodium (Coumadin) 6 mg PO MoFr@1800 [facility] Warfarin Sodium (Coumadin) 3 mg PO SuTuWeThSa@1800 [facility] Last Admin: 01/27/18 22:15 Dose: 3 mg Discontinued Medications Hydrocodone Bitart/Acetaminophen ([place] 325-5 Mg) 1 tab PO Q4H PRN PRN Reason: Pain (moderate 4-6) Clonidine HCl (Catapres Tts-2) 0.2 mg TRDERM Q7D ONE Stop: 01/27/18 21:21 Last Admin: 01/27/18 23:27 Dose: Not Given Enoxaparin Sodium (Lovenox) 30 mg SUBCUT ONETIME ONE Stop: 01/27/18 22:06 Last Admin: 01/27/18 22:24 Dose: 30 mg Fluconazole (Diflucan) 400 mg PO ONETIME STA Stop: 01/27/18 18:55 Last Admin: 01/27/18 19:24 Dose: 400 mg Hydromorphone HCl (Dilaudid) 0.25 mg IVPUSH Q2H PRN PRN Reason: Pain (severe 7-10) Sodium Chloride (Normal Saline) 500 mls @ 999 mls/hr IV .BOLUS ONE Stop: 01/27/18 17:05 Last Admin: 01/27/18 16:41 Dose: 999 mls/hr Amiodarone HCl/Dextrose (Nexterone In Dextrose 360 Mg/200 Ml) 200 mls @ 33.333 mls/hr IV ASDIRECTED JAROD; Protocol Amiodarone HCl 150 mg/ (Dextrose/Water) 103 mls @ 600 mls/hr IV .BOLUS ONE Stop: 01/27/18 22:40 Last Admin: 01/27/18 23:53 Dose: Not Given Amiodarone HCl/Dextrose (Nexterone In Dextrose 360 Mg/200 Ml) 200 mls @ 33.333 mls/hr IV ASDIRECTED JAROD; Protocol Amiodarone HCl/Dextrose 150 mg (/ Premix) 100 mls @ 400 mls/hr IV NOW ONE Stop: 01/27/18 23:14 Last Admin: 01/27/18 23:09 Dose: 400 mls/hr Amiodarone HCl/Dextrose (Nexterone In Dextrose 360 Mg/200 Ml) 360 mg in 200 mls @ 33.333 mls/hr IV ASDIRECTED JAROD Stop: 01/28/18 05:44 Last Admin: 01/27/18 23:28 Dose: 33.333 mls/hr Lidocaine (Lidoderm 5%) 700 mg TOP ONETIME ONE Stop: 01/27/18 21:01 Last Admin: 01/27/18 22:16 Dose: 700 mg Lorazepam (Ativan) 0.25 mg IV Q6H PRN PRN Reason: Anxiety Mometasone Furoate/Formoterol Fumar (Dulera 200-5 Mcg) 0 puff IH BIDRT JAROD Last Admin: 01/27/18 21:48 Dose: Not Given Ondansetron HCl (Zofran) 4 mg IVPUSH ONETIME ONE Stop: 01/27/18 16:36 Last Admin: 01/27/18 16:41 Dose: 4 mg Scopolamine (Transderm-Scop) 1.5 mg TRDERM Q72H ONE Stop: 01/27/18 19:28 Last Admin: 01/27/18 23:27 Dose: Not Given - Exam Quality Assessment: No: Supplemental Oxygen General: Alert, Oriented, Cooperative, No Acute Distress HEENT: Pupils Equal, Pupils Reactive, EOMI, Mucous Membr. Moist/[place] Neck: Supple, Trachea Midline Lungs: Normal Respiratory Effort, Decreased Breath Sounds Cardiovascular: Irregular Rhythm GI/Abdominal Exam: Normal Bowel Sounds, Soft, Non-Tender, No Organomegaly, No Distention, No Abnormal Bruit, No Mass (Male) Exam: Deferred Back Exam: Normal Inspection, Decreased Range of Motion Extremities: Normal Inspection, Normal Range of Motion, Non-Tender, Normal Capillary Refill Peripheral Pulses: 1+: Dorsalis Pedis (L), Dorsalis Pedis (R) Skin: Warm, Dry, Intact, Ecchymosis Neurological: No New Focal Deficit. No: Normal Gait Psy/Mental Status: Alert, Normal Affect, Normal Mood - Problem List Review Problem List Initiated/Reviewed/Updated: Yes - My Orders Last 24 Hours: My Active Orders 01/27/18 19:14 Oxygen Therapy [RC] PRN Up With Assistance [RC] ASDIRECTED Up ad Erica [RC] ASDIRECTED VTE/DVT Education [RC] 10,22 Vital Signs [RC] Q1HR Consult to Case Management [CONS] Routine Consult to Account Receivable Clerk [CONS] Routine Consult to Spiritual Care [CONS] Routine OT Evaluation and Treatment [CONS] Routine PT Evaluation and Treatment [CONS] Routine Respiratory Care Assess and Treatment [CONS] Routine Acetaminophen [Tylenol] 650 mg PO Q4H PRN Albuterol/Ipratropium [DuoNeb 3.0-0.5 MG/3 ML] 3 ml NEB Q4H PRN Bisacodyl [Dulcolax] 5 mg PO DAILY PRN Docusate Sodium [Colace] 100 mg PO BID PRN Docusate Sodium/Sennosides [Senna Plus] 1 tab PO BID PRN Ondansetron [Zofran] 4 mg IV Q6H PRN Polyethylene Glycol 3350 [MiraLAX] 17 gm PO DAILY PRN Promethazine [Phenergan] 6.25 mg Sodium Chloride 0.9% [Normal Saline] 50 ml IV Q6H 01/27/18 19:17 RT Aerosol Therapy [RC] ASDIRECTED 01/27/18 19:20 LORazepam [Ativan] 2 mg IVPUSH Q4H PRN Metoprolol Tartrate [Lopressor] 5 mg IVPUSH Q4H PRN hydrALAZINE [Apresoline] 10 mg IVPUSH Q4H PRN 01/27/18 19:22 Blood Glucose Check, Bedside [RC] QIDACANDBED Dextrose 50% in Water 50 ml IVPUSH ASDIRECTED PRN 01/27/18 19:26 Meclizine [Antivert] 12.5 mg PO Q6H PRN 01/27/18 19:30 Magnesium Rep Pharmacy to Dose [Pharmacy to Dose - Magnesium Replacement] 1 dose .XX ASDIRECTED Potassium Rep Pharmacy to Dose [Pharmacy to Dose - Potassium Replacement] 1 dose .XX ASDIRECTED 01/27/18 20:15 Warfarin [Coumadin] 3 mg PO SuTuWeThSa@1800 01/27/18 21:00 Allopurinol [Zyloprim] 150 mg PO BEDTIME Aspirin [Halfprin] 81 mg PO BEDTIME 01/27/18 22:00 Insulin Aspart [NovoLOG] See Protocol SUBCUT QIDACANDBED 01/27/18 22:03 EKG 12 Lead [EK] Routine 01/27/18 22:13 Patient Status [ADT] Routine 01/27/18 22:51 Ibuprofen [Motrin] 600 mg PO Q6H PRN 01/27/18 23:13 Echo Comp wo Cont [US] Routine 01/27/18 Dinner Consistent Carbohydrate Diet [DIET] Heart Healthy Diet [DIET] 01/28/18 04:55 Resuscitation Status Routine 01/28/18 05:45 Amiodarone In Dextrose,Iso-Osm [Nexterone in Dextrose 360 MG/200 ML] 360 mg in 200 ml IV Q12H 01/28/18 09:00 Clopidogrel [Plavix] 75 mg PO DAILY Docusate Sodium/Sennosides [Senna Plus] 1 tab PO DAILY Furosemide [Lasix] 40 mg PO DAILY Metoprolol Succinate [Toprol XL] 12.5 mg PO DAILY Non-Formulary Medication [NF Drug] 1 each INH BID Remove Patch 1 ea TRDERM DAILY Tamsulosin [Flomax] 0.4 mg PO DAILY glipiZIDE [Glucotrol XL] 2.5 mg PO DAILY predniSONE 10 mg PO DAILY 01/28/18 18:00 Warfarin [Coumadin] 6 mg PO MoFr@1800 01/28/18 21:00 Lidocaine 5% [Lidoderm 5%] 700 mg TOP Q24H Simvastatin [Zocor] 10 mg PO BEDTIME 01/29/18 05:11 INR,PT,PROTHROMBIN TIME [COAG] AM 01/30/18 05:11 INR,PT,PROTHROMBIN TIME [COAG] AM 01/31/18 05:11 INR,PT,PROTHROMBIN TIME [COAG] AM - Plan Plan:: Assessment/Plan: Acute: S/p Ventricular Tachycardia - Carries a hx/o Abnormal rhythm on Warfarin (Subtherapeutic) - Possibly the main cause and may not necessarily sedation from norco - Telemetry is busy since he go the the floor; he was already having abnormal rhythm while he was in ED - He only takes Metoprolol (XL) 12.5 mg po Daily for rate control medications - Awaiting 2D echo report - Thyroid panel is within normal limits - Continue Amiodarone drip per unit protocol; start oral dosing 200 mg po BID in AM Dizziness, Improved - Medication Side Effects vs Hypo-perfusion from Abnormal Rhythm - Takes norco for back pain (sedation) - His rhythm in ED "was abnormal and all over" when I called earlier today before I left the hospital; his rhythm via Telemetry shows hypo-perfusing PVCs and Ventricular Tachycardia - EKG confirmed telemetry reading - No narcotics and avoid medications with hypnotics or sedation - PRN Meclizine UA - Pos for yeast; Cx confirmed but he is asymptomatic - He is afebrile w/ mild leukocytosis - Received onetime dose of fluconazole in ED - Risk factors: he is on chronic steroid Generalized Weakness - 2/2 Back Pain from L1 Compression Fracture - Vit D level - PT/OT consult - High Fall Risk L1 Compression Fracture - S/p Recent Fall - Lidoderm Patch Daily - PT/OT therapy Resolved: S/p AMS - He was alert/awake and reasonable to me at the time of my interview - He was able to provide a reasonable HPI - Head CT scan to r/o brain bleed since he is on warfarin--> no acute abnormal findings - No obvious neurologic deficits S/p Subtherapeutic INR, - INR 1.57--> 1.68 - Continue home dose warfarin and will bridge with lovenox subQ until INR is therapeutic - Offered NOACs to patient and his , after discussing risks and benefit; patient selected xarelto ( on it too) - Start dose in AM Chronic: Impaired Vision Arrhythmia on warfarin CAD status post 5 vessel CABG Hypertension AAA status post repair Carotid stenosis status post endarterectomy PVD status post bilateral lower extremity stent placement COPD DERICK with CPAP S/p pacemaker placement BPH status post TURP Chronic renal insufficiency Diabetes nephropathy Gout Osteopenia Type 2 diabetes Unstable Gait Plan: He is clinically and hemodynamically better Routine AM Labs Accu-check QID AC and HS with ISS EKG this am V-paced; Telemetry Fall Precautions DVT/Stroke PPx: Warfarin and Lovenox SubQ; Xarelto in AM D/c flomax and prednisone RT/PT/OT consult Awaiting report from PCP office Ortho consult defer outpatient SW/CM for d/c planning Code status: CPR Only LOS anticipate > 96hrs pending SNF/Rehab placement
[2018-01-28] MEDS ORDERED: predniSONE 10 MG Tab PO SCH (09:00)
[2018-01-28] MEDS ORDERED: Tamsulosin 0.4 MG Cap.ER PO SCH (09:00)
[2018-01-28] MEDS: ADVAIR INH SCH ×2 (09:22→21:24)
[2018-01-28] MEDS: Albuterol/Ipratropium 3.0-0.5 MG/3 ML Neb Soln NEB PRN ×2 (09:22→21:27)
[2018-01-28] MEDS: Clopidogrel 75 MG Tab PO SCH (09:40)
[2018-01-28] MEDS: glipiZIDE 2.5 MG Tab.ER PO SCH (09:40)
[2018-01-28] MEDS: Furosemide 40 MG Tab PO SCH (09:40)
[2018-01-28] MEDS: Metoprolol Succinate 25 MG Tab.ER PO SCH (09:43)
[2018-01-28] MEDS: Remove Patch*LIDODERM TRDERM SCH (11:09)
--- NOTE | 2018-01-28 18:34 | PCM.SN ---
- Free Text/Narrative Note: Spoke to and updated about her about 's clinical progress and discharge care plan. Informed her, 's dizziness maybe due to abnormal rhythm +/- sedation from [facility].
[2018-01-28] MEDS: Simvastatin 10 MG Tab PO SCH (20:58)
[2018-01-28] MEDS: Aspirin 81 MG Tab.EC PO SCH (20:58)
[2018-01-28] MEDS: Allopurinol 300 MG Tab PO SCH (20:59)
[2018-01-28] MEDS: Lidocaine 5% 700 MG Patch TOP SCH (21:00)
--- NOTE | 2018-01-29 06:16 | PCM.PN ---
- General Info Date of Service: 01/29/18 Admission Dx/Problem (Free Text): Admission Diagnosis/Problem Admission Diagnosis/Problem Dizziness Functional Status: Reports: Pain Controlled, Tolerating Diet, Urinating. Denies : Ambulating - Review of Systems General: Denies: Fever, Weakness, Fatigue, Malaise, Chills HEENT: Reports: No Symptoms Pulmonary: Denies: Shortness of Breath Cardiovascular: Denies: Chest Pain Gastrointestinal: Reports: Constipation. Denies: Abdominal Pain, Nausea, Vomiting Genitourinary: Reports: No Symptoms Musculoskeletal: Reports: No Symptoms Skin: Reports: Bruising. Denies: Cyanosis, Jaundice, Mottled, Pallor, Diaphoresis, Rash Neurological: Reports: Difficulty Walking, Weakness, Gait Disturbance. Denies: Confusion Psychiatric: Denies: Depression, Anxiety, Agitation, Hallucinations Systems Review Comment:: No significant overnight or acute issues. He slept pretty good last night. He has no acute issues but reports not having a bowel movement yet. His back pain is better with a scale 5/10. His is now off Amiodarone drip and will start on oral dosing as scheduled. - Patient Data Vitals - Most Recent: Last Vital Signs Temp 36.3 C 01/29/18 04:00 Pulse 66 01/29/18 06:00 Resp 17 01/29/18 04:00 BP 138/65 01/29/18 06:00 Pulse Ox 95 01/29/18 04:00 Orthostatic Blood Pressure [ 134/94 Supine] Weight - Most Recent: 73.936 kg I&O - Last 24 Hours: Intake & Output 01/28/18 01/28/18 01/29/18 14:59 22:59 06:59 Intake Total 300 583 630 Output Total 425 215 650 Balance -125 368 -20 Lab Results Last 24 Hours: Laboratory Results - last 24 hr 01/28/18 01/28/18 01/28/18 Range/Units 05:20 05:20 05:20 Manual Slide Review Abnormal smear PT 18.1 H (9.5-12.1) SECONDS INR 1.68 Sodium 137 (136-145) mEq/L Potassium 5.1 (3.5-5.1) mEq/L Chloride 104 (98-107) mEq/L Carbon Dioxide 24 (21-32) mEq/L Anion Gap 14.1 (5-15) BUN 65 H (7-18) mg/dL Creatinine 1.3 (0.7-1.3) mg/dL Est Cr Clr Drug Dosing 38.13 mL/min Estimated GFR (MDRD) 52 (>60) mL/min BUN/Creatinine Ratio 50.0 H (14-18) Glucose 117 H (83-115) mg/dL POC Glucose (83-110) mg/dL Calcium 9.5 (8.5-10.1) mg/dL Magnesium 2.0 (1.8-2.4) mg/dl CK-MB (CK-2) 14.3 H (0-3.6) ng/ml Troponin I 0.046 (0.00-0.056) ng/mL 01/28/18 01/28/18 01/28/18 Range/Units 11:53 17:48 18:42 Manual Slide Review PT (9.5-12.1) SECONDS INR Sodium (136-145) mEq/L Potassium (3.5-5.1) mEq/L Chloride (98-107) mEq/L Carbon Dioxide (21-32) mEq/L Anion Gap (5-15) BUN (7-18) mg/dL Creatinine (0.7-1.3) mg/dL Est Cr Clr Drug Dosing mL/min Estimated GFR (MDRD) (>60) mL/min BUN/Creatinine Ratio (14-18) Glucose (83-115) mg/dL POC Glucose 104 65 L 109 (83-110) mg/dL Calcium (8.5-10.1) mg/dL Magnesium (1.8-2.4) mg/dl CK-MB (CK-2) (0-3.6) ng/ml Troponin I (0.00-0.056) ng/mL 01/28/18 Range/Units 21:19 Manual Slide Review PT (9.5-12.1) SECONDS INR Sodium (136-145) mEq/L Potassium (3.5-5.1) mEq/L Chloride (98-107) mEq/L Carbon Dioxide (21-32) mEq/L Anion Gap (5-15) BUN (7-18) mg/dL Creatinine (0.7-1.3) mg/dL Est Cr Clr Drug Dosing mL/min Estimated GFR (MDRD) (>60) mL/min BUN/Creatinine Ratio (14-18) Glucose (83-115) mg/dL POC Glucose 104 (83-110) mg/dL Calcium (8.5-10.1) mg/dL Magnesium (1.8-2.4) mg/dl CK-MB (CK-2) (0-3.6) ng/ml Troponin I (0.00-0.056) ng/mL Geoffrey Results Last 24 Hours: Microbiology 01/27/18 17:35 Urine Culture - Preliminary Urine, Quick Cath (In-Out) YE[facility] Med Orders - Current: Current Medications Acetaminophen (Tylenol) 650 mg PO Q4H PRN PRN Reason: Pain (Mild 1-3)/fever Albuterol/Ipratropium (Duoneb 3.0-0.5 Mg/3 Ml) 3 ml NEB Q4H PRN PRN Reason: Shortness Of Breath/wheezing Last Admin: 01/28/18 21:27 Dose: 3 ml Allopurinol (Zyloprim) 150 mg PO BEDTIME [facility] Last Admin: 01/28/18 20:59 Dose: 150 mg Amiodarone HCl (Cordarone) 200 mg PO BID [facility] Aspirin (Halfprin) 81 mg PO BEDTIME [facility] Last Admin: 01/28/18 20:58 Dose: 81 mg Bisacodyl (Dulcolax) 5 mg PO DAILY PRN PRN Reason: Constipation Clopidogrel Bisulfate (Plavix) 75 mg PO DAILY [facility] Last Admin: 01/28/18 09:40 Dose: 75 mg Dextrose/Water (Dextrose 50% In Water) 50 ml IVPUSH ASDIRECTED PRN PRN Reason: Hypoglycemia Docusate Sodium (Colace) 100 mg PO BID PRN PRN Reason: Constipation Furosemide (Lasix) 40 mg PO DAILY [facility] Last Admin: 01/28/18 09:40 Dose: 40 mg Glipizide (Glucotrol Xl) 2.5 mg PO DAILY [facility] Last Admin: 01/28/18 09:40 Dose: 2.5 mg Hydralazine HCl (Apresoline) 10 mg IVPUSH Q4H PRN PRN Reason: Hypertension Promethazine HCl 6.25 mg/ (Sodium Chloride) 50.25 mls @ 100 mls/hr IV Q6H PRN PRN Reason: Nausea/Vomiting Ibuprofen (Motrin) 600 mg PO Q6H PRN PRN Reason: Abdominal Pain Insulin Aspart (Novolog) 0 unit SUBCUT QIDACANDBED [facility]; Protocol Last Admin: 01/28/18 21:22 Dose: Not Given Lidocaine (Lidoderm 5%) 700 mg TOP Q24H [facility] Last Admin: 01/28/18 21:00 Dose: 700 mg Lorazepam (Ativan) 2 mg IVPUSH Q4H PRN PRN Reason: Seizures Magnesium Sulfate (Pharmacy To Dose - Magnesium Replacement) 1 dose .XX ASDIRECTED [facility] Meclizine HCl (Antivert) 12.5 mg PO Q6H PRN PRN Reason: Dizziness Metoprolol Succinate (Toprol Xl) 12.5 mg PO DAILY [facility] Last Admin: 01/28/18 09:43 Dose: 12.5 mg Metoprolol Tartrate (Lopressor) 5 mg IVPUSH Q4H PRN PRN Reason: Tachycardia Miscellaneous Information (Remove Patch) 1 ea TRDERM DAILY [facility] Last Admin: 01/28/18 11:09 Dose: Not Given Advair 50/500 Own (Med) 1 each INH BID [facility] Last Admin: 01/28/18 21:24 Dose: 1 each Ondansetron HCl (Zofran) 4 mg IV Q6H PRN PRN Reason: Nausea/Vomiting Polyethylene Glycol (Miralax) 17 gm PO DAILY PRN PRN Reason: Constipation Potassium Chloride (Pharmacy To Dose - Potassium Replacement) 1 dose .XX ASDIRECTED [facility] Rivaroxaban (Xarelto) 20 mg PO DAILY@1800 [facility] Senna/Docusate Sodium (Senna Plus) 1 tab PO BID PRN PRN Reason: Constipation Senna/Docusate Sodium (Senna Plus) 1 tab PO DAILY [facility] Last Admin: 01/28/18 09:40 Dose: 1 tab Simvastatin (Zocor) 10 mg PO BEDTIME [facility] Last Admin: 01/28/18 20:58 Dose: 10 mg Discontinued Medications Hydrocodone Bitart/Acetaminophen ([place] 325-5 Mg) 1 tab PO Q4H PRN PRN Reason: Pain (moderate 4-6) Clonidine HCl (Catapres Tts-2) 0.2 mg TRDERM Q7D ONE Stop: 01/27/18 21:21 Last Admin: 01/27/18 23:27 Dose: Not Given Enoxaparin Sodium (Lovenox) 30 mg SUBCUT ONETIME ONE Stop: 01/27/18 22:06 Last Admin: 01/27/18 22:24 Dose: 30 mg Fluconazole (Diflucan) 400 mg PO ONETIME STA Stop: 01/27/18 18:55 Last Admin: 01/27/18 19:24 Dose: 400 mg Hydromorphone HCl (Dilaudid) 0.25 mg IVPUSH Q2H PRN PRN Reason: Pain (severe 7-10) Sodium Chloride (Normal Saline) 500 mls @ 999 mls/hr IV .BOLUS ONE Stop: 01/27/18 17:05 Last Admin: 01/27/18 16:41 Dose: 999 mls/hr Amiodarone HCl/Dextrose (Nexterone In Dextrose 360 Mg/200 Ml) 200 mls @ 33.333 mls/hr IV ASDIRECTED JAROD; Protocol Amiodarone HCl 150 mg/ (Dextrose/Water) 103 mls @ 600 mls/hr IV .BOLUS ONE Stop: 01/27/18 22:40 Last Admin: 01/27/18 23:53 Dose: Not Given Amiodarone HCl/Dextrose (Nexterone In Dextrose 360 Mg/200 Ml) 200 mls @ 33.333 mls/hr IV ASDIRECTED JAROD; Protocol Amiodarone HCl/Dextrose 150 mg (/ Premix) 100 mls @ 400 mls/hr IV NOW ONE Stop: 01/27/18 23:14 Last Admin: 01/27/18 23:09 Dose: 400 mls/hr Amiodarone HCl/Dextrose (Nexterone In Dextrose 360 Mg/200 Ml) 360 mg in 200 mls @ 33.333 mls/hr IV ASDIRECTED JAROD Stop: 01/28/18 05:44 Last Admin: 01/27/18 23:28 Dose: 33.333 mls/hr Amiodarone HCl/Dextrose (Nexterone In Dextrose 360 Mg/200 Ml) 360 mg in 200 mls @ 16.666 mls/hr IV Q12H [facility] Stop: 01/28/18 23:45 Last Admin: 01/28/18 17:13 Dose: 16.666 mls/hr Lidocaine (Lidoderm 5%) 700 mg TOP ONETIME ONE Stop: 01/27/18 21:01 Last Admin: 01/27/18 22:16 Dose: 700 mg Lorazepam (Ativan) 0.25 mg IV Q6H PRN PRN Reason: Anxiety Mometasone Furoate/Formoterol Fumar (Dulera 200-5 Mcg) 0 puff IH BIDRT [facility] Last Admin: 01/27/18 21:48 Dose: Not Given Ondansetron HCl (Zofran) 4 mg IVPUSH ONETIME ONE Stop: 01/27/18 16:36 Last Admin: 01/27/18 16:41 Dose: 4 mg Prednisone (Prednisone) 10 mg PO DAILY [facility] Last Admin: 01/28/18 09:40 Dose: Not Given Scopolamine (Transderm-Scop) 1.5 mg TRDERM Q72H ONE Stop: 01/27/18 19:28 Last Admin: 01/27/18 23:27 Dose: Not Given Tamsulosin HCl (Flomax) 0.4 mg PO DAILY [facility] Last Admin: 01/28/18 09:40 Dose: Not Given Warfarin Sodium (Coumadin) 6 mg PO MoFr@1800 [facility] Last Admin: 01/28/18 18:38 Dose: 6 mg Warfarin Sodium (Coumadin) 3 mg PO SuTuWeThSa@1800 [facility] Last Admin: 01/27/18 22:15 Dose: 3 mg - Exam General: Alert, Oriented, Cooperative, No Acute Distress HEENT: Pupils Equal, Pupils Reactive, EOMI, Mucous Membr. Moist/[place] Neck: Supple, Trachea Midline, No JVD Lungs: Normal Respiratory Effort, Decreased Breath Sounds Cardiovascular: Irregular Rhythm GI/Abdominal Exam: Normal Bowel Sounds, Soft, Non-Tender, No Organomegaly, No Distention, No Abnormal Bruit (Male) Exam: Deferred Back Exam: Normal Inspection, Decreased Range of Motion Extremities: Normal Inspection, Normal Range of Motion, Non-Tender, No Pedal Edema, Normal Capillary Refill Peripheral Pulses: 2+: Dorsalis Pedis (L), Dorsalis Pedis (R) Skin: Warm, Dry, Intact, Ecchymosis (diffuse) Neurological: No New Focal Deficit (fairly intact). No: Normal Gait Psy/Mental Status: Alert, Normal Affect, Normal Mood - Problem List Review Problem List Initiated/Reviewed/Updated: Yes - My Orders Last 24 Hours: My Active Orders 01/28/18 09:00 Clopidogrel [Plavix] 75 mg PO DAILY Docusate Sodium/Sennosides [Senna Plus] 1 tab PO DAILY Furosemide [Lasix] 40 mg PO DAILY Metoprolol Succinate [Toprol XL] 12.5 mg PO DAILY Non-Formulary Medication [NF Drug] 1 each INH BID Remove Patch 1 ea TRDERM DAILY glipiZIDE [Glucotrol XL] 2.5 mg PO DAILY 01/28/18 21:00 Lidocaine 5% [Lidoderm 5%] 700 mg TOP Q24H Simvastatin [Zocor] 10 mg PO BEDTIME 01/29/18 09:00 Amiodarone [Cordarone] 200 mg PO BID 01/29/18 18:00 Rivaroxaban [Xarelto] 20 mg PO DAILY@1800 - Plan Plan:: Assessment/Plan: Acute: UA - Pos for yeast; Cx confirmed but he is asymptomatic - He is afebrile w/ mild leukocytosis - Received onetime dose of fluconazole in ED; would not treat him - Risk factors: he is on chronic steroid Generalized Weakness - 2/2 Back Pain from L1 Compression Fracture - Vit D level - Continue PT/OT - High Fall Risk L1 Compression Fracture - S/p Recent Fall - Lidoderm Patch Daily - Continue PT/OT - Will set up Ortho outpatient Constipation - He has been bed-bound due to back pain - Bowel stimulants and stool softener Resolved: S/p AMS - He was alert/awake and reasonable to me at the time of my interview - He was able to provide a reasonable HPI - Head CT scan to r/o brain bleed since he is on warfarin--> no acute abnormal findings - No obvious neurologic deficits S/p Subtherapeutic INR, - INR 1.57--> 1.68 - Continue home dose warfarin and will bridge with lovenox subQ until INR is therapeutic - Offered NOACs to patient and his , after discussing risks and benefit; patient selected xarelto ( on it too) - Start dose in AM S/p Ventricular Tachycardia - Carries a hx/o Abnormal rhythm on Warfarin (Subtherapeutic) - Possibly the main cause and may not necessarily sedation from norco - Telemetry is busy since he go the the floor; he was already having abnormal rhythm while he was in ED - He only takes Metoprolol (XL) 12.5 mg po Daily for rate control medications - Awaiting 2D echo report - Thyroid panel is within normal limits - Continue Amiodarone drip per unit protocol; start oral dosing 200 mg po BID in AM S/p Dizziness - Medication Side Effects vs Hypo-perfusion from Abnormal Rhythm - Takes norco for back pain (sedation) - His rhythm in ED "was abnormal and all over" when I called earlier today before I left the hospital; his rhythm via Telemetry shows hypo-perfusing PVCs and Ventricular Tachycardia - EKG confirmed telemetry reading - No narcotics and avoid medications with hypnotics or sedation - PRN Meclizine Chronic: Impaired Vision Arrhythmia on warfarin CAD status post 5 vessel CABG Hypertension AAA status post repair Carotid stenosis status post endarterectomy PVD status post bilateral lower extremity stent placement COPD DERICK with CPAP S/p pacemaker placement BPH status post TURP Chronic renal insufficiency Diabetes nephropathy Gout Osteopenia Type 2 diabetes Unstable Gait Plan: He remains clinically stable Continue current treatment Routine AM Labs Fall Precautions DVT/Stroke PPx: Xarelto Continue RT/PT/OT Awaiting report from PCP office Ortho consult outpatient; will asked CM to set up for him SW/CM for d/c planning Code status: CPR Only LOS > 96hrs pending SNF/Rehab placement
[2018-01-29] MEDS: Insulin Aspart 100 Units/ML 3 ML Pen SUBCUT SCH ×4 (07:29→22:23)
[2018-01-29] MEDS: Clopidogrel 75 MG Tab PO SCH (08:36)
[2018-01-29] MEDS: Amiodarone 200 MG Tab PO SCH ×2 (08:36→20:36)
[2018-01-29] MEDS: glipiZIDE 2.5 MG Tab.ER PO SCH (08:36)
[2018-01-29] MEDS: Furosemide 40 MG Tab PO SCH (08:36)
[2018-01-29] MEDS: Remove Patch*LIDODERM TRDERM SCH (08:38)
[2018-01-29] MEDS: Metoprolol Succinate 25 MG Tab.ER PO SCH (08:39)
[2018-01-29] MEDS: Albuterol/Ipratropium 3.0-0.5 MG/3 ML Neb Soln NEB PRN ×3 (08:50→20:10)
[2018-01-29] MEDS: ADVAIR INH SCH ×2 (08:51→20:10)
[2018-01-29] MEDS: Acetaminophen 325 MG Tab PO PRN ×3 (09:17→20:35)
[2018-01-29] MEDS ORDERED: Magnesium Hydroxide 400 MG/5 ML Susp 30 ML Cup PO ONE (14:20)
[2018-01-29] MEDS ORDERED: Bisacodyl 10 MG Supp RECTAL ONE (14:49)
[2018-01-29] MEDS: Lactulose Soln 10 GM/15 ML 30 ML UD Cup PO SCH ×2 (15:23→20:35)
[2018-01-29] MEDS: Rivaroxaban 10 MG Tab PO SCH (18:30)
[2018-01-29] MEDS: Aspirin 81 MG Tab.EC PO SCH (20:36)
[2018-01-29] MEDS: Simvastatin 10 MG Tab PO SCH (20:36)
[2018-01-29] MEDS: Allopurinol 300 MG Tab PO SCH (20:36)
[2018-01-29] MEDS: Lidocaine 5% 700 MG Patch TOP SCH (20:37)
[2018-01-29] MEDS: Ondansetron 4 MG/2 ML SDV IV PRN (20:59)
[2018-01-29] MEDS: HYDROmorphone 0.5 MG/0.5 ML SYRINGE IV PRN (22:16)
[2018-01-30] MEDS: HYDROmorphone 0.5 MG/0.5 ML SYRINGE IV PRN ×3 (02:44→20:46)
[2018-01-30] MEDS: Insulin Aspart 100 Units/ML 3 ML Pen SUBCUT SCH ×3 (06:25→18:51)
--- NOTE | 2018-01-30 07:56 | PCM.PN ---
- General Info Date of Service: 01/30/18 Admission Dx/Problem (Free Text): Admission Diagnosis/Problem Admission Diagnosis/Problem Dizziness Subjective Update: Follow Up Functional Status: Reports: Pain Controlled, Tolerating Diet, Ambulating, Urinating - Review of Systems General: Denies: Fever, Weakness, Fatigue, Chills HEENT: Denies: No Symptoms Pulmonary: Denies: Shortness of Breath Cardiovascular: Denies: Chest Pain, Palpitations, Dyspnea on Exertion Gastrointestinal: Reports: Abdominal Pain, Constipation, Flatus, Nausea, Vomiting. Denies: Decreased Appetite, Diarrhea Genitourinary: Reports: No Symptoms Musculoskeletal: Reports: No Symptoms Skin: Reports: Bruising Neurological: Reports: Confusion, Gait Disturbance. Denies: Difficulty Walking , Weakness Psychiatric: Denies: Mood Lability, Anxiety, Agitation Systems Review Comment:: Patient seen and examined at bedside. He does not look good this morning. He has gotten lactulose, rectal suppository and soap beryl enema but still w/o any relief. Last night he sat for about 20 mins in the toilet but nothing came out of him. He reports abdominal cramps and still passing gas. - Patient Data Vitals - Most Recent: Last Vital Signs Temp 36.3 C 01/30/18 06:08 Pulse 61 01/30/18 06:08 Resp 22 H 01/30/18 06:08 BP 106/66 01/30/18 06:08 Pulse Ox 91 L 01/30/18 06:08 Orthostatic Blood Pressure [ 134/94 Supine] Weight - Most Recent: 75.523 kg I&O - Last 24 Hours: Intake & Output 01/29/18 01/30/18 01/30/18 22:59 06:59 14:59 Intake Total 650 250 Output Total 300 425 Balance 350 -175 Lab Results Last 24 Hours: Laboratory Results - last 24 hr 01/29/18 01/29/18 01/29/18 Range/Units 11:38 17:53 18:40 POC Glucose 99 78 L 85 (83-110) mg/dL 01/29/18 01/30/18 Range/Units 20:45 06:05 POC Glucose 121 H 82 L (83-110) mg/dL Geoffrey Results Last 24 Hours: Microbiology 01/27/18 17:35 Urine Culture - Final Urine, Quick Cath (In-Out) Nimo [facility]icans Med Orders - Current: Current Medications Acetaminophen (Tylenol) 650 mg PO Q4H PRN PRN Reason: Pain (Mild 1-3)/fever Last Admin: 01/29/18 20:35 Dose: 650 mg Albuterol/Ipratropium (Duoneb 3.0-0.5 Mg/3 Ml) 3 ml NEB Q4H PRN PRN Reason: Shortness Of Breath/wheezing Last Admin: 01/29/18 20:10 Dose: 3 ml Allopurinol (Zyloprim) 150 mg PO BEDTIME [facility] Last Admin: 01/29/18 20:36 Dose: 150 mg Amiodarone HCl (Cordarone) 200 mg PO BID [facility] Last Admin: 01/29/18 20:36 Dose: 200 mg Aspirin (Halfprin) 81 mg PO BEDTIME [facility] Last Admin: 01/29/18 20:36 Dose: 81 mg Bisacodyl (Dulcolax) 5 mg PO DAILY PRN PRN Reason: Constipation Last Admin: 01/29/18 09:17 Dose: 5 mg Clopidogrel Bisulfate (Plavix) 75 mg PO DAILY [facility] Last Admin: 01/29/18 08:36 Dose: 75 mg Dextrose/Water (Dextrose 50% In Water) 50 ml IVPUSH ASDIRECTED PRN PRN Reason: Hypoglycemia Docusate Sodium (Colace) 100 mg PO BID PRN PRN Reason: Constipation Furosemide (Lasix) 40 mg PO DAILY [facility] Last Admin: 01/29/18 08:36 Dose: 40 mg Glipizide (Glucotrol Xl) 2.5 mg PO DAILY [facility] Last Admin: 01/29/18 08:36 Dose: 2.5 mg Hydralazine HCl (Apresoline) 10 mg IVPUSH Q4H PRN PRN Reason: Hypertension Hydromorphone HCl (Dilaudid) 0.5 mg IV Q4H PRN PRN Reason: Pain Last Admin: 01/30/18 02:44 Dose: 0.5 mg Promethazine HCl 6.25 mg/ (Sodium Chloride) 50.25 mls @ 100 mls/hr IV Q6H PRN PRN Reason: Nausea/Vomiting Ibuprofen (Motrin) 600 mg PO Q6H PRN PRN Reason: Abdominal Pain Last Admin: 01/29/18 20:36 Dose: 600 mg Insulin Aspart (Novolog) 0 unit SUBCUT QIDACANDBED [facility]; Protocol Last Admin: 01/30/18 06:25 Dose: Not Given Lactulose (Cephulac) 20 gm PO TID [facility] Last Admin: 01/29/18 20:35 Dose: 20 gm Lidocaine (Lidoderm 5%) 700 mg TOP Q24H [facility] Last Admin: 01/29/18 20:37 Dose: 700 mg Lorazepam (Ativan) 2 mg IVPUSH Q4H PRN PRN Reason: Seizures Magnesium Sulfate (Pharmacy To Dose - Magnesium Replacement) 1 dose .XX ASDIRECTED [facility] Meclizine HCl (Antivert) 12.5 mg PO Q6H PRN PRN Reason: Dizziness Metoprolol Succinate (Toprol Xl) 12.5 mg PO DAILY [facility] Last Admin: 01/29/18 08:39 Dose: 12.5 mg Metoprolol Tartrate (Lopressor) 5 mg IVPUSH Q4H PRN PRN Reason: Tachycardia Miscellaneous Information (Remove Patch) 1 ea TRDERM DAILY [facility] Last Admin: 01/29/18 08:38 Dose: 1 ea Advair 50/500 Own (Med) 1 each INH BID [facility] Last Admin: 01/29/18 20:10 Dose: 1 each Ondansetron HCl (Zofran) 4 mg IV Q6H PRN PRN Reason: Nausea/Vomiting Last Admin: 01/29/18 20:59 Dose: 4 mg Polyethylene Glycol (Miralax) 17 gm PO DAILY PRN PRN Reason: Constipation Last Admin: 01/29/18 09:18 Dose: 17 gm Potassium Chloride (Pharmacy To Dose - Potassium Replacement) 1 dose .XX ASDIRECTED [facility] Rivaroxaban (Xarelto) 20 mg PO DAILY@1800 [facility] Last Admin: 01/29/18 18:30 Dose: 20 mg Senna/Docusate Sodium (Senna Plus) 1 tab PO BID PRN PRN Reason: Constipation Senna/Docusate Sodium (Senna Plus) 1 tab PO DAILY [facility] Last Admin: 01/29/18 08:36 Dose: 1 tab Simvastatin (Zocor) 10 mg PO BEDTIME [facility] Last Admin: 01/29/18 20:36 Dose: 10 mg Discontinued Medications Hydrocodone Bitart/Acetaminophen ([place] 325-5 Mg) 1 tab PO Q4H PRN PRN Reason: Pain (moderate 4-6) Bisacodyl (Dulcolax) 10 mg RECTAL ONETIME ONE Stop: 01/29/18 14:50 Last Admin: 01/29/18 15:24 Dose: 10 mg Clonidine HCl (Catapres Tts-2) 0.2 mg TRDERM Q7D ONE Stop: 01/27/18 21:21 Last Admin: 01/27/18 23:27 Dose: Not Given Enoxaparin Sodium (Lovenox) 30 mg SUBCUT ONETIME ONE Stop: 01/27/18 22:06 Last Admin: 01/27/18 22:24 Dose: 30 mg Fluconazole (Diflucan) 400 mg PO ONETIME STA Stop: 01/27/18 18:55 Last Admin: 01/27/18 19:24 Dose: 400 mg Hydromorphone HCl (Dilaudid) 0.25 mg IVPUSH Q2H PRN PRN Reason: Pain (severe 7-10) Sodium Chloride (Normal Saline) 500 mls @ 999 mls/hr IV .BOLUS ONE Stop: 01/27/18 17:05 Last Admin: 01/27/18 16:41 Dose: 999 mls/hr Amiodarone HCl/Dextrose (Nexterone In Dextrose 360 Mg/200 Ml) 200 mls @ 33.333 mls/hr IV ASDIRECTED JAROD; Protocol Amiodarone HCl 150 mg/ (Dextrose/Water) 103 mls @ 600 mls/hr IV .BOLUS ONE Stop: 01/27/18 22:40 Last Admin: 01/27/18 23:53 Dose: Not Given Amiodarone HCl/Dextrose (Nexterone In Dextrose 360 Mg/200 Ml) 200 mls @ 33.333 mls/hr IV ASDIRECTED JAROD; Protocol Amiodarone HCl/Dextrose 150 mg (/ Premix) 100 mls @ 400 mls/hr IV NOW ONE Stop: 01/27/18 23:14 Last Admin: 01/27/18 23:09 Dose: 400 mls/hr Amiodarone HCl/Dextrose (Nexterone In Dextrose 360 Mg/200 Ml) 360 mg in 200 mls @ 33.333 mls/hr IV ASDIRECTED JAROD Stop: 01/28/18 05:44 Last Admin: 01/27/18 23:28 Dose: 33.333 mls/hr Amiodarone HCl/Dextrose (Nexterone In Dextrose 360 Mg/200 Ml) 360 mg in 200 mls @ 16.666 mls/hr IV Q12H [facility] Stop: 01/28/18 23:45 Last Admin: 01/28/18 17:13 Dose: 16.666 mls/hr Lidocaine (Lidoderm 5%) 700 mg TOP ONETIME ONE Stop: 01/27/18 21:01 Last Admin: 01/27/18 22:16 Dose: 700 mg Lorazepam (Ativan) 0.25 mg IV Q6H PRN PRN Reason: Anxiety Magnesium Hydroxide (Milk Of Magnesia) 30 ml PO ONETIME ONE Stop: 01/29/18 14:21 Last Admin: 01/29/18 14:56 Dose: Not Given Mometasone Furoate/Formoterol Fumar (Dulera 200-5 Mcg) 0 puff IH BIDRT [facility] Last Admin: 01/27/18 21:48 Dose: Not Given Ondansetron HCl (Zofran) 4 mg IVPUSH ONETIME ONE Stop: 01/27/18 16:36 Last Admin: 01/27/18 16:41 Dose: 4 mg Prednisone (Prednisone) 10 mg PO DAILY [facility] Last Admin: 01/28/18 09:40 Dose: Not Given Scopolamine (Transderm-Scop) 1.5 mg TRDERM Q72H ONE Stop: 01/27/18 19:28 Last Admin: 01/27/18 23:27 Dose: Not Given Tamsulosin HCl (Flomax) 0.4 mg PO DAILY [facility] Last Admin: 01/28/18 09:40 Dose: Not Given Warfarin Sodium (Coumadin) 6 mg PO MoFr@1800 [facility] Last Admin: 01/28/18 18:38 Dose: 6 mg Warfarin Sodium (Coumadin) 3 mg PO SuTuWeThSa@1800 [facility] Last Admin: 01/27/18 22:15 Dose: 3 mg - Exam General: Alert, Oriented, Cooperative, Mild Distress HEENT: Pupils Equal, Pupils Reactive, EOMI, Mucous Membr. Moist/[place] Neck: Supple, Trachea Midline, No JVD Lungs: Normal Respiratory Effort, Decreased Breath Sounds Cardiovascular: Irregular Rhythm GI/Abdominal Exam: Soft, Distended, Tender, Abnormal Bowel Sounds. No: No Organomegaly, No Abnormal Bruit, No Mass, Guarding, Rigid, Rebound (Male) Exam: Deferred Back Exam: Normal Inspection, Decreased Range of Motion Extremities: Normal Inspection, Normal Range of Motion, Non-Tender, Normal Capillary Refill Peripheral Pulses: 2+: Dorsalis Pedis (L), Dorsalis Pedis (R) Skin: Warm, Dry, Intact, Ecchymosis Neurological: No New Focal Deficit. No: Normal Gait Psy/Mental Status: Alert, Normal Affect, Normal Mood - Problem List Review Problem List Initiated/Reviewed/Updated: Yes - My Orders Last 24 Hours: My Active Orders 01/29/18 09:00 Amiodarone [Cordarone] 200 mg PO BID 01/29/18 09:20 Acapella [RT Chest Physiotherapy] [RC] ASDIRECTED 01/29/18 15:00 Lactulose [Cephulac] 20 gm PO TID 01/29/18 18:00 Rivaroxaban [Xarelto] 20 mg PO DAILY@1800 01/29/18 21:24 Enema [RC] ASDIRECTED 01/29/18 21:28 HYDROmorphone [Dilaudid] 0.5 mg IV Q4H PRN 01/30/18 07:04 KUB [Abdomen 1V Flat] [CR] Routine - Plan Plan:: Assessment/Plan: Acute: Abdominal Pain - SBO vs Constipation - Despite bowel prep; he has not had a bowel movement - Plain imaging this morning - Consider surgical consult UA - Pos for yeast; Cx confirmed but he is asymptomatic - He is afebrile w/ mild leukocytosis - Received onetime dose of fluconazole in ED; would not treat him - Risk factors: he is on chronic steroid Generalized Weakness - 2/2 Back Pain from L1 Compression Fracture - Vit D level - Continue PT/OT - High Fall Risk L1 Compression Fracture - S/p Recent Fall - Lidoderm Patch Daily - Continue PT/OT - Will set up Ortho outpatient Constipation - He has been bed-bound due to back pain - Bowel stimulants and stool softener Resolved: S/p AMS - He was alert/awake and reasonable to me at the time of my interview - He was able to provide a reasonable HPI - Head CT scan to r/o brain bleed since he is on warfarin--> no acute abnormal findings - No obvious neurologic deficits S/p Subtherapeutic INR, - INR 1.57--> 1.68 - Continue home dose warfarin and will bridge with lovenox subQ until INR is therapeutic - Offered NOACs to patient and his , after discussing risks and benefit; patient selected xarelto ( on it too) - Start dose in AM S/p Ventricular Tachycardia - Carries a hx/o Abnormal rhythm on Warfarin (Subtherapeutic) - Possibly the main cause and may not necessarily sedation from norco - Telemetry is busy since he go the the floor; he was already having abnormal rhythm while he was in ED - He only takes Metoprolol (XL) 12.5 mg po Daily for rate control medications - Awaiting 2D echo report - Thyroid panel is within normal limits - Continue Amiodarone drip per unit protocol; start oral dosing 200 mg po BID in AM S/p Dizziness - Medication Side Effects vs Hypo-perfusion from Abnormal Rhythm - Takes norco for back pain (sedation) - His rhythm in ED "was abnormal and all over" when I called earlier today before I left the hospital; his rhythm via Telemetry shows hypo-perfusing PVCs and Ventricular Tachycardia - EKG confirmed telemetry reading - No narcotics and avoid medications with hypnotics or sedation - PRN Meclizine Chronic: Impaired Vision Arrhythmia on warfarin CAD status post 5 vessel CABG Hypertension AAA status post repair Carotid stenosis status post endarterectomy PVD status post bilateral lower extremity stent placement COPD DERICK with CPAP S/p pacemaker placement BPH status post TURP Chronic renal insufficiency Diabetes nephropathy Gout Osteopenia Type 2 diabetes Unstable Gait Plan: He did not look good this morning Continue current treatment Routine AM Labs Fall Precautions May consult GS pending imaging study DVT/Stroke PPx: Xarelto Continue RT/PT/OT Ortho consult outpatient; will asked CM to set up for him SW/CM for d/c planning Code status: CPR Only LOS > 96hrs pending SNF/Rehab placement
[2018-01-30] MEDS: ADVAIR INH SCH ×2 (08:41→20:49)
[2018-01-30] MEDS: Albuterol/Ipratropium 3.0-0.5 MG/3 ML Neb Soln NEB PRN ×2 (08:41→20:50)
--- NOTE | 2018-01-30 09:08 | PCM.SN ---
- Free Text/Narrative Note: Patient did not look good early this morning. Ordered abdominal imaging to check if he is badly constipated vs obstructed. Awaiting final report but discussed case with Dr. Bauer who is kindly enough to come and see him. Ordered additional imaging study [address] Bauer's request. Prior to my departure, Dr. Vallejo and DAYNA Mi were updated about his acute abdominal issues.
[2018-01-30] MEDS: Ondansetron 4 MG/2 ML SDV IV PRN (09:47)
--- NOTE | 2018-01-30 10:19 | CR ---
Abdomen: Supine view of the abdomen was obtained. Comparison: Prior abdominal x-ray dated 11/03/13. Aortoiliac stent is seen. Diffuse atherosclerotic change is noted within the aorta and iliac vessels as well as common and proximal visualized superficial femoral arteries. Surgical clips are seen from prior cholecystectomy. Minimal increased stool is noted within the colon. Bowel gas pattern is otherwise unremarkable. Phlebolith is identified within the pelvis. Scoliosis and mild degenerative change is seen throughout the spine. Impression: 1. Incidental findings as described above. Diagnostic code #2
--- NOTE | 2018-01-30 11:58 | PCM.CONS ---
H&P History of Present Illness - General Date of Service: 01/30/18 Admit Problem/Dx: Admission Diagnosis/Problem Admission Diagnosis/Problem Dizziness Reason for consult: Constipation, concern for bowel obstruction Source of Information: Patient, EMS, Family, RN History Limitations: Reports: No Limitations - History of Present Illness Initial Comments - Free Text/Narative: 88 yo male, h/o of multiple medical problems (including arrhythmia on coumadin, Plavix, and ASA, with pacemaker, CAD s/p 5v CABG, HTN, AAA s/p repair, carotid stenosis s/p CEA, HTN, PVD s/p bilat LE stents, COPD, DERICK on CPAP, BPH s/p TURP , CRI, diabetic nephropathy, gout, osteopenia, and DM2) was admitted on 2017 with altered mental status, found to have ventricular tachycardia. The patient was initially admitted to the ICU on an amiodarone drip. He had improvement in his rhythm and was transferred to the [facility] edge. He was on coumadin as outpatient, but on admission, was found to have subtherapeutic INR. He has since been initiated on Xarelto (most recent dose yesterday at 1800). He continues on ASA 81 and Plavix. The patient has been using narcotics as an outpatient for back pain (has L1 compression fracture from recent fall). He has been receiving IV Dilaudid here as inpatient. I was consulted due to concerns for bowel obstruction. He started having nausea and emesis yesterday evening (by report, was non-bilious). He also had poor appetite. He has notably been constipated, with last bowel movement 6 days. He typically has a bowel movement daily. At home, he would use prunes to help with constipation. He was given Senna, milk of magnesia, Miralax, and Dulcolax VT, along with soap suds enema, but without any effect. He has been tolerating a diet up until last night. Hospitalist service was concerned for possible bowel obstruction, the patient was made NPO, and an NG tube placement was attempted, but nursing staff had difficulty with insertion. On evaluation, the patient reports lower abdominal pain and sensation of constipation. He has been pass flatus throughout this morning. Had emesis x5 since last night, most recently this morning during attempted NG tube placement. This has been the worse constipation he has ever had. Lower Back Pain Score (Numeric/FACES): 4 - Related Data Allergies/Adverse Reactions: Allergies Allergy/AdvReac Type Severity Reaction Status Date / Time No Known Allergies Allergy Verified 10/21/17 06:31 Home Medications: Home Meds Allopurinol [Zyloprim] 150 mg PO BEDTIME 03/02/14 [History] Aspirin [Jacey Chewable Aspirin] 81 mg PO BEDTIME 03/02/14 [History] Warfarin [Coumadin] 5 mg PO SUTUWETHFRSA 03/02/14 [History] Fluticasone/Salmeterol [Advair 500-50] 1 puff INH BID 09/29/14 [History] Warfarin Sodium [Coumadin] 2.5 mg PO MO 10/31/14 [History] Clopidogrel [Plavix] 75 mg PO DAILY 02/16/15 [History] Metoprolol Succinate [Toprol XL] 12.5 mg PO DAILY 07/20/15 [History] Albuterol/Ipratropium [DuoNeb 3.0-0.5 MG/3 ML] 3 ml NEB Q8HRRT 05/12/17 [History ] Furosemide [Lasix] 40 mg PO DAILY 09/10/17 [History] glipiZIDE [Glucotrol XL] 2.5 mg PO DAILY 11/25/17 [History] Sennosides/Docusate Sodium [Senna-Docusate Sodium] 1 each PO DAILY 11/27/17 [ History] Pravastatin [Pravachol] 20 mg PO BEDTIME 01/27/18 [History] Tamsulosin [Flomax] 0.4 mg PO DAILY 01/27/18 [History] Past Medical History HEENT History: Reports: Epistaxis, Impaired Vision Cardiovascular History: Reports: Arrhythmia, CAD, Hypertension, Pacemaker, PVD, Stents Respiratory History: Reports: COPD, Sleep Apnea Gastrointestinal History: Reports: Diverticulosis Genitourinary History: Reports: BPH, Chronic Renal Insuffiency, Diabetic Nephropathy Musculoskeletal History: Reports: Gout, Other (See Below) Neurological History: Reports: None Psychiatric History: Reports: None Endocrine/Metabolic History: Reports: Diabetes, Type II - Infectious Disease History Infectious Disease History: Reports: Other (See Below) Other Infectious Disease History: infectious hepatitis in 1957 - Past Surgical History HEENT Surgical History: Reports: Cataract Surgery Cardiovascular Surgical History: Reports: AAA Repair, Carotid Endarterectomy, Coronary Artery Bypass, Pacer, Vascular Surgery, Other (See Below) Other Cardiovascular Surgeries/Procedures: stent to right and left leg GI Surgical History: Reports: Cholecystectomy, Colon (SIGMOID COLECTOMY (1996) FOR DIVERTICULITIS (NO OSTOMY REQUIRED)) Male Surgical History: Reports: TURP-Transurethral Resection of Prostate Neurological Surgical History: Reports: None Social & Family History - Family History Family Medical History: Noncontributory Respiratory: Reports: COPD Other Respiratory Family Hisory: mother Oncologic: Reports: Cervix Other Oncologic Family History: mother - Tobacco Use Smoking Status *Q: Former Smoker Years of Tobacco use: 60 Packs/Tins Daily: 1 Used Tobacco, but Quit: Yes Month/Year Tobacco Last Used: 9 months ago Second Hand Smoke Exposure: No - Caffeine Use Caffeine Use: Reports: Coffee, Soda - Alcohol Use Days Per Week of Alcohol Use: 7 Number of Drinks Per Day: 1 Total Drinks Per Week: 7 - Recreational Drug Use Recreational Drug Use: No - Living Situation & Occupation Living situation: Reports: , with Spouse 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 No: Mild Distress GI/Abdominal Exam: Soft, No Distention, Tender (MINIMALLY TENDER IN LOWER ABDOMEN. NO PERITONEAL SIGNS.) Rectal (Males) Exam: Normal Rectal Tone, Other (NORMAL EXTERNAL EXAM. ON DIGITAL RECTAL EXAM, LARGE HARD STOOL BURDEN IN THE RECTAL VAULT.) Extremities: Normal Inspection Skin: Other (NO JAUNDICE) Psychiatric: Alert, Normal Affect, Normal Mood - Patient Data Lab Results Last 24 hrs: Laboratory Results - last 24 hr 01/29/18 01/29/18 01/29/18 Range/Units 17:53 18:40 20:45 POC Glucose 78 L 85 121 H (83-110) mg/dL 01/30/18 Range/Units 06:05 POC Glucose 82 L (83-110) mg/dL Result Diagrams: 01/28/18 05:20 01/28/18 05:20 Geoffrey Results Last 24 hrs: Microbiology 01/27/18 17:35 Urine Culture - Final Urine, Quick Cath (In-Out) Nimo Albicans Imaging Impressions Last 24 hrs: [id number] Abdomen: Supine view of the abdomen was obtained. Comparison: Prior abdominal x- ray dated 11/03/13. Aortoiliac stent is seen. Diffuse atherosclerotic change is noted within the aorta and iliac vessels as well as common and proximal visualized superficial femoral arteries. Surgical clips are seen from prior cholecystectomy. Minimal increased stool is noted within the colon. Bowel gas pattern is otherwise unremarkable. Phlebolith is identified within the pelvis. Scoliosis and mild degenerative change is seen throughout the spine. Impression : 1. Incidental findings as described above. Diagnostic code #2 Dictated by: Ceferino Juarez MD Consult PN Assessment/Plan Procedures: Procedures AGENT NOS ASSAY W/OPTIC (11/25/17) AIRWAY INHALATION TREATMENT (11/25/17) ASSAY GLUCOSE BLOOD QUANT (09/29/14) ASSAY OF FREE THYROXINE (05/12/17) ASSAY OF IRON (09/29/14) ASSAY OF LACTIC ACID (11/25/17) ASSAY OF MAGNESIUM (11/25/17) ASSAY OF NATRIURETIC PEPTIDE (11/25/17) ASSAY OF SERUM POTASSIUM (05/12/17) ASSAY OF TRANSFERRIN (09/29/14) ASSAY OF TROPONIN QUANT (05/12/17) ASSAY THYROID STIM HORMONE (05/12/17) AUTOMATED RETICULOCYTE COUNT (09/29/14) BLOOD CULTURE FOR BACTERIA (11/25/17) BLOOD GASES ANY COMBINATION (05/12/17) BLOOD TYPING SEROLOGIC ABO (09/29/14) BLOOD TYPING SEROLOGIC RH(D) (09/29/14) C-REACTIVE PROTEIN (11/25/17) CHEST X-RAY 1 VIEW FRONTAL (05/12/17) CHEST X-RAY 2VW FRONTAL&LATL (05/12/17) COMPLETE CBC W/AUTO DIFF WBC (11/25/17) COMPREHEN METABOLIC PANEL (11/25/17) CONTROL OF NOSEBLEED (10/21/17) CONTROL OF NOSEBLEED (05/30/17) CONTROL OF NOSEBLEED (02/16/15) CONTROL OF NOSEBLEED (04/04/14) CREATINE MB FRACTION (10/31/14) CT ANGIO ABDOMINAL ARTERIES (05/12/17) CT HEAD/BRAIN W/O DYE (10/31/14) ELECTROCARDIOGRAM TRACING (05/12/17) EMERGENCY DEPT VISIT (11/25/17) EMERGENCY DEPT VISIT (10/21/17) EMERGENCY DEPT VISIT (05/30/17) EMERGENCY DEPT VISIT (11/29/16) EMERGENCY DEPT VISIT (07/20/15) EMERGENCY DEPT VISIT (10/31/14) EMERGENCY DEPT VISIT (09/29/14) EMERGENCY DEPT VISIT (04/04/14) EMERGENCY DEPT VISIT (03/02/14) EVALUATE PT USE OF INHALER (05/12/17) GAIT TRAINING THERAPY (05/12/17) GLUCOSE BLOOD TEST (11/25/17) GLYCOSYLATED HEMOGLOBIN TEST (11/25/17) HEMATOCRIT (02/16/15) HEMOGLOBIN (02/16/15) HYDRATE IV INFUSION ADD-ON (10/31/14) HYDRATION IV INFUSION INIT (10/31/14) INFLUENZA ASSAY W/OPTIC (11/25/17) LIPID PANEL (09/29/14) LOWER EXTREMITY STUDY (05/12/17) MEASURE BLOOD OXYGEN LEVEL (11/25/17) MEASURE BLOOD OXYGEN LEVEL (11/25/17) MEASURE BLOOD OXYGEN LEVEL (09/29/14) MEASURE BLOOD OXYGEN LEVEL (03/02/14) MEASURE BLOOD OXYGEN LEVEL (03/02/14) METABOLIC PANEL TOTAL CA (11/25/17) MICROBE SUSCEPTIBLE DIFFUSE (03/02/14) MICROBE SUSCEPTIBLE GEOFFREY (03/02/14) MYCOPLASMA ANTIBODY (11/25/17) OT EVAL HIGH COMPLEX 60 MIN (05/12/17) PROTHROMBIN TIME (11/25/17) PT EVAL MOD COMPLEX 30 MIN (05/12/17) RBC ANTIBODY SCREEN (09/29/14) RBC SED RATE AUTOMATED (03/02/14) ROUTINE VENIPUNCTURE (11/25/17) SELF CARE MNGMENT TRAINING (05/12/17) THER/PROPH/DIAG IV INF INIT (05/12/17) THERAPEUTIC ACTIVITIES (05/12/17) THERAPEUTIC EXERCISES (05/12/17) THROMBOPLASTIN TIME PARTIAL (05/12/17) URINALYSIS AUTO W/SCOPE (11/25/17) URINE BACTERIA CULTURE (03/02/14) URINE CULTURE/COLONY COUNT (11/25/17) VIT D 1 25-DIHYDROXY (05/12/17) WITHDRAWAL OF ARTERIAL BLOOD (05/12/17) X-RAY EXAM CHEST 1 VIEW (11/25/17) X-RAY EXAM CHEST 2 VIEWS (11/25/17) (1) Fecal impaction SNOMED Code(s): 52469908 Code(s): K56.41 - FECAL IMPACTION Current Visit: Yes Problem List Initiated/Reviewed/Updated: Yes Plan: 88 yo male, h/o of multiple medical problems (including arrhythmia on coumadin transitioned to Xarelto during this inpatient admission, Plavix, and ASA, with pacemaker, CAD s/p 5v CABG, HTN, AAA s/p repair, carotid stenosis s/p CEA, HTN, PVD s/p bilat LE stents, COPD, DERICK on CPAP, BPH s/p TURP, CRI, diabetic nephropathy, gout, osteopenia, and DM2) was admitted on 01/27/2018 with altered mental status, found to ventricular tachycardia, now rate-controlled during inpatient admission. I was consulted to evaluate for bowel obstruction. Plain supine abdominal X- rays of the abdomen were reviewed. Normal bowel gas pattern with significant stool burden. Patient with significant hard stool burden in rectal vault. Patient with fecal impaction (first episode), likely related to narcotic use. I explained to the patient need for manual disimpaction, which is a very low risk procedure. There is potential for minor anal or rectal trauma, but has the significant benefit for clearing the stool burden. Manual fecal disimpaction was performed at the patient's bedside. During the disimpaction, Fleets enema x2 were administered, with further evacuation of stool. Patient was able to self-evacuate more following the Fleets enema administration. - Patient should have relief of symptoms and may resume diet. - No need for NG tube for proximal decompression. - Recommend bowel regimen. Recommend scheduled colace and Dulcolax (ordered) and administer more Fleets enema if needed. - Patient may required another manual disimpaction if recurs. - Avoid narcotic use. Encourage use of non-narcotic pain meds for back pain control (Lidoderm patch, acetaminophen, ibuprofen). Will sign off at this time, but don't hesitate to call with questions or concerns. Monty Wells M.D., F.A.C.S. General Surgery Pager: [phone]
[2018-01-30] MEDS: Metoprolol Succinate 25 MG Tab.ER PO SCH (12:01)
[2018-01-30] MEDS: Clopidogrel 75 MG Tab PO SCH (12:01)
[2018-01-30] MEDS: Furosemide 40 MG Tab PO SCH (12:02)
[2018-01-30] MEDS: Acetaminophen 325 MG Tab PO PRN (12:02)
[2018-01-30] MEDS: glipiZIDE 2.5 MG Tab.ER PO SCH (12:02)
[2018-01-30] MEDS: Remove Patch*LIDODERM TRDERM SCH (12:05)
[2018-01-30] MEDS: Amiodarone 200 MG Tab PO SCH (12:05)
[2018-01-30] MEDS: Lactulose Soln 10 GM/15 ML 30 ML UD Cup PO SCH ×2 (12:05→16:04)
[2018-01-30] MEDS ORDERED: Docusate Sodium 100 MG Cap PO SCH (12:45)
[2018-01-30] MEDS ORDERED: Bisacodyl 5 MG Tab PO SCH (12:45)
[2018-01-30] MEDS ORDERED: Dextrose 5%-0.9% NaCl 1,000 ML IV SCH (17:30)
[2018-01-30] MEDS: Rivaroxaban 10 MG Tab PO SCH (18:52)
--- NOTE | 2018-01-30 19:13 | CT ---
Addendum: Additional findings of slight inflammatory change around the left colon. This may represent changes from mild diverticulitis. In addition, there is an area of bowel wall thickening and luminal narrowing near the junction of the descending and sigmoid colon. This is less specific and could represent an area of poor distention, muscular prominence due to diverticulosis but difficult to completely exclude neoplasm. Endoscopy recommended at sometime in the future to further evaluate. --- Addendum1 above dictated on [01/30/2018 19:33] by [Rickie Juarez Hilton J.] --- --- Addendum1 above signed on [01/30/2018 19:33] by [Rickie Juarez Hilton J.] --- --- Original report below dictated on [01/30/2018 19:09] by [Rickie Juarez Hilton J.] --- --- Original report below signed on [01/30/2018 19:09] by [Rickie Juarez Hilton J.] --- CT abdomen and pelvis Technique: Multiple axial sections were obtained from above the dome of the diaphragm inferiorly through the pubic symphysis. Intravenous and oral contrast not utilized which diminishes details of the study. Findings: Minimal left-sided pleural effusion is seen. Small right sided pleural effusion is also noted. Compressive type atelectasis is seen within the right lung base. Coronary artery calcification is seen. Pacer or AICD wires are incidentally noted. Heart is enlarged. Liver shows no discrete abnormality. Spleen shows several small calcifications which are compatible with incidental granulomas. Nasogastric tube is seen with tip lying within the stomach antrum. Adrenal glands show no nodule or mass. Pancreas appears within normal limits. Small cyst is identified off the superior aspect of the pancreatic neck measuring 2.4 cm. This is felt to be benign. Aortoiliac graft is identified. Diffuse atherosclerotic calcification is seen within the aorta. No retroperitoneal adenopathy or mesenteric abnormalities are seen. Slightly dilated gas-filled bowel is seen with diffuse stool being seen throughout the colon. Cecum has a measurement of 9.2 cm. Abnormality is noted off the left kidney showing slight increased Hounsfield unit measurements which has a size of 2.0 cm and most likely represents a small hemorrhagic cyst. Simple cyst is noted off the right kidney measuring 1.8 cm. Simple cyst is also noted within the upper right kidney measuring 1.7 cm. Kidneys show no hydronephrosis. Vascular calcification is seen within the renal vessels. Appendix is not visualized with certainty. Diverticuli are scattered within the colon. No pelvic mass or adenopathy is seen. TURP defect appears to be present within the prostate gland. No free fluid or inflammatory change is seen. Impression: 1. Increased stool within the colon as well as mild colonic dilatation particularly of the cecum. Cecal measurement is 9.2 cm. No findings of colonic obstruction. 2. Nasogastric tube with tip lying within the stomach antrum. 3. Minimal left-sided pleural effusion and small right sided pleural effusion with right basilar atelectasis. 4. Other findings which are felt to be incidental as described above. Diagnostic code #3 --- Addendum1 signed ---
--- NOTE | 2018-01-30 20:20 | PCM.CONSN ---
- General Info Date of Service: 01/30/18 Subjective Update: A few hours after fecal disimpaction, the patient developed worsening abdominal pain, distention, nausea/emesis. He was given Zofran and Phenergan without symptomatic relief. An NG tube was placed by nursing staff, with removal of 200- 300 cc of bilious output. Patient reports pain throughout the abdomen, without relief from NG tube placement. - Patient Data Vitals - Most Recent: Last Vital Signs Temp 36.2 C 01/30/18 18:09 Pulse 60 01/30/18 18:09 Resp 20 01/30/18 10:51 BP 119/76 01/30/18 18:09 Pulse Ox 93 L 01/30/18 18:09 Orthostatic Blood Pressure [ 134/94 Supine] Weight - Most Recent: 75.523 kg I&O - Last 24 Hours: Intake & Output 01/30/18 01/30/18 01/30/18 06:59 14:59 22:59 Intake Total 559 788 2875 Output Total 425 400 Balance -175 200 850 Lab Results Last 24 Hours: Laboratory Results - last 24 hr 01/29/18 01/30/18 01/30/18 Range/Units 20:45 06:05 12:38 WBC (4.23-9.07) K/mm3 RBC (4.63-6.08) M/mm3 Hgb (13.7-17.5) gm/L Hct (40.1-51.0) % MCV (79.0-92.2) fl MCH (25.7-32.2) pg MCHC (32.2-35.5) g/dl RDW Std Deviation (35.1-43.9) fL Plt Count (163-337) K/mm3 MPV (9.4-12.3) fl Neut % (Auto) (34.0-67.9) % Lymph % (Auto) (21.8-53.1) % [place] % (Auto) (5.3-12.2) % Eos % (Auto) (0.8-7.0) Baso % (Auto) (0.1-1.2) % Neut # (Auto) (1.78-5.38) K/mm3 Lymph # (Auto) (1.32-3.57) K/mm3 [place] # (Auto) (0.30-0.82) K/mm3 Eos # (Auto) (0.04-0.54) K/mm3 Baso # (Auto) (0.01-0.08) K/mm3 Manual Slide Review Sodium (136-145) mEq/L Potassium (3.5-5.1) mEq/L Chloride (98-107) mEq/L Carbon Dioxide (21-32) mEq/L Anion Gap (5-15) BUN (7-18) mg/dL Creatinine (0.7-1.3) mg/dL Est Cr Clr Drug Dosing mL/min Estimated GFR (MDRD) (>60) mL/min BUN/Creatinine Ratio (14-18) Glucose (83-115) mg/dL POC Glucose 121 H 82 L 80 L (83-110) mg/dL Lactic Acid (0.4-2.0) mmol/L Calcium (8.5-10.1) mg/dL C-Reactive Protein (<1.0) mg/dL 01/30/18 01/30/18 01/30/18 Range/Units 16:40 16:40 16:40 WBC 19.60 H (4.23-9.07) K/mm3 RBC 4.28 L (4.63-6.08) M/mm3 Hgb 9.9 L (13.7-17.5) gm/L Hct 33.5 L (40.1-51.0) % MCV 78.3 L (79.0-92.2) fl MCH 23.1 L (25.7-32.2) pg MCHC 29.6 L (32.2-35.5) g/dl RDW Std Deviation 60.1 H (35.1-43.9) fL Plt Count 307 (163-337) K/mm3 MPV 10.3 (9.4-12.3) fl Neut % (Auto) 85.0 H (34.0-67.9) % Lymph % (Auto) 2.8 L (21.8-53.1) % [place] % (Auto) 11.7 (5.3-12.2) % Eos % (Auto) 0.1 L (0.8-7.0) Baso % (Auto) 0.1 (0.1-1.2) % Neut # (Auto) 16.68 H (1.78-5.38) K/mm3 Lymph # (Auto) 0.55 L (1.32-3.57) K/mm3 [place] # (Auto) 2.29 H (0.30-0.82) K/mm3 Eos # (Auto) 0.02 L (0.04-0.54) K/mm3 Baso # (Auto) 0.01 (0.01-0.08) K/mm3 Manual Slide Review Abnormal smear Sodium 140 (136-145) mEq/L Potassium 4.4 (3.5-5.1) mEq/L Chloride 104 (98-107) mEq/L Carbon Dioxide 24 (21-32) mEq/L Anion Gap 16.4 H (5-15) BUN 72 H (7-18) mg/dL Creatinine 1.6 H (0.7-1.3) mg/dL Est Cr Clr Drug Dosing 30.98 mL/min Estimated GFR (MDRD) 41 (>60) mL/min BUN/Creatinine Ratio 45.0 H (14-18) Glucose 118 H (83-115) mg/dL POC Glucose (83-110) mg/dL Lactic Acid (0.4-2.0) mmol/L Calcium 9.9 (8.5-10.1) mg/dL C-Reactive Protein 12.9 H* (<1.0) mg/dL 01/30/18 Range/Units 16:50 WBC (4.23-9.07) K/mm3 RBC (4.63-6.08) M/mm3 Hgb (13.7-17.5) gm/L Hct (40.1-51.0) % MCV (79.0-92.2) fl MCH (25.7-32.2) pg MCHC (32.2-35.5) g/dl RDW Std Deviation (35.1-43.9) fL Plt Count (163-337) K/mm3 MPV (9.4-12.3) fl Neut % (Auto) (34.0-67.9) % Lymph % (Auto) (21.8-53.1) % [place] % (Auto) (5.3-12.2) % Eos % (Auto) (0.8-7.0) Baso % (Auto) (0.1-1.2) % Neut # (Auto) (1.78-5.38) K/mm3 Lymph # (Auto) (1.32-3.57) K/mm3 [place] # (Auto) (0.30-0.82) K/mm3 Eos # (Auto) (0.04-0.54) K/mm3 Baso # (Auto) (0.01-0.08) K/mm3 Manual Slide Review Sodium (136-145) mEq/L Potassium (3.5-5.1) mEq/L Chloride (98-107) mEq/L Carbon Dioxide (21-32) mEq/L Anion Gap (5-15) BUN (7-18) mg/dL Creatinine (0.7-1.3) mg/dL Est Cr Clr Drug Dosing mL/min Estimated GFR (MDRD) (>60) mL/min BUN/Creatinine Ratio (14-18) Glucose (83-115) mg/dL POC Glucose (83-110) mg/dL Lactic Acid 1.4 (0.4-2.0) mmol/L Calcium (8.5-10.1) mg/dL C-Reactive Protein (<1.0) mg/dL Med Orders - Current: Current Medications Acetaminophen (Tylenol) 650 mg PO Q4H PRN PRN Reason: Pain (Mild 1-3)/fever Last Admin: 01/30/18 12:02 Dose: 650 mg Albuterol/Ipratropium (Duoneb 3.0-0.5 Mg/3 Ml) 3 ml NEB Q4H PRN PRN Reason: Shortness Of Breath/wheezing Last Admin: 01/30/18 08:41 Dose: 3 ml Allopurinol (Zyloprim) 150 mg PO BEDTIME [facility] Last Admin: 01/29/18 20:36 Dose: 150 mg Amiodarone HCl (Cordarone) 200 mg PO BID [facility] Last Admin: 01/30/18 12:05 Dose: 200 mg Aspirin (Halfprin) 81 mg PO BEDTIME [facility] Last Admin: 01/29/18 20:36 Dose: 81 mg Bisacodyl (Dulcolax) 5 mg PO DAILY [facility] Last Admin: 01/30/18 13:20 Dose: 5 mg Clopidogrel Bisulfate (Plavix) 75 mg PO DAILY [facility] Last Admin: 01/30/18 12:01 Dose: 75 mg Dextrose/Water (Dextrose 50% In Water) 50 ml IVPUSH ASDIRECTED PRN PRN Reason: Hypoglycemia Docusate Sodium (Colace) 100 mg PO BID [facility] Last Admin: 01/30/18 13:20 Dose: 100 mg Furosemide (Lasix) 40 mg PO DAILY [facility] Last Admin: 01/30/18 12:02 Dose: 40 mg Glipizide (Glucotrol Xl) 2.5 mg PO DAILY [facility] Last Admin: 01/30/18 12:02 Dose: 2.5 mg Hydralazine HCl (Apresoline) 10 mg IVPUSH Q4H PRN PRN Reason: Hypertension Hydromorphone HCl (Dilaudid) 0.5 mg IV Q4H PRN PRN Reason: Pain Last Admin: 01/30/18 13:29 Dose: 0.5 mg Promethazine HCl 6.25 mg/ (Sodium Chloride) 50.25 mls @ 100 mls/hr IV Q6H PRN PRN Reason: Nausea/Vomiting Last Admin: 01/30/18 15:03 Dose: 100 mls/hr Dextrose/Sodium Chloride (Dextrose 5%-Normal Saline) 1,000 mls @ 75 mls/hr IV ASDIRECTED [facility] Last Admin: 01/30/18 18:04 Dose: 75 mls/hr Ibuprofen (Motrin) 600 mg PO Q6H PRN PRN Reason: Abdominal Pain Last Admin: 01/29/18 20:36 Dose: 600 mg Insulin Aspart (Novolog) 0 unit SUBCUT QIDACANDBED [facility]; Protocol Last Admin: 01/30/18 18:51 Dose: Not Given Lidocaine (Lidoderm 5%) 700 mg TOP Q24H [facility] Last Admin: 01/29/18 20:37 Dose: 700 mg Lorazepam (Ativan) 2 mg IVPUSH Q4H PRN PRN Reason: Seizures Magnesium Sulfate (Pharmacy To Dose - Magnesium Replacement) 1 dose .XX ASDIRECTED [facility] Meclizine HCl (Antivert) 12.5 mg PO Q6H PRN PRN Reason: Dizziness Metoprolol Succinate (Toprol Xl) 12.5 mg PO DAILY [facility] Last Admin: 01/30/18 12:01 Dose: 12.5 mg Metoprolol Tartrate (Lopressor) 5 mg IVPUSH Q4H PRN PRN Reason: Tachycardia Miscellaneous Information (Remove Patch) 1 ea TRDERM DAILY [facility] Last Admin: 01/30/18 12:05 Dose: 1 ea Advair 50/500 Own (Med) 1 each INH BID [facility] Last Admin: 01/30/18 08:41 Dose: 1 each Ondansetron HCl (Zofran) 4 mg IV Q6H PRN PRN Reason: Nausea/Vomiting Last Admin: 01/30/18 09:47 Dose: 4 mg Polyethylene Glycol (Miralax) 17 gm PO DAILY PRN PRN Reason: Constipation Last Admin: 01/29/18 09:18 Dose: 17 gm Potassium Chloride (Pharmacy To Dose - Potassium Replacement) 1 dose .XX ASDIRECTED [facility] Rivaroxaban (Xarelto) 20 mg PO DAILY@1800 [facility] Last Admin: 01/30/18 18:52 Dose: Not Given Senna/Docusate Sodium (Senna Plus) 1 tab PO BID PRN PRN Reason: Constipation Senna/Docusate Sodium (Senna Plus) 1 tab PO DAILY [facility] Last Admin: 01/30/18 12:02 Dose: 1 tab Simvastatin (Zocor) 10 mg PO BEDTIME [facility] Last Admin: 01/29/18 20:36 Dose: 10 mg Discontinued Medications Hydrocodone Bitart/Acetaminophen ([place] 325-5 Mg) 1 tab PO Q4H PRN PRN Reason: Pain (moderate 4-6) Bisacodyl (Dulcolax) 5 mg PO DAILY PRN PRN Reason: Constipation Last Admin: 01/29/18 09:17 Dose: 5 mg Bisacodyl (Dulcolax) 10 mg RECTAL ONETIME ONE Stop: 01/29/18 14:50 Last Admin: 01/29/18 15:24 Dose: 10 mg Clonidine HCl (Catapres Tts-2) 0.2 mg TRDERM Q7D ONE Stop: 01/27/18 21:21 Last Admin: 01/27/18 23:27 Dose: Not Given Docusate Sodium (Colace) 100 mg PO BID PRN PRN Reason: Constipation Enoxaparin Sodium (Lovenox) 30 mg SUBCUT ONETIME ONE Stop: 01/27/18 22:06 Last Admin: 01/27/18 22:24 Dose: 30 mg Fluconazole (Diflucan) 400 mg PO ONETIME STA Stop: 01/27/18 18:55 Last Admin: 01/27/18 19:24 Dose: 400 mg Hydromorphone HCl (Dilaudid) 0.25 mg IVPUSH Q2H PRN PRN Reason: Pain (severe 7-10) Sodium Chloride (Normal Saline) 500 mls @ 999 mls/hr IV .BOLUS ONE Stop: 01/27/18 17:05 Last Admin: 01/27/18 16:41 Dose: 999 mls/hr Amiodarone HCl/Dextrose (Nexterone In Dextrose 360 Mg/200 Ml) 200 mls @ 33.333 mls/hr IV ASDIRECTED JAROD; Protocol Amiodarone HCl 150 mg/ (Dextrose/Water) 103 mls @ 600 mls/hr IV .BOLUS ONE Stop: 01/27/18 22:40 Last Admin: 01/27/18 23:53 Dose: Not Given Amiodarone HCl/Dextrose (Nexterone In Dextrose 360 Mg/200 Ml) 200 mls @ 33.333 mls/hr IV ASDIRECTED JAROD; Protocol Amiodarone HCl/Dextrose 150 mg (/ Premix) 100 mls @ 400 mls/hr IV NOW ONE Stop: 01/27/18 23:14 Last Admin: 01/27/18 23:09 Dose: 400 mls/hr Amiodarone HCl/Dextrose (Nexterone In Dextrose 360 Mg/200 Ml) 360 mg in 200 mls @ 33.333 mls/hr IV ASDIRECTED JAROD Stop: 01/28/18 05:44 Last Admin: 01/27/18 23:28 Dose: 33.333 mls/hr Amiodarone HCl/Dextrose (Nexterone In Dextrose 360 Mg/200 Ml) 360 mg in 200 mls @ 16.666 mls/hr IV Q12H JAROD Stop: 01/28/18 23:45 Last Admin: 01/28/18 17:13 Dose: 16.666 mls/hr Lactulose (Cephulac) 20 gm PO TID [facility] Last Admin: 01/30/18 16:04 Dose: Not Given Lidocaine (Lidoderm 5%) 700 mg TOP ONETIME ONE Stop: 01/27/18 21:01 Last Admin: 01/27/18 22:16 Dose: 700 mg Lorazepam (Ativan) 0.25 mg IV Q6H PRN PRN Reason: Anxiety Magnesium Hydroxide (Milk Of Magnesia) 30 ml PO ONETIME ONE Stop: 01/29/18 14:21 Last Admin: 01/29/18 14:56 Dose: Not Given Mometasone Furoate/Formoterol Fumar (Dulera 200-5 Mcg) 0 puff IH BIDRT [facility] Last Admin: 01/27/18 21:48 Dose: Not Given Ondansetron HCl (Zofran) 4 mg IVPUSH ONETIME ONE Stop: 01/27/18 16:36 Last Admin: 01/27/18 16:41 Dose: 4 mg Prednisone (Prednisone) 10 mg PO DAILY [facility] Last Admin: 01/28/18 09:40 Dose: Not Given Scopolamine (Transderm-Scop) 1.5 mg TRDERM Q72H ONE Stop: 01/27/18 19:28 Last Admin: 01/27/18 23:27 Dose: Not Given Tamsulosin HCl (Flomax) 0.4 mg PO DAILY [facility] Last Admin: 01/28/18 09:40 Dose: Not Given Warfarin Sodium (Coumadin) 6 mg PO MoFr@1800 [facility] Last Admin: 01/28/18 18:38 Dose: 6 mg Warfarin Sodium (Coumadin) 3 mg PO SuTuWeThSa@1800 [facility] Last Admin: 01/27/18 22:15 Dose: 3 mg - Exam HEENT: Other (NG tube in place, with bilious output) GI/Abdominal Exam: Distended, Tender (SIGNIFICANTLY MORE ABDOMINAL DISTENTION AND TENDERNESS, WHEN COMPARED FROM THIS MORNING'S PHYSICAL EXAM SEVERAL HOURS AGO.) Consult PN Assessment/Plan Procedures: Procedures AGENT NOS ASSAY W/OPTIC (11/25/17) AIRWAY INHALATION TREATMENT (11/25/17) ASSAY GLUCOSE BLOOD QUANT (09/29/14) ASSAY OF FREE THYROXINE (05/12/17) ASSAY OF IRON (09/29/14) ASSAY OF LACTIC ACID (11/25/17) ASSAY OF MAGNESIUM (11/25/17) ASSAY OF NATRIURETIC PEPTIDE (11/25/17) ASSAY OF SERUM POTASSIUM (05/12/17) ASSAY OF TRANSFERRIN (09/29/14) ASSAY OF TROPONIN QUANT (05/12/17) ASSAY THYROID STIM HORMONE (05/12/17) AUTOMATED RETICULOCYTE COUNT (09/29/14) BLOOD CULTURE FOR BACTERIA (11/25/17) BLOOD GASES ANY COMBINATION (05/12/17) BLOOD TYPING SEROLOGIC ABO (09/29/14) BLOOD TYPING SEROLOGIC RH(D) (09/29/14) C-REACTIVE PROTEIN (11/25/17) CHEST X-RAY 1 VIEW FRONTAL (05/12/17) CHEST X-RAY 2VW FRONTAL&LATL (05/12/17) COMPLETE CBC W/AUTO DIFF WBC (11/25/17) COMPREHEN METABOLIC PANEL (11/25/17) CONTROL OF NOSEBLEED (10/21/17) CONTROL OF NOSEBLEED (05/30/17) CONTROL OF NOSEBLEED (02/16/15) CONTROL OF NOSEBLEED (04/04/14) CREATINE MB FRACTION (10/31/14) CT ANGIO ABDOMINAL ARTERIES (05/12/17) CT HEAD/BRAIN W/O DYE (10/31/14) ELECTROCARDIOGRAM TRACING (05/12/17) EMERGENCY DEPT VISIT (11/25/17) EMERGENCY DEPT VISIT (10/21/17) EMERGENCY DEPT VISIT (05/30/17) EMERGENCY DEPT VISIT (11/29/16) EMERGENCY DEPT VISIT (07/20/15) EMERGENCY DEPT VISIT (10/31/14) EMERGENCY DEPT VISIT (09/29/14) EMERGENCY DEPT VISIT (04/04/14) EMERGENCY DEPT VISIT (03/02/14) EVALUATE PT USE OF INHALER (05/12/17) GAIT TRAINING THERAPY (05/12/17) GLUCOSE BLOOD TEST (11/25/17) GLYCOSYLATED HEMOGLOBIN TEST (11/25/17) HEMATOCRIT (02/16/15) HEMOGLOBIN (02/16/15) HYDRATE IV INFUSION ADD-ON (10/31/14) HYDRATION IV INFUSION INIT (10/31/14) INFLUENZA ASSAY W/OPTIC (11/25/17) LIPID PANEL (09/29/14) LOWER EXTREMITY STUDY (05/12/17) MEASURE BLOOD OXYGEN LEVEL (11/25/17) MEASURE BLOOD OXYGEN LEVEL (11/25/17) MEASURE BLOOD OXYGEN LEVEL (09/29/14) MEASURE BLOOD OXYGEN LEVEL (03/02/14) MEASURE BLOOD OXYGEN LEVEL (03/02/14) METABOLIC PANEL TOTAL CA (11/25/17) MICROBE SUSCEPTIBLE DIFFUSE (03/02/14) MICROBE SUSCEPTIBLE DONOVAN (05/16/14) MYCOPLASMA ANTIBODY (11/25/17) OT EVAL HIGH COMPLEX 60 MIN (05/12/17) PROTHROMBIN TIME (11/25/17) PT EVAL MOD COMPLEX 30 MIN (05/12/17) RBC ANTIBODY SCREEN (09/29/14) RBC SED RATE AUTOMATED (03/02/14) ROUTINE VENIPUNCTURE (11/25/17) SELF CARE MNGMENT TRAINING (05/12/17) THER/PROPH/DIAG IV INF INIT (05/12/17) THERAPEUTIC ACTIVITIES (05/12/17) THERAPEUTIC EXERCISES (05/12/17) THROMBOPLASTIN TIME PARTIAL (05/12/17) URINALYSIS AUTO W/SCOPE (11/25/17) URINE BACTERIA CULTURE (03/02/14) URINE CULTURE/COLONY COUNT (11/25/17) VIT D 1 25-DIHYDROXY (05/12/17) WITHDRAWAL OF ARTERIAL BLOOD (05/12/17) X-RAY EXAM CHEST 1 VIEW (11/25/17) X-RAY EXAM CHEST 2 VIEWS (11/25/17) (1) Fecal impaction SNOMED Code(s): 11277098 Code(s): K56.41 - FECAL IMPACTION Current Visit: Yes Problem List Initiated/Reviewed/Updated: Yes My Orders Last 24 Hours: My Active Orders 01/30/18 12:45 Bisacodyl [Dulcolax] 5 mg PO DAILY Docusate Sodium [Colace] 100 mg PO BID 01/30/18 12:55 Communication Order [RC] ASDIRECTED Plan: 88 yo male, h/o of multiple medical problems, on dual antiplatelet therapy (ASA , Plavix) and recently placed on Xarelto, HD#4 admitted for ventricular tachycardia. Patient with constipation, underwent manual disimpaction at the bedside this morning, with removal of large amount of impacted stool. Fleets enema administered with patient able to self-evacuate and temporary relief of symptoms. However, patient now with worsening abdominal pain, tenderness and distention. Abferile and hemodynamically normal. Labs concerning for elevated WBC to 19k and CRP of 12.9. Lactic acid normal. - CT scan: Due to patient's renal insufficiency (Cr 1.6, increased from 1.3), a non-contrast CT scan of the Abd/pelvis was obtained. I reviewed the images, and discussed the imaging findings with Dr. Donis, staff Radiologist. The colon appears prominent, filled with stool and air, especially prominent in the cecum and RIGHT colon. There is an area of colonic thickening at the distal descending colon; unclear if this is a transition point or mass. No evidence of colonic volvulus. The small bowel appears normal and decompressed. The CT scan is concerning for a mechanical bowel obstuction vs pseudo-obstruction (Ilda's ). - Given patient's presentation, concern that he would need an invasive procedure (endoscopy vs surgery). However, given the ASA/Plavix and Xarelto use , in addition to his age and multiple medical co-morbidities, invasive procedures would be higher risk. He would benefit from a higher level of care. - The case was discussed with Dr. Deshpande (hospitalist) who is at [facility] and also the Surgeon there Dr. Claros. The patient will be transferred to Dr. Deshpande's service [facility]. Monty Wells M.D. F.A.C.S. General Surgery Pager: [phone]
--- NOTE | 2018-01-30 20:25 | PCM.SN ---
- Free Text/Narrative Note: Contacted by nursing that Michi was having intractable vomiting and nausea unresponsive to medication. NG tube had been attempted prior in day with no success and patient had bedside disimpaction preformed by Dr. Wells. Contacted Dr. Wells for further guidance. NG tube was eventually placed by nursing with approximately 200ml bilious output. Labs ordered and showed leukocytosis and an elevated CRP. Lactic acid was WNL. CT abdomen was ordered however because patient creatinine was elevated contrast was not given. CT was interpeted by Dr. Juarez as "1. Increased stool within the colon as well as mild colonic dilation particularly of the cecum. Cecal measurement is 9.2 cm. No findings of colonic obstruction. 2. His a gastric tube with tip lying within the stomach antrum. 3. Minimal left-sided pleural effusion and right-sided pleural effusion with right basilar atelectasis. 4. Other findings were felt to be incidental as described." Decision was ultimately made to transfer the patient to [facility]. Dr. Wells graciously performed discharge.
--- NOTE | 2018-01-30 20:36 | PCM.DCSUM1 ---
Discharge Summary - Hospital Course Free Text/Narrative:: 88 yo male, h/o of multiple medical problems (including arrhythmia on coumadin transitioned to Xarelto during this inpatient admission, Plavix, and ASA, with pacemaker, CAD s/p 5v CABG, HTN, AAA s/p repair, carotid stenosis s/p CEA, HTN, PVD s/p bilat LE stents, COPD, DERICK on CPAP, BPH s/p TURP, CRI, diabetic nephropathy, gout, osteopenia, and DM2) was admitted on 01/27/2018 with altered mental status, found to ventricular tachycardia, now rate-controlled during inpatient admission. He was transferred out of the ICU yesterday ([id number]), transitioned from amiodarone drip to amiodarone PO. He has also been on metoprolol. The patient was maintained on telemetry, and was rate-controlled with pacer. He would have occasional runs of vtach and PVC's. A 2D echo was performed, and the report is pending. He found to be subtherapeutic on coumadin, and during his hospitalization, he was started on Xarelto. During his inpatient stay, he was treated with pain control (narcotics, iburpofen, acetaminophen, and Lidocaine patch) for his L1 compression racture. His mental status improved, and a CT head was obtained, which showed no acute abnormalities or bleeding. Reason for transfer: Since yesterday evening, the patient has had nausea/emesis and abdominal pain. He notes no bowel movements for the past 6 days. The hospitalist service consulted General Surgery. A plain X-ray showed stool burden without evidence of obstruction. The patient was found to have impacted stool in the rectal vault , so a bedside manual disimpaction was performed, along with Fleets enema x2. Patient had temporary relief of symptoms. However, a few hours afterwards, the patient developed worsening abdominal pain , tenderness, and distention. He also had persistent nausea/emesis. An NG tube was placed, with bilious output. A CT scan was obtained (non-contrast due to worsening renal function, Cr 1.6 from 1.3), which showed findings concerning for colonic mechanical obstruction vs pseudo-obstruction. The patient was deemed likely needed invasive intervention (endoscopy vs surgery ). Given the patient's age, multiple medical problems, and on dual antiplatelet therapy (ASA/Plavix) and Xarelto, he would need a higher level of care. Last dose for ASA 81, Plavix, and Xarelto was this morning. The patient will be transferred to [facility] in [place] for further care. The case was discussed with Dr. Deshpande (hospitalist) and Dr. Claros ( Surgery). Monty Wells M.D., F.A.C.S. General Surgery Pager: [phone] - Discharge Data Discharge Date: 01/30/18 Discharge Disposition: DC/Tfer to Acute Hospital 02 Condition: Good - Discharge Diagnosis/Problem(s) (1) Fecal impaction SNOMED Code(s): 12885725 ICD Code: K56.41 - FECAL IMPACTION Status: Acute Current Visit: Yes - Patient Summary/Data Consults: Consultations 01/27/18 19:14 Consult to Case Management [CONS] Routine Consult to Bonderizer Operator [CONS] Routine Consult to Spiritual Care [CONS] Routine OT Evaluation and Treatment [CONS] Routine PT Evaluation and Treatment [CONS] Routine Respiratory Care Assess and Treatment [CONS] Routine 01/30/18 09:18 Consult to Physician [CONS] Routine - Patient Instructions Diet: NPO - Discharge Plan Home Medications: Home Meds Allopurinol [Zyloprim] 150 mg PO BEDTIME 03/02/14 [History] Aspirin [Jacey Chewable Aspirin] 81 mg PO BEDTIME 03/02/14 [History] Warfarin [Coumadin] 5 mg PO SUTUWETHFRSA 03/02/14 [History] Fluticasone/Salmeterol [Advair 500-50] 1 puff INH BID 09/29/14 [History] Warfarin Sodium [Coumadin] 2.5 mg PO MO 10/31/14 [History] Clopidogrel [Plavix] 75 mg PO DAILY 02/16/15 [History] Metoprolol Succinate [Toprol XL] 12.5 mg PO DAILY 07/20/15 [History] Albuterol/Ipratropium [DuoNeb 3.0-0.5 MG/3 ML] 3 ml NEB Q8HRRT 05/12/17 [History ] Furosemide [Lasix] 40 mg PO DAILY 09/10/17 [History] glipiZIDE [Glucotrol XL] 2.5 mg PO DAILY 11/25/17 [History] Sennosides/Docusate Sodium [Senna-Docusate Sodium] 1 each PO DAILY 11/27/17 [ History] Pravastatin [Pravachol] 20 mg PO BEDTIME 01/27/18 [History] Tamsulosin [Flomax] 0.4 mg PO DAILY 01/27/18 [History] Referrals: Tre Em MD [Ordering Only Provider] - - Discharge Summary/Plan Comment DC Time >30 min.: Yes - General Info Date of Service: 01/30/18 Subjective Update: See today's consult and progress note. - Patient Data Vitals - Most Recent: Last Vital Signs Temp 36.2 C 01/30/18 18:09 Pulse 60 01/30/18 18:09 Resp 20 01/30/18 10:51 BP 119/76 01/30/18 18:09 Pulse Ox 93 L 01/30/18 18:09 Orthostatic Blood Pressure [ 134/94 Supine] Weight - Most Recent: 75.523 kg I&O - Last 24 hours: Intake & Output 01/30/18 01/30/18 01/30/18 06:59 14:59 22:59 Intake Total 376 101 6339 Output Total 425 650 Balance -175 200 600 Lab Results - Last 24 hrs: Laboratory Results - last 24 hr 01/29/18 01/30/18 01/30/18 Range/Units 20:45 06:05 12:38 WBC (4.23-9.07) K/mm3 RBC (4.63-6.08) M/mm3 Hgb (13.7-17.5) gm/L Hct (40.1-51.0) % MCV (79.0-92.2) fl MCH (25.7-32.2) pg MCHC (32.2-35.5) g/dl RDW Std Deviation (35.1-43.9) fL Plt Count (163-337) K/mm3 MPV (9.4-12.3) fl Neut % (Auto) (34.0-67.9) % Lymph % (Auto) (21.8-53.1) % Coles % (Auto) (5.3-12.2) % Eos % (Auto) (0.8-7.0) Baso % (Auto) (0.1-1.2) % Neut # (Auto) (1.78-5.38) K/mm3 Lymph # (Auto) (1.32-3.57) K/mm3 Coles # (Auto) (0.30-0.82) K/mm3 Eos # (Auto) (0.04-0.54) K/mm3 Baso # (Auto) (0.01-0.08) K/mm3 Manual Slide Review Sodium (136-145) mEq/L Potassium (3.5-5.1) mEq/L Chloride (98-107) mEq/L Carbon Dioxide (21-32) mEq/L Anion Gap (5-15) BUN (7-18) mg/dL Creatinine (0.7-1.3) mg/dL Est Cr Clr Drug Dosing mL/min Estimated GFR (MDRD) (>60) mL/min BUN/Creatinine Ratio (14-18) Glucose (83-115) mg/dL POC Glucose 121 H 82 L 80 L (83-110) mg/dL Lactic Acid (0.4-2.0) mmol/L Calcium (8.5-10.1) mg/dL C-Reactive Protein (<1.0) mg/dL 01/30/18 01/30/18 01/30/18 Range/Units 16:40 16:40 16:40 WBC 19.60 H (4.23-9.07) K/mm3 RBC 4.28 L (4.63-6.08) M/mm3 Hgb 9.9 L (13.7-17.5) gm/L Hct 33.5 L (40.1-51.0) % MCV 78.3 L (79.0-92.2) fl MCH 23.1 L (25.7-32.2) pg MCHC 29.6 L (32.2-35.5) g/dl RDW Std Deviation 60.1 H (35.1-43.9) fL Plt Count 307 (163-337) K/mm3 MPV 10.3 (9.4-12.3) fl Neut % (Auto) 85.0 H (34.0-67.9) % Lymph % (Auto) 2.8 L (21.8-53.1) % Coles % (Auto) 11.7 (5.3-12.2) % Eos % (Auto) 0.1 L (0.8-7.0) Baso % (Auto) 0.1 (0.1-1.2) % Neut # (Auto) 16.68 H (1.78-5.38) K/mm3 Lymph # (Auto) 0.55 L (1.32-3.57) K/mm3 Coles # (Auto) 2.29 H (0.30-0.82) K/mm3 Eos # (Auto) 0.02 L (0.04-0.54) K/mm3 Baso # (Auto) 0.01 (0.01-0.08) K/mm3 Manual Slide Review Abnormal smear Sodium 140 (136-145) mEq/L Potassium 4.4 (3.5-5.1) mEq/L Chloride 104 (98-107) mEq/L Carbon Dioxide 24 (21-32) mEq/L Anion Gap 16.4 H (5-15) BUN 72 H (7-18) mg/dL Creatinine 1.6 H (0.7-1.3) mg/dL Est Cr Clr Drug Dosing 30.98 mL/min Estimated GFR (MDRD) 41 (>60) mL/min BUN/Creatinine Ratio 45.0 H (14-18) Glucose 118 H (83-115) mg/dL POC Glucose (83-110) mg/dL Lactic Acid (0.4-2.0) mmol/L Calcium 9.9 (8.5-10.1) mg/dL C-Reactive Protein 12.9 H* (<1.0) mg/dL 01/30/18 Range/Units 16:50 WBC (4.23-9.07) K/mm3 RBC (4.63-6.08) M/mm3 Hgb (13.7-17.5) gm/L Hct (40.1-51.0) % MCV (79.0-92.2) fl MCH (25.7-32.2) pg MCHC (32.2-35.5) g/dl RDW Std Deviation (35.1-43.9) fL Plt Count (163-337) K/mm3 MPV (9.4-12.3) fl Neut % (Auto) (34.0-67.9) % Lymph % (Auto) (21.8-53.1) % Coles % (Auto) (5.3-12.2) % Eos % (Auto) (0.8-7.0) Baso % (Auto) (0.1-1.2) % Neut # (Auto) (1.78-5.38) K/mm3 Lymph # (Auto) (1.32-3.57) K/mm3 Coles # (Auto) (0.30-0.82) K/mm3 Eos # (Auto) (0.04-0.54) K/mm3 Baso # (Auto) (0.01-0.08) K/mm3 Manual Slide Review Sodium (136-145) mEq/L Potassium (3.5-5.1) mEq/L Chloride (98-107) mEq/L Carbon Dioxide (21-32) mEq/L Anion Gap (5-15) BUN (7-18) mg/dL Creatinine (0.7-1.3) mg/dL Est Cr Clr Drug Dosing mL/min Estimated GFR (MDRD) (>60) mL/min BUN/Creatinine Ratio (14-18) Glucose (83-115) mg/dL POC Glucose (83-110) mg/dL Lactic Acid 1.4 (0.4-2.0) mmol/L Calcium (8.5-10.1) mg/dL C-Reactive Protein (<1.0) mg/dL Med Orders - Current: Current Medications Acetaminophen (Tylenol) 650 mg PO Q4H PRN PRN Reason: Pain (Mild 1-3)/fever Last Admin: 01/30/18 12:02 Dose: 650 mg Albuterol/Ipratropium (Duoneb 3.0-0.5 Mg/3 Ml) 3 ml NEB Q4H PRN PRN Reason: Shortness Of Breath/wheezing Last Admin: 01/30/18 08:41 Dose: 3 ml Allopurinol (Zyloprim) 150 mg PO BEDTIME [facility] Last Admin: 01/29/18 20:36 Dose: 150 mg Amiodarone HCl (Cordarone) 200 mg PO BID [facility] Last Admin: 01/30/18 12:05 Dose: 200 mg Aspirin (Halfprin) 81 mg PO BEDTIME JAROD Last Admin: 01/29/18 20:36 Dose: 81 mg Bisacodyl (Dulcolax) 5 mg PO DAILY [facility] Last Admin: 01/30/18 13:20 Dose: 5 mg Clopidogrel Bisulfate (Plavix) 75 mg PO DAILY [facility] Last Admin: 01/30/18 12:01 Dose: 75 mg Dextrose/Water (Dextrose 50% In Water) 50 ml IVPUSH ASDIRECTED PRN PRN Reason: Hypoglycemia Docusate Sodium (Colace) 100 mg PO BID [facility] Last Admin: 01/30/18 13:20 Dose: 100 mg Furosemide (Lasix) 40 mg PO DAILY [facility] Last Admin: 01/30/18 12:02 Dose: 40 mg Glipizide (Glucotrol Xl) 2.5 mg PO DAILY [facility] Last Admin: 01/30/18 12:02 Dose: 2.5 mg Hydralazine HCl (Apresoline) 10 mg IVPUSH Q4H PRN PRN Reason: Hypertension Hydromorphone HCl (Dilaudid) 0.5 mg IV Q4H PRN PRN Reason: Pain Last Admin: 01/30/18 13:29 Dose: 0.5 mg Promethazine HCl 6.25 mg/ (Sodium Chloride) 50.25 mls @ 100 mls/hr IV Q6H PRN PRN Reason: Nausea/Vomiting Last Admin: 01/30/18 15:03 Dose: 100 mls/hr Dextrose/Sodium Chloride (Dextrose 5%-Normal Saline) 1,000 mls @ 75 mls/hr IV ASDIRECTED [facility] Last Admin: 01/30/18 18:04 Dose: 75 mls/hr Ibuprofen (Motrin) 600 mg PO Q6H PRN PRN Reason: Abdominal Pain Last Admin: 01/29/18 20:36 Dose: 600 mg Insulin Aspart (Novolog) 0 unit SUBCUT QIDACANDBED [facility]; Protocol Last Admin: 01/30/18 18:51 Dose: Not Given Lidocaine (Lidoderm 5%) 700 mg TOP Q24H [facility] Last Admin: 01/29/18 20:37 Dose: 700 mg Lorazepam (Ativan) 2 mg IVPUSH Q4H PRN PRN Reason: Seizures Magnesium Sulfate (Pharmacy To Dose - Magnesium Replacement) 1 dose .XX ASDIRECTED [facility] Meclizine HCl (Antivert) 12.5 mg PO Q6H PRN PRN Reason: Dizziness Metoprolol Succinate (Toprol Xl) 12.5 mg PO DAILY [facility] Last Admin: 01/30/18 12:01 Dose: 12.5 mg Metoprolol Tartrate (Lopressor) 5 mg IVPUSH Q4H PRN PRN Reason: Tachycardia Miscellaneous Information (Remove Patch) 1 ea TRDERM DAILY [facility] Last Admin: 01/30/18 12:05 Dose: 1 ea Advair 50/500 Own (Med) 1 each INH BID [facility] Last Admin: 01/30/18 08:41 Dose: 1 each Ondansetron HCl (Zofran) 4 mg IV Q6H PRN PRN Reason: Nausea/Vomiting Last Admin: 01/30/18 09:47 Dose: 4 mg Polyethylene Glycol (Miralax) 17 gm PO DAILY PRN PRN Reason: Constipation Last Admin: 01/29/18 09:18 Dose: 17 gm Potassium Chloride (Pharmacy To Dose - Potassium Replacement) 1 dose .XX ASDIRECTED [facility] Rivaroxaban (Xarelto) 20 mg PO DAILY@1800 [facility] Last Admin: 01/30/18 18:52 Dose: Not Given Senna/Docusate Sodium (Senna Plus) 1 tab PO BID PRN PRN Reason: Constipation Senna/Docusate Sodium (Senna Plus) 1 tab PO DAILY [facility] Last Admin: 01/30/18 12:02 Dose: 1 tab Simvastatin (Zocor) 10 mg PO BEDTIME [facility] Last Admin: 01/29/18 20:36 Dose: 10 mg Discontinued Medications Hydrocodone Bitart/Acetaminophen ([place] 325-5 Mg) 1 tab PO Q4H PRN PRN Reason: Pain (moderate 4-6) Bisacodyl (Dulcolax) 5 mg PO DAILY PRN PRN Reason: Constipation Last Admin: 01/29/18 09:17 Dose: 5 mg Bisacodyl (Dulcolax) 10 mg RECTAL ONETIME ONE Stop: 01/29/18 14:50 Last Admin: 01/29/18 15:24 Dose: 10 mg Clonidine HCl (Catapres Tts-2) 0.2 mg TRDERM Q7D ONE Stop: 01/27/18 21:21 Last Admin: 01/27/18 23:27 Dose: Not Given Docusate Sodium (Colace) 100 mg PO BID PRN PRN Reason: Constipation Enoxaparin Sodium (Lovenox) 30 mg SUBCUT ONETIME ONE Stop: 01/27/18 22:06 Last Admin: 01/27/18 22:24 Dose: 30 mg Fluconazole (Diflucan) 400 mg PO ONETIME STA Stop: 01/27/18 18:55 Last Admin: 01/27/18 19:24 Dose: 400 mg Hydromorphone HCl (Dilaudid) 0.25 mg IVPUSH Q2H PRN PRN Reason: Pain (severe 7-10) Sodium Chloride (Normal Saline) 500 mls @ 999 mls/hr IV .BOLUS ONE Stop: 01/27/18 17:05 Last Admin: 01/27/18 16:41 Dose: 999 mls/hr Amiodarone HCl/Dextrose (Nexterone In Dextrose 360 Mg/200 Ml) 200 mls @ 33.333 mls/hr IV ASDIRECTED JAROD; Protocol Amiodarone HCl 150 mg/ (Dextrose/Water) 103 mls @ 600 mls/hr IV .BOLUS ONE Stop: 01/27/18 22:40 Last Admin: 01/27/18 23:53 Dose: Not Given Amiodarone HCl/Dextrose (Nexterone In Dextrose 360 Mg/200 Ml) 200 mls @ 33.333 mls/hr IV ASDIRECTED JAROD; Protocol Amiodarone HCl/Dextrose 150 mg (/ Premix) 100 mls @ 400 mls/hr IV NOW ONE Stop: 01/27/18 23:14 Last Admin: 01/27/18 23:09 Dose: 400 mls/hr Amiodarone HCl/Dextrose (Nexterone In Dextrose 360 Mg/200 Ml) 360 mg in 200 mls @ 33.333 mls/hr IV ASDIRECTED JAROD Stop: 01/28/18 05:44 Last Admin: 01/27/18 23:28 Dose: 33.333 mls/hr Amiodarone HCl/Dextrose (Nexterone In Dextrose 360 Mg/200 Ml) 360 mg in 200 mls @ 16.666 mls/hr IV Q12H [facility] Stop: 01/28/18 23:45 Last Admin: 01/28/18 17:13 Dose: 16.666 mls/hr Lactulose (Cephulac) 20 gm PO TID [facility] Last Admin: 01/30/18 16:04 Dose: Not Given Lidocaine (Lidoderm 5%) 700 mg TOP ONETIME ONE Stop: 01/27/18 21:01 Last Admin: 01/27/18 22:16 Dose: 700 mg Lorazepam (Ativan) 0.25 mg IV Q6H PRN PRN Reason: Anxiety Magnesium Hydroxide (Milk Of Magnesia) 30 ml PO ONETIME ONE Stop: 01/29/18 14:21 Last Admin: 01/29/18 14:56 Dose: Not Given Mometasone Furoate/Formoterol Fumar (Dulera 200-5 Mcg) 0 puff IH BIDRT [facility] Last Admin: 01/27/18 21:48 Dose: Not Given Ondansetron HCl (Zofran) 4 mg IVPUSH ONETIME ONE Stop: 01/27/18 16:36 Last Admin: 01/27/18 16:41 Dose: 4 mg Prednisone (Prednisone) 10 mg PO DAILY [facility] Last Admin: 01/28/18 09:40 Dose: Not Given Scopolamine (Transderm-Scop) 1.5 mg TRDERM Q72H ONE Stop: 01/27/18 19:28 Last Admin: 01/27/18 23:27 Dose: Not Given Tamsulosin HCl (Flomax) 0.4 mg PO DAILY [facility] Last Admin: 01/28/18 09:40 Dose: Not Given Warfarin Sodium (Coumadin) 6 mg PO MoFr@1800 [facility] Last Admin: 01/28/18 18:38 Dose: 6 mg Warfarin Sodium (Coumadin) 3 mg PO SuTuWeThSa@1800 [facility] Last Admin: 01/27/18 22:15 Dose: 3 mg - Exam GI/Abdominal Exam: Distended, Tender (TENDER THROUGHOUT. SIGNIFICANTLY MORE DISTENDED WHEN COMPARED TO THIS MORNING'S EXAM.)
[2018-01-30 21:13] VITALS: BP 156/75
== END 2018-01-30 21:35 | DRG 309 ==
LOC: JD.ED 15:35 → JD.MS 20:19 → OBSVTOIN 22:13 → JD.ICU 22:13 → JD.MS 01-29 10:05
PROVIDERS: ADMIT Internal Medicine; ATTEND Internal Medicine
PROC: 0D9670Z Drainage of Stomach with Drainage Device, Via Natural or Artificial Opening (ICD-10-PCS; principal; 2018-01-30)
DX: R41.0 Disorientation, unspecified (principal); I47.2 Ventricular tachycardia; B37.49 Other urogenital candidiasis; K56.609 Unspecified intestinal obstruction, unspecified as to partial versus complete obstruction; T40.2X5A Adverse effect of other opioids, initial encounter; G47.30 Sleep apnea, unspecified; I25.10 Atherosclerotic heart disease of native coronary artery without angina pectoris; J44.9 Chronic obstructive pulmonary disease, unspecified; K57.90 Diverticulosis of intestine, part unspecified, without perforation or abscess without bleeding; E11.22 Type 2 diabetes mellitus with diabetic chronic kidney disease; I12.9 Hypertensive chronic kidney disease with stage 1 through stage 4 chronic kidney disease, or unspecified chronic kidney disease; M54.5 Low back pain; N18.9 Chronic kidney disease, unspecified; M10.9 Gout, unspecified; H54.7 Unspecified visual loss; I49.9 Cardiac arrhythmia, unspecified; M85.80 Other specified disorders of bone density and structure, unspecified site; R53.1 Weakness; R26.81 Unsteadiness on feet; I49.3 Ventricular premature depolarization; E11.21 Type 2 diabetes mellitus with diabetic nephropathy; R42 Dizziness and giddiness; G47.33 Obstructive sleep apnea (adult) (pediatric); R79.1 Abnormal coagulation profile; K56.41 Fecal impaction; S32.019D Unspecified fracture of first lumbar vertebra, subsequent encounter for fracture with routine healing; W18.30XD Fall on same level, unspecified, subsequent encounter; N40.1 Benign prostatic hyperplasia with lower urinary tract symptoms; R35.0 Frequency of micturition; Z90.49 Acquired absence of other specified parts of digestive tract; Z79.01 Long term (current) use of anticoagulants; Z79.84 Long term (current) use of oral hypoglycemic drugs; Z79.82 Long term (current) use of aspirin; Z79.52 Long term (current) use of systemic steroids; Z79.899 Other long term (current) drug therapy; Z95.1 Presence of aortocoronary bypass graft; Z95.828 Presence of other vascular implants and grafts; Z95.0 Presence of cardiac pacemaker; Z87.891 Personal history of nicotine dependence; Z79.02 Long term (current) use of antithrombotics/antiplatelets
CPT/HCPCS: 36415; 70450; 71045; 80053; 81001; 82553; 83735; 84439; 84443; 84484 ×2; 85025; 85610; 87086; 87088; 93005; 94640; 96374; 99285; A9270 ×2; J1815; J2405; J7040; 74018; 74018-26; 74176; 74176-26; 80048; 82962; 83605; 86140; 93010; 93306; 94667; 94760; 94761; 97116-GP; 97162-GP; 97166-GO; 97530-GO; 97530-GP; G0378; J0282; J1170; J1650; J2550; J7042; J7050